=== PATIENT | male | born 1945 | race Caucasian/White ===

== ENCOUNTER 2021-09-21 13:41 | Inpatient (IN) ==
[2021-09-21 14:29] LABS: Basophils # (auto) 0.01 K/uL (0-0.2); Basophils % (auto) 0.2 %; Eosinophils # (auto) 0.13 K/uL (0-0.5); Eosinophils % (auto) 2.5 %; Hematocrit (blood only) 36.2 % (42-52); Hemoglobin 12.3 g/dL (14.0-18.0); Immature Granulocytes # (auto) 0.02 K/uL (0.00-0.02); Immature Granulocytes % (auto) 0.4 %; Lymphocytes # (auto) 1.06 K/uL (1.2-3.4); Lymphocytes % (auto) 20.5 %; Mean Corpuscular Hemoglobin 31.7 pg (25-34); Mean Corpuscular Volume 93.3 fL (80-100); Mean Platelet Volume 10.4 fL (7.4-10.4); Monocytes % (auto) 9.7 %; Neutrophils # (auto) 3.45 K/uL (1.4-6.5); Neutrophils % (auto) 66.7 %; Platelet Count 153 K/uL (130-400); RDW Coefficient of Variation 13.2 % (11.5-14.5); RDW Standard Deviation 44.6 fL (36.4-46.3); Red Blood Count 3.88 M/uL (4.7-6.1); White Blood Count 5.17 K/uL (4.8-10.8)
[2021-09-21 15:00] LABS: Troponin I High Sensitivity 43.5 pg/ml (0-20)
[2021-09-21 15:01] LABS: Albumin Globulin Ratio 1.3 (0.9-2); Albumin Level 3.6 gm/dl (3.4-5.0); BUN Creatinine Ratio 14.9 (10-20); Bilirubin,Total 0.6 mg/dl (0.2-1.0); Calcium 8.5 mg/dl (8.5-10.1); Creatinine Clr Calc Pharmacy 14.3 ml/min; Est GFR (African American) 14.1 ml/min; Est GFR (Non-African American) 12.1 ml/min; Globulin 2.8 gm/dl (2.5-4.0); Potassium 4.6 mmol/L (3.5-5.1); Total Protein 6.4 gm/dl (6.0-8.3)
[2021-09-21] MEDS ORDERED: SODIUM CHLORIDE 0.9% 500 ML IV ONE (15:08)
[2021-09-21] MEDS ORDERED: ONDANSETRON INJ 2 MG/ML 2 ML VIAL IV STA (15:08)
--- NOTE | 2021-09-21 15:20 | Emergency Department Note ---
Impression & Plan Weakness, Vomiting, Bradycardia, Acute uremia, Lab test positive for detection of COVID-19 virus ED Provider Note NAME: ROBIN PLUNKETT AGE: 76 SEX: M : 1945 ARRIVES VIA: Walk-In INFORMANT: Patient, the patient's daughter ED PROVIDER(S): Raghav Coppola DO CHIEF COMPLAINT: Weakness HPI: The patient is a 76-year-old male who has a history of chronic renal insufficiency who presented to the emergency department for an evaluation of generalized weakness. The patient has known chronic renal insufficiency but has not had dialysis yet. He denies having any lower extremity swelling but does complain of chest pain as well as difficulty breathing. He is also had a sore throat and congestion. He denies having any fever. His symptoms have been worsening especially over the last few days. He is also noticed chest pain and back pain. The pain is a symptoms he has had in the past and has been attributed to chronic pain. He does have a left upper extremity this been mapped for a fistula. He denies having any black or bloody bowels. Has been compliant with his usual outpatient medications. He also had an episode of emesis prior to arrival. ROS: See above HPI for pertinent positives & negatives. A total of 10 systems reviewed and were otherwise negative. PAST MEDICAL HISTORY: See Below PAST SURGICAL HISTORY: See Below FAMILY HISTORY: See Below SOCIAL HISTORY: See Below HOME MEDICATIONS: See Below ALLERGIES: See Below VITALS: See Below PHYSICAL EXAMINATION: GENERAL: Patient is awake alert in no acute distress patient is resting comfortably and showing no signs of anxiety EYES: The conjunctivae are clear. The pupils are round and reactive. EARS, NOSE, MOUTH AND THROAT: The nose is without any evidence of any deformity. Mucous membranes are moist. Tongue is midline. NECK: The neck is nontender and supple. RESPIRATORY: Diminished breath sounds are noted throughout. Rales are noted both lower extremities. CARDIOVASCULAR: Bradycardic rate with regular rhythm was noted. There is no definite murmur. GASTROINTESTINAL: The abdomen is soft. Abdomen is nontender. MUSCULOSKELETAL/EXTREMITIES: There is no evidence of gross deformity full range of motion is noted in the hips and shoulders. SKIN: There is no obvious evidence of any rash. There are no petechiae, pallor or cyanosis noted. NEUROLOGIC: Patient is awake alert and oriented x3 strength is symmetric patellar reflexes are 2+ bilaterally MEDICAL DECISION MAKING: The patient is a 76-year-old male who presented to the emergency department for an evaluation of generalized weakness and vomiting. The patient was having difficulty breathing. I discussed the patient's laboratory and radiographic studies with him. He was found to have an elevation in his creatinine compared to baseline. He was also found to have a positive COVID swab. I discussed his case with the on-call [facility]. They have agreed to evaluate the patient in the emergency department for further management and disposition. Triage Nursing notes reviewed. Prior medical records reviewed Vital Signs: reviewed and remarkable for bradycardia Differential diagnosis: Infection, dehydration, metabolic abnormality, hypo/hyperglycemia, electrolyte disturbance, anemia, hypoxia, cardiac sources, intracerebral event, toxicologic, neurologic, as well as other pathologies. ER treatment provided: See below Diagnostics interpreted by me: ECG: EKG was obtained in the emergency department. My interpretation is sinus bradycardia 44 bpm. There is no ectopy. There is no acute ST segment abnormalities noted. No previous tracing was available. Cardiac Monitoring: An order was placed for continuous cardiac monitoring. The monitor shows a rate of 49 bpm with sinus bradycardia. Laboratory studies: As stated above and show below. Imaging studies: See below Consultation(s): I discussed this case with Umesh who is on for the [facility]ist group. They will evaluate the patient in the emergency department. Past Med/Surg History Medical History Acute kidney injury Anemia due to chronic kidney disease CAD (coronary artery disease) Chronic midline thoracic back pain Dyslipidemia HTN (hypertension) Secondary hyperparathyroidism of renal origin Stage 4 chronic kidney disease Surgical History H/O heart surgery H/O thoracic aortic aneurysm repair History of cataract surgery bilateral History of hernia repair S/P CABG (coronary artery bypass graft) Family History Brother Brain tumor Mother Leukemia Denies family history of Ovarian cancer Prostate cancer Myocardial infarction Breast cancer Colorectal cancer Social History Smoking Status: Current every day smoker Tobacco Type: Cigars Age Started Using Tobacco: 41; Second Hand Exposure: Yes; Hx Alcohol Use: Yes Alcohol type: wine Hx Substance Use: No Preferred Language: Maltese Communication Ability: Effective Visual Impairment: Partially Limited Hearing Ability: Hard of Hearing 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 marital status: Single Current Living Situation: Alone current occupational status: retired How many Children do You have: 2 Feels Safe at Home: Yes Childhood Exposure to Second-Hand Smoke: Yes caffeine: Yes (coffee) Dental Care, Regularly: No Physical Activity Frequency: Daily Seatbelt Use: always Sunscreen Use: Yes Do you think of yourself as: straight/heterosexual Allergies Allergies Allergy/AdvReac Type Severity Reaction Status Date / Time No Known Drug Allergies Allergy Unknown Verified 09/21/21 15:52 Home Meds Home Medications Medication Instructions Recorded Confirmed aspirin 81 mg tablet,delayed 81 mg PO DAILY tab 12/15/18 09/21/21 release Previous Rx's Medication Instructions Recorded atorvastatin 20 mg tablet See Rx Instructions .ROUTE 12/21/20 .COMPLEX #45 tablet furosemide 40 mg tablet 40 mg PO DAILY #45 tab 07/02/21 valsartan 320 mg tablet 160 mg PO DAILY #45 tab 07/02/21 carvedilol 12.5 mg tablet 12.5 mg PO BID #180 tab 07/05/21 tramadol 50 mg tablet 100 mg PO Q12H PRN #120 tab 07/11/21 calcitriol 0.5 mcg capsule 0.5 mcg PO DAILY #90 cap 08/15/21 ergocalciferol (vitamin D2) 1,250 50,000 unit PO WEEKLY #12 cap 08/15/21 mcg (50,000 unit) capsule nifedipine 60 mg tablet,extended 60 mg PO BID #60 tab 08/28/21 release Results & Data (ED) Vital Signs Vital Signs - 24 hr 09/21/21 13:44 09/21/21 13:47 Temperature 36.5 C Temperature Source Oral Pulse Rate 52 L 45 L Pulse Rhythm Regular Regular Pulse Strength Normal Respiratory Rate 20 14 Respiratory Effort / Characteristics Non-Labored Spontaneous Respiratory Depth Normal Respiratory Pattern Regular Blood Pressure 132/66 Blood Pressure Mean 88 Pulse Oximetry 97 97 Oxygen Delivery Method Room Air Room Air Sepsis Recent Fever Within 48 Hours No Sepsis New/Unexplained Change in Mental Status N/A Sepsis Action Taken by Nursing No Action Required Laboratory Data Attestation: I reviewed the patient's lab results. Result diagrams: 09/21/21 14:00 09/21/21 14:00 Lab Results 09/21/21 09/21/21 09/21/21 Range/Units 14:00 14:00 15:30 WBC 5.17 (4.8-10.8) K/uL RBC 3.88 L (4.7-6.1) M/uL Hgb 12.3 L (14.0-18.0) g/dL Hct 36.2 L (42-52) % MCV 93.3 (80-100) fL MCH 31.7 (25-34) pg MCHC 34.0 (32-36) g/dL RDW Std Deviation 44.6 (36.4-46.3) fL RDW Coeff of [place] 13.2 (11.5-14.5) % Plt Count 153 (130-400) K/uL MPV 10.4 (7.4-10.4) fL Immature Gran % (Auto) 0.4 % Neut % (Auto) 66.7 % Lymph % (Auto) 20.5 % [place] % (Auto) 9.7 % Eos % (Auto) 2.5 % Baso % (Auto) 0.2 % Neut # (Auto) 3.45 (1.4-6.5) K/uL Lymph # (Auto) 1.06 L (1.2-3.4) K/uL [place] # (Auto) 0.50 (0.11-0.59) K/uL Eos # (Auto) 0.13 (0-0.5) K/uL Baso # (Auto) 0.01 (0-0.2) K/uL Immature Gran # (Auto) 0.02 (0.00-0.02) K/uL Sodium 139 (136-145) mmol/L Potassium 4.6 (3.5-5.1) mmol/L Chloride 108 H (98-107) mmol/L Carbon Dioxide 23 (21-32) mmol/L Anion Gap 8 (3-11) BUN 66 H (6-23) mg/dl Creatinine 4.43 H (0.6-1.4) mg/dl Est Cr Clr Drug Dosing 14.3 ml/min Est GFR ( Amer) 14.1 ml/min Est GFR (Non-Af Amer) 12.1 ml/min BUN/Creatinine Ratio 14.9 (10-20) Glucose 98 (70-99(Fasting)) mg/dl Calcium 8.5 (8.5-10.1) mg/dl Total Bilirubin 0.6 (0.2-1.0) mg/dl AST 13 (13-39) U/L ALT 12 (7-52) U/L Alkaline Phosphatase 103 (34-104) U/L Troponin I High Sens 43.5 H (0-20) pg/ml Total Protein 6.4 (6.0-8.3) gm/dl Albumin 3.6 (3.4-5.0) gm/dl Globulin 2.8 (2.5-4.0) gm/dl Albumin/Globulin Ratio 1.3 (0.9-2) Lipase 20 (11-82) U/L SARS-CoV-2, RNA, NAAT POSITIVE A* (NEGATIVE) 09/21/21 Range/Units 16:20 WBC (4.8-10.8) K/uL RBC (4.7-6.1) M/uL Hgb (14.0-18.0) g/dL Hct (42-52) % MCV (80-100) fL MCH (25-34) pg MCHC (32-36) g/dL RDW Std Deviation (36.4-46.3) fL RDW Coeff of [place] (11.5-14.5) % Plt Count (130-400) K/uL MPV (7.4-10.4) fL Immature Gran % (Auto) % Neut % (Auto) % Lymph % (Auto) % [place] % (Auto) % Eos % (Auto) % Baso % (Auto) % Neut # (Auto) (1.4-6.5) K/uL Lymph # (Auto) (1.2-3.4) K/uL [place] # (Auto) (0.11-0.59) K/uL Eos # (Auto) (0-0.5) K/uL Baso # (Auto) (0-0.2) K/uL Immature Gran # (Auto) (0.00-0.02) K/uL Sodium (136-145) mmol/L Potassium (3.5-5.1) mmol/L Chloride (98-107) mmol/L Carbon Dioxide (21-32) mmol/L Anion Gap (3-11) BUN (6-23) mg/dl Creatinine (0.6-1.4) mg/dl Est Cr Clr Drug Dosing ml/min Est GFR ( Amer) ml/min Est GFR (Non-Af Amer) ml/min BUN/Creatinine Ratio (10-20) Glucose (70-99(Fasting)) mg/dl Calcium (8.5-10.1) mg/dl Total Bilirubin (0.2-1.0) mg/dl AST (13-39) U/L ALT (7-52) U/L Alkaline Phosphatase (34-104) U/L Troponin I High Sens 38.7 H (0-20) pg/ml Total Protein (6.0-8.3) gm/dl Albumin (3.4-5.0) gm/dl Globulin (2.5-4.0) gm/dl Albumin/Globulin Ratio (0.9-2) Lipase (11-82) U/L SARS-CoV-2, RNA, NAAT (NEGATIVE) Administered Medications Lactated Ringer's (Lr) 1,000 mls @ 80 mls/hr IV .[id number] ONE Stop: 09/22/21 04:52 Last Admin: 09/21/21 17:03 Dose: 80 mls/hr Documented by: [id number] Discontinued Medications Sodium Chloride (Nss) 500 mls @ 999 mls/hr IV .Q31M ONE Stop: 09/21/21 15:38 Last Infusion: 09/21/21 17:09 Dose: 0 mls/hr Documented by: [id number] Admin: 09/21/21 15:38 Dose: 999 mls/hr Documented by: [id number] Ondansetron HCl (Ondansetron Inj 2 Mg/Ml 2 Ml Vial) 4 mg IV NOW STA Stop: 09/21/21 15:09 Last Admin: 09/21/21 15:38 Dose: 4 mg Documented by: [id number] Imaging Data Radiologist's Impression: Chest X-Ray 09/21/21 13:47 XR chest 1V portable CLINICAL HISTORY: Atypical chest pain. COMPARISON STUDY: No previous studies for comparison. FINDINGS: Median sternotomy wires are noted. There is moderate cardiomegaly wi thout evidence for pulmonary edema. There is no consolidation. There is no pneumothorax or pleural effusion. IMPRESSION: No acute cardiopulmonary findings. Moderate cardiomegaly. ACT 112: Negative or not required by law. Electronically signed by: Yuriy Bobo M.D. 09/21/2021 3:57 PM Discharge Plan Visit Data Chief Complaint: Vomiting Stated Complaint: VOMITING, WEAK, LOST VOICE ED Provider: Raghav Coppola Discharge Problem: Weakness, Vomiting, Bradycardia, Acute uremia, Lab test positive for detection of COVID-19 virus Patient Disposition: Being Evaluated by Hospitalist Discharge Problem: Vomiting Qualifiers: Vomiting type: unspecified Nausea presence: with nausea Qualified Code(s): R11.2 - Nausea with vomiting, unspecified
--- NOTE | 2021-09-21 15:55 | History & Physical Report ---
Date of Service September 21, 2021 Assessment & Plan (1) COVID: Plan: Patient with COVID unsure of onset of symptoms- but feels he started feeling worse on [id number] with fatigue, nausea/vomiting and hoarse voice - He is unvaccinated - Currently not a candidate for Remdisivir based off renal function - Not hypoxic- not candidate for steroids - Supportive efforts with hydration and GI symptom control - Albuterol nebs with flutter valve - CRP- 0.71 - PCT- <0.05 - Currently he appears intravascularly dry- IVF overnight, but suspect will need some diuresing efforts following- follow pulmonary status closely (2) VERONICA (acute kidney injury): Plan: VERONICA on CKD 4 - likely secondary to decrease oral intake and continuing his diuretics - BUN at baseline 60s CR 3.5-4--- currently 4.43 - He received 500ml of saline in EMD- continue with LR overnight x 1liter - Hold Lasix - Hold ARB - Will hold his BB until Cr/Cl improves - Electrolytes are within acceptable ranges - urine osmo, ucr, uun, urine protein pending (3) Stage 4 chronic kidney disease: Plan: As above - Has had mapping performed with plan to do in the summer - If he clinical worsens while in house requiring dialysis will need access - Continue supportive efforts as above - renally dose medications, avoid nephrotoxic against as able - He remains making urine (4) Vomiting: Plan: Multiple etiologies at this time to include DDX: GERD/gastric ulceration vs gastroparesis with worsening renal function vs. current COVID viral illness - Replete volume as above with ringers- for 1.5 liters of crystalloid total overnight - Famotidine 20mg IV BID - Adjust diet if needed - May have some component of aspiration pneumonitis with his cough and breath sound- however difficulty to ascertain in the setting of COVID - He should have a GI evaluation with EGD and Colonoscopy in the future following resolution of his COVID (5) Bradycardia: Plan: Patient with HR in the 50s noted previously- currently in the 40-50 range - Likely related to decreasing CR/CL with BB on board - Hold Carvedilol although this is moderate dosing of 12.5 mg BID (6) CAD (coronary artery disease): Plan: History of CABG- 1 vessel (SIFUENTES/LAD) - cath07/03/2008 at [facility]: Mid LAD 50%. Ramus 100%. Ostial circumflex 30%. Mid circumflex 30%. Proximal RCA 30%. Ostial PDA 30%. - Continue ASA - BB on hold - Continue statin- this appears on the lower dose - will check lipid panel in the morning - Recent stress echo 2019 (7) Elevated troponin: Plan: In EMD HscTNI - 43- 2 hour reflex down trend to 38.7 - type II mismatch with worsening renal function in relation to his acute illness - (8) Vitamin D deficiency: Plan: Follows with nephrology- no acute needs - continue ergocalciferol History of Present Illness Primary Care Provider: Abebe Ny MD 76 YOM with medical history of: CKD IV, A-V fistula mapping performed without creation, HTN, CAD with CABG, Thoracic Aneurysm repair, chronic nausea/vomiting. Patient comes to the EMD today for complaints of 2 day history of vomiting hoarse voice and fatigue. He had routine labs performed to include HScTNI, CXR, and ECG. 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 COVID test was positive on admission. He is without fever and with normal WBC count. Patient appears to be dealing with this nausea and vomiting for a few months and association with loss of appetite. He was previously trialed on Zofran and Pepcid as outpatient, but feels this has gotten worse over the past week. He is accompanied by his daughter who assisted with his history. She reports about a month ago he had a "viral" illness which was reported COVID/FLU negative at that time, but has not really returned back to normal. She got concerned over the past few days because he stated that his food was not tasting the same and had decrease in food and water intake, and this morning she felt he looked more pale and fatigued. The patient states he ate some cheese and salami yesterday and that was it, two days ago he went to restaurant and had chicken parm and threw up his food right after eating. He denies any abdominal pain. He does endorse that he has nausea and vomiting frequently and mostly it is just thick phlegm. He also endorses hoarse voice through this week. Patient has never had EGD or Colonoscopy. Patient will be admitted for COVID 19 with evidence of worsening renal function. Will provide IV hydration overnight, Famotidine for his n/v, hold his BB, diuretics and follow his renal function. COVID test on admission: POSITIVE- Patient reports that he is NOT vaccinated Allergies Allergy/AdvReac Type Severity Reaction Status Date / Time No Known Drug Allergies Allergy Unknown Verified 09/21/21 15:52 Home Medications Medication Instructions Recorded Confirmed Type aspirin 81 mg tablet,delayed 81 mg PO DAILY tab 12/15/18 09/21/21 History release atorvastatin 20 mg tablet See Rx Instructions .ROUTE 12/21/20 09/21/21 Rx .COMPLEX #45 tablet furosemide 40 mg tablet 40 mg PO DAILY #45 tab 07/02/21 09/21/21 Rx valsartan 320 mg tablet 160 mg PO DAILY #45 tab 07/02/21 09/21/21 Rx carvedilol 12.5 mg tablet 12.5 mg PO BID #180 tab 07/05/21 09/21/21 Rx tramadol 50 mg tablet 100 mg PO Q12H PRN #120 tab 07/11/21 09/21/21 Rx calcitriol 0.5 mcg capsule 0.5 mcg PO DAILY #90 cap 08/15/21 09/21/21 Rx ergocalciferol (vitamin D2) 1,250 50,000 unit PO WEEKLY #12 cap 08/15/21 09/21/21 Rx mcg (50,000 unit) capsule nifedipine 60 mg tablet,extended 60 mg PO BID #60 tab 08/28/21 09/21/21 Rx release Past Med/Surg History Medical History Acute kidney injury Anemia due to chronic kidney disease CAD (coronary artery disease) Chronic midline thoracic back pain Dyslipidemia HTN (hypertension) Secondary hyperparathyroidism of renal origin Stage 4 chronic kidney disease Surgical History H/O heart surgery H/O thoracic aortic aneurysm repair History of cataract surgery bilateral History of hernia repair S/P CABG (coronary artery bypass graft) Family History Brother Brain tumor Mother Leukemia Denies family history of Ovarian cancer Prostate cancer Myocardial infarction Breast cancer Colorectal cancer Social History (Reviewed 09/21/21 @ 16:31 by CHANTE Alba Smoking Status: Current some day smoker Tobacco Type: Cigars Age Started Using Tobacco: 41; Second Hand Exposure: No; Do You Dip or Chew Tobacco: No; Tobacco Cessation Education Requested by Patient: No Hx Alcohol Use: Yes Alcohol type: wine Hx Substance Use: No Preferred Language: [place] Communication Ability: Effective Communication Ability Comment: Able to communicate effectively in [place] Visual Impairment: Partially Limited Hearing Ability: Hard of Hearing 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 current occupational status: retired How many Children do You have: 2 Other Information That Helps Us Care for You: No Feels Safe at Home: Yes Safety Concerns: Feels Safe At This Time Childhood Exposure to Second-Hand Smoke: Yes caffeine: Yes (coffee) Dental Care, Regularly: No Physical Activity Frequency: Daily Seatbelt Use: always Sunscreen Use: Yes Do you think of yourself as: straight/heterosexual Assistive Devices: None Review of Systems Review of Systems: REVIEW OF SYSTEMS: Constitutional: No fever, sweats or chills Eyes: No diplopia, no worsening or blurred vision ENT: normal hearing, no trouble swallowing Respiratory: (+) cough, sputum, no dyspnea at rest or on exertion Cardiovascular: No chest pain, tightness or palpitations Abdomen: (+) nausea, vomiting, No pain, diarrhea or constipation Musculoskeletal: No joint pain, calf pain, swelling Neurologic: No weakness, numbness/tingling, or balance problems Psychiatric: No anxiety or depression Skin: No rash or itch Physical Exam Physical Exam: PHYSICAL EXAM: General: awake, alert, no apparent distress Head: Normocephalic, atraumatic ENT: PERRL, EOMI, no pharyngeal exudate, mucous membranes moist Neuro: AAO x 3, speech clear and appropriate, strength intact bilaterally 5/5, sensation intact and equal all extremities and dermatomes, no pronator drift Chest: equal rise and fall of the chest, no accessory muscle use, bronchial vesicular wheeze, raspy cough, scattered rhonchi in bases Cardiac: Regular rate and rhythm, telemetry reviewed- sinus radha, skin warm dry, cap refill <3 seconds, peripheral pulses +2 no JVD, no murmur, no edema GI: NABS x 4 quadrants, soft, nontender to palpation, no rebound, guarding or tenderness : Spontaneously voiding, no pain, no CVA tenderness, Extremities: Normal inspection, no peripheral edema or erythema, calfs nontende r to palpation Psych: Normal mood and affect Skin: no rash or erythema Results & Data Results & Data ([facility]) Vital Signs (Past 12 Hours) Vital Signs Temp Pulse Resp BP Pulse Ox 09/21/21 13:44 36.5 C 52 L 20 132/66 97 Laboratory Results Abnormal lab results 09/21/21 09/21/21 09/21/21 Range/Units 14:00 14:00 15:30 RBC 3.88 L (4.7-6.1) M/uL Hgb 12.3 L (14.0-18.0) g/dL Hct 36.2 L (42-52) % Lymph # (Auto) 1.06 L (1.2-3.4) K/uL Chloride 108 H (98-107) mmol/L BUN 66 H (6-23) mg/dl Creatinine 4.43 H (0.6-1.4) mg/dl Troponin I High Sens 43.5 H (0-20) pg/ml SARS-CoV-2, RNA, NAAT POSITIVE A* (NEGATIVE) Diagnostic Findings Chest X-Ray 09/21/21 13:47 XR chest 1V portable CLINICAL HISTORY: Atypical chest pain. COMPARISON STUDY: No previous studies for comparison. FINDINGS: Median sternotomy wires are noted. There is moderate cardiomegaly without evidence for pulmonary edema. There is no consolidation. There is no pneumothorax or pleural effusion. IMPRESSION: No acute cardiopulmonary findings. Moderate cardiomegaly. ACT 112: Negative or not required by law. Electronically signed by: Yuriy Bobo M.D. 09/21/2021 3:57 PM Medications Administered Home Medications aspirin 81 mg tablet,delayed release 81 mg PO DAILY tab 12/15/18 [History Confirmed 09/03/21] atorvastatin 20 mg tablet See Rx Instructions .ROUTE .COMPLEX #45 tablet [Rx Confirmed 09/03/21] furosemide 40 mg tablet 40 mg PO DAILY #45 tab 07/02/21 [Rx Confirmed 09/03/21] valsartan 320 mg tablet 160 mg PO DAILY #45 tab 07/02/21 [Rx Confirmed 09/03/21] carvedilol 12.5 mg tablet 12.5 mg PO BID #180 tab 07/05/21 [Rx Confirmed 09/03/21] tramadol 50 mg tablet 100 mg PO Q12H PRN #120 tab 07/11/21 [Rx Confirmed 09/03/21] calcitriol 0.5 mcg capsule 0.5 mcg PO DAILY #90 cap 08/15/21 [Rx Confirmed 09/03/21] ergocalciferol (vitamin D2) 1,250 mcg (50,000 unit) capsule 50,000 unit PO WEEKLY #12 cap 08/15/21 [Rx Confirmed 09/03/21] nifedipine 60 mg tablet,extended release 60 mg PO BID #60 tab 08/28/21 [Rx Confirmed 09/03/21] Active Medications Lactated Ringer's (Lr) 1,000 mls @ 80 mls/hr IV .[id number] ONE Stop: 09/22/21 04:52 Discontinued Medications Sodium Chloride (Nss) 500 mls @ 999 mls/hr IV .Q31M ONE Stop: 09/21/21 15:38 Last Admin: 09/21/21 15:38 Dose: 999 mls/hr Documented by: [id number] Ondansetron HCl (Ondansetron Inj 2 Mg/Ml 2 Ml Vial) 4 mg IV NOW STA Stop: 09/21/21 15:09 Last Admin: 09/21/21 15:38 Dose: 4 mg Documented by: [id number] ECG Additional Comments: Marked sinus bradycardia Abnormal ECG No previous ECGs available Code Status & VTE Plan Code Status CODE: FULL VTE: SCDs, Heparin 5000 units subq tid Supervising Physician Co-Signing Physician Notes Patient was seen and examined independently I discussed the case with Umesh DUGAN I reviewed pertinent past medical social family history and also the plan of care and agree with the plan of care Patient here with vomiting and shortness of breath and COVID-positive status. He is not yet hypoxic with lung exam sounds concerning he has lost his taste and smell. He said no diarrhea. Patient is VERONICA on a history of CKD reportedly has a fistula in place. We are holding Lasix and ARB and giving him gentle hydration to see if his creatinine does improve. If not we will have a nephrology consultation Chest x-ray does not show any groundglass opacities at this point Any exceptions will be noted below PG Care Time/CCT Total # of Minutes Spent Total Time Spent with Patient: Total time spent is greater than 50% in coordination of care (as documented) at patient's floor/unit and/or counseling patient: Coding Level of Care Code 58886 Initial Inpt Care Lvl 3 Diagnoses COVID U07.1 VERONICA (acute kidney injury) N17.9 Stage 4 chronic kidney disease N18.4 Vomiting R11.2 Nausea presence: with nausea Vomiting type: unspecified Bradycardia R00.1 CAD (coronary artery disease) I25.10 Vitamin D deficiency E55.9 Elevated troponin R77.8 (1) Vomiting Nausea presence: with nausea Vomiting type: unspecified Qualified Code(s): R11.2 - Nausea with vomiting, unspecified
--- NOTE | 2021-09-21 15:58 | XRay Report ---
XR chest 1V portable CLINICAL HISTORY: Atypical chest pain. COMPARISON STUDY: No previous studies for comparison. FINDINGS: Median sternotomy wires are noted. There is moderate cardiomegaly without evidence for pulm onary edema. There is no consolidation. There is no pneumothorax or pleural effusion. IMPRESSION: No acute cardiopulmonary findings. Moderate cardiomegaly. ACT 112: Negative or not required by law. Electronically signed by: Yuriy Bobo M.D. 09/21/2021 3:57 PM
[2021-09-21] MEDS ORDERED: LACTATED RINGER'S 1,000 ML IV ONE (16:23)
[2021-09-21] MEDS ORDERED: ONDANSETRON INJ 2 MG/ML 2 ML VIAL IV PRN (18:09)
[2021-09-21] MEDS ORDERED: traMADol HCL 50 MG TABLET PO PRN (18:09)
[2021-09-21] MEDS ORDERED: ACETAMINOPHEN 325 MG TAB PO PRN (18:09)
[2021-09-21 19:08] LABS: Appearance Urine Clear (Clear); Bacteria Urine Automated Negative (Negative); Bilirubin Urine Negative (Negative); Blood Urine Negative (Negative); Color Urine Yellow; Glucose Urine UA Negative (Negative); Ketones Urine Negative (Negative); Leukocyte Esterase Urine Negative (Negative); Nitrite Urine Negative (Negative); Protein Urine 2+ (Negative); RBC Urine Automated 0-4 /hpf (0-4); Specific Gravity Urine 1.011 (1.000-1.030); Urobilinogen Urine Negative (Negative); pH Urine 6.5 (4.5-7.5)
[2021-09-21 19:26] LABS: Protein Creatinine Ratio Urine 1.5 (0-0.2); Total Protein Urine Random 107.8 mg/dl (0-11.9)
[2021-09-21] MEDS: ALBUTEROL 0.083% NEBU SOLN 3 ML VIAL NEB SCH (19:36)
[2021-09-21] MEDS: HEPARIN SOD 5,000 UNIT/0.5 ML VIAL SQ SCH (21:03)
[2021-09-21] MEDS: ATORVASTATIN 10 MG TAB PO SCH (21:04)
[2021-09-21] MEDS: NIFEdipine EXTENDED REL 30 MG TABCR PO SCH (21:04)
[2021-09-21] MEDS: FAMOTIDINE 20 MG in SYRINGE 3 ML IV SCH (21:06)
[2021-09-22] MEDS: ALBUTEROL 0.083% NEBU SOLN 3 ML VIAL NEB SCH (00:43)
[2021-09-22] MEDS ORDERED: ALBUTEROL 0.083% NEBU SOLN 3 ML VIAL NEB PRN (01:02)
[2021-09-22] MEDS: HEPARIN SOD 5,000 UNIT/0.5 ML VIAL SQ SCH ×3 (06:06→21:30)
--- NOTE | 2021-09-22 07:22 | Hospitalist Progress Note ---
Date of Service September 22, 2021 Assessment & Plan (1) COVID: Plan: Patient with COVID unsure of onset of symptoms- but feels he started feeling worse on [id number] with fatigue, nausea/vomiting and hoarse voice - He is unvaccinated - does not qualify for Remdisivir secondary to CKD - Not hypoxic- not candidate for steroids - Supportive, Albuterol nebs with flutter valve (2) VERONICA (acute kidney injury): Plan: VERONICA on CKD 4 - likely secondary to decrease oral intake and continuing his diuretics - BUN at baseline 60s CR 3.5-4--- currently 4.43 - volume resuscitated with crystalloid - Hold Lasix, ARB - hold his BB heart remains low so continue to hold (3) Stage 4 chronic kidney disease: Plan: As above - Has had mapping performed with plan to do in the summer - If he clinical worsens while in house requiring dialysis will need access - Continue supportive efforts as above - renally dose medications, avoid nephrotoxic against as able - He remains making urine (4) Vomiting: Plan: - Famotidine 20mg IV BID - Adjust diet if needed - May have some component of aspiration pneumonitis with his cough and breath sound- however difficulty to ascertain in the setting of COVID \ (5) Bradycardia: Plan: Patient with HR in the 50s noted previously- currently in the 40-50 range - Likely related to decreasing CR/CL with BB on board - continue to Hold Carvedilol although this is moderate dosing of 12.5 mg BID (6) CAD (coronary artery disease): Plan: History of CABG- 1 vessel (SIFUENTES/LAD) - cath07/03/2008 at [facility]: Mid LAD 50%. Ramus 100%. Ostial circumflex 30%. Mid circumflex 30%. Proximal RCA 30%. Ostial PDA 30%. - Continue ASA - BB on hold - Continue statin- this appears on the lower dose - favorable lipid panel keeping low dose - Recent stress echo 2019 (7) Elevated troponin: Plan: In EMD HscTNI - 43- 2 hour reflex down trend to 38.7 - type II mismatch with worsening renal function in relation to his acute illness - (8) Vitamin D deficiency: Plan: Follows with nephrology- no acute needs - continue ergocalciferol Admission and Anticipated Discharge Date Admission Date: September 21, 2021 Subjective Patient states he feels improved. He is a coarse nonproductive cough. He feels weakened. He says he is getting some taste and smell back. He is able eat some food today. daughter updated , madhuri Review of Systems Review of Systems: Mild distress and significant fatigue no headache, no visual changes no speech or swallowing issues no chest pain, pressure or palpitations no shortness of breath, coarse nonproductive cough no abdominal pain, nausea or vomiting, diarrhea or constipation no dysuria, hematuria or frequency no focal joint pain or swelling no back pain, CVA tenderness or radicular pain no bruising, bleeding or rashes no focal signs of weakness or numbness or altered sensation no complaints of anxiety or depression.. Physical Exam Physical Exam: The patient appeared well nourished and normally developed. Vital signs as documented. Head exam is normocephalic atraumatic Neck is without JVD, thyromegaly, or carotid bruits. Lungs are clear to auscultation, no focal loss of breath sounds Cardiac exam, Rhythm is regular.. No murmurs, rubs or gallops. Abdominal exam reveals normal bowel sounds, soft non tender, no masses Extremities are nonedematous and both pedal pulses are present Neurologic exam is alert and oriented, no focal loss of strength or sensation Skin is without bruises or rashes Psychologically is without concerns for anxiety or depression.. Results & Data Results & Data ([facility]) Vital Signs (Past 12 Hours) Vital Signs Temp Pulse Pulse Resp BP Pulse Ox 09/22/21 04:01 97.3 F L 50 L 19 168/84 H 99 09/21/21 23:14 52 L 09/21/21 22:21 97.5 F L 58 L 18 153/70 H 94 09/21/21 22:00 60 09/21/21 21:20 50 L 17 175/70 H 97 09/21/21 19:36 58 L 16 96 PG Care Time/CCT Total # of Minutes Spent Total Time Spent with Patient: Total time spent is greater than 50% in coordination of care (as documented) at patient's floor/unit and/or counseling patient: Coding Level of Care Code 67616 Subseq Hosp Care Lvl 2 Diagnoses COVID U07.1 VERONICA (acute kidney injury) N17.9 Stage 4 chronic kidney disease N18.4 Vomiting R11.2 Nausea presence: with nausea Vomiting type: unspecified Bradycardia R00.1 CAD (coronary artery disease) I25.10 Elevated troponin R77.8 Vitamin D deficiency E55.9 (1) Vomiting Nausea presence: with nausea Vomiting type: unspecified Qualified Code(s): R11.2 - Nausea with vomiting, unspecified
[2021-09-22] MEDS: ASPIRIN 81 MG ECTAB PO SCH (08:30)
[2021-09-22] MEDS: FAMOTIDINE 20 MG in SYRINGE 3 ML IV SCH ×2 (08:30→21:25)
[2021-09-22] MEDS: NIFEdipine EXTENDED REL 30 MG TABCR PO SCH ×2 (08:31→21:25)
[2021-09-22 08:42] LABS: Basophils # (auto) 0.01 K/uL (0-0.2); Basophils % (auto) 0.2 %; Eosinophils # (auto) 0.15 K/uL (0-0.5); Eosinophils % (auto) 3.5 %; Hematocrit (blood only) 35.2 % (42-52); Hemoglobin 12.1 g/dL (14.0-18.0); Immature Granulocytes # (auto) 0.03 K/uL (0.00-0.02); Immature Granulocytes % (auto) 0.7 %; Lymphocytes # (auto) 1.12 K/uL (1.2-3.4); Lymphocytes % (auto) 25.9 %; Mean Corpuscular Hemoglobin 31.8 pg (25-34); Mean Corpuscular Hgb Conc 34.4 g/dL (32-36); Mean Corpuscular Volume 92.6 fL (80-100); Mean Platelet Volume 10.6 fL (7.4-10.4); Monocytes # (auto) 0.49 K/uL (0.11-0.59); Monocytes % (auto) 11.3 %; Neutrophils # (auto) 2.52 K/uL (1.4-6.5); Neutrophils % (auto) 58.4 %; Platelet Count 145 K/uL (130-400); RDW Coefficient of Variation 13.2 % (11.5-14.5); RDW Standard Deviation 44.6 fL (36.4-46.3); White Blood Count 4.32 K/uL (4.8-10.8)
[2021-09-22 09:04] LABS: BUN Creatinine Ratio 16.1 (10-20); C Reactive Protein 0.66 mg/dl (0-0.5); Calcium 8.4 mg/dl (8.5-10.1); Chol HDL Ratio 2.6 (0-5); Creatinine Clr Calc Pharmacy 15.9 ml/min; Est GFR (Non-African American) 13.8 ml/min; Potassium 4.3 mmol/L (3.5-5.1)
--- NOTE | 2021-09-22 14:54 | Electrocardiogram Report ---
Test Reason : Blood Pressure : / mmHG Vent. Rate : 044 BPM Atrial Rate : 044 BPM P-R Int : 188 ms QRS Dur : 100 ms QT Int : 490 ms P-R-T Axes : 033 019 048 degrees QTc Int : 418 ms Marked sinus bradycardia Abnormal ECG No previous ECGs available Confirmed by Raghav Estrada ([id number]) on 09/22/2021 2:54:27 PM Referred By: Confirmed By:Raghav Estrada
[2021-09-22] MEDS: ATORVASTATIN 10 MG TAB PO SCH (21:25)
[2021-09-23] MEDS: HEPARIN SOD 5,000 UNIT/0.5 ML VIAL SQ SCH ×3 (04:56→21:26)
[2021-09-23 08:26] LABS: Eosinophils # (auto) 0.13 K/uL (0-0.5); Eosinophils % (auto) 2.7 %; Hematocrit (blood only) 35.4 % (42-52); Hemoglobin 11.6 g/dL (14.0-18.0); Immature Granulocytes # (auto) 0.04 K/uL (0.00-0.02); Immature Granulocytes % (auto) 0.8 %; Lymphocytes # (auto) 1.12 K/uL (1.2-3.4); Lymphocytes % (auto) 23.5 %; Mean Corpuscular Hemoglobin 30.3 pg (25-34); Mean Corpuscular Hgb Conc 32.8 g/dL (32-36); Mean Corpuscular Volume 92.4 fL (80-100); Mean Platelet Volume 10.3 fL (7.4-10.4); Monocytes % (auto) 10.5 %; Neutrophils # (auto) 2.98 K/uL (1.4-6.5); Neutrophils % (auto) 62.5 %; Platelet Count 148 K/uL (130-400); RDW Coefficient of Variation 13.3 % (11.5-14.5); RDW Standard Deviation 44.6 fL (36.4-46.3); Red Blood Count 3.83 M/uL (4.7-6.1); White Blood Count 4.77 K/uL (4.8-10.8)
[2021-09-23 08:55] LABS: BUN Creatinine Ratio 15.3 (10-20); C Reactive Protein 0.97 mg/dl (0-0.5); Calcium 8.4 mg/dl (8.5-10.1); Creatinine Clr Calc Pharmacy 14.7 ml/min; Est GFR (African American) 14.6 ml/min; Est GFR (Non-African American) 12.6 ml/min; Potassium 4.3 mmol/L (3.5-5.1)
[2021-09-23] MEDS ORDERED: ERGOCALCIFEROL 50,000 UNITS 1250 MCG CAP PO SCH (09:00)
[2021-09-23] MEDS: ASPIRIN 81 MG ECTAB PO SCH (09:46)
[2021-09-23] MEDS: NIFEdipine EXTENDED REL 30 MG TABCR PO SCH (09:46)
[2021-09-23] MEDS: FAMOTIDINE 20 MG in SYRINGE 3 ML IV SCH ×2 (11:07→20:19)
--- NOTE | 2021-09-23 13:47 | Hospitalist Progress Note ---
Date of Service September 23, 2021 Assessment & Plan (1) COVID: Plan: Patient with COVID unsure of onset of symptoms- but feels he started feeling worse on [id number] with fatigue, nausea/vomiting and hoarse voice - He is unvaccinated - does not qualify for Remdisivir secondary to CKD - Not hypoxic- not candidate for steroids - Supportive, Albuterol nebs with flutter valve -patient reports feeling better on 09/23 (2) VERONICA (acute kidney injury): Plan: VERONICA on CKD 4 - likely secondary to decrease oral intake and continuing his diuretics - BUN at baseline 60s CR 3.5-4--- currently 4.43 - volume resuscitated with crystalloid - Hold Lasix, ARB - hold his BB heart remains low so continue to hold -continues to go up. willl consult nephro (3) Stage 4 chronic kidney disease: Plan: As above - Has had mapping performed with plan to do in the summer - If he clinical worsens while in house requiring dialysis will need access - Continue supportive efforts as above - renally dose medications, avoid nephrotoxic against as able - He remains making urine (4) Vomiting: Plan: - Famotidine 20mg IV BID - Adjust diet if needed - May have some component of aspiration pneumonitis with his cough and breath sound- however difficulty to ascertain in the setting of COVID \ (5) Bradycardia: Plan: Patient with HR in the 50s noted previously- currently in the 40-50 range - Likely related to decreasing CR/CL with BB on board - continue to Hold Carvedilol although this is moderate dosing of 12.5 mg BID -though nifedipine should not necesarrily cause bradycardia, will hold it for now. Patient had a 2 second pause on 09/23 (6) CAD (coronary artery disease): Plan: History of CABG- 1 vessel (SIFUENTES/LAD) - [facility]: Mid LAD 50%. Ramus 100%. Ostial circumflex 30%. Mid circumflex 30%. Proximal RCA 30%. Ostial PDA 30%. - Continue ASA - BB on hold - Continue statin- this appears on the lower dose - favorable lipid panel keeping low dose - Recent stress echo 2019 (7) Elevated troponin: Plan: In EMD HscTNI - 43- 2 hour reflex down trend to 38.7 - type II mismatch with worsening renal function in relation to his acute illness - (8) Vitamin D deficiency: Plan: Follows with nephrology- no acute needs - continue ergocalciferol Admission and Anticipated Discharge Date Admission Date: September 21, 2021 Subjective Mr. Zhong reports feeling better. He has no new complaints. Review of Systems Review of Systems: All systems reviewed & are unremarkable except as noted in HPI & below Physical Exam Physical Exam: The patient appeared well nourished and normally developed. Vital signs as documented. Head exam is normocephalic atraumatic Neck is without JVD, thyromegaly, or carotid bruits. Lungs are clear to auscultation, no focal loss of breath sounds Cardiac exam, Rhythm is regular.. No murmurs, rubs or gallops. Abdominal exam reveals normal bowel sounds, soft non tender, no masses Extremities are nonedematous and both pedal pulses are present Neurologic exam is alert and oriented, no focal loss of strength or sensation Skin is without bruises or rashes Psychologically is without concerns for anxiety or depression.. Results & Data Results & Data ([facility]) Vital Signs (Past 12 Hours) Vital Signs Temp Pulse Pulse Resp BP Pulse Ox 09/23/21 11:49 36.6 C 56 L 18 179/79 H 94 09/23/21 08:13 36.6 C 64 18 158/70 H 90 09/23/21 06:45 64 09/23/21 04:52 36.7 C 68 16 187/70 H 94 PG Care Time/CCT Total # of Minutes Spent Total Time Spent with Patient: Total time spent is greater than 50% in coordination of care (as documented) at patient's floor/unit and/or counseling patient: Coding Level of Care Code 86946 Subseq Hosp Care Lvl 3 Diagnoses COVID U07.1 VERONICA (acute kidney injury) N17.9 Stage 4 chronic kidney disease N18.4 Vomiting R11.2 Nausea presence: with nausea Vomiting type: unspecified Bradycardia R00.1 CAD (coronary artery disease) I25.10 Elevated troponin R77.8 Vitamin D deficiency E55.9 (1) Vomiting Nausea presence: with nausea Vomiting type: unspecified Qualified Code(s): R11.2 - Nausea with vomiting, unspecified
[2021-09-23] MEDS ORDERED: LACTATED RINGER'S 1,000 ML IV SCH (19:00)
--- NOTE | 2021-09-23 19:06 | Nephrology Consultation ---
Date of Consultation September 23, 2021 Assessment & Plan (1) VERONICA (acute kidney injury): Clinically consistent with prerenal physiology from intravascular volume depletion complicated by possible ATN. Electrolytes acceptable. Volume status relatively euvolemic at this time. PO intake acceptable. IVF held. Diuretics held. Continue to hold ARB. Medications are currently appropriately dosed for kidney dysfunction. Document strict I/O's. Non-oliguric. Repeat metabolic profile tomorrow AM. (2) COVID: Has not required additional treatment. Minimal symptoms currently. Remdesivir contraindicated due to kidney dysfunction. (3) Stage 5 chronic kidney disease: CKD V A3. Planning IHD when indicated. No emergent indication for dialysis. Followed by Dr. Kothari in [place] as outpatient. Continue calcitriol as Rx. (4) Anemia due to chronic kidney disease: Chronic, stable. No need for VETO therapy. History of Present Illness Reason for Consultation: VERONICA, CKD Requesting Physician: Lucas Damon Attending Physician: Lucas Damon History of Present Illness Mr. Jose Zhong is a 76-year-old male with CKD IV A3. 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 Mr. Zhong follows in the outpatient nephrology clinic with Dr. Kothari. Baseline creatinine has been ~3.5 mg/dL. He has initiated predialysis planning. Vein mapping completed by Dr. Jones. L antecubital AVF placement to be scheduled in the near future. Complications of CKD include mild anemia which has not required VETO therapy and CMD/MBD with sPTH. Medical history is also notable for a thoracic aortic aneurysm, BPH, and hearing loss. He presented to [facility] on 09/21 with hoarseness and shortness of breath. Evaluation notable for COVID+. Mr. Zhong is not vaccinated. Serum creatinine 3.9 mg/dL on admission. Serum creatinine 4.3 mg/dL today. He is non- oliguric. IV crystalloid provided on admission. Lasix and ARB held. Mr. Zhong feels well. At the time of my evaluation this evening, he was requesting to be discharged home. He told me that he does not understand the reason for continued hospitalization. He notes that he feels well. His appetite is good. He can rest better at home than in the hospital. The food at home is also better. He is not concerned about his kidney dysfunction. He tells me, "It goes up and down. If we are not starting dialysis now, let me monitor it at home." Allergies Allergy/AdvReac Type Severity Reaction Status Date / Time No Known Drug Allergies Allergy Unknown Verified 09/21/21 15:52 Home Medications Medication Instructions Recorded Confirmed Type aspirin 81 mg tablet,delayed 81 mg PO DAILY tab 12/15/18 09/21/21 History release atorvastatin 20 mg tablet See Rx Instructions .ROUTE 12/21/20 09/21/21 Rx .COMPLEX #45 tablet furosemide 40 mg tablet 40 mg PO DAILY #45 tab 07/02/21 09/21/21 Rx valsartan 320 mg tablet 160 mg PO DAILY #45 tab 07/02/21 09/21/21 Rx carvedilol 12.5 mg tablet 12.5 mg PO BID #180 tab 07/05/21 09/21/21 Rx tramadol 50 mg tablet 100 mg PO Q12H PRN #120 tab 07/11/21 09/21/21 Rx calcitriol 0.5 mcg capsule 0.5 mcg PO DAILY #90 cap 08/15/21 09/21/21 Rx ergocalciferol (vitamin D2) 1,250 50,000 unit PO WEEKLY #12 cap 08/15/21 09/21/21 Rx mcg (50,000 unit) capsule nifedipine 60 mg tablet,extended 60 mg PO BID #60 tab 08/28/21 09/21/21 Rx release Patient History Medical History (Updated 09/23/21 @ 19:02 by Ron Grimm DO) Acute kidney injury Anemia due to chronic kidney disease CAD (coronary artery disease) Chronic midline thoracic back pain Dyslipidemia HTN (hypertension) Secondary hyperparathyroidism of renal origin Surgical History H/O heart surgery H/O thoracic aortic aneurysm repair History of cataract surgery bilateral History of hernia repair S/P CABG (coronary artery bypass graft) Family History Brother Brain tumor Mother Leukemia Denies family history of Ovarian cancer Prostate cancer Myocardial infarction Breast cancer Colorectal cancer Social History Smoking Status: Current some day smoker Tobacco Type: Cigars Age Started Using Tobacco: 41; Second Hand Exposure: No; Do You Dip or Chew Tobacco: No; Tobacco Cessation Education Requested by Patient: No Hx Alcohol Use: Yes Alcohol type: wine Hx Substance Use: No Preferred Language: Niuean Communication Ability: Effective Communication Ability Comment: Able to communicate effectively in Niuean Visual Impairment: Partially Limited Hearing Ability: Hard of Hearing Logistics Clerk Required: No Beliefs That Will Affect Care: None marital status: Single Current Living Situation: Alone Current Living Situation Comment: Lives alone, but within a close vacinity to daughter. current occupational status: retired How many Children do You have: 2 Other Information That Helps Us Care for You: No Feels Safe at Home: Yes Safety Concerns: Feels Safe At This Time Childhood Exposure to Second-Hand Smoke: Yes caffeine: Yes (coffee) Dental Care, Regularly: No Physical Activity Frequency: Daily Seatbelt Use: always Sunscreen Use: Yes Do you think of yourself as: straight/heterosexual Assistive Devices: None Review of Systems Review of Systems: All systems reviewed & are unremarkable except as noted in HPI & below Ear, Nose, Mouth, Throat: + sore throat and + hoarseness Respiratory: + cough and + chest congestion; no dyspnea, no dyspnea on exertion, no pain with cough and no sputum production Physical Exam Constitutional: well developed; no acute distress Eyes: no scleral abnormality and no corneal abnormality ENMT: Mouth: no oral mucosal abnormality and oral mucous membranes not dry Neck: normal visual inspection and trachea midline Respiratory: normal respiratory effort Auscultation: lungs clear to auscultation bilaterally Cardiovascular: Rate/Rhythm: regular rate Heart Sounds: normal S1 and normal S2 Extremities: no edema Musculoskeletal: Extremities: no cyanosis and no clubbing Skin: normal turgor; no lesions Neurologic: Motor/Sensory: no tremor and no asterixis Psychiatric: Orientation: alert and oriented x 3 Results & Data ([facility]) Vital Signs (Past 12 Hours) Vital Signs Temp Pulse Pulse Resp BP Pulse Ox 09/23/21 15:41 36.5 C 54 L 19 185/75 H 94 09/23/21 14:20 52 L 09/23/21 11:49 36.6 C 56 L 18 179/79 H 94 09/23/21 08:13 36.6 C 64 18 158/70 H 90 Laboratory Results Laboratory Results - last 24 hr 09/23/21 09/23/21 07:54 07:54 WBC 4.77 L RBC 3.83 L Hgb 11.6 L Hct 35.4 L MCV 92.4 MCH 30.3 MCHC 32.8 RDW Std Deviation 44.6 RDW Coeff of [place] 13.3 Plt Count 148 MPV 10.3 Immature Gran % (Auto) 0.8 Neut % (Auto) 62.5 Lymph % (Auto) 23.5 Centre % (Auto) 10.5 Eos % (Auto) 2.7 Baso % (Auto) 0.0 Neut # (Auto) 2.98 Lymph # (Auto) 1.12 L Centre # (Auto) 0.50 Eos # (Auto) 0.13 Baso # (Auto) 0.00 Immature Gran # (Auto) 0.04 H Sodium 140 Potassium 4.3 Chloride 110 H Carbon Dioxide 22 Anion Gap 8 BUN 66 H Creatinine 4.30 H D Est Cr Clr Drug Dosing 14.7 Est GFR ( Amer) 14.6 Est GFR (Non-Af Amer) 12.6 BUN/Creatinine Ratio 15.3 Glucose 83 Calcium 8.4 L Magnesium 2.0 C-Reactive Protein 0.97 H PG Care Time/CCT Total # of Minutes Spent Total Time Spent with Patient: Total time spent is greater than 50% in coordination of care (as documented) at patient's floor/unit and/or counseling patient: Coding Level of Care Code 57522 Inpt Consult Level 4 Diagnoses VERONICA (acute kidney injury) N17.9 COVID U07.1 Stage 5 chronic kidney disease N18.5 Anemia due to chronic kidney disease N18.9; D63.1
[2021-09-23] MEDS: ATORVASTATIN 10 MG TAB PO SCH (20:11)
[2021-09-24] MEDS: hydrALAZINE HCL 20 MG/ML VIAL IV PRN ×2 (01:10→12:48)
[2021-09-24] MEDS: HEPARIN SOD 5,000 UNIT/0.5 ML VIAL SQ SCH ×2 (05:02→14:48)
[2021-09-24] MEDS: ASPIRIN 81 MG ECTAB PO SCH (08:50)
[2021-09-24] MEDS: FAMOTIDINE 20 MG in SYRINGE 3 ML IV SCH (08:51)
--- NOTE | 2021-09-24 09:51 | Nephrology Progress Note ---
Date of Service September 24, 2021 Assessment & Plan (1) VERONICA (acute kidney injury): Plan: Clinically consistent with prerenal physiology from intravascular volume depletion complicated by possible ATN. Electrolytes acceptable. Volume status appears euvolemic at this time. PO intake acceptable. IVF held. Diuretics held. Continue to hold ARB. Medications are currently appropriately dosed for kidney dysfunction. Non-oliguric. Repeat metabolic profile pending this AM. If creatinine stable/improved, discharge home with close outpatient follow up and monitoring or blood work would be acceptable. (2) COVID: Plan: Has not required additional treatment. Minimal symptoms currently. Remdesivir contraindicated due to kidney dysfunction. (3) Stage 5 chronic kidney disease: Plan: CKD V A3. Planning IHD when indicated. No emergent indication for dialysis. Followed by Dr. Kothari in [place] as outpatient. Continue calcitriol as Rx. (4) Anemia due to chronic kidney disease: Plan: Chronic, stable. No need for VETO therapy. Admission and Anticipated Discharge Date Admission Date: September 21, 2021 Subjective No acute events overnight. Only complaint this AM is that he is still in the hospital. Appetite is good. No dyspnea. Mild persistent hoarseness. Persistent non productive cough. No fevers or chills. No urinary complaints. AM labs pending. Review of Systems Review of Systems: All systems reviewed & are unremarkable except as noted in HPI & below Physical Exam Constitutional: well developed; no acute distress Eyes: no scleral abnormality and no corneal abnormality ENMT: Mouth: no oral mucosal abnormality and oral mucous membranes not dry Neck: normal visual inspection and trachea midline Respiratory: normal respiratory effort Auscultation: lungs clear to auscultation bilaterally Cardiovascular: Rate/Rhythm: regular rate Heart Sounds: normal S1 and normal S2 Extremities: no edema Musculoskeletal: Extremities: no cyanosis and no clubbing Skin: normal turgor; no lesions Neurologic: Motor/Sensory: no tremor and no asterixis Psychiatric: Orientation: alert and oriented x 3 Results & Data ([facility]) Vital Signs (Past 12 Hours) Vital Signs Temp Pulse Pulse Resp BP Pulse Ox 09/24/21 08:04 36.6 C 90 18 148/95 H 96 09/24/21 06:45 47 L 09/24/21 03:37 36.6 C 55 L 16 182/68 H 96 09/24/21 01:09 36.5 C 51 L 16 198/75 H 96 09/23/21 23:13 117 H 09/23/21 22:57 51 L PG Care Time/CCT Total # of Minutes Spent Total Time Spent with Patient: Total time spent is greater than 50% in coordination of care (as documented) at patient's floor/unit and/or counseling patient: Coding Level of Care Code 59505 Subseq Hosp Care Lvl 3 Diagnoses VERONICA (acute kidney injury) N17.9 COVID U07.1 Stage 5 chronic kidney disease N18.5 Anemia due to chronic kidney disease N18.9; D63.1
[2021-09-24 10:11] LABS: Hemoglobin 11.7 g/dL (14.0-18.0); Mean Corpuscular Hemoglobin 31.5 pg (25-34); Mean Corpuscular Hgb Conc 34.4 g/dL (32-36); Mean Corpuscular Volume 91.6 fL (80-100); Mean Platelet Volume 10.3 fL (7.4-10.4); Platelet Count 148 K/uL (130-400); RDW Standard Deviation 43.8 fL (36.4-46.3); Red Blood Count 3.71 M/uL (4.7-6.1); White Blood Count 4.64 K/uL (4.8-10.8)
[2021-09-24 10:31] LABS: Basophils # (auto) 0.01 K/uL (0-0.2); Basophils % (auto) 0.2 %; Eosinophils # (auto) 0.08 K/uL (0-0.5); Eosinophils % (auto) 1.7 %; Immature Granulocytes # (auto) 0.06 K/uL (0.00-0.02); Immature Granulocytes % (auto) 1.3 %; Lymphocytes # (auto) 0.86 K/uL (1.2-3.4); Lymphocytes % (auto) 18.5 %; Monocytes # (auto) 0.55 K/uL (0.11-0.59); Monocytes % (auto) 11.9 %; Neutrophils # (auto) 3.08 K/uL (1.4-6.5); Neutrophils % (auto) 66.4 %
[2021-09-24 10:41] LABS: BUN Creatinine Ratio 15.1 (10-20); C Reactive Protein 1.12 mg/dl (0-0.5); Calcium 8.5 mg/dl (8.5-10.1); Creatinine Clr Calc Pharmacy 15.6 ml/min; Est GFR (African American) 15.7 ml/min; Est GFR (Non-African American) 13.5 ml/min; Potassium 4.2 mmol/L (3.5-5.1)
[2021-09-24] MEDS ORDERED: DOXAZOSIN MESYLATE 1 MG TAB PO ONE (13:12)
[2021-09-25 08:31] LABS: Urea Nitrogen, Random Urine 504 mg/dL
--- NOTE | 2021-10-17 16:13 | Discharge Summary ---
Date of Service September 24, 2021 Admission HPI Per Admitting Provider 76 YOM with medical history of: CKD IV, A-V fistula mapping performed without creation, HTN, CAD with CABG, Thoracic Aneurysm repair, chronic nausea/vomiting. Patient comes to the EMD today for complaints of 2 day history of vomiting hoarse voice and fatigue. He had routine labs performed to include HScTNI, CXR, and ECG. 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 COVID test was positive on admission. He is without fever and with normal WBC count. Patient appears to be dealing with this nausea and vomiting for a few months and ass ociation with loss of appetite. He was previously trialed on Zofran and Pepcid as outpatient, but feels this has gotten worse over the past week. He is accompanied by his daughter who assisted with his history. She reports about a month ago he had a "viral" illness which was reported COVID/FLU negative at that time, but has not really returned back to normal. She got concerned over the past few days because he stated that his food was not tasting the same and had decrease in food and water intake, and this morning she felt he looked more pale and fatigued. The patient states he ate some cheese and salami yesterday and that was it, two days ago he went to restaurant and had chicken parm and threw up his food right after eating. He denies any abdominal pain. He does endorse that he has nausea and vomiting frequently and mostly it is just thick phlegm. He also endorses hoarse voice through this week. Patient has never had EGD or Colonoscopy. Patient will be admitted for COVID 19 with evidence of worsening renal function. Will provide IV hydration overnight, Famotidine for his n/v, hold his BB, diuretics and follow his renal function. COVID test on admission: POSITIVE- Patient reports that he is NOT vaccinated Principal Diagnosis COVID Discharge Exam The patient appeared well nourished and normally developed. Vital signs as documented. Head exam is normocephalic atraumatic Neck is without JVD, thyromegaly, or carotid bruits. Lungs are clear to auscultation, no focal loss of breath sounds Cardiac exam, Rhythm is regular.. No murmurs, rubs or gallops. Abdominal exam reveals normal bowel sounds, soft non tender, no masses Extremities are nonedematous and both pedal pulses are present Neurologic exam is alert and oriented, no focal loss of strength or sensation Skin is without bruises or rashes Psychologically is without concerns for anxiety or depression.. Discharge Data Allergies Allergy/AdvReac Type Severity Reaction Status Date / Time No Known Drug Allergies Allergy Unknown Verified 10/08/21 14:34 Consultations 09/21/21 15:35 ED Decision to Admit Stat 09/23/21 16:55 Consult Nephrology Routine Hospital Course (1) COVID: Patient with COVID unsure of onset of symptoms- but feels he started feeling worse on [id number] with fatigue, nausea/vomiting and hoarse voice - He is unvaccinated - does not qualify for Remdisivir secondary to CKD - Not hypoxic- not candidate for steroids - Supportive, Albuterol nebs with flutter valve -patient reports feeling better on 09/23 -OK FOR DISCHARGE ON 09/24. (2) VERONICA (acute kidney injury): VERONICA on CKD 4 - likely secondary to decrease oral intake and continuing his diuretics - BUN at baseline 60s CR 3.5-4--- currently 4.43 - volume resuscitated with crystalloid - Hold Lasix, ARB - hold his BB heart remains low so continue to hold -continues to go up. -Appreciate input from Nephro: clinically consistent with prerenal physiology from intravascular volume depletion complicated by possible ATN. Electrolytes acceptable. Volume status relatively euvolemic at this time. PO intake acceptable. IVF held. Diuretics held. Continue to hold ARB. Medications are currently appropriately dosed for kidney dysfunction. Document strict I/O's. Non-oliguric. Repeat metabolic profile tomorrow AM. (3) Stage 4 chronic kidney disease: As above - Has had mapping performed with plan to do in the summer - If he clinical worsens while in house requiring dialysis will need access - Continue supportive efforts as above - renally dose medications, avoid nephrotoxic against as able - He remains making urine (4) Vomiting: - Famotidine 20mg IV BID - Adjust diet if needed - May have some component of aspiration pneumonitis with his cough and breath sound- however difficulty to ascertain in the setting of COVID (5) Bradycardia: Patient with HR in the 50s noted previously- currently in the 40-50 range - Likely related to decreasing CR/CL with BB on board - continue to Hold Carvedilol although this is moderate dosing of 12.5 mg BID -though nifedipine should not necesarrily cause bradycardia, will hold it for now. Patient had a 2 second pause on 09/23 (6) CAD (coronary artery disease): History of CABG- 1 vessel (SIFUENTES/LAD) [facility] Mid LAD 50%. Ramus 100%. Ostial circumflex 30%. Mid circumflex 30%. Proximal RCA 30%. Ostial PDA 30%. - Continue ASA - BB on hold - Continue statin- this appears on the lower dose - favorable lipid panel keeping low dose - Recent stress echo 2019 (7) Elevated troponin: In EMD HscTNI - 43- 2 hour reflex down trend to 38.7 - type II mismatch with worsening renal function in relation to his acute illness - (8) Vitamin D deficiency: Follows with nephrology- no acute needs - continue ergocalciferol Total Time Total Time Spent Total Time Spent (In Minutes): 35 Discharge Plan Discharge Items Patient Disposition: Home - Self-Care Reason For Visit: COVID19,VOMITING,ELEVATED RENAL FUNCTION Discharge Diagnosis: COVID 19, vomiting, elevated renal function Activity: Resume your previous activity Non-emergency contact: Primary Care Provider Call non-emergency contact if: you have any medication questions Follow-up/Referrals: Abebe Ny MD [Primary Care Provider] - 09/26/21 12:30 pm Diet: Carb Consistent or DM2 Addtl Attending Provider Instructions: You were diagnosed with COVID 19. Thankfully you did not require any medications for COVID 19. Your creatinine did increase and it appears this was from dehydration. Thankfully, your numbers have been improving on day of discharge. Nephrology was consulted and recommended to hold lasix, valsartan. Will have you continue on doxazosin (new medication) and Nifedipine. In regards to your heart rate was low, will hold the carvedilol. You will have blood work done on Thursday. Will recommend followup with PCP in 1-2 weeks. Recommend followup with Nephrology within the next month. Pending Studies at Discharge: No Stand-Alone Forms: My [employer], Smoking Cessation Medications and DC Order Prescriptions: New doxazosin 1 mg tablet 1 mg PO HS Qty: 30 RF: 0 Continued atorvastatin 20 mg tablet See Rx Instructions .ROUTE .COMPLEX Qty: 45 RF: 3 nifedipine 60 mg tablet extended release 60 mg PO BID Qty: 60 RF: 5 aspirin 81 mg tablet,delayed release (DR/EC) 81 mg PO DAILY RF: 0 ergocalciferol (vitamin D2) 1,250 mcg (50,000 unit) capsule 50,000 unit PO WEEKLY Qty: 12 RF: 0 calcitriol 0.5 mcg capsule 0.5 mcg PO DAILY Qty: 90 RF: 2 Discontinued furosemide 40 mg tablet 40 mg PO DAILY Qty: 45 RF: 6 valsartan 320 mg tablet 160 mg PO DAILY Qty: 45 RF: 3 carvedilol 12.5 mg tablet 12.5 mg PO BID Qty: 180 RF: 3 No Action tramadol 50 mg tablet 100 mg PO Q12H PRN (Reason: pain) Qty: 120 RF: 0 carvedilol 12.5 mg tablet 12.5 mg PO BID Qty: 60 RF: 5 valsartan 320 mg tablet 160 mg PO DAILY Qty: 45 RF: 2 Discharge Orders: Discharge Order (Routine); Ordered 09/24/21 Ordered By: Lucas Damon Admission Data Admit Date/Time: 09/21/21 16:23 Attending Provider: Lucas Damon Admit Provider: Kaden Benitez Primary Care Provider: Abebe Ny Other Providers: Ron Grimm Other Interventions: Discharge Summary Assessment (RN) Last Done: 09/24/21 15:06 Coding Level of Care Code D/C DAY MANAGEMENT >30 MINS Diagnoses COVID U07.1 VERONICA (acute kidney injury) N17.9 Stage 4 chronic kidney disease N18.4 Vomiting R11.2 Nausea presence: with nausea Vomiting type: unspecified Bradycardia R00.1 CAD (coronary artery disease) I25.10 Elevated troponin R77.8 Vitamin D deficiency E55.9
== END 2021-09-24 16:00 | disposition home or self-care (01) | DRG 177 ==
LOC: ED 13:41 → SUATTDRO 16:23 → EDINP 16:23 → 2S 19:00

== ENCOUNTER 2022-02-12 15:23 | Inpatient (IN) ==
[2022-02-12] MEDS ORDERED: CALCIUM GLUCONATE 10% 1,000 MG in DEXTROSE 5% 50 ML IV STA (16:14)
[2022-02-12] MEDS ORDERED: STAT IV STA (16:14)
--- NOTE | 2022-02-12 16:14 | Emergency Department Note ---
History of Present Illness General Chief complaint: Illness Stated complaint: WEAKNESS,VOMITING, STAGE 5 KIDNEY FAILURE Time Seen by Provider: 02/12/22 15:57 History of Present Illness Provider complaint: Lethargy Onset (ago): week(s) 2 Associated symptoms: + confusion, + malaise, + nausea/vomiting and + weakness; no chest pain, no cough, no fever/chills, no headaches or no shortness of breath 76-year-old male with CKD stage V presents emergency department with daughter. Daughter states that the patient was recently diagnosed with multiple myeloma probably based off of recent PET scan. Daughter is providing history and states that the patient has been having increased lethargy. She reports that the patient has lost 20 pounds over the last 12 days. She reports that he started vomiting. No hematemesis coffee-ground emesis or bilious vomiting. No chest pain or difficulty breathing that is new. Patient has chronic pain. She reports that the patient has been having hallucinations. Increased confusion. No headache. No fever. Home Medications Medication Instructions Recorded Confirmed Type aspirin 81 mg tablet,delayed 81 mg PO HS 12/15/18 02/12/22 History release nifedipine 60 mg tablet,extended 60 mg PO BID #60 tabs 08/28/21 02/12/22 Rx release carvedilol 12.5 mg tablet 12.5 mg PO BID #60 tabs 10/08/21 02/12/22 Rx furosemide 40 mg tablet (Lasix) 40 mg PO DAILY 11/15/21 02/12/22 History zolpidem 5 mg tablet (Ambien) 5 mg PO HS PRN sleep #14 tabs 12/17/21 02/12/22 Rx atorvastatin 20 mg tablet (Lipitor) 10 mg PO HS 01/10/22 02/12/22 History doxazosin 2 mg tablet (Cardura) 2 mg PO DAILY 01/10/22 02/12/22 History valsartan 320 mg tablet (Diovan) 160 mg PO DAILY 01/10/22 02/12/22 History tramadol 50 mg tablet 50 - 100 mg PO Q12H PRN Pain 02/12/22 02/12/22 History Allergies Allergy/AdvReac Type Severity Reaction Status Date / Time No Known Allergies Allergy Verified 02/12/22 16:59 Past Med/Surg History Medical History Anemia due to chronic kidney disease Hgb 10-12 range per chart review, fecal occult blood test x3 negative per 12/25/21 PCP note CAD (coronary artery disease) s/p CABG x1 (with ascending thoracic aorta repair) - 2008 Chronic midline thoracic back pain Dyslipidemia GERD (gastroesophageal reflux disease) History of COVID-19 09/2021, hospitalized at [facility] (vomiting, dehydration, cough, sinus congestion) > resolved HTN (hypertension) Secondary hyperparathyroidism of renal origin Stage 5 chronic kidney disease not on chronic dialysis Thoracic aortic aneurysm s/p repair (2008) Surgical History H/O thoracic aortic aneurysm repair CABG x1 + ascending thoracic aorta repair (2008) History of cataract surgery R/L History of hernia repair S/P CABG (coronary artery bypass graft) CABG x1 + ascending thoracic aorta repair (2008) Family History Brother Brain tumor Cancer, Onset Age: 70 colon cancer Sai Mother Leukemia Denies family history of Ovarian cancer Prostate cancer Myocardial infarction Breast cancer Colorectal cancer Social History Smoking Status: Current some day smoker Tobacco Type: Cigars Age Started Using Tobacco: 41; Cigarettes Per Day: 3-4 cigars/day; Second Hand Exposure: No; Hx Alcohol Use: Yes Alcohol type: wine Hx Substance Use: No Preferred Language: [place] Citizen Communication Ability: Effective Visual Impairment: Partially Limited Hearing Ability: Hard of Hearing Spindraw Operator Required: No Beliefs That Will Affect Care: None marital status: Single Current Living Situation: Alone Current Living Situation Comment: Lives alone, but within a close vacinity to daughter. current occupational status: retired How many Children do You have: 2 Feels Safe at Home: Yes Childhood Exposure to Second-Hand Smoke: Yes caffeine: Yes (coffee) Dental Care, Regularly: No Physical Activity Frequency: Daily Seatbelt Use: always Sunscreen Use: Yes Do you think of yourself as: straight/heterosexual Assistive Devices: Glasses Review of Systems A total of 10 systems reviewed and were otherwise negative Physical Exam Vital Signs Vital Signs - 24 hr 02/12/22 15:31 02/12/22 17:55 02/12/22 17:56 Temperature 36.5 C Temperature Source Temporal Artery Scan Pulse Rate 60 59 L Pulse Rate from SpO2 Sensor Respiratory Rate 16 15 Respiratory Effort / Characteristics Non-Labored Respiratory Depth Normal Blood Pressure 126/71 188/64 H Blood Pressure Mean 89 105 Pulse Oximetry 95 Oxygen Delivery Method Room Air Sepsis Recent Fever Within 48 Hours No Sepsis New/Unexplained Change in Mental Status No Sepsis Action Taken by Nursing No Action Required 02/12/22 18:02 Temperature Temperature Source Pulse Rate 51 L Pulse Rate from SpO2 Sensor 52 L Respiratory Rate 15 Respiratory Effort / Characteristics Respiratory Depth Blood Pressure Blood Pressure Mean Pulse Oximetry 97 Oxygen Delivery Method Sepsis Recent Fever Within 48 Hours Sepsis New/Unexplained Change in Mental Status Sepsis Action Taken by Nursing Physical Exam HENT: Exam performed. - Head: Normocephalic and atraumatic. - Right Ear: External ear normal. No mastoid tenderness. - Left Ear: External ear normal. No mastoid tenderness. - Mouth/Throat: The oropharynx is clear and moist. No trismus in the jaw. No dental abscesses or uvula swelling. No oropharyngeal exudate or tonsillar abscesses. EYES: Conjunctivae and EOM are normal. Pupils are equal, round, and reactive to light. Right eye exhibits no discharge. Left eye exhibits no discharge. No scleral icterus. NECK: Normal range of motion. Neck supple. No JVD present. No spinous process tenderness present. No carotid bruit present. No rigidity. No tracheal deviation and normal range of motion present. No Brudzinski's sign and no Kernig's sign noted. CV: Normal rate, regular rhythm, normal heart sounds and intact distal pulses. There is no peripheral edema. Palpable radial pulses bue. PULM/CHEST: Effort normal and breath sounds normal. No respiratory distress. No stridor. He has no wheezes. He has no rales. - Chest Wall: He exhibits no tenderness. ABD: The abdomen is soft. Bowel sounds are normal. He has no distension. No mass is present. There is no tenderness. There is no rebound, no guarding, no Centeno's sign and no tenderness at McBurney's point. Rovsig negative. MUSC/SKEL: Normal range of motion. There is no peripheral edema, tenderness or deformity. AV fistula in the left upper extremity with palpable thrill. LYMPH: No cervical adenopathy. NEURO: He has normal strength. No cranial nerve deficit or sensory deficit. Mild ataxia GCS eye subscore is 4. GCS verbal subscore is 5. GCS motor subscore is 6. Cerebellar tests wnl. Course Course 1557: The patient was evaluated in room B3. A complete history and physical exam was performed Cardiac monitoring: An order was placed for continuous cardiac monitoring. The monitor shows a rate of 50 with sinus rhythm 1629: Lusterer Kristina was able to access the PET scan that was done at [facility]. It shows diffuse osteolytic disease consistent with a history of multiple myeloma. EKG shows peaked T waves in leads V4, V5, V6 and QRS is at 124. Given the patient's history of CKD and these EKG findings calcium gluconate 1 g IV ordered. 1750: Vital signs stable. Labs show hemoglobin 10.8 stable. Potassium 4.4. Creatinine up to 5.23 up from 4.04 approximately 12 days ago. BUN up to 98 up from 6812 days ago. Chest x-ray shows some vascular congestion however the patient is not in any respiratory distress. Formal radiology read states there may be infiltrates at the bases, not thought to be infection more thought to be atelectasis when I viewed it, clinically the patient does not have pneumonia as he has a normal white blood cell count normal lactic acid no fevers and does not report any productive cough. High-sensitivity troponin elevated at 38.3 however the patient does have CKD patient not having any active chest pain. Spoke with the patient's fiber heel piece shaper Dr. Villatoro both she and I agree that the patient should be admitted for further evaluation. Urinalysis is pending and if it appears infected will treat with antibiotics. Family is asking that their oncologist Dr. Mcneil also be placed on consult when they are being admitted to the hospital. [facility]. 1828: Discussed the case with Dr. Tripp [facility] hospitalist urinalysis is not concerning for infection. Administered Medications Discontinued Medications Calcium Gluconate () 1,000 mg in 60 mls @ 240 mls/hr IV ONE STA Stop: 02/12/22 16:34 Last Admin: 02/12/22 17:04 Dose: 240 mls/hr Documented By: AMBROSIO Miscellaneous (Stat Iv) 1 each N/A NOW STA Stop: 02/12/22 16:15 Last Admin: 02/12/22 17:07 Dose: 1 each Documented By: AMBROSIO Medical Decision Making Laboratory Data Result diagrams: 02/12/22 16:24 02/12/22 16:24 Lab Results 02/12/22 02/12/22 02/12/22 Range/Units 16:24 16:24 16:24 WBC 9.65 (4.8-10.8) K/ul RBC 3.41 L (4.63-6.08) M/uL Hgb 10.8 L (14.0-18.0) g/dl Hct 32.4 L (40.1-51.0) % MCV 95.0 (80.0-100.0) fL MCH 31.7 (25.0-34.0) pg MCHC 33.3 (32.0-36.0) g/dL RDW Std Deviation 46.5 H (36.4-46.3) fL RDW Coeff of [place] 13.2 (11.5-14.5) % Plt Count 194 (130-400) K/uL MPV 10.0 (9.4-12.4) fL Immature Gran % (Auto) 0.7 % Neut % (Auto) 81.1 % Lymph % (Auto) 9.2 % Garland % (Auto) 7.5 % Eos % (Auto) 1.2 % Baso % (Auto) 0.3 % Neut # (Auto) 7.82 H (1.4-6.5) K/uL Lymph # (Auto) 0.89 L (1.2-3.4) K/uL Garland # (Auto) 0.72 (0.24-0.82) K/uL Eos # (Auto) 0.12 (0-0.50) K/uL Baso # (Auto) 0.03 (0-0.2) K/uL Immature Gran # (Auto) 0.07 H (0.00-0.02) K/uL PT 11.8 (9.0-12.0) Seconds INR 1.1 (0.9-1.1) APTT 27.1 (21.0-31.0) Seconds PTT Ratio 1.0 Sodium 139 (136-145) mmol/L Potassium 4.4 (3.5-5.1) mmol/L Chloride 105 (98-107) mmol/L Carbon Dioxide 22 (21-32) mmol/L Anion Gap 12 H (3-11) BUN 98 H (6-23) mg/dl Creatinine 5.23 H* (0.6-1.4) mg/dl Est Cr Clr Drug Dosing 11.0 ml/min Est GFR ( Amer) 11.5 ml/min Est GFR (Non-Af Amer) 9.9 ml/min BUN/Creatinine Ratio 18.7 (10-20) Glucose 80 (70-99(Fasting)) mg/dl Lactate (0.4-2.0) mmol/L Calcium 8.8 (8.5-10.1) mg/dl Magnesium 2.3 (1.7-2.4) mg/dl Total Bilirubin 0.7 (0.2-1.0) mg/dl Direct Bilirubin 0.2 (0-0.2) mg/dl AST 7 L (13-39) U/L ALT 4 L (7-52) U/L Alkaline Phosphatase 108 H (34-104) U/L Ammonia (18-72) umol/L Troponin I High Sens 38.3 H (0-20) pg/ml Total Protein 6.0 (6.0-8.3) gm/dl Albumin 3.6 (3.4-5.0) gm/dl Lipase 9 L (11-82) U/L Urine Color Urine Appearance (Clear) Urine pH (4.5-7.5) Ur Specific [place] (1.000-1.030) Urine Protein (Negative) Urine Glucose (UA) (Negative) Urine Ketones (Negative) Urine Blood (Negative) Urine Nitrite (Negative) Urine Bilirubin (Negative) Urine Urobilinogen (Negative) Ur Leukocyte Esterase (Negative) Urine WBC (Auto) (0-5) /hpf Urine RBC (Auto) (0-4) /hpf U Hyaline Cast (Auto) (0-5) /lpf U Epithel Cells (Auto) (0-5) /lpf Urine Bacteria (Auto) (Negative) 02/12/22 02/12/22 02/12/22 Range/Units 16:24 17:10 18:00 WBC (4.8-10.8) K/ul RBC (4.63-6.08) M/uL Hgb (14.0-18.0) g/dl Hct (40.1-51.0) % MCV (80.0-100.0) fL MCH (25.0-34.0) pg MCHC (32.0-36.0) g/dL RDW Std Deviation (36.4-46.3) fL RDW Coeff of [place] (11.5-14.5) % Plt Count (130-400) K/uL MPV (9.4-12.4) fL Immature Gran % (Auto) % Neut % (Auto) % Lymph % (Auto) % Garland % (Auto) % Eos % (Auto) % Baso % (Auto) % Neut # (Auto) (1.4-6.5) K/uL Lymph # (Auto) (1.2-3.4) K/uL Garland # (Auto) (0.24-0.82) K/uL Eos # (Auto) (0-0.50) K/uL Baso # (Auto) (0-0.2) K/uL Immature Gran # (Auto) (0.00-0.02) K/uL PT (9.0-12.0) Seconds INR (0.9-1.1) APTT (21.0-31.0) Seconds PTT Ratio Sodium (136-145) mmol/L Potassium (3.5-5.1) mmol/L Chloride (98-107) mmol/L Carbon Dioxide (21-32) mmol/L Anion Gap (3-11) BUN (6-23) mg/dl Creatinine (0.6-1.4) mg/dl Est Cr Clr Drug Dosing ml/min Est GFR ( Amer) ml/min Est GFR (Non-Af Amer) ml/min BUN/Creatinine Ratio (10-20) Glucose (70-99(Fasting)) mg/dl Lactate 0.9 (0.4-2.0) mmol/L Calcium (8.5-10.1) mg/dl Magnesium (1.7-2.4) mg/dl Total Bilirubin (0.2-1.0) mg/dl Direct Bilirubin (0-0.2) mg/dl AST (13-39) U/L ALT (7-52) U/L Alkaline Phosphatase (34-104) U/L Ammonia 28.0 (18-72) umol/L Troponin I High Sens (0-20) pg/ml Total Protein (6.0-8.3) gm/dl Albumin (3.4-5.0) gm/dl Lipase (11-82) U/L Urine Color Yellow Urine Appearance Clear (Clear) Urine pH 5.0 (4.5-7.5) Ur Specific [place] 1.010 (1.000-1.030) Urine Protein 1+ H (Negative) Urine Glucose (UA) Negative (Negative) Urine Ketones Negative (Negative) Urine Blood Negative (Negative) Urine Nitrite Negative (Negative) Urine Bilirubin Negative (Negative) Urine Urobilinogen Negative (Negative) Ur Leukocyte Esterase 2+ H (Negative) Urine WBC (Auto) 10-30 H (0-5) /hpf Urine RBC (Auto) 0-4 (0-4) /hpf U Hyaline Cast (Auto) 1-5 (0-5) /lpf U Epithel Cells (Auto) 0-5 (0-5) /lpf Urine Bacteria (Auto) Negative (Negative) Imaging Data Radiologist's Impression: Chest X-Ray 02/12/22 15:59 XR chest 1V portable CLINICAL HISTORY: weakness TECHNIQUE: Single frontal radiograph of the chest was obtained. Comparison: Comparison is made to chest radiograph 09/21/2021 FINDINGS: Median sternotomy wires are unchanged. Cardiomegaly is noted. There is prominence and cephalization of the vasculature with Kelvin B lines seen. Ill- defined airspace opacities favoring the lower lungs. Diffuse nodular appearance may be related. No evidence of pleural effusion or pneumothorax. IMPRESSION: 1. Cardiomegaly and moderate pulmonary edema. 2. Airspace opacities favoring the lower lungs. These may represent atelectasis and/or pneumonia. Follow-up to resolution is recommended. ACT 112: Negative or not required by law. Electronically signed by: Terry Adame M.D. 02/12/2022 4:[address] 02/12/22 16:11 CT head/brain wo con CLINICAL HISTORY: 76 years-old Male with ams. Acutely altered mental status TECHNIQUE: Multiple axial CT images of the head were obtained without contrast. A dose lowering technique was utilized adhering to the principles of ALARA. CT DOSE: 614.27 mGy.cm COMPARISON: None. FINDINGS: No acute intracranial hemorrhage, midline shift, intracranial mass, hydrocephalus, territorial ischemia or abnormal extra-axial collection. Motion degraded exam. A portion of the study was then repeated. Mild involutional ch anges. White matter hypodensities favor chronic microvascular ischemic disease. The calvarium is intact. Prior bilateral lens repair. The paranasal sinuses, mastoid air cells, and middle ear cavities are clear. IMPRESSION: No acute intracranial abnormality. ACT 112: Negative or not required by law. The above report was generated using voice recognition software. It may contain grammatical, syntax or spelling errors. Electronically signed by: Alfonso Wilburn M.D. 02/12/2022 5:04 PM ECG Data Indication: + weakness Rate (beats per minute): 52 Rhythm: + sinus bradycardia ECG Intervals/blocks: + Normal SC and + Normal QT-c ECG Findings: + Peaked T waves Additional Comments: QRS 124 MDM Narrative 1557: The patient was evaluated in room B3. A complete history and physical exam was performed Cardiac monitoring: An order was placed for continuous cardiac monitoring. The monitor shows a rate of 50 with sinus rhythm 1629: Lusterer Kristina was able to access the PET scan that was done at [facility]. It shows diffuse osteolytic disease consistent with a history of multiple myeloma. EKG shows peaked T waves in leads V4, V5, V6 and QRS is at 124. Given the patient's history of CKD and these EKG findings calcium gluconate 1 g IV ordered. 1750: Vital signs stable. Labs show hemoglobin 10.8 stable. Potassium 4.4. Creatinine up to 5.23 up from 4.04 approximately 12 days ago. BUN up to 98 up from 6812 days ago. Chest x-ray shows some vascular congestion however the patient is not in any respiratory distress. Formal radiology read states there may be infiltrates at the bases, not thought to be infection more thought to be atelectasis when I viewed it, clinically the patient does not have pneumonia as he has a normal white blood cell count normal lactic acid no fevers and does not report any productive cough. High-sensitivity troponin elevated at 38.3 however the patient does have CKD patient not having any active chest pain. Spoke with the patient's fiber heel piece shaper Dr. Villatoro both she and I agree that the patient should be admitted for further evaluation. Urinalysis is pending and if it appears infected will treat with antibiotics. Family is asking that their oncologist Dr. Mcneil also be placed on consult when they are being admitted to the hospital. [facility]. 1828: Discussed the case with Dr. Tripp [facility] is not concerning for infection. Impression & Plan Stage 5 chronic kidney disease, Acute kidney injury Discharge Plan Visit Data Chief Complaint: Illness Stated Complaint: WEAKNESS,VOMITING, STAGE 5 KIDNEY FAILURE ED Provider: Son Ferguson Discharge Problem: Stage 5 chronic kidney disease, Acute kidney injury Patient Disposition: Admitted As Inpatient Forms Stand Alone Forms: My [facility] Prescriptions Prescriptions: No Action nifedipine 60 mg tablet extended release 60 mg PO BID Qty: 60 5RF furosemide [Lasix] 40 mg tablet 40 mg PO DAILY zolpidem [Ambien] 5 mg tablet 5 mg PO HS PRN (Reason: sleep) Qty: 14 2RF aspirin 81 mg tablet,delayed release (DR/EC) 81 mg PO HS carvedilol 12.5 mg tablet 12.5 mg PO BID Qty: 60 5RF Rx Instructions: must administer with a meal/food atorvastatin [Lipitor] 20 mg tablet 10 mg PO HS Rx Instructions: TAKE 1/2 TABLET DAILY AT NIGHT valsartan [Diovan] 320 mg tablet 160 mg PO DAILY doxazosin [Cardura] 2 mg tablet 2 mg PO DAILY tramadol 50 mg tablet 50 - 100 mg PO Q12H PRN (Reason: Pain) Referrals Referrals: Abebe Ny MD [Primary Care Provider] -
[2022-02-12] MEDS ORDERED: CALCIUM GLUCONATE 1,000 MG/60 ML BAG IV STA (16:20)
--- NOTE | 2022-02-12 16:37 | XRay Report ---
XR chest 1V portable CLINICAL HISTORY: weakness TECHNIQUE: Single frontal radiograph of the chest was obtained. Comparison: Comparison is made to chest radiograph 09/21/2021 FINDINGS: Median sternotomy wires are unchanged. Cardiomegaly is noted. There is prominence and cephalization o f the vasculature with Kelvin B lines seen. Ill-defined airspace opacities favoring the lower lungs. Diffuse nodular appearance may be related. No evidence of pleural effusion or pneumothorax. IMPRESSION: 1. Cardiomegaly and moderate pulmonary edema. 2. Airspace opacities favoring the lower lungs. These may represent atelectasis and/or pneumonia. Fo llow-up to resolution is recommended. ACT 112: Negative or not required by law. Electronically signed by: Terry Adame M.D. 02/12/2022 4:35 PM
[2022-02-12 17:00] LABS: Basophils # (auto) 0.03 K/uL (0-0.2); Basophils % (auto) 0.3 %; Eosinophils # (auto) 0.12 K/uL (0-0.50); Eosinophils % (auto) 1.2 %; Hematocrit (blood only) 32.4 % (40.1-51.0); Hemoglobin 10.8 g/dl (14.0-18.0); Immature Granulocytes # (auto) 0.07 K/uL (0.00-0.02); Immature Granulocytes % (auto) 0.7 %; Lymphocytes # (auto) 0.89 K/uL (1.2-3.4); Lymphocytes % (auto) 9.2 %; Mean Corpuscular Hemoglobin 31.7 pg (25.0-34.0); Mean Corpuscular Hgb Conc 33.3 g/dL (32.0-36.0); Monocytes # (auto) 0.72 K/uL (0.24-0.82); Monocytes % (auto) 7.5 %; Neutrophils # (auto) 7.82 K/uL (1.4-6.5); Neutrophils % (auto) 81.1 %; Platelet Count 194 K/uL (130-400); RDW Coefficient of Variation 13.2 % (11.5-14.5); RDW Standard Deviation 46.5 fL (36.4-46.3); Red Blood Count 3.41 M/uL (4.63-6.08); White Blood Count 9.65 K/ul (4.8-10.8)
--- NOTE | 2022-02-12 17:05 | CT Scan Report ---
CT head/brain wo con CLINICAL HISTORY: 76 years-old Male with ams. Acutely altered mental status TECHNIQUE: Multiple axial CT images of the head were obtained without contrast. A dose lowering tech nique was utilized adhering to the principles of ALARA. CT DOSE: 614.27 mGy.cm COMPARISON: None. FINDINGS: No acute intracranial hemorrhage, midline shift, intracranial mass, hydrocephalus, territorial ischem ia or abnormal extra-axial collection. Motion degraded exam. A portion of the study was then repeated . Mild involutional changes. White matter hypodensities favor chronic microvascular ischemic disease. The calvarium is intact. Prior bilateral lens repair. The paranasal sinuses, mastoid air cells, and m iddle ear cavities are clear. IMPRESSION: No acute intracranial abnormality. ACT 112: Negative or not required by law. The above report was generated using voice recognition software. It may contain grammatical, syntax o r spelling errors. Electronically signed by: Alfonso Wilburn M.D. 02/12/2022 5:04 PM
[2022-02-12 17:09] LABS: INR 1.1 (0.9-1.1); Partial Thromboplastin Time 27.1 Seconds (21.0-31.0); Prothrombin Time 11.8 Seconds (9.0-12.0)
[2022-02-12 17:18] LABS: Albumin Level 3.6 gm/dl (3.4-5.0); BUN Creatinine Ratio 18.7 (10-20); Bilirubin Direct 0.2 mg/dl (0-0.2); Bilirubin,Total 0.7 mg/dl (0.2-1.0); Calcium 8.8 mg/dl (8.5-10.1); Est GFR (African American) 11.5 ml/min; Est GFR (Non-African American) 9.9 ml/min; Magnesium 2.3 mg/dl (1.7-2.4); Potassium 4.4 mmol/L (3.5-5.1)
[2022-02-12 17:26] LABS: Troponin I High Sensitivity 38.3 pg/ml (0-20)
[2022-02-12 18:16] LABS: Appearance Urine Clear (Clear); Bacteria Urine Automated Negative (Negative); Bilirubin Urine Negative (Negative); Blood Urine Negative (Negative); Color Urine Yellow; Epithelial Cell Urine Auto 0-5 /lpf (0-5); Glucose Urine UA Negative (Negative); Ketones Urine Negative (Negative); Leukocyte Esterase Urine 2+ (Negative); Nitrite Urine Negative (Negative); Protein Urine 1+ (Negative); RBC Urine Automated 0-4 /hpf (0-4); Urobilinogen Urine Negative (Negative)
--- NOTE | 2022-02-12 18:36 | History & Physical Report ---
Date of Service February 12, 2022 Assessment & Plan (1) Confusion: Plan: Progressive weakness and confusion, suspect acute on chronic CKD, uremia - Increasing confusion of previous weeks, came in because + confusion and thought his daughter was talking when she was not around. CT-H nah - Decreased UOP, not anuric Left antecubital cephalic vein AV fistula creation placed 01/10/2022 Vascular consulted to evaluate for maturity/appropriateness for AC use. If unable to be used at this time will need to place HD catheter Case was discussed with nephrology/Dr. Kothari by ER provider. No emergent need for dialysis, potassium normal, BUN is elevated but less than 100. Anticipate [facility] inpatient Creatinine baseline 3.94.26, acutely elevated to 5.23 BUN 98 Troponin 38.3, suspect clearance related Patient without obvious pulmonary edema or hypoxia, but volume positive. Continue Lasix, nifedipine, low potassium diet, valsartan - HTNive on admit, put not sure if he tooks meds today but doesn't think so - No asterixis - No black/bloody BMs, denies bright red blood bleeding. 1x episode of brown emesis today while in the car. +Shakes Suspected multiple myeloma Calcium 8.8 Oncology consulteds - Dx via MRI with multiple bony mets as outpt - PET-CT completed this past Thursday, sees multiple areas of bony enhancement but pending biopsy - Oncology consulted per family request CAD History of CABG SIFUENTES/LAD, 07/2008 in [place] Continue aspirin Continue beta-mat Continue statin Chronically elevated troponins, no chest pain, suspect elevated due to clearance. Follow clinically for chest pain Lumbar Stenosis - Chronic back/hip pain - Follows with pain management Dispo: PCU Diet: Renal CODE STATUS: Full code. Daughter requests any updates or change in status be given to her by phone regardless of time (2) HTN (hypertension): (3) Lumbosacral radiculopathy at L5: (4) Myeloma: (5) S/P CABG (coronary artery bypass graft): (6) Stage 5 chronic kidney disease: (7) Thoracic aortic aneurysm: (8) Elevated troponin: (9) Anemia due to chronic kidney disease: History of Present Illness Primary Care Provider: Abebe Ny MD Jose is a 78-year-old male with history of CKD 5, recent diagnosis of multiple myeloma pending confirmatory biopsy, BPH, GERD, lumbar radiculitis/lumbar radiculopathy, CAD s/p CABG, dyslipidemia, hypertension, and anemia 2/2 CKD who presents with shaking and elevated creatinine. Hx of stenosis with chronic pain in back. No CP. Has seen pain management. Seen at bedside with his daughter. They report he had a progressive decline in both appetite and energy. Today he seemed more confused, was talking to his daughter when she was not actually present. She is concerned about the confusion brought him to the ER. He reports he has had intermittent mid back and low back pain 2/2 stenosis, no change in this. No left-sided chest pain at time of assessment. No shortness of breath. No difficulty breathing. No cough. Has been tremulous, no dysuria, fever, chills. Is pending a multiple myeloma work- up/[facility], they are awaiting this as an outpatient but did not feel he was declining and with acute confusion limiting their ability to make it to outpatient appointments. Medical History: Reviewed Medications: Reviewed Surgical History: Reviewed Allergies: Reviewed Social History: No EtoH/cigarettes. Rare social cigar use. Code Status: Surrogate DM daughter. Full Code. Discussed with family at bedside. Allergies Allergy/AdvReac Type Severity Reaction Status Date / Time No Known Allergies Allergy Verified 02/12/22 16:59 Home Medications Medication Instructions Recorded Confirmed Type aspirin 81 mg tablet,delayed 81 mg PO HS 12/15/18 02/12/22 History release nifedipine 60 mg tablet,extended 60 mg PO BID #60 tabs 08/28/21 02/12/22 Rx release carvedilol 12.5 mg tablet 12.5 mg PO BID #60 tabs 10/08/21 02/12/22 Rx furosemide 40 mg tablet (Lasix) 40 mg PO DAILY 11/15/21 02/12/22 History zolpidem 5 mg tablet (Ambien) 5 mg PO HS PRN sleep #14 tabs 12/17/21 02/12/22 Rx atorvastatin 20 mg tablet (Lipitor) 10 mg PO HS 01/10/22 02/12/22 History doxazosin 2 mg tablet (Cardura) 2 mg PO DAILY 01/10/22 02/12/22 History valsartan 320 mg tablet (Diovan) 160 mg PO DAILY 01/10/22 02/12/22 History tramadol 50 mg tablet 50 - 100 mg PO Q12H PRN Pain 02/12/22 02/12/22 History Past Med/Surg History Medical History Anemia due to chronic kidney disease Hgb 10-12 range per chart review, fecal occult blood test x3 negative per 12/25/21 PCP note CAD (coronary artery disease) s/p CABG x1 (with ascending thoracic aorta repair) - 2008 Chronic midline thoracic back pain Dyslipidemia GERD (gastroesophageal reflux disease) History of COVID-19 09/2021, hospitalized at [facility] (vomiting, dehydration, cough, sinus congestion) > resolved HTN (hypertension) Secondary hyperparathyroidism of renal origin Stage 5 chronic kidney disease not on chronic dialysis Thoracic aortic aneurysm s/p repair (2008) Surgical History H/O thoracic aortic aneurysm repair CABG x1 + ascending thoracic aorta repair (2008) History of cataract surgery R/L History of hernia repair S/P CABG (coronary artery bypass graft) CABG x1 + ascending thoracic aorta repair (2008) Family History Brother Brain tumor Cancer, Onset Age: 70 colon cancer Sai Mother Leukemia Denies family history of Ovarian cancer Prostate cancer Myocardial infarction Breast cancer Colorectal cancer Social History Smoking Status: Current some day smoker Tobacco Type: Cigars Age Started Using Tobacco: 41; Cigarettes Per Day: 3-4 cigars/day; Second Hand Exposure: No; Hx Alcohol Use: Yes Alcohol type: wine Hx Substance Use: No Preferred Language: Beninese Communication Ability: Effective Visual Impairment: Partially Limited Hearing Ability: Hard of Hearing Cribber Required: No Beliefs That Will Affect Care: None marital status: Single Current Living Situation: Alone Current Living Situation Comment: Lives alone, but within a close vacinity to daughter. current occupational status: retired How many Children do You have: 2 Feels Safe at Home: Yes Childhood Exposure to Second-Hand Smoke: Yes caffeine: Yes (coffee) Dental Care, Regularly: No Physical Activity Frequency: Daily Seatbelt Use: always Sunscreen Use: Yes Do you think of yourself as: straight/heterosexual Assistive Devices: Glasses Review of Systems Review of Systems: All systems reviewed & are unremarkable except as noted in Subjective Physical Exam Physical Exam: General: A&Ox3. NAD. Cooperative. Tangential TP. HEENT: Atraumatic, normocephalic. DAVID. Eom intact. Pulm: CTAB A&P. -wheezes, -rales, -rhonchi. Symmetrical chest rise. No increased work of breathing. No respiratory distress. Cardiac: RRR, -mrg. Radial pulses intact and symmetrical. JVD to clavicle which rises to mandible angle on HJR. Abdominal: Nontender, nondistended, soft. BS present. Ext: L antecub fistula with +thrill. Warm, dry. No resting tremor or asterixis. 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 Results & Data Results & Data ([facility]) Vital Signs (Past 12 Hours) Vital Signs Temp Pulse Resp BP Pulse Ox O2 Del Method 02/12/22 18:02 51 L 15 97 02/12/22 17:56 59 L 15 02/12/22 17:55 188/64 H 02/12/22 15:31 36.5 C 60 16 126/71 95 Room Air PG Care Time/CCT Total # of Minutes Spent Total Time Spent with Patient: Total time spent is greater than 50% in coordination of care (as documented) at patient's floor/unit and/or counseling patient: Coding Level of Care Code 98871 Initial Inpt Care Lvl 3 Diagnoses Confusion R41.0 HTN (hypertension) I10 Lumbosacral radiculopathy at L5 M54.17 Myeloma C90.00 S/P CABG (coronary artery bypass graft) Z95.1 Stage 5 chronic kidney disease N18.5 Thoracic aortic aneurysm I71.2 Elevated troponin R77.8 Anemia due to chronic kidney disease N18.9; D63.1
[2022-02-12] MEDS ORDERED: FUROSEMIDE 40 MG/4 ML VIAL IV ONE (18:50)
[2022-02-12] MEDS ORDERED: carvediloL 12.5 MG TAB PO ONE (18:50)
[2022-02-12] MEDS ORDERED: NIFEdipine EXTENDED REL 30 MG TABCR PO STA (18:50)
[2022-02-12] MEDS ORDERED: hydrALAZINE HCL 20 MG/ML VIAL IV PRN (18:54)
[2022-02-12] MEDS ORDERED: ZOLPIDEM TARTRATE 5 MG TAB PO PRN (20:39)
[2022-02-12] MEDS ORDERED: traMADol HCL 50 MG TABLET PO PRN (20:39)
[2022-02-12] MEDS: carvediloL 12.5 MG TAB PO SCH (21:29)
[2022-02-12] MEDS: FUROSEMIDE 40 MG TAB PO SCH (21:36)
[2022-02-12] MEDS: ATORVASTATIN 10 MG TAB PO SCH (21:36)
[2022-02-12] MEDS: ASPIRIN 81 MG ECTAB PO SCH (21:36)
[2022-02-12] MEDS: ONDANSETRON INJ 2 MG/ML 2 ML VIAL IV PRN (21:37)
[2022-02-12] MEDS: NIFEdipine EXTENDED REL 30 MG TABCR PO SCH (21:37)
[2022-02-12] MEDS: HEPARIN SOD 5,000 UNIT/0.5 ML VIAL SQ SCH (21:37)
[2022-02-13 04:28] LABS: Basophils # (auto) 0.02 K/uL (0-0.2); Basophils % (auto) 0.2 %; Eosinophils # (auto) 0.12 K/uL (0-0.50); Eosinophils % (auto) 1.2 %; Hematocrit (blood only) 30.8 % (40.1-51.0); Hemoglobin 10.3 g/dl (14.0-18.0); Immature Granulocytes # (auto) 0.05 K/uL (0.00-0.02); Immature Granulocytes % (auto) 0.5 %; Lymphocytes # (auto) 1.11 K/uL (1.2-3.4); Lymphocytes % (auto) 11.3 %; Mean Corpuscular Hemoglobin 31.3 pg (25.0-34.0); Mean Corpuscular Hgb Conc 33.4 g/dL (32.0-36.0); Mean Corpuscular Volume 93.6 fL (80.0-100.0); Mean Platelet Volume 9.9 fL (9.4-12.4); Monocytes # (auto) 0.68 K/uL (0.24-0.82); Neutrophils % (auto) 79.8 %; Platelet Count 173 K/uL (130-400); RDW Coefficient of Variation 13.1 % (11.5-14.5); RDW Standard Deviation 44.8 fL (36.4-46.3); Red Blood Count 3.29 M/uL (4.63-6.08); White Blood Count 9.78 K/ul (4.8-10.8)
[2022-02-13 05:07] LABS: Troponin I High Sensitivity 43.9 pg/ml (0-20)
[2022-02-13 05:22] LABS: Ferritin 407.3 ng/ml (8-388)
[2022-02-13 05:43] LABS: Albumin Level 3.4 gm/dl (3.4-5.0); BUN Creatinine Ratio 19.4 (10-20); Calcium 8.6 mg/dl (8.5-10.1); Creatinine Clr Calc Pharmacy 11.4 ml/min; Est GFR (Non-African American) 10.3 ml/min; Phosphorus 5.4 mg/dl (2.5-4.9); Potassium 3.9 mmol/L (3.5-5.1)
--- NOTE | 2022-02-13 07:52 | Oncology Consultation ---
Date of Consultation February 13, 2022 Assessment & Plan (1) Lymphadenopathy: Unclear etiology. CEA elevated at 199.7. Normal SPEP with BARBARA. Elevated kappa/lambda light chains with normal kappa/lambda light chain ratio (2) Osteolytic lesion: (3) CKD (chronic kidney disease) stage 5, GFR less than 15 ml/min: Plan 1. Malignancy of unknown primary: Patient has generalized lymphadenopathy, multiple lung nodules and osteolytic lesions suspicious for malignancy. CEA was elevated at 199.7, patient has not had a recent colonoscopy and has a significant smoking history. Although kappa and lambda light chains are both elevated, this could be due to CKD stage V as kappa/lambda light chain ratio was normal and SPEP with BARBARA was completely normal. Although this does not completely rule out light chain myeloma, clinical picture/radiology findings are concerning for other oncologic/hematologic malignancy. -Case discussed with radiology. Plan to obtain ultrasound-guided supraclavicular lymph node biopsy to identify primary as this will determine treatment options. Thank you for this consult. Oncology will continue following patient while in hospital. Please feel free to call if you have any further questions. History of Present Illness Reason for Consultation: Possible multiple myeloma Attending Physician: Ismael Arriaga History of Present Illness Mr. Zhong is a pleasant 76-year-old gentleman who I initially had the pleasure of meeting at [facility] a couple of weeks ago after he was referred by his primary care physician for evaluation of abnormal imaging findings concerning for metastatic disease or multiple myeloma. He underwent MRI lumbar spine without contrast on 01/16/2022 to evaluate for radiculopathy which revealed abnormal marrow signaling involving the right iliac bone with probable areas of cortical breakthrough and involvement of adjacent musculature along its superior aspect and small areas of similar marrow signal abnormality in the right sacral ala, left iliac bone and L5 and S1 concerning for marrow replacing lesion such as metastatic disease or multiple myeloma with recommendation for MRI lumbar spine with contrast. Patient has stage IV/V CKD and as such MRI lumbar spine with contrast could not be performed. Regarding his renal insufficiency, he was diagnosed several years ago and was thought to be due to hypertensive nephropathy and left atrophic kidney. During his initial evaluation at [facility], recommended PET/CT as well as bone biopsy. PET/CT which was performed on 02/10/2022 revealed diffuse osteolytic disease, FDG avid bilateral supraclavicular lymphadenopathy, retroperitoneal lymphadenopathy and bulky disease throughout the mediastinum with innumerable bilateral pulmonary nodules and areas of septal thickening. He was scheduled for bone biopsy on 02/21/2022 by IR at [facility]. Patient however presented to the ER [facility] yesterday with altered mental status, poor oral intake, nausea, generalized weakness and difficulty ambulating. Laboratory testing obtained in the ER revealed worsening in baseline CKD. Complains of about 20 pounds weight loss since June,. Also complains of poor appetite, right-sided hip pain with radiation to lower extremity, occasional chest pain. Allergies Allergy/AdvReac Type Severity Reaction Status Date / Time No Known Allergies Allergy Verified 02/12/22 16:59 Home Medications Medication Instructions Recorded Confirmed Type aspirin 81 mg tablet,delayed 81 mg PO HS 12/15/18 02/12/22 History release nifedipine 60 mg tablet,extended 60 mg PO BID #60 tabs 08/28/21 02/12/22 Rx release carvedilol 12.5 mg tablet 12.5 mg PO BID #60 tabs 10/08/21 02/12/22 Rx furosemide 40 mg tablet (Lasix) 40 mg PO DAILY 11/15/21 02/12/22 History zolpidem 5 mg tablet (Ambien) 5 mg PO HS PRN sleep #14 tabs 12/17/21 02/12/22 Rx atorvastatin 20 mg tablet (Lipitor) 10 mg PO HS 01/10/22 02/12/22 History doxazosin 2 mg tablet (Cardura) 2 mg PO DAILY 01/10/22 02/12/22 History valsartan 320 mg tablet (Diovan) 160 mg PO DAILY 01/10/22 02/12/22 History tramadol 50 mg tablet 50 - 100 mg PO Q12H PRN Pain 02/12/22 02/12/22 History Patient History Medical History Anemia due to chronic kidney disease Hgb 10-12 range per chart review, fecal occult blood test x3 negative per 12/25/21 PCP note CAD (coronary artery disease) s/p CABG x1 (with ascending thoracic aorta repair) - 2008 Chronic midline thoracic back pain Dyslipidemia GERD (gastroesophageal reflux disease) History of COVID-19 09/2021, hospitalized at [facility] (vomiting, dehydration, cough, sinus congestion) > resolved HTN (hypertension) Secondary hyperparathyroidism of renal origin Stage 5 chronic kidney disease not on chronic dialysis Thoracic aortic aneurysm s/p repair (2008) Surgical History H/O thoracic aortic aneurysm repair CABG x1 + ascending thoracic aorta repair (2008) History of cataract surgery R/L History of hernia repair S/P CABG (coronary artery bypass graft) CABG x1 + ascending thoracic aorta repair (2008) Family History Brother Brain tumor Cancer, Onset Age: 70 colon cancer Sai Mother Leukemia Denies family history of Ovarian cancer Prostate cancer Myocardial infarction Breast cancer Colorectal cancer Social History Smoking Status: Current some day smoker Tobacco Type: Cigars Age Started Using Tobacco: 41; Cigarettes Per Day: 3-4 cigars/day; Second Hand Exposure: No; Hx Alcohol Use: Yes Alcohol type: wine Hx Substance Use: No Preferred Language: Wolof Communication Ability: Effective Visual Impairment: Partially Limited Hearing Ability: Hard of Hearing 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 current occupational status: retired How many Children do You have: 2 Other Information That Helps Us Care for You: No Feels Safe at Home: Yes Safety Concerns: Feels Safe At This Time Childhood Exposure to Second-Hand Smoke: Yes caffeine: Yes (coffee) Dental Care, Regularly: No Physical Activity Frequency: Daily Seatbelt Use: always Sunscreen Use: Yes Do you think of yourself as: straight/heterosexual Assistive Devices: Glasses Review of Systems Review of Systems: All systems reviewed & are unremarkable except as noted in HPI & below Physical Exam Constitutional: WD/WN, vitals as above well developed Eyes: PERRL, conjunctivae normal, anicteric sclerae Respiratory: normal respiratory effort, lungs clear to auscultation Cardiovascular: RRR, no murmur, no edema Gastrointestinal (Abdomen): normal bowel sounds, soft, nontender, no hepatosplenomegaly Psychiatric: A+Ox3, euthymic affect Results & Data ([facility]) Vital Signs (Past 12 Hours) Vital Signs Temp Pulse Pulse Resp BP BP Pulse Ox 02/13/22 07:08 36.6 C 53 L 16 143/50 H 98 02/13/22 03:56 36.8 C 62 18 128/57 L 97 02/12/22 23:45 49 L 02/12/22 23:42 60 02/12/22 22:43 36.6 C 53 L 18 178/58 H 96 02/12/22 20:39 02/12/22 20:15 36.6 C 58 L 18 176/67 H 96 02/12/22 20:04 55 L 19 137/60 98 Pulse Ox O2 Del Method O2 Del Method 02/13/22 07:08 Room Air 02/13/22 03:56 Room Air 02/12/22 23:45 02/12/22 23:42 02/12/22 22:43 Room Air 02/12/22 20:39 96 Room Air 02/12/22 20:15 Room Air 02/12/22 20:04 Room Air
[2022-02-13] MEDS: DOXAZosin MESYLATE TAB 2 MG TAB PO SCH (08:34)
[2022-02-13] MEDS: NIFEdipine EXTENDED REL 30 MG TABCR PO SCH ×2 (08:34→20:24)
[2022-02-13] MEDS: carvediloL 12.5 MG TAB PO SCH ×2 (08:34→20:24)
[2022-02-13] MEDS ORDERED: VALSARTAN 80 MG TAB PO SCH (09:00)
--- NOTE | 2022-02-13 12:17 | Nephrology Consultation ---
Date of Consultation February 13, 2022 Assessment & Plan (1) CKD (chronic kidney disease) stage 5, GFR less than 15 ml/min: (2) VERONICA (acute kidney injury): (3) Anemia due to chronic kidney disease: (4) Secondary hyperparathyroidism of renal origin: (5) HTN (hypertension): (6) Osteolytic lesion: (7) Lymphadenopathy: Plan 76 year old male with stage 5 CKD with history of hypertension, coronary artery disease and left atrophic kidney, baseline creatinine has been around 3.5-4, a dmitted to the hospital with generalized weakness, weight loss, nausea and vomiting and elevated BUN and creatinine at 98 and 5.2. has been voiding normally. Although clinically slightly volume overloaded but no respiratory distress, no significant lower extremity edema. Potassium and bicarbonate has been normal. left brachiocephalic fistula was placed on 01/10/2022 with decent thrill and bruit. Getting evaluated for possible metastatic disease from unknown primary, pending lymph node biopsy this afternoon. -- symptoms could be secondary to uremia however these symptoms could be rela hernandez to underlying malignancy as well. Regardless, with eGFR significantly low, elevated BUN, recommended to start on dialysis. We could try using the fistula and if fistula does not work then may need to get tunnel dialysis catheter. However, after discussion with daughter Valeria ( [phone]), she would be more comfortable holding off dialysis at this point pending lymph node biopsy. Since he is feeling slightly better today, volume status acceptable and potassium and bicarbonate normal, we will hold off on dialysis today. If renal function continues to worsen, will revisit the decision regarding dialysis as lymph node biopsy report and definitive diagnosis of the underlying malignancy will take few days and we may have to make decision regarding dialysis before that. -- left arm nephrology precaution -- dose medications for eGFR less less than 10 --continue on Lasix 40 mg po daily --monitor intake output Will follow. Thank you for allowing me to participate in your patient's care. It was a pleasure to see Edgar History of Present Illness Reason for Consultation: VERONICA with Stage 4/5 CKD. Attending Physician: Ismael Arriaga History of Present Illness Mr. Jose Zhong is a 76-year-old male with PMH of stage 4/5 CKD, HTN, anemia admitted to hospital on 02/12/22 vomiting, weakness and VERONICA. nephrology consult was requested to evaluate for possible need for dialysis with advanced CKD and VERONICA and concern for uremic symptoms. EMR records are reviewed in detail during patient's visit. Discussed over telephone with patient's daughter Rose. Hernández has stage 4/5 CKD, lately b/l cr has been around 3.5 to 4.0 secondary to microvascular disease with history of hypertension, coronary artery disease and left atrophic kidney with low-grade proteinuria. He was seen initially in 2019 when his creatinine was close to 3 but he was known to have CKD from several years prior to that but records were not available. His hemoglobin has been normal until recently as kidney function progressively worsened. Albumin was decent with no hypergammaglobulinemia or lower extremity edema. Did not have any unusual fatigue tiredness or weight loss until last few months. He had dialysis education and plan for in center hemodialysis when needed, had left brachiocephalic AV fistula placed by Dr. Jones on 01/10/2022. No known family history of CKD or ESRD, Brother had history of brain cancer and mom had history of leukemia. Current active smoker for many years. Edgar had history of back pain with history of spinal stenosis which was recently getting worse. He was evaluated by chiropractor but back pain did not improve. He also noted to have almost 20 lb weight loss and poor appetite over last few months. Had MRI lumbar spine without contrast on 01/16/2022 which was concerning for marrow replacing lesion such as metastatic disease or multiple myeloma with recommendation for MRI with contrast which was deferred because of stage IV/5 CKD and concern for NSF. SPEP, UPEP and free light chain ratio was normal. Albumin was 3.7 with low globulin. CEA was elevated at 199.7, no recent colonoscopy. He had a PET scan done at outside facility on 02/11/2022 which revealed diffuse osteolytic disease, FDG avid bilateral supraclavicular lymphadenopathy, retroperitoneal lymphadenopathy and bulky disease throughout the mediastinum with innumerable bilateral pulmonary nodules and areas of septal thickening. He was scheduled for bone biopsy on 02/21/2022 by IR at [facility]. He was brought to ER yesterday after he was noted to be somewhat confused and having hallucination as well as occasional vomiting. On admission creatinine was 5.2, BUN 98, potassium was normal. Blood pressure was slightly elevated and noted to have mild pulmonary vascular congestion. He was continued on Lasix 40 mg daily. This morning he reports otherwise feeling well, lying in bed comfortably, no respiratory distress. Has been voiding normally. He was kept NPO with plan for lymph node biopsy this afternoon. Allergies Allergy/AdvReac Type Severity Reaction Status Date / Time No Known Allergies Allergy Verified 02/12/22 16:59 Home Medications Medication Instructions Recorded Confirmed Type aspirin 81 mg tablet,delayed 81 mg PO HS 12/15/18 02/12/22 History release nifedipine 60 mg tablet,extended 60 mg PO BID #60 tabs 08/28/21 02/12/22 Rx release carvedilol 12.5 mg tablet 12.5 mg PO BID #60 tabs 10/08/21 02/12/22 Rx furosemide 40 mg tablet (Lasix) 40 mg PO DAILY 11/15/21 02/12/22 History zolpidem 5 mg tablet (Ambien) 5 mg PO HS PRN sleep #14 tabs 12/17/21 02/12/22 Rx atorvastatin 20 mg tablet (Lipitor) 10 mg PO HS 01/10/22 02/12/22 History doxazosin 2 mg tablet (Cardura) 2 mg PO DAILY 01/10/22 02/12/22 History valsartan 320 mg tablet (Diovan) 160 mg PO DAILY 01/10/22 02/12/22 History tramadol 50 mg tablet 50 - 100 mg PO Q12H PRN Pain 02/12/22 02/12/22 History Patient History Medical History Anemia due to chronic kidney disease Hgb 10-12 range per chart review, fecal occult blood test x3 negative per 12/25/21 PCP note CAD (coronary artery disease) s/p CABG x1 (with ascending thoracic aorta repair) - 2008 Chronic midline thoracic back pain Dyslipidemia GERD (gastroesophageal reflux disease) History of COVID-19 09/2021, hospitalized at [facility] (vomiting, dehydration, cough, sinus congestion) > resolved HTN (hypertension) Secondary hyperparathyroidism of renal origin Stage 5 chronic kidney disease not on chronic dialysis Thoracic aortic aneurysm s/p repair (2008) Surgical History H/O thoracic aortic aneurysm repair CABG x1 + ascending thoracic aorta repair (2008) History of cataract surgery R/L History of hernia repair S/P CABG (coronary artery bypass graft) CABG x1 + ascending thoracic aorta repair (2008) Family History Brother Brain tumor Cancer, Onset Age: 70 colon cancer Sai Mother Leukemia Denies family history of Ovarian cancer Prostate cancer Myocardial infarction Breast cancer Colorectal cancer Social History Smoking Status: Current some day smoker Tobacco Type: Cigars Age Started Using Tobacco: 41; Cigarettes Per Day: 3-4 cigars/day; Second Hand Exposure: No; Hx Alcohol Use: Yes Alcohol type: wine Hx Substance Use: No Preferred Language: Mongolian Communication Ability: Effective Visual Impairment: Partially Limited Hearing Ability: Hard of Hearing Processing Tech Required: No Beliefs That Will Affect Care: None marital status: Single Current Living Situation: Alone Current Living Situation Comment: Lives alone, but within a close vacinity to daughter. current occupational status: retired How many Children do You have: 2 Other Information That Helps Us Care for You: No Feels Safe at Home: Yes Safety Concerns: Feels Safe At This Time Childhood Exposure to Second-Hand Smoke: Yes caffeine: Yes (coffee) Dental Care, Regularly: No Physical Activity Frequency: Daily Seatbelt Use: always Sunscreen Use: Yes Do you think of yourself as: straight/heterosexual Assistive Devices: Glasses Review of Systems Review of Systems: Detail review of system was done and pertinent positives and negatives are mention above. Physical Exam Constitutional: WD/WN, vitals as above no acute distress Eyes: + anicteric sclerae ENMT: Ears: no hearing impairment Neck: normal visual inspection Respiratory: normal respiratory effort; no respiratory distress and no cough Auscultation: lungs clear to auscultation bilaterally Cardiovascular: Rate/Rhythm: regular rate and regular rhythm Heart Sounds: normal S1 and normal S2 Extremities: no edema Gastrointestinal (Abdomen): Inspection/Auscultation: abdomen normal to inspection and normal bowel sounds Percussion/Palpation: abdomen soft; abdome n nontender Musculoskeletal: Extremities: extremities normal to inspection Skin: normal turgor; no rashes Neurologic: no focal motor deficits and not confused Psychiatric: Orientation: alert and oriented x 3 Affect: euthymic affect Results & Data ([facility]) Vital Signs (Past 12 Hours) Vital Signs Temp Pulse Pulse Resp BP Pulse Ox O2 Del Method 02/13/22 12:00 36.6 C 54 L 15 154/58 H 98 Room Air 02/13/22 10:25 Room Air 02/13/22 10:13 51 L 02/13/22 07:08 36.6 C 53 L 16 143/50 H 98 Room Air 02/13/22 03:56 36.8 C 62 18 128/57 L 97 Room Air PG Care Time/CCT Total # of Minutes Spent Total Time Spent with Patient: Total time spent is greater than 50% in coordination of care (as documented) at patient's floor/unit and/or counseling patient: Coding Level of Care Code 24467 Inpt Consult Level 5 Diagnoses CKD (chronic kidney disease) stage 5, GFR less than 15 ml/min N18.5 VERONICA (acute kidney injury) N17.9 Anemia due to chronic kidney disease N18.9; D63.1 Secondary hyperparathyroidism of renal origin N25.81 HTN (hypertension) I10 Osteolytic lesion M89.50 Lymphadenopathy R59.1
[2022-02-13] MEDS: HEPARIN SOD 5,000 UNIT/0.5 ML VIAL SQ SCH ×2 (13:30→20:19)
[2022-02-13] MEDS: FUROSEMIDE 40 MG TAB PO SCH (14:38)
--- NOTE | 2022-02-13 14:50 | Ultrasound Report ---
ULTRASOUND GUIDED FINE-NEEDLE ASPIRATION OF RIGHT SUPRACLAVICULAR LYMPH NODE CLINICAL HISTORY: Right supraclavicular lymph node. COMPARISON STUDY: PET/CT February 10, 2022. PROCEDURE: Sonography right neck demonstrated an enlarged 1.9 x 1 cm right supraclavicular lymph node which was FDG avid on PET/CT. The procedure, risks and benefits were discussed with the patient, inc luding the risk of bleeding, infection and injury to adjacent structures. The patient agreed to the p rocedure and informed written consent was obtained. The procedure was performed by Dr. Jeramie blankenship owing a timeout. Skin of the right neck was prepped and draped in sterile fashion and local anesthesi a was achieved with 1% lidocaine. Under direct ultrasound guidance, 4 25-gauge fine needle aspiration s were performed within a right supraclavicular lymph node was performed. Samples were deemed prelimi narily adequate by pathology. Core biopsy was not performed given close proximity to the adjacent ves sels. The patient tolerated the procedure well and no immediate complications were evident. IMPRESSION: Successful ultrasound guided fine-needle aspiration of a pathologically enlarged right s upraclavicular lymph node. ACT 112: Negative or not required by law. Electronically signed by: Yuriy Bobo M.D. 02/13/2022 2:49 PM
--- NOTE | 2022-02-13 17:38 | XCELERA ---
[id number]
[2022-02-13] MEDS: ATORVASTATIN 10 MG TAB PO SCH (20:19)
[2022-02-13] MEDS: ASPIRIN 81 MG ECTAB PO SCH (20:19)
--- NOTE | 2022-02-13 20:26 | Hospitalist Progress Note ---
Date of Service February 13, 2022 Assessment & Plan (1) Acute metabolic encephalopathy: Plan: improved today with supportive care only. etiology? VERONICA in setting of stage 5 CKD (ie - uremic encephalopathy)? UTI? Toxic from meds (tramadol)? other? check TSH and B12 in am cover the GPC in urine - start augmentin renally dosed and follow cultures BMP am head CT wnl; consider MRI brain - r/o mets (2) VERONICA (acute kidney injury): Plan: VERONICA on stage 5 CKD hold ARB hold any nephrotoxic agents nephrology consult appreciated daily BMP holding off on HD today - volume status appropriate, no hyperkalemia, etc (3) Stage 5 chronic kidney disease: Plan: baseline Cr 3.8 to 4.2 VERONICA with Cr 5.2 at admission nephrology consult appreciated (4) Osteolytic lesion: Plan: recent lumbar spine MRI with osteolytic lesions worrisome for metastatic cancer there are multiple lung nodules and lymphadenopathy as well recent SPEP without M-spike CEA was elevated at 199.7, patient has not had a recent colonoscopy and has a significant smoking history Although kappa and lambda light chains are both elevated, this could be due to CKD stage V as kappa/lambda light chain ratio was normal and again SPEP was normal s/p right supraclavicular lymph node biopsy today - await path results (5) Vomiting: Plan: etiology? lipase wnl LFTs wnl 2nd to UTI? 2nd to uremia? [employer] induced? consider MRI brain Rx UTI (6) HTN (hypertension): Plan: cont all home meds except ARB (7) UTI (urinary tract infection): Plan: GPC 50,000 CFU start renal-dosed augmentin follow culture (8) Lumbosacral radiculopathy at L5: Plan: with recent MRI showing osteolytic lesions leading to cancer w/u (9) S/P CABG (coronary artery bypass graft): Plan: cont asa, BB, and statin (10) Thoracic aortic aneurysm: Plan: s/p repair in the past (11) Elevated troponin: Plan: either 2nd to VERONICA in setting of stage 5 CKD, or myocardial demand ischemia no symptoms or signs of ACS (12) Anemia due to chronic kidney disease: Plan: H/H acceptable at this time (13) Chronic GERD: Plan: uncertain if GERD is contributing to vomiting start PPI (14) DVT prophylaxis: Plan: heparin 5000 BID Plan daughter updated at bedside Admission and Anticipated Discharge Date Admission Date: February 12, 2022 Subjective patient sitting at the bedside eating his meal daughter at bedside as well she reports her father's mentation is improved today for the last 2 weeks he had been having vomiting no abdominal pain [facility] or [facility] no fevers tele overnight wnl Review of Systems Review of Systems: gen - no fevers or chills cv - no chest pain pulm - no cough or dyspnea GI - no abd pain despite the emesis; minimal diarrhea at home - no dysuria Physical Exam Physical Exam: gen - NAD, sitting at side of bed, no confusion mouth - MMM neck - no JVD heart - 2/6 systolic murmur LSB, RRR, s1 s2 lungs - minimal wheeze b/l, no rales abd - soft NT ND BS+ vascular - left arm AV fistula with bruit ext - no edema, pulses 2+ b/l skin - no rash psych - a/o x 3 Results & Data Results & Data ([facility]) Vital Signs (Past 12 Hours) Vital Signs Temp Pulse Pulse Pulse Resp BP Pulse Ox 02/13/22 20:23 60 159/62 H 02/13/22 19:38 02/13/22 19:26 36.5 C 57 L 16 120/39 L 97 02/13/22 15:11 60 02/13/22 14:35 36.6 C 60 16 134/55 L 95 02/13/22 12:00 36.6 C 54 L 15 154/58 H 98 02/13/22 10:25 02/13/22 10:13 51 L O2 Del Method 02/13/22 20:23 02/13/22 19:38 Room Air 02/13/22 19:26 Room Air 02/13/22 15:11 02/13/22 14:35 Room Air 02/13/22 12:00 Room Air 02/13/22 10:25 Room Air 02/13/22 10:13 Laboratory Results Laboratory Results - last 24 hr 02/12/22 02/13/22 02/13/22 17:10 04:11 04:11 WBC 9.78 RBC 3.29 L Hgb 10.3 L Hct 30.8 L MCV 93.6 MCH 31.3 MCHC 33.4 RDW Std Deviation 44.8 RDW Coeff of [place] 13.1 Plt Count 173 MPV 9.9 Immature Gran % (Auto) 0.5 Neut % (Auto) 79.8 Lymph % (Auto) 11.3 [place] % (Auto) 7.0 Eos % (Auto) 1.2 Baso % (Auto) 0.2 Neut # (Auto) 7.80 H Lymph # (Auto) 1.[address] [place] # (Auto) 0.68 Eos # (Auto) 0.12 Baso # (Auto) 0.02 Immature Gran # (Auto) 0.05 H Sodium Potassium Chloride Carbon Dioxide Anion Gap BUN Creatinine Est Cr Clr Drug Dosing Est GFR ( Amer) Est GFR (Non-Af Amer) BUN/Creatinine Ratio Glucose Calcium Phosphorus Iron Transferrin Ferritin Troponin I High Sens 40.2 H Cancelled Albumin Hep Bs Antigen Hep Bs Ag Confirmation Hep B Core IgM Ab Hepatitis Be Antibody Hepatitis Be Antigen 02/13/22 02/13/22 02/13/22 04:11 04:11 08:35 WBC RBC Hgb Hct MCV MCH MCHC RDW Std Deviation RDW Coeff of [place] Plt Count MPV Immature Gran % (Auto) Neut % (Auto) Lymph % (Auto) [facility] % (Auto) Eos % (Auto) Baso % (Auto) Neut # (Auto) Lymph # (Auto) [facility] # (Auto) Eos # (Auto) Baso # (Auto) Immature Gran # (Auto) Sodium 139 Potassium 3.9 Chloride 106 Carbon Dioxide 19 L Anion Gap 14 H BUN 98 H Creatinine 5.05 H* Est Cr Clr Drug Dosing 11.4 Est GFR ( Amer) 12.0 Est GFR (Non-Af Amer) 10.3 BUN/Creatinine Ratio 19.4 Glucose 73 Calcium 8.6 Phosphorus 5.4 H Iron 33 L Transferrin 116 L Ferritin 407.3 H Troponin I High Sens 43.9 H 41.4 H Albumin 3.4 Hep Bs Antigen Pending Hep Bs Ag Confirmation Pending Hep B Core IgM Ab Pending Hepatitis Be Antibody Pending Hepatitis Be Antigen Pending 02/13/22 15:05 WBC RBC Hgb Hct MCV MCH MCHC RDW Std Deviation RDW Coeff of [place] Plt Count MPV Immature Gran % (Auto) Neut % (Auto) Lymph % (Auto) [facility] % (Auto) Eos % (Auto) Baso % (Auto) Neut # (Auto) Lymph # (Auto) [facility] # (Auto) Eos # (Auto) Baso # (Auto) Immature Gran # (Auto) Sodium Potassium Chloride Carbon Dioxide Anion Gap BUN Creatinine Est Cr Clr Drug Dosing Est GFR ( Amer) Est GFR (Non-Af Amer) BUN/Creatinine Ratio Glucose Calcium Phosphorus Iron Transferrin Ferritin Troponin I High Sens 37.8 H Albumin Hep Bs Antigen Hep Bs Ag Confirmation Hep B Core IgM Ab Hepatitis Be Antibody Hepatitis Be Antigen Diagnostic Findings urine cx - 50,000 CFU GPC blood cx's negative PG Care Time/CCT Total # of Minutes Spent Total Time Spent with Patient: Total time spent is greater than 50% in coordination of care (as documented) at patient's floor/unit and/or counseling patient: Coding Level of Care Code 28357 Subseq Hosp Care Lvl 3 Diagnoses Acute metabolic encephalopathy G93.41 VERONICA (acute kidney injury) N17.9 Stage 5 chronic kidney disease N18.5 Osteolytic lesion M89.50 Vomiting R11.10 HTN (hypertension) I10 UTI (urinary tract infection) N39.0 Lumbosacral radiculopathy at L5 M54.17 S/P CABG (coronary artery bypass graft) Z95.1 Thoracic aortic aneurysm I71.2 Elevated troponin R77.8 Anemia due to chronic kidney disease N18.9; D63.1 Chronic GERD K21.9 DVT prophylaxis Z29.9
[2022-02-13] MEDS: AMOXICILLIN/CLAVULANATE 500 MG TAB PO SCH (21:24)
--- NOTE | 2022-02-13 22:39 | Electrocardiogram Report ---
Test Reason : Blood Pressure : / mmHG Vent. Rate : 052 BPM Atrial Rate : 052 BPM P-R Int : 248 ms QRS Dur : 124 ms QT Int : 470 ms P-R-T Axes : -15 001 021 degrees QTc Int : 437 ms Sinus bradycardia with 1st degree A-V block Left ventricular hypertrophy with QRS widening Inferior infarct , age undetermined Anteroseptal infarct , age undetermined Abnormal ECG When compared with ECG of 21-SEP-2021 13:49, Anteroseptal infarct is now Present Inferior infarct is now Present T wave amplitude has increased in Lateral leads Confirmed by Jeramie Tinoco ([id number]) on 02/13/2022 10:38:39 PM Referred By: Kasie Mcneil Confirmed By:Jeramie Tinoco
[2022-02-14] MEDS: ACETAMINOPHEN 325 MG TAB PO PRN (02:02)
[2022-02-14 07:21] LABS: Albumin Level 3.2 gm/dl (3.4-5.0); Calcium 8.2 mg/dl (8.5-10.1); Creatinine Clr Calc Pharmacy 12.1 ml/min; Est GFR (African American) 12.9 ml/min; Est GFR (Non-African American) 11.1 ml/min; Phosphorus 5.2 mg/dl (2.5-4.9); Potassium 3.6 mmol/L (3.5-5.1)
[2022-02-14] MEDS: AMOXICILLIN/CLAVULANATE 500 MG TAB PO SCH ×2 (08:10→17:08)
[2022-02-14] MEDS: PANTOprazole 40 MG TAB PO SCH (08:10)
[2022-02-14] MEDS: NIFEdipine EXTENDED REL 30 MG TABCR PO SCH ×2 (08:11→20:27)
[2022-02-14] MEDS: carvediloL 12.5 MG TAB PO SCH ×2 (08:11→20:27)
[2022-02-14] MEDS: HEPARIN SOD 5,000 UNIT/0.5 ML VIAL SQ SCH ×2 (08:12→20:24)
[2022-02-14] MEDS: DOXAZosin MESYLATE TAB 2 MG TAB PO SCH (08:12)
[2022-02-14] MEDS: FUROSEMIDE 40 MG TAB PO SCH (09:01)
--- NOTE | 2022-02-14 13:45 | Nephrology Progress Note ---
Date of Service February 14, 2022 Assessment & Plan (1) CKD (chronic kidney disease) stage 5, GFR less than 15 ml/min: (2) VERONICA (acute kidney injury): (3) Anemia due to chronic kidney disease: (4) Secondary hyperparathyroidism of renal origin: (5) HTN (hypertension): (6) Osteolytic lesion: (7) Lymphadenopathy: Plan 76 year old male with stage 5 CKD with history of hypertension, coronary artery disease and left atrophic kidney, baseline creatinine has been around 3.5-4, admitted to the hospital with generalized weakness, weight loss, nausea and vomiting and elevated BUN and creatinine at 98 and 5.2. has been voiding normally. Although clinically slightly volume overloaded but no respiratory distress, no significant lower extremity edema. Potassium and bicarbonate has been normal. left brachiocephalic fistula was placed on 01/10/2022 with decent thrill and bruit. Getting evaluated for possible metastatic disease from unknown primary, Had right supraclavicular lymph node biopsy on 02/13/22. Overall doing better, nausea resolved, appetite seems to be decent. Volume status, blood pressure, electrolyte acceptable. No change in renal function. --continue to monitor over the weekend, no acute indication for dialysis, however if electrolyte worsen or any significant change in clinical status or overt uremic symptom, will start on dialysis. -- left arm nephrology precaution -- dose medications for eGFR less less than 10 --continue on Lasix 40 mg po daily --monitor intake output Will follow. Admission and Anticipated Discharge Date Admission Date: February 12, 2022 Almaz Hernández was seen and evaluated this morning. Blood pressure stable. Overall he seems to be doing slightly better, eating most of his meals and appetite decent, nausea seems to have improved. Wake, alert, no confusion or hallucination. Voiding normally, no shortness of breath. BUN creatinine staying relatively stable, potassium and bicarbonate remained normal. Review of Systems Review of Systems: Detail review of system was done and pertinent positives and negatives are mention above. Physical Exam Constitutional: WD/WN, vitals as above + ill appearing; no acute distress Eyes: + anicteric sclerae ENMT: Ears: no hearing impairment Neck: normal visual inspection Respiratory: Auscultation: lungs clear to auscultation bilaterally Cardiovascular: RRR, no murmur, no edema Skin: no rashes Neurologic: no focal motor deficits and not confused Psychiatric: Orientation: alert and oriented x 3 Results & Data ([facility]) Vital Signs (Past 12 Hours) Vital Signs Temp Pulse Pulse Pulse Resp BP Pulse Ox 02/14/22 11:35 36.5 C 49 L 17 114/43 L 92 02/14/22 10:54 02/14/22 08:00 53 L 02/14/22 02:32 36.8 C 51 L 18 133/49 L 96 O2 Del Method 02/14/22 11:35 Room Air 02/14/22 10:54 Room Air 02/14/22 08:00 02/14/22 02:32 Room Air PG Care Time/CCT Total # of Minutes Spent Total Time Spent with Patient: Total time spent is greater than 50% in coordination of care (as documented) at patient's floor/unit and/or counseling patient: Coding Level of Care Code 65033 Subseq Hosp Care Lvl 3 Diagnoses CKD (chronic kidney disease) stage 5, GFR less than 15 ml/min N18.5 VERONICA (acute kidney injury) N17.9 Anemia due to chronic kidney disease N18.9; D63.1 Secondary hyperparathyroidism of renal origin N25.81 HTN (hypertension) I10 Osteolytic lesion M89.50 Lymphadenopathy R59.1
--- NOTE | 2022-02-14 15:03 | Hematology/Oncology Prog Note ---
Date of Service February 14, 2022 Assessment & Plan (1) Lung cancer: Plan: Stage IV. Supraclavicular LN biopsy revealed lung adenocarcinoma. (2) Osteolytic lesion: (3) Lymphadenopathy: (4) CKD (chronic kidney disease) stage 5, GFR less than 15 ml/min: Plan 1. Metastatic adenocarcinoma of the lung: Discussed results with patient and his daughter. Explained to them that supraclavicular lymph node biopsy was con sistent with adenocarcinoma of the lung. Based on PET/CT findings, he has stage IV disease for which goals of treatment will be to prolong life, improve symptoms and quality of life. Awaiting results of molecular/PD-L1 testing. Given the fact that he has CKD stage IV, would recommend treating with carboplatin/paclitaxel/pembrolizumab if molecular testing is negative for actionable mutations. Will dose reduce carboplatin for his renal function. Recommend obtaining brain MRI for full staging/rule out brain metastasis. Patient's daughter had multiple questions which she indicated were answered to her satisfaction. 2. Elevated serum free light chains with normal kappa/lambda light chain ratio: Likely due to CKD stage IV. No evidence of multiple myeloma given normal SPEP with BARBARA and normal quantitative immunoglobulins. Admission and Anticipated Discharge Date Admission Date: February 12, 2022 Subjective Denies any new complaints. Review of Systems Review of Systems: All systems reviewed & are unremarkable except as noted in Subjective Physical Exam Constitutional: WD/WN, vitals as above Results & Data ([facility]) Vital Signs (Past 12 Hours) Vital Signs Temp Pulse Pulse Resp BP Pulse Ox O2 Del Method 02/14/22 11:35 36.5 C 49 L 17 114/43 L 92 Room Air 02/14/22 10:54 Room Air 02/14/22 08:00 53 L
--- NOTE | 2022-02-14 19:54 | Hospitalist Progress Note ---
Date of Service February 14, 2022 Assessment & Plan (1) Acute metabolic encephalopathy: Plan: 2nd to enterococcal UTI? VERONICA in setting of stage 5 CKD (ie - uremic encephalopathy)? Toxic from meds at home (tramadol)? other? TSH and B12 wnl on augmentin for UTI MRI brain with diffuse encephalomalacia but no brain mets (encephalomalacia is a set up for confusion/altered MS) cont supportive care (2) VERONICA (acute kidney injury): Plan: VERONICA on stage 5 CKD holding ARB holding any nephrotoxic agents nephrology consult appreciated daily BMP HD still on hold - volume status appropriate, no hyperkalemia, etc (3) Stage 5 chronic kidney disease: Plan: baseline Cr 3.8 to 4.2 VERONICA with Cr 5.2 at admission Cr now 4.7 nephrology consult appreciated bmp in am (4) Osteolytic lesion: Plan: recent lumbar spine MRI with osteolytic lesions worrisome for metastatic cancer there are multiple lung nodules and lymphadenopathy as well recent SPEP without M-spike CEA was elevated at 199.7 Although kappa and lambda light chains are both elevated, this is likely due to CKD stage V as kappa/lambda light chain ratio was normal and again SPEP was normal s/p right supraclavicular lymph node biopsy path c/w adenocarcinoma - likely lung primary appreciate Dr Mcneil's consultation & recs (5) Vomiting: Plan: resolved etiology? lipase wnl LFTs wnl 2nd to UTI? 2nd to uremia? Rx UTI (6) HTN (hypertension): Plan: BPs running low-normal HOLD ARB REDUCE coreg to 6.25mg BID REDUCE nifedipine to once daily from BID dosing (7) UTI (urinary tract infection): Plan: 2nd enterococcus day #2 of augmentin Rx at least 7 days consider checking PSA and if elevated consider longer course no symptoms of prostatitis, however (8) Lumbosacral radiculopathy at L5: Plan: with recent MRI showing osteolytic lesions leading to cancer w/u (9) S/P CABG (coronary artery bypass graft): Plan: cont asa, BB, and statin (10) Thoracic aortic aneurysm: Plan: s/p repair in the past (11) Elevated troponin: Plan: either 2nd to VERONICA in setting of stage 5 CKD, or myocardial demand ischemia no symptoms or signs of ACS (12) Anemia due to chronic kidney disease: Plan: H/H acceptable at this time (13) Chronic GERD: Plan: uncertain if GERD was contributing to vomiting started PPI (14) DVT prophylaxis: Plan: heparin 5000 BID Plan daughter updated at bedside 02/13 daughter today via the nursing staff requested antidepressant for her father -- start zoloft 25mg qam tomorrow PT consult will be requested care d/w Dr Mcneil Admission and Anticipated Discharge Date Admission Date: February 12, 2022 Subjective tele stable overnight he was resting in bed upon arrival easily awoke from sleep offered no complaints he was a little difficult to understand because of his accent he knew he was in the hospital and that it was 2021 but didn't know the date (said it was the 07 of February) Review of Systems Review of Systems: cv - no cp, no orthopnea pulm - denies dyspnea GI - no abd pain, nausea, emesis - still making urine; no dysuria Physical Exam Physical Exam: gen - NAD, slight confusion mouth - MM slightly dry neck - no JVD heart - 2/6 systolic murmur LSB, RRR, s1 s2 lungs - wheezes b/l, no rales abd - soft NT ND BS+ ext - no edema, pulses 2+ b/l psych - a/o x 2 Results & Data Results & Data ([facility]) Vital Signs (Past 12 Hours) Vital Signs Temp Pulse Pulse Pulse Resp BP Pulse Ox 02/14/22 19:19 36.5 C 52 L 18 134/42 L 94 02/14/22 15:00 52 L 02/14/22 15:19 36.5 C 52 L 18 124/49 L 97 02/14/22 11:35 36.5 C 49 L 17 114/43 L 92 02/14/22 10:54 02/14/22 08:00 53 L O2 Del Method 02/14/22 19:19 Room Air 02/14/22 15:00 02/14/22 15:19 Room Air 02/14/22 11:35 Room Air 02/14/22 10:54 Room Air 02/14/22 08:00 Laboratory Results Laboratory Results - last 24 hr 02/14/22 02/14/22 02/14/22 06:30 06:30 06:30 Sodium 138 Potassium 3.6 Chloride 105 Carbon Dioxide 22 Anion Gap 11 BUN 100 H Creatinine 4.76 H* Est Cr Clr Drug Dosing 12.1 Est GFR ( Amer) 12.9 Est GFR (Non-Af Amer) 11.1 BUN/Creatinine Ratio 21.0 H Glucose 100 H Calcium 8.2 L Phosphorus 5.2 H Albumin 3.2 L Vitamin B12 1094 H TSH 1.278 Diagnostic Findings Brain MRI 02/14/22 15:02 MR brain wo con CLINICAL HISTORY: metastatic cancer; eval brain mets, etc TECHNIQUE: Multiplanar and multisequence MR images of the brain were obtained without intravenous contrast. Comparison: Comparison is made to CT head 02/12/2022 FINDINGS: No abnormal restricted diffusion is identified. Foci of T2 and FLAIR hyperintensity are noted in the paraventricular areas consistent with chronic small vessel ischemic disease. Ex vacuo ventriculomegaly and sulcal enlargement is noted compatible with diffuse encephalomalacia. No mass is seen. There is no mass effect or midline shift. There is no evidence of acute intraparenchymal hemorrhage. No extra axial fluid collections are seen. The corpus callosum, pituitary gland, and cerebellar tonsils appear grossly unremarkable. Flow voids of the major intracranial arterial vessels are identified. The imaged portions of the paranasal sinuses, mastoid air cells, and orbits are unremarkable. IMPRESSION: No acute abnormality and in particular no evidence of metastatic disease. ACT 112: Negative or not required by law. Electronically signed by: Terry Adame M.D. 02/15/2022 12:00 AM PG Care Time/CCT Total # of Minutes Spent Total Time Spent with Patient: Total time spent is greater than 50% in coordination of care (as documented) at patient's floor/unit and/or counseling patient: Coding Level of Care Code 19628 Subseq Hosp Care Lvl 3 Diagnoses Acute metabolic encephalopathy G93.41 VERONICA (acute kidney injury) N17.9 Stage 5 chronic kidney disease N18.5 Osteolytic lesion M89.50 Vomiting R11.10 HTN (hypertension) I10 UTI (urinary tract infection) N39.0 Lumbosacral radiculopathy at L5 M54.17 S/P CABG (coronary artery bypass graft) Z95.1 Thoracic aortic aneurysm I71.2 Elevated troponin R77.8 Anemia due to chronic kidney disease N18.9; D63.1 Chronic GERD K21.9 DVT prophylaxis Z29.9
[2022-02-14] MEDS: ATORVASTATIN 10 MG TAB PO SCH (20:26)
[2022-02-14] MEDS: ASPIRIN 81 MG ECTAB PO SCH (20:26)
--- NOTE | 2022-02-15 00:01 | Magnetic Resonance Report ---
MR brain wo con CLINICAL HISTORY: metastatic cancer; eval brain mets, etc TECHNIQUE: Multiplanar and multisequence MR images of the brain were obtained without intravenous con trast. Comparison: Comparison is made to CT head 02/12/2022 FINDINGS: No abnormal restricted diffusion is identified. Foci of T2 and FLAIR hyperintensity are noted in the paraventricular areas consistent with chronic small vessel ischemic disease. Ex vacuo ventriculomegal y and sulcal enlargement is noted compatible with diffuse encephalomalacia. No mass is seen. There is no mass effect or midline shift. There is no evidence of acute intraparenchymal hemorrhage. No extra axial fluid collections are seen. The corpus callosum, pituitary gland, and cerebellar tonsils appea r grossly unremarkable. Flow voids of the major intracranial arterial vessels are identified. The imaged portions of the para nasal sinuses, mastoid air cells, and orbits are unremarkable. IMPRESSION: No acute abnormality and in particular no evidence of metastatic disease. ACT 112: Negative or not required by law. Electronically signed by: Terry Adame M.D. 02/15/2022 12:00 AM
[2022-02-15 07:24] LABS: Albumin Level 3.1 gm/dl (3.4-5.0); BUN Creatinine Ratio 20.2 (10-20); Creatinine Clr Calc Pharmacy 11.6 ml/min; Est GFR (African American) 12.3 ml/min; Est GFR (Non-African American) 10.6 ml/min; Phosphorus 4.6 mg/dl (2.5-4.9); Potassium 3.4 mmol/L (3.5-5.1)
[2022-02-15] MEDS: ACETAMINOPHEN 325 MG TAB PO PRN (07:48)
[2022-02-15] MEDS: DOXAZosin MESYLATE TAB 2 MG TAB PO SCH (07:49)
[2022-02-15] MEDS: AMOXICILLIN/CLAVULANATE 500 MG TAB PO SCH (07:49)
[2022-02-15] MEDS: NIFEdipine EXTENDED REL 30 MG TABCR PO SCH (07:49)
[2022-02-15] MEDS: FUROSEMIDE 40 MG TAB PO SCH (07:49)
[2022-02-15] MEDS: PANTOprazole 40 MG TAB PO SCH (07:49)
[2022-02-15] MEDS: carvediloL 6.25 MG TAB PO SCH ×2 (07:50→20:12)
[2022-02-15] MEDS ORDERED: POTASSIUM CHLORIDE CRTAB 20 MEQ TABCR PO STA (07:50)
[2022-02-15] MEDS: SERTRALINE HCL 50 MG TABLET PO SCH (07:51)
[2022-02-15] MEDS: HEPARIN SOD 5,000 UNIT/0.5 ML VIAL SQ SCH ×2 (07:51→20:20)
[2022-02-15] MEDS: AMOXICILLIN 500 MG CAP PO SCH ×2 (08:47→20:15)
--- NOTE | 2022-02-15 11:35 | Nephrology Progress Note ---
Date of Service February 15, 2022 Assessment & Plan (1) CKD (chronic kidney disease) stage 5, GFR less than 15 ml/min: (2) VERONICA (acute kidney injury): (3) Anemia due to chronic kidney disease: (4) Secondary hyperparathyroidism of renal origin: (5) HTN (hypertension): (6) Osteolytic lesion: (7) Lymphadenopathy: Plan 76 year old male with stage 5 CKD with history of hypertension, coronary artery disease and left atrophic kidney, baseline creatinine has been around 3.5-4, admitted to the hospital with generalized weakness, weight loss, nausea and vomiting and elevated BUN and creatinine at 98 and 5.2. has been voiding normally. Although clinically slightly volume overloaded but no respiratory distress, no significant lower extremity edema. Potassium and bicarbonate has been normal. left brachiocephalic fistula was placed on 01/10/2022 with decent thrill and bruit. Found to have stage IV metastatic adenocarcinoma of lung confirmed by lymph node biopsy on 02/13/22. plan to start on chemotherapy as an outpatient. Overall doing better, nausea resolved, appetite seems to be decent. Volume status, blood pressure, electrolyte acceptable. No change in renal function. -- After detailed discussion with Oncology, Jose and his daughter plan to start on hemodialysis today and set up outpatient dialysis. once he gets discharge, chemotherapy will be started as planned. -- left arm nephrology precaution -- dose medications for eGFR less less than 10 --continue on Lasix 40 mg po daily --monitor intake output Will follow. Admission and Anticipated Discharge Date Admission Date: February 12, 2022 Almaz Hernández was seen and examined this morning. He was lying in bed, comfortable, denies any symptom except feels cold. Appetite fair, eating most of his males, no significant nausea or vomiting. Blood pressure relatively low, decent urine output. Review of Systems Review of Systems: Detail review of system was done and pertinent positives and negatives are mention above. Physical Exam Constitutional: WD/WN, vitals as above + ill appearing; no acute distress Eyes: + anicteric sclerae ENMT: Ears: no hearing impairment Neck: normal visual inspection Respiratory: Auscultation: lungs clear to auscultation bilaterally Cardiovascular: RRR, no murmur, no edema Skin: no rashes Neurologic: no focal motor deficits and not confused Psychiatric: Orientation: alert and oriented x 3 Results & Data ([facility]) Vital Signs (Past 12 Hours) Vital Signs Temp Pulse Pulse Resp BP Pulse Ox O2 Del Method 02/15/22 08:00 Room Air 02/15/22 08:00 50 L 02/15/22 07:58 36.7 C 59 L 18 106/43 L 93 Room Air 02/15/22 02:33 36.7 C 52 L 18 127/48 L 95 Room Air 02/14/22 23:45 36.6 C 52 L 18 128/46 L 95 Room Air PG Care Time/CCT Total # of Minutes Spent Total Time Spent with Patient: Total time spent is greater than 50% in coordination of care (as documented) at patient's floor/unit and/or counseling patient: Coding Level of Care Code 16565 Subseq Hosp Care Lvl 3 Diagnoses CKD (chronic kidney disease) stage 5, GFR less than 15 ml/min N18.5 VERONICA (acute kidney injury) N17.9 Anemia due to chronic kidney disease N18.9; D63.1 Secondary hyperparathyroidism of renal origin N25.81 HTN (hypertension) I10 Osteolytic lesion M89.50 Lymphadenopathy R59.1
--- NOTE | 2022-02-15 18:07 | Hospitalist Progress Note ---
Date of Service February 15, 2022 Assessment & Plan (1) Acute metabolic encephalopathy: Plan: likely 2nd to enterococcal UTI and uremic encephalopathy from VERONICA in setting of stage 5 CKD MRI brain negative for mets does have diffuse encephalomalacia on MRI brain however TSH and B12 wnl cont Rx for UTI cont HD for advanced kidney disease mental status should improve with Rx of the issues above (2) VERONICA (acute kidney injury): Plan: VERONICA on stage 5 CKD holding ARB nephrology consult appreciated daily BMP HD initiated today - defer to nephrology (3) Stage 5 chronic kidney disease: Plan: baseline Cr 3.8 to 4.2 VERONICA with Cr 5.2 at admission Cr now 4.9 with ongoing BUN of ~100 likely has uremic encephalopathy nephrology consult appreciated HD initiated today via left arm AV fistula (4) Osteolytic lesion: Plan: recent lumbar spine MRI with osteolytic lesions worrisome for metastatic cancer there are multiple lung nodules and lymphadenopathy as well s/p right supraclavicular lymph node biopsy path c/w adenocarcinoma - likely lung primary appreciate Dr Mcneil's consultation & recs (5) Metastatic lung carcinoma: Plan: as confirmed on right supraclavicular node biopsy patient wishes to Rx the cancer Dr Mcneil planning taxol/carboplatin + immune-based Rx in near-future as outpatient (6) Vomiting: Plan: resolved etiology? lipase wnl LFTs wnl 2nd to UTI? 2nd to uremia? Rx UTI Rx uremia with HD no vomiting since admission (7) HTN (hypertension): Plan: BPs running low-normal ARB remains on hold REDUCED coreg to 6.25mg BID REDUCED nifedipine to once daily from BID dosing may need even further reductions (8) UTI (urinary tract infection): Plan: 2nd enterococcus day #3 of augmentin - can change to PO amox Rx at least 7 days consider checking PSA and if elevated consider longer course no symptoms of prostatitis, however (9) Lumbosacral radiculopathy at L5: Plan: with recent MRI showing osteolytic lesions leading to cancer w/u (10) S/P CABG (coronary artery bypass graft): Plan: cont asa, BB, and statin (11) Thoracic aortic aneurysm: Plan: s/p repair in the past (12) Elevated troponin: Plan: either 2nd to VERONICA in setting of stage 5 CKD, or myocardial demand ischemia no symptoms or signs of ACS (13) Anemia due to chronic kidney disease: Plan: H/H acceptable at this time (14) Chronic GERD: Plan: uncertain if GERD was contributing to vomiting started PPI (15) DVT prophylaxis: Plan: heparin 5000 BID (16) Severe protein-calorie malnutrition: Plan: 20 pound weight loss over the last 2 weeks. Weight this admission 71.4 kg. Weight less than 1 month of ago of 80.7 kg. This is a loss of 9.3 kg / 11.5% of his body weight in less than 1 month. Consider MVI, boost, etc. 2nd to advancing CKD in the midst of newly diagnosed metastatic lung ca. Plan daughter updated at bedside 02/13 daughter updated by phone 02/15 PT consult will be requested care d/w Dr Mcneil 02/14 Admission and Anticipated Discharge Date Admission Date: February 12, 2022 Subjective tele stable overnight - sinus radha remains I saw him post-HD; he tolerated his first dialysis treatment Left arm AV fistula was accessible and functional by report I asked him how he was doing in light of his new cancer dx, the initiation of HD, etc and he was accepting of these 2 diagnoses he stated "I've had a long life" - he went on to talk about all the things he has done throughout his life he DOES want to Rx the cancer denies any new complaints Review of Systems Review of Systems: gen - no fevers or chills cv - no orthopnea pulm - mild cough, mild wheeze GI - no pain Physical Exam Physical Exam: gen - NAD, slight confusion - maybe slightly less than prior mouth - no lesions neck - no JVD heart - 2/6 systolic murmur LSB, RRR, s1 s2 lungs - wheezes b/l - unchanged; no rales abd - soft NT ND BS+ ext - no edema, pulses 2+ b/l Results & Data Results & Data ([facility]) Vital Signs (Past 12 Hours) Vital Signs Temp Pulse Pulse Pulse Resp BP BP 02/15/22 15:58 36.8 C 53 L 20 125/50 L 02/15/22 15:00 54 L 02/15/22 13:25 36.9 C 58 L 125/58 L 02/15/22 13:00 52 L 118/51 L 02/15/22 12:30 53 L 123/54 L 02/15/22 12:00 52 L 129/53 L 02/15/22 11:30 52 L 123/57 L 02/15/22 11:11 36.9 C 52 L 02/15/22 08:00 02/15/22 08:00 50 L 02/15/22 07:58 36.7 C 59 L 18 106/43 L Pulse Ox O2 Del Method 02/15/22 15:58 97 Room Air 02/15/22 15:00 02/15/22 13:25 02/15/22 13:00 02/15/22 12:30 02/15/22 12:00 02/15/22 11:30 02/15/22 11:11 02/15/22 08:00 Room Air 02/15/22 08:00 02/15/22 07:58 93 Room Air Laboratory Results Laboratory Results - last 24 hr 02/15/22 06:14 Sodium 137 Potassium 3.4 L Chloride 106 Carbon Dioxide 21 Anion Gap 10 BUN 100 H Creatinine 4.96 H* Est Cr Clr Drug Dosing 11.6 Est GFR ( Amer) 12.3 Est GFR (Non-Af Amer) 10.6 BUN/Creatinine Ratio 20.2 H Glucose 118 H Calcium 8.0 L Phosphorus 4.6 Albumin 3.1 L PG Care Time/CCT Total # of Minutes Spent Total Time Spent with Patient: Total time spent is greater than 50% in coordination of care (as documented) at patient's floor/unit and/or counseling patient: Coding Level of Care Code 21959 Subseq Hosp Care Lvl 2 Diagnoses Acute metabolic encephalopathy G93.41 VERONICA (acute kidney injury) N17.9 Stage 5 chronic kidney disease N18.5 Osteolytic lesion M89.50 Metastatic lung carcinoma C78.00 Vomiting R11.10 HTN (hypertension) I10 UTI (urinary tract infection) N39.0 Lumbosacral radiculopathy at L5 M54.17 S/P CABG (coronary artery bypass graft) Z95.1 Thoracic aortic aneurysm I71.2 Elevated troponin R77.8 Anemia due to chronic kidney disease N18.9; D63.1 Chronic GERD K21.9 DVT prophylaxis Z29.9 Severe protein-calorie malnutrition E43
[2022-02-15] MEDS: ASPIRIN 81 MG ECTAB PO SCH (20:14)
[2022-02-15] MEDS: ATORVASTATIN 10 MG TAB PO SCH (20:14)
[2022-02-15] MEDS ORDERED: traMADol HCL 50 MG TABLET PO ONE (20:53)
[2022-02-16 07:09] LABS: Hematocrit (blood only) 28.8 % (40.1-51.0); Hemoglobin 9.9 g/dl (14.0-18.0); Mean Corpuscular Hemoglobin 31.6 pg (25.0-34.0); Mean Corpuscular Hgb Conc 34.4 g/dL (32.0-36.0); Mean Platelet Volume 10.7 fL (9.4-12.4); Platelet Count 154 K/uL (130-400); RDW Coefficient of Variation 13.2 % (11.5-14.5); RDW Standard Deviation 44.5 fL (36.4-46.3); Red Blood Count 3.13 M/uL (4.63-6.08)
[2022-02-16 07:36] LABS: Albumin Level 3.1 gm/dl (3.4-5.0); BUN Creatinine Ratio 17.7 (10-20); Calcium 8.1 mg/dl (8.5-10.1); Creatinine Clr Calc Pharmacy 14.8 ml/min; Est GFR (African American) 16.4 ml/min; Est GFR (Non-African American) 14.1 ml/min; Phosphorus 3.5 mg/dl (2.5-4.9); Potassium 3.5 mmol/L (3.5-5.1)
[2022-02-16] MEDS: DOXAZosin MESYLATE TAB 2 MG TAB PO SCH (08:37)
[2022-02-16] MEDS: AMOXICILLIN 500 MG CAP PO SCH ×2 (08:37→20:24)
[2022-02-16] MEDS: PANTOprazole 40 MG TAB PO SCH (08:37)
[2022-02-16] MEDS: NIFEdipine EXTENDED REL 30 MG TABCR PO SCH (08:38)
[2022-02-16] MEDS: SERTRALINE HCL 50 MG TABLET PO SCH (08:38)
[2022-02-16] MEDS: HEPARIN SOD 5,000 UNIT/0.5 ML VIAL SQ SCH ×2 (08:38→20:24)
[2022-02-16] MEDS ORDERED: carvediloL 3.125 MG TAB PO SCH (09:00)
[2022-02-16] MEDS: IRON SUCROSE 200 MG in 0.9 % SODIUM CHLORIDE 100 ML IV SCH (09:48)
--- NOTE | 2022-02-16 11:08 | Nephrology Progress Note ---
Date of Service February 16, 2022 Assessment & Plan (1) CKD (chronic kidney disease) stage 5, GFR less than 15 ml/min: (2) VERONICA (acute kidney injury): (3) Anemia due to chronic kidney disease: (4) Secondary hyperparathyroidism of renal origin: (5) HTN (hypertension): (6) Osteolytic lesion: (7) Lymphadenopathy: Plan 76 year old male with stage 5 CKD with history of hypertension, coronary artery disease and left atrophic kidney, baseline creatinine has been around 3.5-4, admitted to the hospital with generalized weakness, weight loss, nausea and vomiting and elevated BUN and creatinine at 98 and 5.2. Has been voiding normally. Although clinically slightly volume overloaded but no respiratory distress, no significant lower extremity edema. Found to have stage IV metastatic adenocarcinoma of lung confirmed by lymph node biopsy on 02/13/22, plan to start on chemotherapy as an outpatient. Started on hemodialysis via left brachiocephalic AV fistula on 02/15/2022. Overall doing better, nausea resolved, appetite seems to be decent. Volume status, blood pressure, electrolyte acceptable. --next hemodialysis tomorrow, social service consulted to set up outpatient dialysis. once he gets discharge, chemotherapy will be started as planned. --start on Venofer the -- left arm nephrology precaution -- dose medications for eGFR less less than 10 --continue on Lasix 40 mg po daily --monitor intake output Will follow. Admission and Anticipated Discharge Date Admission Date: February 12, 2022 Almaz Hernández was seen and examined this morning. He was lying in bed, comfortable, denies any symptom except ongoing pain in right he and right lower back. Appetite fair, eating most of his meals, no significant nausea or vomiting. Blood pressure stable, decent urine output. He had 1st dialysis treatment yesterday for 2 hours, tolerated well, fistula was functioning well. Review of Systems Review of Systems: Detail review of system was done and pertinent positives and negatives are mention above. Physical Exam Constitutional: WD/WN, vitals as above + ill appearing; no acute distress Eyes: + anicteric sclerae ENMT: Ears: no hearing impairment Neck: normal visual inspection Respiratory: Auscultation: lungs clear to auscultation bilaterally Cardiovascular: RRR, no murmur, no edema Skin: no rashes Neurologic: no focal motor deficits and not confused Psychiatric: Orientation: alert and oriented x 3 Results & Data ([facility]) Vital Signs (Past 12 Hours) Vital Signs Temp Pulse Pulse Pulse Resp BP Pulse Ox 02/16/22 09:00 02/16/22 07:59 36.7 C 55 L 18 150/61 H 96 02/16/22 07:45 54 L 02/16/22 03:06 36.7 C 54 L 16 158/60 H 95 02/16/22 01:09 55 L O2 Del Method 02/16/22 09:00 Room Air 02/16/22 07:59 Room Air 02/16/22 07:45 02/16/22 03:06 Room Air 02/16/22 01:09 PG Care Time/CCT Total # of Minutes Spent Total Time Spent with Patient: Total time spent is greater than 50% in coordination of care (as documented) at patient's floor/unit and/or counseling patient: Coding Level of Care Code 11613 Subseq Hosp Care Lvl 3 Diagnoses CKD (chronic kidney disease) stage 5, GFR less than 15 ml/min N18.5 VERONICA (acute kidney injury) N17.9 Anemia due to chronic kidney disease N18.9; D63.1 Secondary hyperparathyroidism of renal origin N25.81 HTN (hypertension) I10 Osteolytic lesion M89.50 Lymphadenopathy R59.1
[2022-02-16] MEDS: ONDANSETRON INJ 2 MG/ML 2 ML VIAL IV PRN (11:44)
[2022-02-16] MEDS ORDERED: HYDROCODONE/ACETAMOPHEN 5/325MG TAB PO PRN (12:06)
--- NOTE | 2022-02-16 18:51 | Hospitalist Progress Note ---
Date of Service February 16, 2022 Assessment & Plan (1) Acute metabolic encephalopathy: Plan: likely 2nd to enterococcal UTI and uremic encephalopathy from VERONICA in setting of stage 5 CKD MRI brain negative for mets does have diffuse encephalomalacia on MRI brain which will be a set-up for delirium TSH and B12 wnl cont Rx for UTI cont HD for advanced kidney disease mental status should cont to improve with Rx of the issues above (2) VERONICA (acute kidney injury): Plan: VERONICA on stage 5 CKD holding ARB nephrology consult appreciated daily BMP s/p initiation of HD initiation 02/15 with 2 hour session scheduled for HD session tomorrow (3) Stage 5 chronic kidney disease: Plan: baseline Cr 3.8 to 4.2 VERONICA with Cr 5.2 at admission now with uremic encephalopathy nephrology consult appreciated HD initiated 02/15 via left arm AV fistula will have HD again tomorrow (4) Osteolytic lesion: Plan: recent lumbar spine MRI with osteolytic lesions of right iliac crest/ileum there are multiple lung nodules and lymphadenopathy as well s/p right supraclavicular lymph node biopsy path c/w adenocarcinoma - likely lung primary appreciate Dr Mcneil's consultation & recs he has SEVERE pain over the right ileum/pelvis - role for palliative radiation? will d/w Dr Mcneil - consider rad onc consultation in meantime - norco 7.5mg q4h prn consider basal pain meds as well (5) Metastatic lung carcinoma: Plan: as confirmed on right supraclavicular node biopsy patient wishes to Rx the cancer Dr Mcneil planning taxol/carboplatin + immune-based Rx in near-future as outpatient (6) Vomiting: Plan: had stopped, but then returned this am - attributed to his pain this am can't rule out UTI and uremia contributing Rx UTI Rx uremia with HD Rx pain (7) HTN (hypertension): Plan: BPs running low-normal and HRs remain 50s despite cutting back coreg ARB remains on hold HOLD coreg REDUCED nifedipine to once daily from BID dosing follow response (8) UTI (urinary tract infection): Plan: 2nd enterococcus day #4 of abx - now on amoxicillin Rx at least 7 days PSA <1 making prostatitis highly unlikely (9) Lumbosacral radiculopathy at L5: Plan: with recent MRI showing osteolytic lesions leading to cancer w/u consider adding low-dose gabapentin 100mg BID for adjunctive pain control consider steroids (10) S/P CABG (coronary artery bypass graft): Plan: cont asa, BB, and statin (11) Thoracic aortic aneurysm: Plan: s/p repair in the past (12) Elevated troponin: Plan: either 2nd to VERONICA in setting of stage 5 CKD, or myocardial demand ischemia no symptoms or signs of ACS (13) Anemia due to chronic kidney disease: Plan: H/H acceptable (14) Chronic GERD: Plan: uncertain if GERD was contributing to vomiting started PPI (15) DVT prophylaxis: Plan: heparin 5000 BID (16) Severe protein-calorie malnutrition: Plan: 20 pound weight loss over the last 2 weeks. Weight this admission 71.4 kg. Weight less than 1 month of ago of 80.7 kg. This is a loss of 9.3 kg / 11.5% of his body weight in less than 1 month. Consider MVI, boost, etc. 2nd to advancing CKD in the midst of newly diagnosed metastatic lung ca. Plan daughter updated at bedside 02/13 daughter updated by phone 02/15 and 02/16 PT consult will be requested care d/w Dr Mcneil 02/14 Admission and Anticipated Discharge Date Admission Date: February 12, 2022 Subjective tele wnl overnight he states he had emesis x 1 this am he attributes the N/V due to pain he has severe pain in the right back over the iliac crest and right pelvis region the pain travels into the posterior right thigh tylenol is not helpful norco DID help appetite fair no dyspnea or chest pain Review of Systems Review of Systems: gen - fatigue cv - no orthopnea pulm - mild cough, mild wheezing abd - no abd pain despite N/V; constipation Physical Exam Physical Exam: gen - NAD, was sleeping upon my arrival in his room; awoke eas dannielle, c/o pain right pelvis/right lower back mouth - no lesions; MM dry neck - no JVD heart - 2/6 systolic murmur LSB, RRR, s1 s2 lungs - wheezes b/l - unchanged; no rales abd - soft NT ND BS+ ext - no edema, pulses 2+ b/l musculo - tender over right SI joint/right iliac crest/right pelvis/right hip region Results & Data Results & Data ([facility]) Vital Signs (Past 12 Hours) Vital Signs Temp Pulse Pulse Resp BP Pulse Ox O2 Del Method 02/16/22 15:44 36.6 C 54 L 16 122/58 L 96 Room Air 02/16/22 09:00 Room Air 02/16/22 07:59 36.7 C 55 L 18 150/61 H 96 Room Air 02/16/22 07:45 54 L Laboratory Results Laboratory Results - last 24 hr 02/16/22 02/16/22 02/16/22 06:04 06:04 06:04 WBC 7.90 RBC 3.13 L Hgb 9.9 L Hct 28.8 L MCV 92.0 MCH 31.6 MCHC 34.4 RDW Std Deviation 44.5 RDW Coeff of [place] 13.2 Plt Count 154 MPV 10.7 Sodium 140 Potassium 3.5 Chloride 107 Carbon Dioxide 26 Anion Gap 7 BUN 69 H D Creatinine 3.90 H D Est Cr Clr Drug Dosing 14.8 Est GFR ( Amer) 16.4 Est GFR (Non-Af Amer) 14.1 BUN/Creatinine Ratio 17.7 Glucose 90 Calcium 8.1 L Phosphorus 3.5 D Albumin 3.1 L Prostate Specific Ag 0.804 PG Care Time/CCT Total # of Minutes Spent Total Time Spent with Patient: Total time spent is greater than 50% in coordination of care (as documented) at patient's floor/unit and/or counseling patient: Coding Level of Care Code 95576 Subseq Hosp Care Lvl 2 Diagnoses Acute metabolic encephalopathy G93.41 VERONICA (acute kidney injury) N17.9 Stage 5 chronic kidney disease N18.5 Osteolytic lesion M89.50 Metastatic lung carcinoma C78.00 Vomiting R11.10 HTN (hypertension) I10 UTI (urinary tract infection) N39.0 Lumbosacral radiculopathy at L5 M54.17 S/P CABG (coronary artery bypass graft) Z95.1 Thoracic aortic aneurysm I71.2 Elevated troponin R77.8 Anemia due to chronic kidney disease N18.9; D63.1 Chronic GERD K21.9 DVT prophylaxis Z29.9 Severe protein-calorie malnutrition E43
[2022-02-16] MEDS: HYDROCODONE/ACETAMINOPHEN 7.5/325MG TAB PO PRN (19:32)
[2022-02-16] MEDS: ASPIRIN 81 MG ECTAB PO SCH (20:24)
[2022-02-16] MEDS: ATORVASTATIN 10 MG TAB PO SCH (20:24)
[2022-02-16 21:22] LABS: HBSAG NON-REACTIVE (NON-REACTIVE); Hepatitis B Core Antibody IgM NON-REACTIVE (NON-REACTIVE); Hepatitis BE Antibody Nonreactive; Hepatitis BE Antigen Nonreactive
[2022-02-17 07:33] LABS: Albumin Level 3.4 gm/dl (3.4-5.0); BUN Creatinine Ratio 16.9 (10-20); Calcium 8.5 mg/dl (8.5-10.1); Creatinine Clr Calc Pharmacy 14.3 ml/min; Est GFR (African American) 15.8 ml/min; Est GFR (Non-African American) 13.6 ml/min; Phosphorus 3.9 mg/dl (2.5-4.9); Potassium 3.8 mmol/L (3.5-5.1)
--- NOTE | 2022-02-17 08:21 | Hematology/Oncology Prog Note ---
Date of Service February 17, 2022 Assessment & Plan (1) Metastatic lung carcinoma: (2) Osteolytic lesion: (3) CKD (chronic kidney disease) stage 5, GFR less than 15 ml/min: Plan 1.Agree with palliative RT to right hip lesion for pain control 2. Awaiting NEOTYPE testing for molecular mutations as well as PD-L1 status. If he has no actionable molecular mutations and PD-L1 is less than 50%, plan to start systemic therapy after discharge from hospital with Carboplatin (AUC3), paclitaxel 200 mg/m2 and pembrolizumab 200 mg IV every 3 weeks for total of 4 cycles followed by maintenance pembrolizumab. If PD-L1 expression is greater than 50%, will treat with single agent pembrolizumab. Admission and Anticipated Discharge Date Admission Date: February 12, 2022 Subjective Started hemodialysis on 02/15/2022. Brain MRI negative for metastases Results & Data ([facility]) Vital Signs (Past 12 Hours) Vital Signs Temp Pulse Pulse Resp BP Pulse Ox O2 Del Method 02/17/22 07:31 36.5 C 53 L 21 143/54 H 94 Room Air 02/17/22 02:40 36.8 C 54 L 14 148/56 H 96 Room Air 02/16/22 23:52 55 L 02/16/22 22:58 37.1 C 64 18 151/62 H 95 Room Air
[2022-02-17] MEDS: AMOXICILLIN 500 MG CAP PO SCH ×2 (08:32→20:55)
[2022-02-17] MEDS: PANTOprazole 40 MG TAB PO SCH (08:33)
[2022-02-17] MEDS: NIFEdipine EXTENDED REL 30 MG TABCR PO SCH (08:33)
[2022-02-17] MEDS: HEPARIN SOD 5,000 UNIT/0.5 ML VIAL SQ SCH ×2 (08:33→20:55)
[2022-02-17] MEDS: SERTRALINE HCL 50 MG TABLET PO SCH (08:33)
[2022-02-17] MEDS: DOXAZosin MESYLATE TAB 2 MG TAB PO SCH (08:33)
[2022-02-17] MEDS: HYDROCODONE/ACETAMINOPHEN 7.5/325MG TAB PO PRN ×2 (08:43→17:52)
--- NOTE | 2022-02-17 09:37 | Nephrology Progress Note ---
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 Atrophic left kidney. Started HD 02/15. Orders for HD today reviewed with HD RN. Plan for 3 hours with 3 K bath. L BC AVF with reasonable Qb. Medications appropriate for IHD. Case management to arrange outpatient HD at [facility] in [place] under the care of Dr. Kothari. Renal diet. (2) Anemia due to chronic kidney disease: Plan: Venofer 200 mg IV daily. (3) HTN (hypertension): Plan: Remains on Cardura 4 mg daily and nifedipine ER 60 mg daily. Valsartan held. BP acceptable. (4) Osteolytic lesion: Plan: LN Bx demonstrating metastatic adenocarcinoma of lung on 02/13/22. Outpatient follow up with oncology to discuss management. Pain control reasonable per patient. Admission and Anticipated Discharge Date Admission Date: February 12, 2022 Subjective No acute events overnight. No acute complaints this AM. Jose told me this AM that he hopes to go home today. He does not feel that anything is being done for him as an inpatient that he could not manage at home. Jeanmarie was provided this AM for pain control. When I asked if current pain control is working, he said "it's fine. Whatever you guys want to do." When I asked if his pain had improved, he told me "like I said, it's fine." Back pain persists but he seems to tolerate it reasonably. He does not want anything to eat prior to HD due to fear of becoming nauseous. Review of Systems Review of Systems: All systems reviewed & are unremarkable except as noted in HPI & below Physical Exam Constitutional: well developed; no acute distress Eyes: no scleral abnormality and no corneal abnormality ENMT: Mouth: no oral mucosal abnormality and oral mucous membranes not dry Neck: normal visual inspection and trachea midline Respiratory: normal respiratory effort Auscultation: lungs clear to auscultation bilaterally Cardiovascular: Rate/Rhythm: regular rate Heart Sounds: normal S1, normal S2 and + murmur Extremities: + edema and + AV fistula Musculoskeletal: Extremities: no cyanosis and no clubbing Skin: normal turgor; no lesions Neurologic: Motor/Sensory: no tremor and no asterixis Psychiatric: Orientation: alert and oriented x 3 Results & Data ([facility]) Vital Signs (Past 12 Hours) Vital Signs Temp Pulse Pulse Resp BP Pulse Ox O2 Del Method 02/17/22 07:31 36.5 C 53 L 21 143/54 H 94 Room Air 02/17/22 02:40 36.8 C 54 L 14 148/56 H 96 Room Air 02/16/22 23:52 55 L 02/16/22 22:58 37.1 C 64 18 151/62 H 95 Room Air Laboratory Results Laboratory Results - last 24 hr 02/13/22 02/17/22 04:11 06:45 Sodium 141 Potassium 3.8 Chloride 107 Carbon Dioxide 25 Anion Gap 9 BUN 68 H Creatinine 4.03 H Est Cr Clr Drug Dosing 14.3 Est GFR ( Amer) 15.8 Est GFR (Non-Af Amer) 13.6 BUN/Creatinine Ratio 16.9 Glucose 93 Calcium 8.5 Phosphorus 3.9 Albumin 3.4 Hep Bs Antigen NON-REACTIVE Hep Bs Ag Confirmation TNP Hep B Core IgM Ab NON-REACTIVE Hepatitis Be Antibody Nonreactive Hepatitis Be Antigen Nonreactive PG Care Time/CCT Total # of Minutes Spent Total Time Spent with Patient: Total time spent is greater than 50% in coordination of care (as documented) at patient's floor/unit and/or counseling patient: Coding Level of Care Code 31597 Subseq Hosp Care Lvl 3 Diagnoses CKD (chronic kidney disease) stage 5, GFR less than 15 ml/min N18.5 Anemia due to chronic kidney disease N18.9; D63.1 HTN (hypertension) I10 Osteolytic lesion M89.50
--- NOTE | 2022-02-17 10:46 | Radiation OncologyConsultation ---
Date of Consultation February 17, 2022 Assessment & Plan (1) Metastatic lung carcinoma: Plan Assessment: Mr. Zhong is a 76-year-old gentleman who presents with newly diagnosed metastatic adenocarcinoma of the lung. The patient was evaluated by Dr. Mcneil from medical oncology who is recommending outpatient chemotherapy utilizing, carboplatin, paclitaxel and pembrolizumab. The patient is having significant pain involving his right pelvis and back related to metastatic disease involving the right iliac wing. I been asked to evaluate the patient for consideration of external beam radiation therapy. Recommendation: Palliative external beam radiation therapy to right pelvis. Of note, I had the opportunity to speak with the patient's daughter, Valeria Belle, who is healthcare POA. She was in agreement with the plan as well. Plan: 1. CT simulation for treatment planning for radiation therapy. Will bring patient down tomorrow for CT simulation. 2. Plan to undergo systemic therapy with Dr. Mcneil. Continue follow-up with medical oncology. 3. Patient and family encouraged to call us with any further questions or concerns. Rationale/Explanation of Treatment: I did explain the indications, alternatives, benefits, risks and side effects of external beam radiation therapy. I did explain the most common side effects including, but not limited to, skin erythema, skin breakdown, hyperpigmentation, telangiectasia, wound complications, perianal fistula development, fistula formation, nausea, vomiting, bowel obstruction, bowel perforation, dysuria, increased urinary frequency, urgency, diarrhea, constipation, melena, hematochezia, hematuria, radiation cystitis, radiation proctitis, fatigue, decreased blood counts, wound complications from surgery, urinary incontinence, rectal incontinence, secondary malignancy development. I did explain the procedures and daily process of radiation therapy. History of Present Illness Attending Physician: Ismael Arriaga History of Present Illness 01/16/2022. MRI lumbar spine. 1. Abnormal marrow signal involving the imaged right iliac bone with probable areas of cortical breakthrough and involvement of the adjacent musculature along its superior aspect and smaller areas of similar marrow signal abnormality in the right sacral ala, left iliac bone, and L5 and S1 vertebral bodies are concerning for marrow replacing lesions such as metastatic disease or multiple myeloma. MRI of the lumbar spine and pelvis without and with contrast is recommended for further evaluation. 2. Multilevel spondylotic changes of the lumbar spine, most pronounced at L4-L5 where there is severe spinal canal stenosis and moderate to severe bilateral neural foraminal narrowing. See above for detailed level by level assessment. 3. Partially imaged incompletely characterized probable bilateral renal cysts, some of which are likely hemorrhagic/proteinaceous. A contrast-enhanced CT scan of the abdomen can be performed for further evaluation as clinically warranted. 02/10/2022. PET/CT. 1. Diffuse osteolytic disease, consistent with the given history of multiple myeloma. This most significantly affects the right ilium and iliac wing with numerous areas of cortical breakthrough and destruction. 2. FDG avid bilateral supraclavicular lymphadenopathy, retroperitoneal lymphadenopathy, and bulky disease throughout the mediastinum with innumerable bilateral pulmonary nodules and areas of septal thickening. This is most consistent with a neoplastic process as well. While this may represent metastatic disease from myeloma, this degree of soft tissue disease is rare. 3. Chronic findings as above. 02/12/2022. Patient admitted to hospital for progressive weakness and confusion and significant pain. 02/13/2022. Lymph node, right supraclavicular, ultrasound-guided aspiration: - Malignant cells present consistent with metastatic adenocarcinoma, lung primary. - See comment. Comment: The specimen will be sent for a NeoTYPE Lung Tumor Profile. Those results will be documented separately. 02/14/2022. Medical oncology follow-up with Dr. Mcneil. Recommendations for outpatient carboplatin/paclitaxel/pembrolizumab chemotherapy. MRI brain needs to be ordered. 02/14/2022. MRI brain. No acute abnormality and in particular no evidence of metastatic disease. Allergies Allergy/AdvReac Type Severity Reaction Status Date / Time No Known Allergies Allergy Verified 02/12/22 16:59 Home Medications Medication Instructions Recorded Confirmed Type aspirin 81 mg tablet,delayed 81 mg PO HS 12/15/18 02/12/22 History release nifedipine 60 mg tablet,extended 60 mg PO BID #60 tabs 08/28/21 02/12/22 Rx release carvedilol 12.5 mg tablet 12.5 mg PO BID #60 tabs 10/08/21 02/12/22 Rx furosemide 40 mg tablet (Lasix) 40 mg PO DAILY 11/15/21 02/12/22 History zolpidem 5 mg tablet (Ambien) 5 mg PO HS PRN sleep #14 tabs 12/17/21 02/12/22 Rx atorvastatin 20 mg tablet (Lipitor) 10 mg PO HS 01/10/22 02/12/22 History doxazosin 2 mg tablet (Cardura) 2 mg PO DAILY 01/10/22 02/12/22 History valsartan 320 mg tablet (Diovan) 160 mg PO DAILY 01/10/22 02/12/22 History tramadol 50 mg tablet 50 - 100 mg PO Q12H PRN Pain 02/12/22 02/12/22 History Patient History Medical History Anemia due to chronic kidney disease Hgb 10-12 range per chart review, fecal occult blood test x3 negative per 12/25/21 PCP note CAD (coronary artery disease) s/p CABG x1 (with ascending thoracic aorta repair) - 2008 Chronic midline thoracic back pain Dyslipidemia GERD (gastroesophageal reflux disease) History of COVID-19 09/2021, hospitalized at [facility] (vomiting, dehydration, cough, sinus congestion) > resolved HTN (hypertension) Secondary hyperparathyroidism of renal origin Stage 5 chronic kidney disease not on chronic dialysis Thoracic aortic aneurysm s/p repair (2008) Surgical History H/O thoracic aortic aneurysm repair CABG x1 + ascending thoracic aorta repair (2008) History of cataract surgery R/L History of hernia repair S/P CABG (coronary artery bypass graft) CABG x1 + ascending thoracic aorta repair (2008) Family History Brother Brain tumor Cancer, Onset Age: 70 colon cancer Sai Mother Leukemia Denies family history of Ovarian cancer Prostate cancer Myocardial infarction Breast cancer Colorectal cancer Social History Smoking Status: Current some day smoker Tobacco Type: Cigars Age Started Using Tobacco: 41; Cigarettes Per Day: 3-4 cigars/day; Second Hand Exposure: No; Hx Alcohol Use: Yes Alcohol type: wine Hx Substance Use: No Preferred Language: Guyanese Communication Ability: Effective Visual Impairment: Partially Limited Hearing Ability: Hard of Hearing Stock Puller Required: No Beliefs That Will Affect Care: None marital status: Single Current Living Situation: Alone Current Living Situation Comment: Lives alone, but within a close vacinity to daughter. current occupational status: retired How many Children do You have: 2 Feels Safe at Home: Yes Childhood Exposure to Second-Hand Smoke: Yes caffeine: Yes (coffee) Dental Care, Regularly: No Physical Activity Frequency: Daily Seatbelt Use: always Sunscreen Use: Yes Do you think of yourself as: straight/heterosexual Assistive Devices: None Review of Systems Review of Systems: Significant pain involving right hip and lower back. Physical Exam Constitutional: WD/WN, vitals as above Psychiatric: A+Ox3, euthymic affect Time Spent Attending I spent 15 minutes in preparation for this consultation including reviewing all the clinical records, reviewing laboratory studies, pathology reports and imaging results. I spent 25 minutes with direct face to face interaction with the patient and/or family including performing a physical exam and answering all questions. I spent 15 minutes documenting this patient's visit. I spent 5 minutes speaking with the following providers regarding this patient's care: Dr. Middleton.
[2022-02-17] MEDS: IRON SUCROSE 200 MG in 0.9 % SODIUM CHLORIDE 100 ML IV SCH (12:31)
[2022-02-17] MEDS: ONDANSETRON INJ 2 MG/ML 2 ML VIAL IV PRN (13:51)
--- NOTE | 2022-02-17 19:18 | Hospitalist Progress Note ---
Date of Service February 17, 2022 Assessment & Plan (1) Acute metabolic encephalopathy: Plan: improved likely 2nd to enterococcal UTI and uremic encephalopathy from VERONICA in setting of stage 5 CKD use of ambien and/or tramadol at home could have caused some toxic effects as well TSH and B12 wnl MRI brain negative for mets does have diffuse encephalomalacia on MRI brain which will be a set-up for delirium cont Rx for UTI cont HD for advanced kidney disease tramadol and ambien stopped (2) VERONICA (acute kidney injury): Plan: VERONICA on stage 5 CKD nephrology consult appreciated Creatinine never improved earlier in the stay; BUN stayed elevated at ~100 s/p initiation of HD initiation 02/15 with 2 hour session s/p 3-hour HD treatment today (3) Stage 5 chronic kidney disease: Plan: baseline Cr 3.8 to 4.2 VERONICA with Cr 5.2 at admission some uremic encephalopathy was present nephrology consult appreciated HD initiated 02/15 via left arm AV fistula HD again today (4) Osteolytic lesion: Plan: recent lumbar spine MRI with osteolytic lesions of right iliac crest/ileum there are multiple lung nodules and lymphadenopathy as well s/p right supraclavicular lymph node biopsy path c/w adenocarcinoma - likely lung primary appreciate Dr Mcneil's consultation & recs he has SEVERE pain over the right ileum/pelvis - consulted Dr Serena Clifford from radiation oncology today palliative radiation offered; patient to have simulation tomorrow for pain - will increase norco to 10/325 q4h prn I suspect we are going to need a long-acting pain med and perhaps an upgrade from the norco as well will ask palliative care to see tomorrow of note - on lumbar spine MRI 01/2022 he had severe spinal stenosis at L4-L5 this very well could be contributing to his pain for possible lumbar radiculopathy along with bone pain from mets start dexamethasone 4mg daily for a few days consider gabapentin renally-dosed (5) Metastatic lung carcinoma: Plan: as confirmed on right supraclavicular node biopsy patient wishes to Rx the cancer Dr Mcneil planning taxol/carboplatin + immune-based Rx in near-future as outpatient (6) Vomiting: Plan: intermittent UTI, uremia, pain, constipation - all could be contributing cont a PPI bowel regimen treat the UTI treat his bone pain HD for ESRD (7) HTN (hypertension): Plan: BPs running low-normal and HRs remain 50s despite cutting back coreg HOLD ARB HOLD coreg I REDUCED nifedipine to once daily from BID dosing may need to reduce or stop his alpha mat (8) UTI (urinary tract infection): Plan: 2nd enterococcus day #5 of abx - now on amoxicillin Rx at least 7 days PSA <1 making prostatitis highly unlikely (9) Lumbosacral radiculopathy at L5: Plan: MRI lumbar spine 01/2022 - severe L4-L5 spinal stenosis may be contributing to right sided leg pain start a course of steroid - dexamethasone 4mg daily consider gabapentin pain meds (10) S/P CABG (coronary artery bypass graft): Plan: cont asa, BB, and statin (11) Thoracic aortic aneurysm: Plan: s/p repair in the past (12) Elevated troponin: Plan: either 2nd to VERONICA in setting of stage 5 CKD, or myocardial demand ischemia no symptoms or signs of ACS (13) Anemia due to chronic kidney disease: Plan: H/H have been acceptable (14) Chronic GERD: Plan: uncertain if GERD was contributing to vomiting regardless - continue PPI (15) DVT prophylaxis: Plan: cont heparin 5000 BID (16) Severe protein-calorie malnutrition: Plan: 20 pound weight loss over the last 2 weeks. Weight this admission 71.4 kg. Weight less than 1 month of ago of 80.7 kg. This is a loss of 9.3 kg / 11.5% of his body weight in less than 1 month. Consider MVI, boost, etc. 2nd to advancing CKD in the midst of newly diagnosed metastatic lung ca. Plan daughter updated at bedside 02/13 daughter updated by phone 02/15 and 02/16 care d/w Dr Mcneil and Dr Serena Clifford today I believe that his pain will be the rate-limiting step in him getting home soon Admission and Anticipated Discharge Date Admission Date: February 12, 2022 Subjective saw patient post-HD today had 3 hour treatment - no issues he continues with severe pain in the right lower back, right hip region/pelvic region, and it wraps around the front of the right thigh and somewhat into the right calf pain is 10/10 at worse, at best is 2/10 "sometimes it's gone" he states but most times there is some element of pain denies pain in any new locations per staff no bowel movement today Review of Systems Review of Systems: gen - no fevers, no chills cv - no cp, no orthopnea GI - no abd pain; some intermittent nausea at times pulm - occasional cough Physical Exam Physical Exam: gen - NAD, resting in bed mouth - MM again dry but no lesions or thrush neck - no JVD heart - 2/6 systolic murmur LSB, RRR, s1 s2 lungs - mild wheezes b/l; no rales abd - soft NT ND BS+ ext - no edema, pulses 2+ b/l psych - awake, alert Results & Data Results & Data ([place]) Vital Signs (Past 12 Hours) Vital Signs Temp Pulse Pulse Pulse Resp BP BP 02/17/22 12:45 36.5 C 54 L 155/61 H 02/17/22 12:30 57 L 145/54 H 02/17/22 15:20 36.4 C L 58 L 20 137/52 L 02/17/22 12:00 54 L 137/49 L 02/17/22 11:30 54 L 129/56 L 02/17/22 11:00 54 L 119/54 L 02/17/22 10:30 54 L 136/56 L 02/17/22 10:00 51 L 137/60 02/17/22 09:30 36.5 C 54 L 53 L 02/17/22 10:28 02/17/22 07:31 36.5 C 53 L 21 143/54 H Pulse Ox O2 Del Method 02/17/22 12:45 02/17/22 12:30 02/17/22 15:20 92 Room Air 02/17/22 12:00 02/17/22 11:30 02/17/22 11:00 02/17/22 10:30 02/17/22 10:00 02/17/22 09:30 02/17/22 10:28 Room Air 02/17/22 07:31 94 Room Air Laboratory Results Laboratory Results - last 24 hr 02/13/22 02/13/22 02/17/22 04:11 Unknown 06:45 Sodium 141 Potassium 3.8 Chloride 107 Carbon Dioxide 25 Anion Gap 9 BUN 68 H Creatinine 4.03 H Est Cr Clr Drug Dosing 14.3 Est GFR ( Amer) 15.8 Est GFR (Non-Af Amer) 13.6 BUN/Creatinine Ratio 16.9 Glucose 93 Calcium 8.5 Phosphorus 3.9 Albumin 3.4 Jules-TRK (I[facility]) Pending Hep Bs Antigen NON-REACTIVE Hep Bs Ag Confirmation TNP Hep B Core IgM Ab NON-REACTIVE Hepatitis Be Antibody Nonreactive Hepatitis Be Antigen Nonreactive FISH Oncology Pending IHC Stain and Interp Pending [facility] Pathology Test Pending PG Care Time/CCT Total # of Minutes Spent Total Time Spent with Patient: Total time spent is greater than 50% in coordination of care (as documented) at patient's floor/unit and/or counseling patient: Coding Level of Care Code 76602 Subseq Hosp Care Lvl 2 Diagnoses Acute metabolic encephalopathy G93.41 VERONICA (acute kidney injury) N17.9 Stage 5 chronic kidney disease N18.5 Osteolytic lesion M89.50 Metastatic lung carcinoma C78.00 Vomiting R11.10 HTN (hypertension) I10 UTI (urinary tract infection) N39.0 Lumbosacral radiculopathy at L5 M54.17 S/P CABG (coronary artery bypass graft) Z95.1 Thoracic aortic aneurysm I71.2 Elevated troponin R77.8 Anemia due to chronic kidney disease N18.9; D63.1 Chronic GERD K21.9 DVT prophylaxis Z29.9 Severe protein-calorie malnutrition E43
[2022-02-17] MEDS: dexAMETHasone 4 MG TAB PO SCH (19:32)
[2022-02-17] MEDS: SENNA 8.6 MG TAB PO SCH (20:53)
[2022-02-17] MEDS: POLYETHYLENE (MIRALAX) 17 GM PACK PO SCH ×2 (20:55→21:01)
[2022-02-17] MEDS: ATORVASTATIN 10 MG TAB PO SCH (20:55)
[2022-02-17] MEDS: ASPIRIN 81 MG ECTAB PO SCH (20:55)
[2022-02-17] MEDS: HYDROcodone/ACETAMINOPHEN 10/325 TAB PO PRN (22:49)
[2022-02-18] MEDS: HYDROcodone/ACETAMINOPHEN 10/325 TAB PO PRN ×2 (03:10→08:38)
[2022-02-18 06:51] LABS: Hematocrit (blood only) 30.5 % (40.1-51.0); Hemoglobin 10.2 g/dl (14.0-18.0); Mean Corpuscular Hemoglobin 31.3 pg (25.0-34.0); Mean Corpuscular Hgb Conc 33.4 g/dL (32.0-36.0); Mean Corpuscular Volume 93.6 fL (80.0-100.0); Mean Platelet Volume 10.1 fL (9.4-12.4); Platelet Count 140 K/uL (130-400); RDW Coefficient of Variation 13.2 % (11.5-14.5); RDW Standard Deviation 45.3 fL (36.4-46.3); Red Blood Count 3.26 M/uL (4.63-6.08)
[2022-02-18 07:19] LABS: BUN Creatinine Ratio 14.8 (10-20); Calcium 8.4 mg/dl (8.5-10.1); Creatinine Clr Calc Pharmacy 18.9 ml/min; Est GFR (African American) 22.1 ml/min; Potassium 3.9 mmol/L (3.5-5.1)
[2022-02-18] MEDS: ONDANSETRON INJ 2 MG/ML 2 ML VIAL IV PRN (08:39)
--- NOTE | 2022-02-18 08:59 | Palliative Care Consultation ---
Date of Consultation February 18, 2022 Assessment & Plan (1) Palliative care encounter: GOC/ACP disucssion 45min: Edgar is a lifelong fitness enthusiast. Exercise makes him feel better, maintain independence and clear thinking. He enjoys seeing the outward signs of his exercising and weight trianing, noting that this has been a great source of personal pride to him. It helps him through times of stress and anxiety as well. He was a former heavy smoker who quit "cold turkey" in his 40's. He has smoked cigars since then but admits that at times fo great personal/emotional stress he has resumed cigarette smoking for short periods of time "then I snap out of it, tell myself what are you doing, this is stupid!and I stop." He values family and the time he can have with then, adding that "If I was alone, you know truly alone, then I would say no need to bother with doing anything, I'm ready to . But I have my family now and they want me around so I will do what I can do be here as long as I can for them." He also acknowledges there will be a time when aggressive mgt may no longer be appropriate nor support his goals fo care, and hen he would desire a focus on comfort and QOL. However for now he wishes to remain a full code, adding that he wants more time to discuss these issues with his daughter/MARY Shaw. he wants Valeria involved in all trujillo discussions and looks to her to make the decisions as he feels he sometimes does not fully grasp everything he is being told. He wants to pursue cancer directed plan of care with chemo and radiation. He hopes he can regain his strength and states he is planning to resume his workouts when he is discharged. (2) Cancer related pain: iliac, back; hx chronic back pain Poorly controlled per pt, would like something stronger to help him become more active and resume activities. Will stop Steger and begin trial of Oxy IR 5Mg PO q4h prn/ Hold for somnolence or RR less than 14, please document RR when administering. Order written. Primary team and nursing updated. Present on Admission?: Yes (3) Metastatic lung carcinoma: Laterality: unspecified laterality Qualified Code(s): C78.00 - Secondary malignant neoplasm of unspecified lung Present on Admission?: Yes (4) CKD (chronic kidney disease) stage 5, GFR less than 15 ml/min: HD started this admission for his progressive Stage 5, GFR less than 15 ml/min, complicated by VERONICA, Anemia of chronic disease, secondary hyperparathyroidism, osteolytic lesion Present on Admission?: Yes (5) Severe protein-calorie malnutrition: Present on Admission?: Yes (6) Acute metabolic encephalopathy: Slowly improving. Present on Admission?: Yes Plan As outlined above. TS 90min total, 45min of which was face to face ACP discussion. Dr. Nemo Jones [facility] Clinical Director, Palliative Medicine History of Present Illness Reason for Consultation: Cancer related pain mgt, new lung adenoca Attending Physician: Ismael Arriaga History of Present Illness Jose Zhong is a 76yo male admitted 02/12/2022 from home with weakness, confusion/AMS, severe pain right iliac and back. He has chronic CKD and uremia, this confusion has been worsening for a few weeks prior to admission per family rport on day of admission (this is note din chart review.) His urine OP was decreasing but he was not anuric. A fistula was created 01/10/2022. He has started HD this admission. He had +lymphadenopathy, multiple lung nodules and osteolytic lesions suspicious for malignancy with an elevated ZMQ=366.7, no recent colonoscopy. he is an active heavy smoker. IR did an US-guided supraclavicular lymph node biopsy which confirmed Stage IV adenocarcinoma of the lung. He was seen by Dr Mcneil/Oncology and has been offered OP chemo w/carboplatin, paclitaxel & pembrolizumab. Mr. Zhong has severe pain in the right pelvis and back, from this metastatic disease involving the right iliac wing, complicated perhaps by his hx of chronic back pain granger to DDD/lumbar radiculitis and radiculopathy. He was seen by Dr Clifford from Rad Onc and will be simulated today for EBRT. Pt has a daughter, Valeria, who is noted to also be his POA. 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 He moved to [facility] to be close to his daughter, and they now live one block apart from each other. He lives in a ranch home with single story living. he has a cat named Jose. He is and does not have a significant other at this time. Allergies Allergy/AdvReac Type Severity Reaction Status Date / Time No Known Allergies Allergy Verified 02/12/22 16:59 Home Medications Medication Instructions Recorded Confirmed Type aspirin 81 mg tablet,delayed 81 mg PO HS 12/15/18 02/12/22 History release nifedipine 60 mg tablet,extended 60 mg PO BID #60 tabs 08/28/21 02/12/22 Rx release carvedilol 12.5 mg tablet 12.5 mg PO BID #60 tabs 10/08/21 02/12/22 Rx furosemide 40 mg tablet (Lasix) 40 mg PO DAILY 11/15/21 02/12/22 History zolpidem 5 mg tablet (Ambien) 5 mg PO HS PRN sleep #14 tabs 12/17/21 02/12/22 Rx atorvastatin 20 mg tablet (Lipitor) 10 mg PO HS 01/10/22 02/12/22 History doxazosin 2 mg tablet (Cardura) 2 mg PO DAILY 01/10/22 02/12/22 History valsartan 320 mg tablet (Diovan) 160 mg PO DAILY 01/10/22 02/12/22 History tramadol 50 mg tablet 50 - 100 mg PO Q12H PRN Pain 02/12/22 02/12/22 History Patient History Medical History Anemia due to chronic kidney disease Hgb 10-12 range per chart review, fecal occult blood test x3 negative per 12/25/21 PCP note CAD (coronary artery disease) s/p CABG x1 (with ascending thoracic aorta repair) - 2008 Chronic midline thoracic back pain Dyslipidemia GERD (gastroesophageal reflux disease) History of COVID-19 09/2021, hospitalized at [facility] (vomiting, dehydration, cough, sinus congestion) > resolved HTN (hypertension) Secondary hyperparathyroidism of renal origin Stage 5 chronic kidney disease not on chronic dialysis Thoracic aortic aneurysm s/p repair (2008) Surgical History H/O thoracic aortic aneurysm repair CABG x1 + ascending thoracic aorta repair (2008) History of cataract surgery R/L History of hernia repair S/P CABG (coronary artery bypass graft) CABG x1 + ascending thoracic aorta repair (2009) Family History Brother Brain tumor Cancer, Onset Age: 70 colon cancer Sai Mother Leukemia Denies family history of Ovarian cancer Prostate cancer Myocardial infarction Breast cancer Colorectal cancer Social History Smoking Status: Current some day smoker Tobacco Type: Cigars Age Started Using Tobacco: 41; Cigarettes Per Day: 3-4 cigars/day; Second Hand Exposure: No; Hx Alcohol Use: Yes Alcohol type: wine Hx Substance Use: No Preferred Language: Indonesian Communication Ability: Effective Visual Impairment: Partially Limited Hearing Ability: Hard of Hearing Inner Tube Cutter Required: No Beliefs That Will Affect Care: None marital status: Single Current Living Situation: Alone Current Living Situation Comment: Lives alone, but within a close vacinity to daughter. current occupational status: retired How many Children do You have: 2 Feels Safe at Home: Yes Childhood Exposure to Second-Hand Smoke: Yes caffeine: Yes (coffee) Dental Care, Regularly: No Physical Activity Frequency: Daily Seatbelt Use: always Sunscreen Use: Yes Do you think of yourself as: straight/heterosexual Assistive Devices: None Review of Systems Constitutional: as per Subjective / HPI Physical Exam Constitutional: well developed and well nourished Eyes: PERRL and reactive pupils Neck: trachea midline, no thyromegaly normal visual inspection and trachea midline Thyroid: normal thyroid Respiratory: normal respiratory effort Auscultation: + diminished lung sounds and + rhonchi Cardiovascular: Rate/Rhythm: regular rate and regular rhythm Heart Sounds: normal S1 and normal S2 Palpation: normal PMI Vessels: normal peripheral pulses Extremities: normal capillary refill and + AV fistula Gastrointestinal (Abdomen): Inspection/Auscultation: abdomen normal to inspection and normal bowel sounds Percussion/Palpation: abdomen soft Musculoskeletal: Spine: + limited thoraco-lumbar ROM Hip: + limited ROM of hip and + joint line tenderness Tender over iliac creast radiating into back Skin: + turgor decreased Neurologic: PERRL, EOMI, accommodation nl, no face palsy, no dysarthria Psychiatric: A+Ox3, euthymic affect Results & Data ([facility]) Vital Signs (Past 12 Hours) Vital Signs Temp Pulse Pulse Resp BP Pulse Ox O2 Del Method 02/18/22 02:33 36.8 C 56 L 18 125/58 L 91 Room Air 02/17/22 22:50 37.0 C 57 L 18 154/54 H 93 Room Air PG Care Time/CCT Total # of Minutes Spent Total Time Spent: 90 Total Time Spent with Patient: Total time spent is greater than 50% in coordination of care (as documented) at patient's floor/unit and/or counseling patient: I spent 90 minutes overall addressing this case: 10 in medical data review/discussion with referring provider(s) and/or preparation for the visit 75 in direct interaction with the patient (45 of the 75 min were spent in Advance Care Planning/Goals of Care discussions as detailed above in note (must be >16min)) 5 in subsequent review and synthesis of assessment and plan 10 in communicating with other providers regarding the patient's case: primary team and nursing. Prolonged Care Time Prolonged Care Time: [place] [address] Inpt Consult Level 5 Patient Type New History Comprehensive Exam Comprehensive Medical Decision Making Moderate Complexity Diagnoses Palliative care encounter Z51.5 Cancer related pain G89.3 Metastatic lung carcinoma C78.00 Laterality: unspecified laterality CKD (chronic kidney disease) stage 5, GFR less than 15 ml/min N18.5 Severe protein-calorie malnutrition E43 Acute metabolic encephalopathy G93.41 Additional Codes Prolonged Care Time - Prolonged Care Time: Yes ([id number])
--- NOTE | 2022-02-18 09:54 | Nephrology Progress Note ---
Date of Service February 18, 2022 Assessment & Plan (1) CKD (chronic kidney disease) stage 5, GFR less than 15 ml/min: Plan: ESKD attributed to hypertensive arteriosclerosis and underlying microvascular disease. Atrophic left kidney. Started HD 02/15. Maintained on MWF HD. Plan to start HD at [facility] under the care of Dr. Kothari tomorrow. [facility] may be able to take the patient tomorrow but unfortunately not start Mr. Zhong as a new patient on Thursday. I relayed this information to Dr. Middleton this AM. Unfortunately, due to ongoing pain control concerns, discharge today may not be possible. L BC AVF has been functioning reasonably well. Medications appropriate for IHD. Renal diet. (2) Anemia due to chronic kidney disease: Plan: Venofer 200 mg IV daily, day 3. (3) HTN (hypertension): Plan: Remains on Cardura 4 mg daily and nifedipine ER 60 mg daily. Valsartan held. BP acceptable. (4) Osteolytic lesion: Plan: LN Bx demonstrating metastatic adenocarcinoma of lung on 02/13/22. Radiation oncology consultation reviewed. Admission and Anticipated Discharge Date Admission Date: February 12, 2022 Subjective No acute events overnight. Jose completed HD yesterday without complications. Overall, he feels reasonably well this AM. He reports improved pain control. Continues to struggle with activity limiting pain when ambulating. Review of Systems Review of Systems: All systems reviewed & are unremarkable except as noted in HPI & below Physical Exam Constitutional: well developed; no acute distress Eyes: no scleral abnormality and no corneal abnormality ENMT: Mouth: no oral mucosal abnormality and oral mucous membranes not dry Neck: normal visual inspection and trachea midline Respiratory: normal respiratory effort Auscultation: lungs clear to auscultation bilaterally Cardiovascular: Rate/Rhythm: regular rate Heart Sounds: normal S1, normal S2 and + murmur Extremities: + edema and + AV fistula Musculoskeletal: Extremities: no cyanosis and no clubbing Skin: normal turgor; no lesions Neurologic: Motor/Sensory: no tremor and no asterixis Psychiatric: Orientation: alert and oriented x 3 Results & Data ([facility]) Vital Signs (Past 12 Hours) Vital Signs Temp Pulse Pulse Resp BP Pulse Ox O2 Del Method 02/18/22 08:45 36.4 C L 52 L 20 145/51 H 93 Room Air 02/18/22 02:33 36.8 C 56 L 18 125/58 L 91 Room Air 02/17/22 22:50 37.0 C 57 L 18 154/54 H 93 Room Air Laboratory Results Laboratory Results - last 24 hr 02/13/22 02/18/22 02/18/22 Unknown 06:34 06:34 WBC 10.00 RBC 3.26 L Hgb 10.2 L Hct 30.5 L MCV 93.6 MCH 31.3 MCHC 33.4 RDW Std Deviation 45.3 RDW Coeff of [place] 13.2 Plt Count 140 MPV 10.1 Sodium 141 Potassium 3.9 Chloride 106 Carbon Dioxide 28 Anion Gap 7 BUN 45 H D Creatinine 3.05 H D Est Cr Clr Drug Dosing 18.9 Est GFR ( Amer) 22.1 Est GFR (Non-Af Amer) 19.0 BUN/Creatinine Ratio 14.8 Glucose 101 H Calcium 8.4 L Jules-TRK (IHC) Pending FISH Oncology Pending IHC Stain and Interp Pending Misc Pathology Test Pending PG Care Time/CCT Total # of Minutes Spent Total Time Spent with Patient: Total time spent is greater than 50% in coordination of care (as documented) at patient's floor/unit and/or counseling patient: Coding Level of Care Code 08580 Subseq Hosp Care Lvl 3 Diagnoses CKD (chronic kidney disease) stage 5, GFR less than 15 ml/min N18.5 Anemia due to chronic kidney disease N18.9; D63.1 HTN (hypertension) I10 Osteolytic lesion M89.50
[2022-02-18] MEDS: SERTRALINE HCL 50 MG TABLET PO SCH (11:31)
[2022-02-18] MEDS: NIFEdipine EXTENDED REL 30 MG TABCR PO SCH (11:31)
[2022-02-18] MEDS: HEPARIN SOD 5,000 UNIT/0.5 ML VIAL SQ SCH ×2 (11:32→20:47)
[2022-02-18] MEDS: dexAMETHasone 4 MG TAB PO SCH (11:32)
[2022-02-18] MEDS: DOXAZosin MESYLATE TAB 2 MG TAB PO SCH (11:32)
[2022-02-18] MEDS: SENNA 8.6 MG TAB PO SCH (11:33)
[2022-02-18] MEDS: AMOXICILLIN 500 MG CAP PO SCH ×2 (11:33→20:46)
[2022-02-18] MEDS: POLYETHYLENE (MIRALAX) 17 GM PACK PO SCH ×2 (11:33→20:47)
[2022-02-18] MEDS: IRON SUCROSE 200 MG in 0.9 % SODIUM CHLORIDE 100 ML IV SCH (11:40)
[2022-02-18] MEDS: PANTOprazole 40 MG TAB PO SCH (12:21)
[2022-02-18] MEDS: oxyCODONE HCL IR 5 MG TAB (IMMEDIATE RELEASE) PO PRN ×2 (16:54→20:47)
--- NOTE | 2022-02-18 17:31 | XRay Report ---
KUB CLINICAL HISTORY: Nausea. Vomiting. Constipation. FINDINGS: 2 AP supine abdominal radiographs are correlated with PET/CT dated 02/10/2022. There is a n onobstructed abdominal bowel gas pattern. Moderate fecal retention is seen throughout the colon. No e vidence of intraperitoneal free air is seen on these supine images. There are no abnormal abdominal c alcifications. Phleboliths and prostatic calcifications are noted in the pelvis. The skeletal structu res are heterogeneously osteopenic. Bony metastatic disease is again seen within the right hemipelvis . IMPRESSION: Moderate constipation. Electronically signed by: Eddy Jerez M.D. 02/18/2022 5:29 PM
--- NOTE | 2022-02-18 18:32 | Hospitalist Progress Note ---
Date of Service February 18, 2022 Assessment & Plan (1) Acute metabolic encephalopathy: Plan: resolved likely 2nd to enterococcal UTI and uremic encephalopathy from VERONICA in setting of stage 5 CKD use of ambien and/or tramadol at home could have caused some toxic effects as well TSH and B12 wnl MRI brain negative for mets does have diffuse encephalomalacia on MRI brain which will lower his threshold for delirium cont Rx for UTI cont HD for advanced kidney disease tramadol and ambien have been stopped (2) VERONICA (acute kidney injury): Plan: VERONICA on stage 5 CKD nephrology consult appreciated Creatinine never improved earlier in the stay; BUN stayed elevated at ~100; Cr 4.5-5 s/p initiation of HD initiation 02/15 with 2 hour session s/p 3-hour HD treatment 02/17 Planning / outpatient HD schedule at [facility] Unfortunately they cannot initiate his first outpatient session this Thursday; his first outpatient session will be next Thursday (3) Stage 5 chronic kidney disease: Plan: baseline Cr 3.8 to 4.2 VERONICA with Cr 5.2 at admission some uremic encephalopathy was present nephrology consult appreciated HD initiated 02/15 via left arm AV fistula HD again 02/17 HD again tomorrow 02/19 He will dialyze as an outpatient on schedule at [facility] first session will be 02/24/22 (4) Osteolytic lesion: Plan: recent lumbar spine MRI with severe osteolytic lesions of right iliac crest/ileum there are multiple lung nodules and lymphadenopathy as well s/p right supraclavicular lymph node biopsy path c/w adenocarcinoma - likely lung primary appreciate Dr Mcneil's consultation & recs he has SEVERE pain over the right ileum/pelvis - consulted Dr Serena Clifford from radiation oncology palliative radiation offered; patient underwent CT simulation today first XRT treatment tomorrow? Dr Clifford planning 5-10 treatments in total oral pain meds - I asked palliative care to see in consult they have changed his norco to oxycodone appreciate their assistance he is also on dexamethasone 4mg daily - first dose 02/17 this may help bone pain, radicular pain from l-spine, nausea, appetite, etc. plan 7-10 days of dexamethasone then stop of note - on lumbar spine MRI 01/2022 he had severe spinal stenosis at L4-L5 this very well could be contributing to his pain as well in addition to dexamethasone consider gabapentin renally-dosed (5) Metastatic lung carcinoma: Plan: as confirmed on right supraclavicular node biopsy patient wishes to pursue Rx Dr Mcneil planning taxol/carboplatin + immune-based Rx in near-future as outpatient also will have palliative radiation to right pelvis as noted above (6) Vomiting: Plan: intermittent UTI, uremia, pain, constipation - all could be contributing cont a PPI bowel regimen KUB xray today checked - no ileus, moderate constipation noted treat the UTI treat his bone pain HD for ESRD (7) HTN (hypertension): Plan: BPs running low-normal and HRs remain 50s despite holding coreg HOLD ARB HOLD coreg Will reduce nifedipine xr further to 30mg once daily cont his alpha mat for now suspect his recent weight loss has allowed discontinuation of the above meds (8) UTI (urinary tract infection): Plan: 2nd enterococcus day #6 of abx - now on amoxicillin Rx at least 7 days PSA <1 making prostatitis highly unlikely (9) Lumbosacral radiculopathy at L5: Plan: MRI lumbar spine 01/2022 - severe L4-L5 spinal stenosis may be contributing to right sided leg pain cont dexamethasone 4mg daily for 7-10 days consider gabapentin pain meds as above (10) S/P CABG (coronary artery bypass graft): Plan: cont asa, BB, and statin (11) Thoracic aortic aneurysm: Plan: s/p repair in the past (12) Elevated troponin: Plan: either 2nd to VERONICA in setting of stage 5 CKD, or myocardial demand ischemia no symptoms or signs of ACS (13) Anemia due to chronic kidney disease: Plan: H/H have been acceptable (14) Chronic GERD: Plan: uncertain if GERD was contributing to vomiting regardless - continue PPI (15) DVT prophylaxis: Plan: cont heparin 5000 BID (16) Severe protein-calorie malnutrition: Plan: 20 pound weight loss over the last 2 weeks. Weight this admission 71.4 kg. Weight less than 1 month of ago of 80.7 kg. This is a loss of 9.3 kg / 11.5% of his body weight in less than 1 month. Consider MVI, boost, etc. 2nd to advancing CKD in the midst of newly diagnosed metastatic lung ca. Plan daughter updated at bedside 02/13 daughter updated by phone 02/15 and 02/16 and 02/18 care d/w Dr Mcneil and Dr Serena Clifford this week care d/w Dr Grimm today plan for patient to remain hospitalized at least through Thursday or Thursday - likely Thursday focus on HD, pain control, and radiation treat nausea/vomiting Admission and Anticipated Discharge Date Admission Date: February 12, 2022 Subjective patient continues with pain, but feels it is improved today with that said he continues to require norco fairly frequently he did finally have a bowel movement this afternoon he has been refusing to take the miralax denies any new complaints denies pain in new locations he had CT simulation today for upcoming radiation to the right pelvis tele stable overnight Review of Systems Review of Systems: gen - no fevers, no chills cv - no cp, no orthopnea pulm - no dyspnea or ROSE; chronic cough GI - no abd pain; continues with episodes of nausea Physical Exam Physical Exam: gen - NAD, resting in bed, looks the same as yesterday mouth - MM again dry; no lesions neck - no JVD heart - 2/6 systolic murmur LSB, RRR, s1 s2 lungs - mild wheezes b/l; no rales; no increased work of breathing abd - soft NT ND BS+ ext - no edema, pulses 2+ b/l psych - awake, alert, oriented Results & Data Results & Data ([facility]) Vital Signs (Past 12 Hours) Vital Signs Temp Pulse Pulse Pulse Resp BP Pulse Ox 02/18/22 15:33 36.6 C 53 L 18 135/58 L 94 02/18/22 11:13 36.7 C 52 L 17 143/51 H 95 02/18/22 09:15 02/18/22 09:15 62 02/18/22 08:45 36.4 C L 52 L 20 145/51 H 93 O2 Del Method 02/18/22 15:33 Room Air 02/18/22 11:13 Room Air 02/18/22 09:15 Room Air 02/18/22 09:15 02/18/22 08:45 Room Air Laboratory Results Laboratory Results - last 24 hr 02/18/22 02/18/22 06:34 06:34 WBC 10.00 RBC 3.26 L Hgb 10.2 L Hct 30.5 L MCV 93.6 MCH 31.3 MCHC 33.4 RDW Std Deviation 45.3 RDW Coeff of [place] 13.2 Plt Count 140 MPV 10.1 Sodium 141 Potassium 3.9 Chloride 106 Carbon Dioxide 28 Anion Gap 7 BUN 45 H D Creatinine 3.05 H D Est Cr Clr Drug Dosing 18.9 Est GFR ( Amer) 22.1 Est GFR (Non-Af Amer) 19.0 BUN/Creatinine Ratio 14.8 Glucose 101 H Calcium 8.4 L PG Care Time/CCT Total # of Minutes Spent Total Time Spent with Patient: Total time spent is greater than 50% in coordination of care (as documented) at patient's floor/unit and/or counseling patient: Coding Level of Care Code 51501 Subseq Hosp Care Lvl 3 Diagnoses Acute metabolic encephalopathy G93.41 VERONICA (acute kidney injury) N17.9 Stage 5 chronic kidney disease N18.5 Osteolytic lesion M89.50 Metastatic lung carcinoma C78.00 Laterality: unspecified laterality Vomiting R11.10 HTN (hypertension) I10 UTI (urinary tract infection) N39.0 Lumbosacral radiculopathy at L5 M54.17 S/P CABG (coronary artery bypass graft) Z95.1 Thoracic aortic aneurysm I71.2 Elevated troponin R77.8 Anemia due to chronic kidney disease N18.9; D63.1 Chronic GERD K21.9 DVT prophylaxis Z29.9 Severe protein-calorie malnutrition E43 (1) Metastatic lung carcinoma Laterality: unspecified laterality Qualified Code(s): C78.00 - Secondary malignant neoplasm of unspecified lung
[2022-02-18] MEDS: ASPIRIN 81 MG ECTAB PO SCH (20:47)
[2022-02-18] MEDS: ATORVASTATIN 10 MG TAB PO SCH (20:47)
[2022-02-18] MEDS ORDERED: GABAPENTIN 100 MG CAP PO SCH (21:00)
[2022-02-19] MEDS: oxyCODONE HCL IR 5 MG TAB (IMMEDIATE RELEASE) PO PRN ×5 (03:15→22:12)
[2022-02-19 07:38] LABS: Hematocrit (blood only) 29.4 % (40.1-51.0); Hemoglobin 9.7 g/dl (14.0-18.0); Mean Corpuscular Hemoglobin 31.2 pg (25.0-34.0); Mean Corpuscular Volume 94.5 fL (80.0-100.0); Mean Platelet Volume 10.3 fL (9.4-12.4); Platelet Count 143 K/uL (130-400); RDW Coefficient of Variation 13.3 % (11.5-14.5); RDW Standard Deviation 45.7 fL (36.4-46.3); Red Blood Count 3.11 M/uL (4.63-6.08); White Blood Count 10.67 K/ul (4.8-10.8)
[2022-02-19 08:09] LABS: BUN Creatinine Ratio 14.9 (10-20); Calcium 8.3 mg/dl (8.5-10.1); Creatinine Clr Calc Pharmacy 14.8 ml/min; Est GFR (African American) 16.4 ml/min; Est GFR (Non-African American) 14.1 ml/min; Phosphorus 4.1 mg/dl (2.5-4.9); Potassium 3.8 mmol/L (3.5-5.1)
--- NOTE | 2022-02-19 08:45 | Hospitalist Progress Note ---
Date of Service February 19, 2022 Assessment & Plan (1) Acute metabolic encephalopathy: Plan: resolved likely 2nd to enterococcal UTI and uremic encephalopathy from VERONICA in setting of stage 5 CKD use of ambien and/or tramadol at home could have caused some toxic effects as well TSH and B12 wnl MRI brain negative for mets does have diffuse encephalomalacia on MRI brain which will lower his threshold for delirium cont Rx for UTI cont HD for advanced kidney disease tramadol and ambien have been stopped (2) VERONICA (acute kidney injury): Plan: VERONICA on stage 5 CKD nephrology consult appreciated Creatinine never improved earlier in the stay; BUN stayed elevated at ~100; Cr 4.5-5 s/p initiation of HD initiation 02/15 with 2 hour session s/p 3-hour HD treatment 02/17 Planning // outpatient HD schedule at [facility] (3) Stage 5 chronic kidney disease: Plan: baseline Cr 3.8 to 4.2 VERONICA with Cr 5.2 at admission some uremic encephalopathy was present nephrology consult appreciated HD initiated 02/15 via left arm AV fistula HD again 02/17 HD again tomorrow 02/19 He will dialyze as an outpatient on / schedule at [facility] (4) Osteolytic lesion: Plan: recent lumbar spine MRI with severe osteolytic lesions of right iliac crest/ileum there are multiple lung nodules and lymphadenopathy as well s/p right supraclavicular lymph node biopsy path c/w adenocarcinoma - likely lung primary appreciate Dr Mcneil's consultation & recs he has pain over the right ileum/pelvis - consulted Dr Serena Clifford from radiation oncology palliative radiation offered; patient underwent CT simulation 02/18/22 Dr Clifford planning 5-10 treatments in total oral pain meds - I asked palliative care to see in consult they have changed his norco to oxycodone appreciate their assistance he is also on dexamethasone 4mg daily - first dose 02/17 this may help bone pain, radicular pain from l-spine, nausea, appetite, etc. plan 7-10 days of dexamethasone then stop of note - on lumbar spine MRI 01/2022 he had severe spinal stenosis at L4-L5 this very well could be contributing to his pain as well in addition to dexamethasone consider gabapentin renally-dosed (5) Metastatic lung carcinoma: Plan: as confirmed on right supraclavicular node biopsy patient wishes to pursue Rx Dr Mcneil planning taxol/carboplatin + immune-based Rx in near-future as outpatient also will have palliative radiation to right pelvis as noted above (6) Vomiting: Plan: intermittent UTI, uremia, pain, constipation - all could be contributing cont a PPI bowel regimen KUB xray today checked - no ileus, moderate constipation noted treat the UTI treat his bone pain HD for ESRD (7) HTN (hypertension): Plan: BPs running low-normal and HRs remain 50s despite holding coreg HOLD ARB HOLD coreg Will reduce nifedipine xr further to 30mg once daily cont his alpha mat for now suspect his recent weight loss has allowed discontinuation of the above meds (8) UTI (urinary tract infection): Plan: 2nd enterococcus 7 days amoxil PSA <1 making prostatitis highly unlikely (9) Lumbosacral radiculopathy at L5: Plan: MRI lumbar spine 01/2022 - severe L4-L5 spinal stenosis may be contributing to right sided leg pain cont dexamethasone 4mg daily for 7-10 days consider gabapentin pain meds as above (10) S/P CABG (coronary artery bypass graft): Plan: cont asa, BB, and statin (11) Thoracic aortic aneurysm: Plan: s/p repair in the past (12) Elevated troponin: Plan: either 2nd to VERONICA in setting of stage 5 CKD, or myocardial demand ischemia no symptoms or signs of ACS (13) Anemia due to chronic kidney disease: Plan: H/H have been acceptable (14) Chronic GERD: Plan: uncertain if GERD was contributing to vomiting regardless - continue PPI (15) DVT prophylaxis: Plan: cont heparin 5000 BID (16) Severe protein-calorie malnutrition: Plan: 20 pound weight loss over the last 2 weeks. Weight this admission 71.4 kg. Weight less than 1 month of ago of 80.7 kg. This is a loss of 9.3 kg / 11.5% of his body weight in less than 1 month. Consider MVI, boost, etc. 2nd to advancing CKD in the midst of newly diagnosed metastatic lung ca. Plan daughter updated at bedside 02/13 daughter updated by phone 02/15 and 02/16 and 02/18 care d/w Dr Mcneil and Dr Serena Clifford this week care d/w Dr Grimm today plan for patient to remain hospitalized at least through Thursday or Thursday - likely Thursday focus on HD, pain control, and radiation treat nausea/vomiting Admission and Anticipated Discharge Date Admission Date: February 12, 2022 Subjective pt is feeling well, has good pain control although still has pain. He plans on going home, and thinks he can have transportation to dialysis and XRT Review of Systems Review of Systems: Mild distress and fatigue no headache, no visual changes no speech or swallowing issues no chest pain, pressure or palpitations no shortness of breath, occasional loose cough that is nonproductive no abdominal pain, nausea or vomiting, diarrhea or constipation no dysuria, hematuria or frequency Does have some right hip pain he has no lower extremity swelling no back pain, CVA tenderness or radicular pain no bruising, bleeding or rashes no focal signs of weakness or numbness or altered sensation no complaints of anxiety or depression.. Physical Exam Physical Exam: The patient appeared well nourished and normally developed. Vital signs as documented. Head exam is normocephalic atraumatic Neck is without JVD, thyromegaly, or carotid bruits. Lungs are clear to auscultation, no focal loss of breath sounds Cardiac exam, Rhythm is regular.. No murmurs, rubs or gallops. Abdominal exam reveals normal bowel sounds, soft non tender, no masses Extremities are nonedematous and both pedal pulses are present Neurologic exam is alert and oriented, no focal loss of strength or sensation Skin is without bruises or rashes Psychologically is without concerns for anxiety or depression.. Results & Data Results & Data ([facility]) Vital Signs (Past 12 Hours) Vital Signs Temp Pulse Pulse Pulse Resp BP Pulse Ox 02/19/22 07:52 97.5 F L 58 L 17 141/63 H 94 02/19/22 03:04 98.1 F 60 16 151/68 H 94 02/18/22 23:15 98.4 F 57 L 18 156/55 H 95 02/18/22 22:49 54 L 02/18/22 21:36 O2 Del Method 02/19/22 07:52 Room Air 02/19/22 03:04 Room Air 02/18/22 23:15 Room Air 02/18/22 22:49 02/18/22 21:36 Room Air PG Care Time/CCT Total # of Minutes Spent Total Time Spent with Patient: Total time spent is greater than 50% in coordination of care (as documented) at patient's floor/unit and/or counseling patient: Coding Level of Care Code 45227 Subseq Hosp Care Lvl 3 Diagnoses Acute metabolic encephalopathy G93.41 VERONICA (acute kidney injury) N17.9 Stage 5 chronic kidney disease N18.5 Osteolytic lesion M89.50 Metastatic lung carcinoma C78.00 Laterality: unspecified laterality Vomiting R11.10 HTN (hypertension) I10 UTI (urinary tract infection) N39.0 Lumbosacral radiculopathy at L5 M54.17 S/P CABG (coronary artery bypass graft) Z95.1 Thoracic aortic aneurysm I71.2 Elevated troponin R77.8 Anemia due to chronic kidney disease N18.9; D63.1 Chronic GERD K21.9 DVT prophylaxis Z29.9 Severe protein-calorie malnutrition E43 (1) Metastatic lung carcinoma Laterality: unspecified laterality Qualified Code(s): C78.00 - Secondary malignant neoplasm of unspecified lung
[2022-02-19] MEDS ORDERED: EPOETIN ALFA 4,000 UNIT/ML VIAL IV ONE (09:08)
[2022-02-19] MEDS: NIFEdipine EXTENDED REL 30 MG TABCR PO SCH (09:08)
[2022-02-19] MEDS: DOXAZosin MESYLATE TAB 2 MG TAB PO SCH (09:08)
[2022-02-19] MEDS: dexAMETHasone 4 MG TAB PO SCH (09:17)
[2022-02-19] MEDS: AMOXICILLIN 500 MG CAP PO SCH ×2 (09:17→20:18)
[2022-02-19] MEDS: HEPARIN SOD 5,000 UNIT/0.5 ML VIAL SQ SCH ×2 (09:17→20:19)
[2022-02-19] MEDS: PANTOprazole 40 MG TAB PO SCH (09:18)
[2022-02-19] MEDS: SERTRALINE HCL 50 MG TABLET PO SCH (09:18)
[2022-02-19] MEDS: POLYETHYLENE (MIRALAX) 17 GM PACK PO SCH ×2 (09:18→20:19)
[2022-02-19] MEDS: SENNA 8.6 MG TAB PO SCH (09:18)
--- NOTE | 2022-02-19 10:05 | Nephrology Progress Note ---
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 Atrophic left kidney. Started HD 02/15. Maintained on MWF HD. Plan to start HD at [facility] under the care of Dr. Kothari on a MWF schedule post discharge. Orders for HD today entered into the EHR and reviewed with HD nurse. L AVF has been functioning reasonably well. Medications appropriate for IHD. Renal diet. (2) Anemia due to chronic kidney disease: Plan: Venofer 200 mg IV and Epogen 4000 units with HD today. (3) HTN (hypertension): Plan: Remains on Cardura 4 mg daily and nifedipine ER 60 mg daily. Valsartan held but may be restarted if needed. Overall, BP reasonably controlled. (4) Osteolytic lesion: Plan: LN Bx demonstrating metastatic adenocarcinoma of lung on 02/13/22. CT simulation completed with plan to start XRT today. Palliative care consultation completed yesterday. Admission and Anticipated Discharge Date Admission Date: February 12, 2022 Subjective No acute events overnight. Jose was resting comfortably in bed this AM. Reports reasonable pain control. Jose was seen prior to and during hemodialysis this morning. Review of Systems Review of Systems: All systems reviewed & are unremarkable except as noted in HPI & below Physical Exam Constitutional: well developed; no acute distress Eyes: no scleral abnormality and no corneal abnormality ENMT: Mouth: no oral mucosal abnormality and oral mucous membranes not dry Neck: normal visual inspection and trachea midline Respiratory: normal respiratory effort Auscultation: lungs clear to auscultation bilaterally Cardiovascular: Rate/Rhythm: regular rate Heart Sounds: normal S1, normal S2 and + murmur Extremities: + edema and + AV fistula Musculoskeletal: Extremities: no cyanosis and no clubbing Skin: normal turgor; no lesions Neurologic: Motor/Sensory: no tremor and no asterixis Psychiatric: Orientation: alert and oriented x 3 Results & Data ([facility]) Vital Signs (Past 12 Hours) Vital Signs Temp Pulse Pulse Pulse Resp BP Pulse Ox 02/19/22 07:52 36.4 C L 58 L 17 141/63 H 94 02/19/22 03:04 36.7 C 60 16 151/68 H 94 02/18/22 23:15 36.9 C 57 L 18 156/55 H 95 02/18/22 22:49 54 L O2 Del Method 02/19/22 07:52 Room Air 02/19/22 03:04 Room Air 02/18/22 23:15 Room Air 02/18/22 22:49 Laboratory Results Laboratory Results - last 24 hr 02/19/22 02/19/22 07:15 07:15 WBC 10.67 RBC 3.11 L Hgb 9.7 L Hct 29.4 L MCV 94.5 MCH 31.2 MCHC 33.0 RDW Std Deviation 45.7 RDW Coeff of [place] 13.3 Plt Count 143 MPV 10.3 Sodium 138 Potassium 3.8 Chloride 104 Carbon Dioxide 27 Anion Gap 7 BUN 58 H Creatinine 3.90 H D Est Cr Clr Drug Dosing 14.8 Est GFR ( Amer) 16.4 Est GFR (Non-Af Amer) 14.1 BUN/Creatinine Ratio 14.9 Glucose 87 Calcium 8.3 L Phosphorus 4.1 Albumin 3.0 L PG Care Time/CCT Total # of Minutes Spent Total Time Spent with Patient: Total time spent is greater than 50% in coordination of care (as documented) at patient's floor/unit and/or counseling patient: Coding Level of Care Code 89739 Subseq Hosp Care Lvl 3 Diagnoses CKD (chronic kidney disease) stage 5, GFR less than 15 ml/min N18.5 Anemia due to chronic kidney disease N18.9; D63.1 HTN (hypertension) I10 Osteolytic lesion M89.50
[2022-02-19] MEDS: IRON SUCROSE 200 MG in 0.9 % SODIUM CHLORIDE 100 ML IV SCH (12:26)
[2022-02-19] MEDS: ONDANSETRON INJ 2 MG/ML 2 ML VIAL IV PRN ×2 (13:25→22:12)
[2022-02-19] MEDS: ATORVASTATIN 10 MG TAB PO SCH (20:18)
[2022-02-19] MEDS: ASPIRIN 81 MG ECTAB PO SCH (20:19)
[2022-02-20] MEDS: ONDANSETRON INJ 2 MG/ML 2 ML VIAL IV PRN (07:38)
[2022-02-20] MEDS: oxyCODONE HCL IR 5 MG TAB (IMMEDIATE RELEASE) PO PRN ×2 (07:38→12:04)
[2022-02-20] MEDS: PANTOprazole 40 MG TAB PO SCH (08:31)
[2022-02-20] MEDS: DOXAZosin MESYLATE TAB 2 MG TAB PO SCH (08:32)
[2022-02-20] MEDS: dexAMETHasone 4 MG TAB PO SCH (08:32)
[2022-02-20] MEDS: HEPARIN SOD 5,000 UNIT/0.5 ML VIAL SQ SCH (08:33)
[2022-02-20] MEDS: IRON SUCROSE 200 MG in 0.9 % SODIUM CHLORIDE 100 ML IV SCH (08:34)
[2022-02-20] MEDS: NIFEdipine EXTENDED REL 30 MG TABCR PO SCH (08:35)
[2022-02-20] MEDS: SENNA 8.6 MG TAB PO SCH (08:36)
[2022-02-20] MEDS: POLYETHYLENE (MIRALAX) 17 GM PACK PO SCH (08:36)
[2022-02-20] MEDS: SERTRALINE HCL 50 MG TABLET PO SCH (08:37)
--- NOTE | 2022-02-20 09:59 | Nephrology Progress Note ---
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 Atrophic left kidney. Started HD 02/15. Maintained on MWF HD. Plan to start HD at [facility] under the care of Dr. Kothari on a MWF schedule post discharge. Volume status acceptable. Adequate clearance with HD yesterday. L BC AVF has been functioning reasonably well. Medications appropriate for IHD. Renal diet. (2) Anemia due to chronic kidney disease: Plan: Venofer 200 mg IV and Epogen 4000 units with HD yesterday. (3) HTN (hypertension): Plan: Remains on Cardura 4 mg daily and nifedipine ER 60 mg daily. Valsartan held but may be restarted if needed. Overall, BP reasonably controlled. (4) Osteolytic lesion: Plan: LN Bx demonstrating metastatic adenocarcinoma of lung on 02/13/22. XRT started yesterday. Admission and Anticipated Discharge Date Admission Date: February 12, 2022 Subjective No acute events overnight. Resting comfortably in bed this AM. Completed HD yesterday without complications. Review of Systems Review of Systems: All systems reviewed & are unremarkable except as noted in HPI & below Physical Exam Constitutional: well developed; no acute distress Eyes: no scleral abnormality and no corneal abnormality ENMT: Mouth: no oral mucosal abnormality and oral mucous membranes not dry Neck: normal visual inspection and trachea midline Respiratory: normal respiratory effort Auscultation: lungs clear to auscultation bilaterally Cardiovascular: Rate/Rhythm: regular rate Heart Sounds: normal S1, normal S2 and + murmur Extremities: + edema and + AV fistula Musculoskeletal: Extremities: no cyanosis and no clubbing Skin: normal turgor; no lesions Neurologic: Motor/Sensory: no tremor and no asterixis Psychiatric: Orientation: alert and oriented x 3 Results & Data ([facility]) Vital Signs (Past 12 Hours) Vital Signs Temp Pulse Pulse Pulse Resp BP Pulse Ox 02/20/22 08:00 51 L 02/20/22 08:30 137/54 L 02/20/22 08:04 02/20/22 07:29 36.5 C 54 L 12 128/57 L 93 02/20/22 03:37 36.7 C 52 L 12 150/58 H 96 02/19/22 22:57 36.5 C 52 L 12 156/54 H 93 02/19/22 22:56 53 L 02/19/22 22:00 54 L 12 O2 Del Method 02/20/22 08:00 02/20/22 08:30 02/20/22 08:04 Room Air 02/20/22 07:29 Room Air 02/20/22 03:37 Room Air 02/19/22 22:57 Room Air 02/19/22 22:56 02/19/22 22:00 PG Care Time/CCT Total # of Minutes Spent Total Time Spent with Patient: Total time spent is greater than 50% in coordination of care (as documented) at patient's floor/unit and/or counseling patient: Coding Level of Care Code 65875 Subseq Hosp Care Lvl 3 Diagnoses CKD (chronic kidney disease) stage 5, GFR less than 15 ml/min N18.5 Anemia due to chronic kidney disease N18.9; D63.1 HTN (hypertension) I10 Osteolytic lesion M89.50
--- NOTE | 2022-02-20 18:19 | Discharge Summary ---
Date of Service February 20, 2022 Admission HPI Per Admitting Provider Jose is a 78-year-old male with history of CKD 5, recent diagnosis of multiple myeloma pending confirmatory biopsy, BPH, GERD, lumbar radiculitis/lumbar radiculopathy, CAD s/p CABG, dyslipidemia, hypertension, and anemia 2/2 CKD who presents with shaking and elevated creatinine. Hx of stenosis with chronic pain in back. No CP. Has seen pain management. Seen at bedside with his daughter. They report he had a progressive decline in both appetite and energy. Today he seemed more confused, was talking to his daughter when she was not actually present. She is concerned about the confusion brought him to the ER. He reports he has had intermittent mid back and low back pain 2/2 stenosis, no change in this. No left-sided chest pain at time of assessment. No shortness of breath. No difficulty breathing. No cough. Has been tremulous, no dysuria, fever, chills. Is pending a multiple myeloma work- up/biopsy outpatient with [facility], they are awaiting this as an outpatient but did not feel he was declining and with acute confusion limiting their ability to make it to outpatient appointments. Medical History: Reviewed Medications: Reviewed Surgical History: Reviewed Allergies: Reviewed Social History: No EtoH/cigarettes. Rare social cigar use. Code Status: Surrogate DM daughter. Full Code. Discussed with family at bedside. Principal Diagnosis cat oncologic pain metastatic adenocarcinoma lung acute renal failure with new start dialysis Discharge Exam The patient appeared stable Vital signs as documented. Lungs are clear to auscultation and appear unlabored Cardiac exam, Rhythm is regular.. No murmurs, rubs or gallops. Abdominal exam reveals normal bowel sounds, soft non tender, no masses Extremities are nonedematous and both pedal pulses are normal. Neurologic exam is alert and oriented, no focal loss of strength or sensation Skin is without bruises or rashes Psychologically is without concerns for anxiety or depression. Discharge Data Allergies Allergy/AdvReac Type Severity Reaction Status Date / Time No Known Allergies Allergy Verified 02/12/22 16:59 Consultations 02/12/22 17:50 ED Decision to Admit Stat 02/12/22 18:34 Consult Oncology Routine 02/12/22 20:39 Consult Nephrology Routine 02/17/22 10:31 Consult Radiation Oncology Routine 02/17/22 19:19 Consult Palliative Care Routine Ordered Studies 02/12/22 16:11 CT head/brain wo con Stat 02/13/22 08:20 US FNA lymph node Urgent 02/14/22 15:02 MR brain wo con Routine 02/18/22 CT guide rad therapy pelvis Routine Hospital Course (1) Acute metabolic encephalopathy: resolved likely 2nd to enterococcal UTI and uremic encephalopathy from VERONICA in setting of stage 5 CKD use of ambien and/or tramadol at home could have caused some toxic effects as well TSH and B12 wnl MRI brain negative for mets does have diffuse encephalomalacia on MRI brain which will lower his threshold for delirium Rx for UTI cont HD for advanced kidney disease (2) VERONICA (acute kidney injury): VERONICA on stage 5 CKD nephrology consult appreciated s/p initiation of HD initiation 02/15 Planning M// outpatient HD schedule at [facility] (3) Stage 5 chronic kidney disease: baseline Cr 3.8 to 4.2 HD initiated 02/15 via left arm AV fistula He will dialyze as an outpatient on // schedule at [facility] (4) Osteolytic lesion: recent lumbar spine MRI with severe osteolytic lesions of right iliac crest/ileum there are multiple lung nodules and lymphadenopathy as well s/p right supraclavicular lymph node biopsy path c/w adenocarcinoma - likely lung primary appreciate Dr Mcneil's consultation & recs will follow as outpt he has pain over the right ileum/pelvis - consulted Dr Serena Clifford from radiation oncology palliative radiation offered; patient underwent CT simulation 02/18/22, first treatment 02/19, continue m-f treatments pain control with po oxycodone he is also on dexamethasone 4mg daily - first dose 02/17 this may help bone pain, radicular pain from l-spine, nausea, appetite, etc. continue dexamethasone thru XRT then re evaluate of note - on lumbar spine MRI 01/2022 he had severe spinal stenosis at L4-L5 this very well could be contributing to his pain as well (5) Metastatic lung carcinoma: as confirmed on right supraclavicular node biopsy patient wishes to pursue Rx Dr Mcneil planning taxol/carboplatin + immune-based Rx in near-future as outpatient also will have palliative radiation to right pelvis as noted above (6) Vomiting: resolved (7) HTN (hypertension): BPs running low-normal and HRs remain 50s despite holding Coreg reduced Coreg dosing at discharge stopped valsartan and called daughter (8) UTI (urinary tract infection): 2nd enterococcus 7 days amoxil PSA <1 making prostatitis highly unlikely (9) Lumbosacral radiculopathy at L5: MRI lumbar spine 01/2022 - severe L4-L5 spinal stenosis may be contributing to right sided leg pain cont dexamethasone 4mg daily for 7-10 days consider gabapentin pain meds as above (10) S/P CABG (coronary artery bypass graft): cont asa, BB, and statin (11) Thoracic aortic aneurysm: s/p repair in the past (12) Elevated troponin: either 2nd to VERONICA in setting of stage 5 CKD, or myocardial demand ischemia no symptoms or signs of ACS (13) Anemia due to chronic kidney disease: H/H have been acceptable (14) Chronic GERD: (15) Severe protein-calorie malnutrition: 20 pound weight loss over the last 2 weeks. Weight this admission 71.4 kg. Weight less than 1 month of ago of 80.7 kg. This is a loss of 9.3 kg / 11.5% of his body weight in less than 1 month. Consider MVI, boost, etc. 2nd to advancing CKD in the midst of newly diagnosed metastatic lung ca. Total Time Total Time Spent Total Time Spent (In Minutes): It required greater than 30 minutes to prepare this patient for discharge Discharge Plan Discharge Items Patient Disposition: Home - Self-Care Reason For Visit: UREMIA Discharge Diagnosis: renal failure requiring dialysis oncologic bone pain with initiation of XRT Activity: Per Instructions section Activity Comment: Careful to slowly increase physical activity Non-emergency contact: Primary Care Provider, Specialist and Oncologist Call non-emergency contact if: your symptoms worsen Follow-up/Referrals: Abebe Cruz MD [Primary Care Provider] - 02/25/22 1:45 pm (D/C F/U WITH DR. ABEBE CRUZ) Diet: Regular Addtl Attending Provider Instructions: please reach out to your oncologist for coordination of care and to help modulate your pain management plan follow up with dialysis and XRT Your radiation treatment time will be 1245 for your treatment, except for 02/25/22 which will be 1 pm, all treatments are thursday thru thursday. Pending Studies at Discharge: No Stand-Alone Forms: [employer], Smoking Cessation Medications and DC Order Prescriptions: New nifedipine [Procardia XL] 30 mg Tablet Extended Release 24hr 30 mg PO QAM Qty: 30 0RF sennosides [Senokot] 8.6 mg Tablet 17.2 mg PO QAM Qty: 30 0RF polyethylene glycol 3350 [Miralax] 17 gram Powder In Packet 17 g PO BID Qty: 60 0RF carvedilol 3.125 mg Tablet 3.125 mg PO BID Qty: 60 0RF pantoprazole 40 mg Tablet,Delayed Release (Dr/Ec) 40 mg PO QAM Qty: 30 0RF dexamethasone 4 mg Tablet 4 mg PO DAILY Qty: 30 2RF sertraline 50 mg Tablet 25 mg PO QAM Qty: 30 0RF oxycodone 5 mg Tablet 5 mg PO Q4HWA PRN (Reason: Moderate pain) Qty: 30 0RF Continued furosemide [Lasix] 40 mg tablet 40 mg PO DAILY zolpidem [Ambien] 5 mg tablet 5 mg PO HS PRN (Reason: sleep) Qty: 14 2RF aspirin 81 mg tablet,delayed release (DR/EC) 81 mg PO HS atorvastatin [Lipitor] 20 mg tablet 10 mg PO HS Rx Instructions: TAKE 1/2 TABLET DAILY AT NIGHT doxazosin [Cardura] 2 mg tablet 2 mg PO DAILY tramadol 50 mg tablet 50 - 100 mg PO Q12H PRN (Reason: Pain) Discontinued nifedipine 60 mg tablet extended release 60 mg PO BID Qty: 60 5RF carvedilol 12.5 mg tablet 12.5 mg PO BID Qty: 60 5RF Rx Instructions: must administer with a meal/food valsartan [Diovan] 320 mg tablet 160 mg PO DAILY Discharge Orders: Discharge Order (Routine); Ordered 02/20/22 Ordered By: Kaden Walls/Other Patient Handouts: Kidney Disease: Eating Less Sodium, Kidney Disease Limiting Sodium, Low Potassium Diet Dc Admission Data Admit Date/Time: 02/12/22 18:33 Attending Provider: Kaden Benitez Admit Provider: Jose Roberto Callahan Primary Care Provider: Abebe Cruz Other Providers: Kasie Mcneil ; Brenda Kothari ; Serena Clifford ; Cassie Wright Other Interventions: Discharge Summary Assessment (RN) Last Done: 02/20/22 14:02 Coding Level of Care Code D/C DAY MANAGEMENT >30 MINS Diagnoses Acute metabolic encephalopathy G93.41 VERONICA (acute kidney injury) N17.9 Stage 5 chronic kidney disease N18.5 Osteolytic lesion M89.50 Metastatic lung carcinoma C78.00 Laterality: unspecified laterality Vomiting R11.10 HTN (hypertension) I10 UTI (urinary tract infection) N39.0 Lumbosacral radiculopathy at L5 M54.17 S/P CABG (coronary artery bypass graft) Z95.1 Thoracic aortic aneurysm I71.2 Elevated troponin R77.8 Anemia due to chronic kidney disease N18.9; D63.1 Chronic GERD K21.9 Severe protein-calorie malnutrition E43
== END 2022-02-20 15:22 | disposition home or self-care (01) | DRG 987 ==
LOC: ED 15:23 → 2E 18:33 → SUATTDRO 18:33 → 2E 20:04
DX: T42.6X5A Adverse effect of other antiepileptic and sedative-hypnotic drugs, initial encounter; Z99.2 Dependence on renal dialysis; R79.89 Other specified abnormal findings of blood chemistry; C77.0 Secondary and unspecified malignant neoplasm of lymph nodes of head, face and neck; R44.3 Hallucinations, unspecified; B95.2 Enterococcus as the cause of diseases classified elsewhere; F17.290 Nicotine dependence, other tobacco product, uncomplicated; N39.0 Urinary tract infection, site not specified; T40.425A Adverse effect of tramadol, initial encounter; C34.90 Malignant neoplasm of unspecified part of unspecified bronchus or lung; Z79.82 Long term (current) use of aspirin; R41.0 Disorientation, unspecified; C79.51 Secondary malignant neoplasm of bone; N17.9 Acute kidney failure, unspecified; K21.9 Gastro-esophageal reflux disease without esophagitis; G89.3 Neoplasm related pain (acute) (chronic); E43 Unspecified severe protein-calorie malnutrition; Z86.16 Personal history of COVID-19; I25.10 Atherosclerotic heart disease of native coronary artery without angina pectoris; I12.0 Hypertensive chronic kidney disease with stage 5 chronic kidney disease or end stage renal disease; G93.41 Metabolic encephalopathy; Z95.1 Presence of aortocoronary bypass graft; G92.8 Other toxic encephalopathy; M54.10 Radiculopathy, site unspecified; I24.8 Other forms of acute ischemic heart disease; M48.061 Spinal stenosis, lumbar region without neurogenic claudication; D63.1 Anemia in chronic kidney disease; N18.6 End stage renal disease

== ENCOUNTER 2022-11-01 12:37 | Inpatient (IN) ==
--- NOTE | 2022-11-01 13:14 | Emergency Department Note ---
Impression & Plan Hallucinations ED Provider Note ED Provider Note NAME: ROBIN PLUNKETT AGE:77 SEX: Male : 1945 ARRIVES VIA: private vehicle INFORMANT: Patient, daughter ED PROVIDER(s): Cassie Stein DO CHIEF COMPLAINT: Hallucinations HPI: This is a 77-year-old male with known metastatic lung cancer who presents the emergency department due to concern for hallucinations which daughter states began overnight. She states patient last had chemo on October [address] Mcneil on the . She states he had been doing well the first week after and then she noticed last weekend seemed a little more fatigued. She denies noting any fevers. He has complained of pain in his mouth which I thought was a reaction to chemotherapy and have been using a combination of Benadryl and Maalox at home as no magic mouthwash has been available. She states he had a decreased appetite throughout the week however in the last 48 hours his appetite did seem improved. PAST MEDICAL HISTORY:See Below PAST SURGICAL HISTORY:See Below FAMILY HISTORY:See Below SOCIAL HISTORY:See Below HOME MEDICATIONS:See Below ALLERGIES:See Below VITALS:See Below PHYSICAL EXAMINATION: GENERAL: alert, well appearing, well nourished, no distress, non-toxic EYE EXAM: normal conjunctiva, PERRL and EOM's grossly intact OROPHARYNX: no exudate, no erythema, lips, buccal mucosa, and tongue normal and mucous membranes are moist NECK: supple, no nuchal rigidity, no adenopathy, non-tender LUNGS: Clear to auscultation. Normal chest wall mechanics, no w/r/r HEART: no murmurs, S1 normal and S2 normal ABDOMEN: abdomen soft, non-tender, normo-active bowel sounds, no masses, no rebound or guarding. BACK: Back is symmetrical on inspection and there is no deformity, no midline tenderness, no CVA tenderness. SKIN: no rashes, petechiae, orbruising UPPER EXTREMITIES: upper extremities are grossly normal. FROM, nml pulses b/l. LOWER EXTREMITIES: No pitting edema. FROM, nml pulses b/l. NEURO EXAM: Can answer questions but confused, cranial nerves II-XII grossly intact, normal speech, no facial droop,nogross weakness of arms, no gross weakness of legs. Gross sensation intact. No ataxia. Vital Signs: reviewed and remarkable Differential Diagnosis: CVA, ICH, mets, cerebral edema, UTI, pna, medication rxn, dehydration, jacquelyn, electroyte abnormalities, as well as others were considered MEDICAL DECISION MAKING: THis is a 77 yo male with known metastatic lung ca who is currently receiving chemo who presents for incr fatigue and decr appetitie this week and hallucinations which began last night. Labs drawn and sent, IV established, EKG and CXR performed and interpreted at bedside, and patient placed on telemetry. Patient afebrile and VS stable. He was sent for CT head which was reassuring. Labs and imaging reassuring in light of known disease. All results discussed with patient and daughter at bedside, as was recs from Dr. Mcneil who I spoke with about the patient. Case discussed with Dr. Gomez for additional inpatient mgmt. No evidence of sepsis or neutropenia. Pancytopenia stable compared prior in light of chemo. Consultation(s): 7602: Discussed with Dr. Mcneil. Recommends admission and additional evaluation including to r/o infection. Also suggests could be related to recent additional of lyrica. 1519: Discussed with Dr. Gomez. UA pending. ER Treatment Provided: See below Diagnostics Interpreted By Me: -ECG: a.fib at 58, nml axis, nml intervals, nonspecific ST/T wave changes -Cardiac Monitoring: An order was placed for continuous cardiac monitoring. The monitor shows a rate of 59 with sinus bradycardia rhythm. -Laboratory studies: As stated above and show below. -Imaging studies: cxr: +CM, chronic interstitial changes, no focal consolidation Triage Nursing Note Reviewed Prior/Outside Records Reviewed - prior DC summary reviewed Past Med/Surg History Medical History Anemia due to chronic kidney disease Hgb 10-12 range per chart review, fecal occult blood test x3 negative per 12/25/21 PCP note CAD (coronary artery disease) s/p CABG x1 (with ascending thoracic aorta repair) - 2008 Chronic midline thoracic back pain Dyslipidemia GERD (gastroesophageal reflux disease) History of COVID-19 09/2021, hospitalized at [facility] (vomiting, dehydration, cough, sinus congestion) > resolved HTN (hypertension) Secondary hyperparathyroidism of renal origin Stage 5 chronic kidney disease not on chronic dialysis Thoracic aortic aneurysm s/p repair (2008) Surgical History H/O thoracic aortic aneurysm repair CABG x1 + ascending thoracic aorta repair (2008) History of cataract surgery R/L History of hernia repair S/P CABG (coronary artery bypass graft) CABG x1 + ascending thoracic aorta repair (2008) Family History Brother Brain tumor Cancer, Onset Age: 70 colon cancer Sai Mother Leukemia Denies family history of Ovarian cancer Prostate cancer Myocardial infarction Breast cancer Colorectal cancer Social History Smoking Status: Former smoker Tobacco Type: Cigars Age Started Using Tobacco: 41; Cigarettes Per Day: 1 cigar every six months; Second Hand Exposure: No; Do You Dip or Chew Tobacco: No; Hx Alcohol Use: No Hx Substance Use: No Preferred Language: Turkish Communication Ability: Effective Communication Ability Comment: Able to communicate effectively in Turkish Visual Impairment: Partially Limited Hearing Ability: Hard of Hearing 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 Beliefs That Will Affect Care: None marital status: Single Current Living Situation: Alone Current Living Situation Comment: daughter close by current occupational status: retired How many Children do You have: 2 Feels Safe at Home: Yes Childhood Exposure to Second-Hand Smoke: Yes Diet: regular Diet Comment: High protein caffeine: Yes (coffee) during the past year weight has: remained stable Dental Care, Regularly: No Physical Activity Frequency: Daily Physical Activity Frequency Comment: Go's to gym, lift weights Seatbelt Use: always Sunscreen Use: Yes Do you think of yourself as: straight/heterosexual Gender Identity: Male Assistive Devices: None Allergies Allergies Allergy/AdvReac Type Severity Reaction Status Date / Time No Known Allergies Allergy Verified 11/01/22 15:54 Home Meds Home Medications Medication Instructions Recorded Confirmed aspirin 81 mg tablet,delayed 81 mg PO HS 12/15/18 11/01/22 release ondansetron HCl 8 mg tablet 8 mg PO Q8H PRN Nausea 09/18/22 11/01/22 prochlorperazine maleate 10 mg 10 mg PO Q6H PRN Nausea 09/18/22 11/01/22 tablet (Compazine) ergocalciferol (vitamin D2) 1,250 1,250 mcg PO MONTHLY 10/06/22 11/01/22 mcg (50,000 unit) capsule prednisolone acetate 0.12 % eye 1 drp ophthalmic (eye) DAILY 10/06/22 11/01/22 drops,suspension calcitriol 0.5 mcg capsule 0.5 mcg PO .COMPLEX 10/28/22 11/01/22 pregabalin 25 mg capsule (Lyrica) 25 mg PO .HOLD 10/28/22 11/01/22 sertraline 50 mg tablet 50 mg PO DAILY 10/28/22 11/01/22 sevelamer carbonate 800 mg tablet 800 mg PO .COMPLEX 10/28/22 11/01/22 Docetaxel Tx See Rx Instructions .Route .COMPLEX 11/01/22 11/01/22 dexamethasone 4 mg tablet 8 mg PO DIRECTED 11/01/22 11/01/22 Previous Rx's Medication Instructions Recorded carvedilol 3.125 mg tablet 3.125 mg PO BID #180 tabs 04/23/22 budesonide 90 mcg/actuation breath 1 inh inhalation BID #1 ea 05/28/22 activated powder inhaler (Pulmicort Flexhaler) vitamin B complex-vitamin C-folic 1 tab PO DAILY #30 tabs 06/06/22 acid 0.8 mg tablet (Dasia-Kimmy) doxazosin 2 mg tablet 2 mg PO HS #90 tabs 09/22/22 pantoprazole 40 mg tablet,delayed 40 mg PO BID #180 tabs 09/22/22 release oxycodone 10 mg tablet 10 mg PO .Q4-6H PRN pain #180 tabs 10/10/22 atorvastatin 10 mg tablet 10 mg PO DAILY #90 tabs 10/29/22 Results & Data (ED) Vital Signs Vital Signs - 24 hr 11/01/22 12:44 11/01/22 13:34 11/01/22 14:45 Temperature 37.2 C Temperature Source Skin Pulse Rate 83 57 L Pulse Rate [Right Finger] 66 Respiratory Rate 20 18 Respiratory Effort / Characteristics Non-Labored Spontaneous Non-Labored Respiratory Depth Normal Normal Respiratory Pattern Regular Blood Pressure 101/54 L Blood Pressure [Right Arm] 145/72 H Blood Pressure Mean 69 Blood Pressure Mean [Right Arm] 96 Pulse Oximetry 98 92 Oxygen Delivery Method Room Air Room Air Sepsis Recent Fever Within 48 Hours No Sepsis New/Unexplained Change in Mental Status N/A Sepsis Action Taken by Nursing No Action Required Laboratory Data 11/01/22 13:34 11/01/22 13:34 Lab Results 11/01/22 11/01/22 11/01/22 Range/Units 13:34 13:34 13:34 WBC 2.68 L (4.8-10.8) K/ul RBC 2.42 L (4.70-6.10) M/uL Hgb 8.0 L (14.0-18.0) g/dl Hct 23.7 L (42.0-52.0) % MCV 97.9 (80.0-100.0) fL MCH 33.1 (25.0-34.0) pg MCHC 33.8 (32.0-36.0) g/dL RDW Std Deviation 48.2 H (36.4-46.3) fL RDW Coeff of [place] 13.5 (11.5-14.5) % Plt Count 94 L (130-400) K/uL MPV 10.8 (9.4-12.4) fL Neutrophils % (Manual) 60 % Lymphocytes % (Manual) 15 % Monocytes % (Manual) 12 % Metamyelocytes % (Man) 10 % Myelocytes % (Man) 2 % Neutrophils # (Manual) 1.61 (1.40-6.50) K/uL Total Absolute Neuts 1.61 (1.4-6.5) K/uL Lymphocytes # (Manual) 0.40 L (1.2-3.4) K/uL Total Abs Lymphocytes 0.40 L (1.2-3.4) K/uL Monocytes # (Manual) 0.32 (0.11-0.59) K/uL Metamyelocytes # (Man) 0.27 H (0-0) K/uL Myelocytes # (Manual) 0.05 H (0-0) K/uL Toxic Granulation 3+ Polychromasia 1+ Ovalocytes 1+ Sodium 137 (136-145) mmol/L Potassium 3.1 L (3.5-5.1) mmol/L Chloride 94 L (98-107) mmol/L Carbon Dioxide 34 H (21-32) mmol/L Anion Gap 9 (3-11) BUN 26 H (6-23) mg/dl Creatinine 4.43 H (0.6-1.4) mg/dl Est Cr Clr Drug Dosing 12.3 ml/min Est GFR ( Amer) 14.0 ml/min Est GFR (Non-Af Amer) 12.0 ml/min BUN/Creatinine Ratio 5.9 L (10-20) Glucose 109 H (70-99(Fasting)) mg/dl Calcium 8.4 L (8.6-10.3) mg/dl Magnesium 1.8 (1.7-2.4) mg/dl Total Bilirubin 0.9 (0.2-1.0) mg/dl AST 24 (13-39) U/L ALT 10 (7-52) U/L Alkaline Phosphatase 66 (34-104) U/L Total Protein 5.2 L (6.0-8.3) gm/dl Albumin 2.8 L (3.4-5.0) gm/dl Globulin 2.4 L (2.5-4.0) gm/dl Albumin/Globulin Ratio 1.2 (0.9-2) Procalcitonin 0.52 H (0-0.5) ng/ml Adenovirus (PCR) (NotDetected) B. pertussis DNA (PCR) (NotDetected) B.parapertussis DNA PCR (NotDetected) C. pneumoniae DNA (PCR) (NotDetected) Coronavirus OC43 (PCR) (NotDetected) Coronavirus HKU1 (PCR) (NotDetected) Coronavirus 229E (PCR) (NotDetected) SARS-CoV-2 (PCR) (NotDetected) Coronavirus NL63 (PCR) (NotDetected) Human Metapneumovir PCR (NotDetected) Influenza Type A (PCR) (NotDetected) Influenza Type B (PCR) (NotDetected) M. pneumoniae (PCR) (NotDetected) Parainfluenza 1 (PCR) (NotDetected) Parainfluenza 2 (PCR) (NotDetected) Parainfluenza 3 (PCR) (NotDetected) Parainfluenza 4 (PCR) (NotDetected) RSV (PCR) (NotDetected) Entero/Rhino (PCR) (NotDetected) 11/01/22 Range/Units 14:45 WBC (4.8-10.8) K/ul RBC (4.70-6.10) M/uL Hgb (14.0-18.0) g/dl Hct (42.0-52.0) % MCV (80.0-100.0) fL MCH (25.0-34.0) pg MCHC (32.0-36.0) g/dL RDW Std Deviation (36.4-46.3) fL RDW Coeff of [place] (11.5-14.5) % Plt Count (130-400) K/uL MPV (9.4-12.4) fL Neutrophils % (Manual) % Lymphocytes % (Manual) % Monocytes % (Manual) % Metamyelocytes % (Man) % Myelocytes % (Man) % Neutrophils # (Manual) (1.40-6.50) K/uL Total Absolute Neuts (1.4-6.5) K/uL Lymphocytes # (Manual) (1.2-3.4) K/uL Total Abs Lymphocytes (1.2-3.4) K/uL Monocytes # (Manual) (0.11-0.59) K/uL Metamyelocytes # (Man) (0-0) K/uL Myelocytes # (Manual) (0-0) K/uL Toxic Granulation Polychromasia Ovalocytes Sodium (136-145) mmol/L Potassium (3.5-5.1) mmol/L Chloride (98-107) mmol/L Carbon Dioxide (21-32) mmol/L Anion Gap (3-11) BUN (6-23) mg/dl Creatinine (0.6-1.4) mg/dl Est Cr Clr Drug Dosing ml/min Est GFR ( Amer) ml/min Est GFR (Non-Af Amer) ml/min BUN/Creatinine Ratio (10-20) Glucose (70-99(Fasting)) mg/dl Calcium (8.6-10.3) mg/dl Magnesium (1.7-2.4) mg/dl Total Bilirubin (0.2-1.0) mg/dl AST (13-39) U/L ALT (7-52) U/L Alkaline Phosphatase (34-104) U/L Total Protein (6.0-8.3) gm/dl Albumin (3.4-5.0) gm/dl Globulin (2.5-4.0) gm/dl Albumin/Globulin Ratio (0.9-2) Procalcitonin (0-0.5) ng/ml Adenovirus (PCR) Not Detected (NotDetected) B. pertussis DNA (PCR) Not Detected (NotDetected) B.parapertussis DNA PCR Not Detected (NotDetected) C. pneumoniae DNA (PCR) Not Detected (NotDetected) Coronavirus OC43 (PCR) Not Detected (NotDetected) Coronavirus HKU1 (PCR) Not Detected (NotDetected) Coronavirus 229E (PCR) Not Detected (NotDetected) SARS-CoV-2 (PCR) Not Detected (NotDetected) Coronavirus NL63 (PCR) Not Detected (NotDetected) Human Metapneumovir PCR Not Detected (NotDetected) Influenza Type A (PCR) Not Detected (NotDetected) Influenza Type B (PCR) Not Detected (NotDetected) M. pneumoniae (PCR) Not Detected (NotDetected) Parainfluenza 1 (PCR) Not Detected (NotDetected) Parainfluenza 2 (PCR) Not Detected (NotDetected) Parainfluenza 3 (PCR) Not Detected (NotDetected) Parainfluenza 4 (PCR) Not Detected (NotDetected) RSV (PCR) Not Detected (NotDetected) Entero/Rhino (PCR) Not Detected (NotDetected) Administered Medications Aspirin (Aspirin 81 Mg Ectab) 81 mg PO [facility] Stop: 12/01/22 20:59 Last Admin: 11/01/22 21:28 Dose: 81 mg Documented By: DEONTE Carvedilol (Carvedilol 3.125 Mg Tab) 3.125 mg PO BID ENZO Stop: 12/01/22 20:59 Last Admin: 11/02/22 10:01 Dose: 3.125 mg Documented By: Admin: 11/01/22 21:29 Dose: 3.125 mg Documented By: DEONTE Doxazosin Mesylate (Doxazosin Mesylate Tab 2 Mg Tab) 2 mg PO HS ENZO Stop: 12/01/22 20:59 Last Admin: 11/01/22 21:29 Dose: 2 mg Documented By: DEONTE Fluticasone Furoate (Fluticasone Furoate 100mcg 14 Puffs/Inhaler) 1 puffs INH DAILY ENZO Stop: 12/01/22 19:59 Last Admin: 11/02/22 10:02 Dose: 1 puffs Documented By: Admin: 11/01/22 21:27 Dose: 1 puffs Documented By: DEONTE Miscellaneous (Prednisolone Acetate 0.12 % Drops,Suspension- Order Awaiting Action) 1 each N/A QS ENZO Stop: 12/01/22 19:59 Last Admin: 11/02/22 16:28 Dose: Not Given Documented By: Admin: 11/02/22 08:09 Dose: Not Given Documented By: Admin: 11/01/22 23:58 Dose: Not Given Documented By: Admin: 11/01/22 20:56 Dose: Not Given Documented By: DEONTE Nystatin (Nystatin 500,000 Unit Tab) 500,000 units PO QID ENZO Stop: 11/11/22 20:59 Last Admin: 11/02/22 12:13 Dose: Not Given Documented By: Admin: 11/02/22 10:02 Dose: 500,000 units Documented By: Admin: 11/01/22 21:29 Dose: 500,000 units Documented By: DEONTE Pantoprazole Sodium (Pantoprazole 40 Mg Tab) 40 mg PO BID ENZO Stop: 12/01/22 20:59 Last Admin: 11/02/22 10:02 Dose: 40 mg Documented By: Admin: 11/01/22 21:28 Dose: 40 mg Documented By: DEONTE Sertraline HCl (Sertraline Hcl 50 Mg Tablet) 50 mg PO DAILY ENZO Stop: 12/02/22 08:59 Last Admin: 11/02/22 10:03 Dose: 50 mg Documented By: CHRISTINA Sevelamer HCl (Sevelamer Hcl 800 Mg Tablet) 1,600 mg PO TIDM ENZO Stop: 12/01/22 19:35 Last Admin: 11/02/22 11:52 Dose: Not Given Documented By: Admin: 11/02/22 10:02 Dose: 1,600 mg Documented By: Admin: 11/01/22 21:28 Dose: 1,600 mg Documented By: DEONTE Vitamin B Complex (Vitamin B Complex Tab) 1 tab PO DAILY ENZO Stop: 12/02/22 08:59 Last Admin: 11/02/22 10:03 Dose: 1 tab Documented By: CHRISTINA Discontinued Medications Acetaminophen (Acetaminophen 500 Mg Tab) 1,000 mg PO ONE STA Stop: 11/02/22 11:06 Last Admin: 11/02/22 11:48 Dose: 1,000 mg Documented By: ANTONI Epoetin Gordy (Epoetin Gordy 10,000 Units/Ml Vial) 10,000 units IV ONE ONE Stop: 11/02/22 09:35 Last Admin: 11/02/22 13:30 Dose: 10,000 units Documented By: BRYANNA Gadobutrol (Gadobutrol 65ml Vial) 7 ml IV ONCE ONE Stop: 11/02/22 11:06 Last Admin: 11/02/22 11:06 Dose: 7 ml Documented By: MISTY Sodium Chloride (Nss 1000ml) 1,000 mls @ 125 mls/hr IV .Q8H ENZO Stop: 12/01/22 13:14 Last Infusion: 11/02/22 07:15 Dose: 0 mls/hr Documented By: Admin: 11/01/22 14:44 Dose: 125 mls/hr Documented By: LEXA Ceftriaxone Sodium 1,000 mg/ (Dextrose) 50 mls @ 100 mls/hr IV NOW STA; Protocol Stop: 11/01/22 17:24 Last Infusion: 11/01/22 18:53 Dose: 0 mls/hr Documented By: Admin: 11/01/22 17:44 Dose: 100 mls/hr Documented By: LEXA Cefepime HCl 1,000 mg/ Syringe 10 mls @ 5 mls/min IV NOW STA; Protocol Stop: 11/01/22 17:17 Last Admin: 11/01/22 18:55 Dose: 5 mls/min Documented By: SWETA Daptomycin 250 mg/ Syringe 5 mls @ 2.75 mls/min IV Q24H ENZO; Protocol Stop: 11/11/22 17:29 Last Admin: 11/01/22 21:27 Dose: 2.75 mls/min Documented By: DEONTE Cefepime HCl 1,000 mg/ Syringe 10 mls @ 5 mls/min IV Q12H ENZO; Protocol Stop: 11/04/22 06:59 Last Admin: 11/02/22 08:09 Dose: 5 mls/min Documented By: ANTONI Ioversol (Optiray 320 100ml) 94 ml IV ONCE ONE Stop: 11/02/22 09:32 Last Admin: 11/02/22 09:31 Dose: 94 ml Documented By: CHELE Miscellaneous (No Heparin In Dialysis) 1 each N/A ONE ONE Stop: 11/02/22 09:35 Last Admin: 11/02/22 13:30 Dose: Not Given Documented By: BRYANNA Potassium Chloride (Potassium Chloride Crtab 20 Meq Tabcr) 40 meq PO NOW STA Stop: 11/02/22 08:45 Last Admin: 11/02/22 10:08 Dose: Not Given Documented By: CHRISTINA Potassium Chloride (Potassium Chloride Pwd 20 Meq Pack) 40 meq PO NOW ONE Stop: 11/02/22 09:01 Last Admin: 11/02/22 10:00 Dose: 40 meq Documented By: CHRISTINA Imaging Data Radiologist's Impression: Chest X-Ray 11/01/22 13:07 XR chest 1V portable HISTORY: wheezing, lung ca COMPARISON: PET CT 07/22/2022. FINDINGS: No pneumothorax. There are low lung volumes with coarse interstitial thickening. This has progressed. This may represent mild congestive change on the background of chronic interstitial lung disease. The heart remains mildly enlarged. There are poststernotomy changes. The patient's known pulmonary nodules are better appreciated on the prior PET/CT. Suspect trace bilateral pleural effusions. IMPRESSION: 1. There are low lung volumes with coarse interstitial thickening. This has progressed. This may represent mild congestive change on the background of chronic interstitial lung disease. 2. Cardiomegaly with trace bilateral pleural effusions. ACT 112: Negative or not required by law. Electronically signed by: Robin Martinez M.D. 11/01/2022 1:[address] 11/01/22 13:[address] DOSE: 547.75 mGy.cm HISTORY: Confusion. hallucinations TECHNIQUE: Multiaxial CT images of the head were performed without the use of intravenous contrast. Automated exposure control was utilized for this study. A dose lowering technique was utilized adhering to the principles of ALARA. Comparison: Brain MRI 09/01/2022. Findings: The paranasal sinuses and mastoid air cells are clear. The calvarium and skull base are intact. There is no mass, hematoma, midline shift, acute infarct. White matter hypodensity is nonspecific but suggestive of microvascular ischemic change. The ventricles and sulci demonstrate mild age-related involutional changes. This is similar to the prior study. Impression: No acute infarct or intracranial hemorrhage identified. ACT 112: Negative or not required by law. Electronically signed by: Robin Martinez M.D. 11/01/2022 2:20 PM Discharge Plan Visit Data Chief Complaint: Altered Mental Status Stated Complaint: DIALYSIS + CHEMO, HALLUCINATIONS, CONFUSION ED Provider: Cassie Stein Discharge Problem: Hallucinations Patient Disposition: Admitted As Inpatient Discharge Instructions Interventions: ED Discharge Assessment Last Done: 11/01/22 18:56
[2022-11-01] MEDS ORDERED: SODIUM CHLORIDE 0.9% 1000ML 1,000 ML IV SCH (13:15)
--- NOTE | 2022-11-01 13:29 | XRay Report ---
XR chest 1V portable HISTORY: wheezing, lung ca COMPARISON: PET CT 07/22/2022. FINDINGS: No pneumothorax. There are low lung volumes with coarse interstitial thickening. This has p rogressed. This may represent mild congestive change on the background of chronic interstitial lung d isease. The heart remains mildly enlarged. There are poststernotomy changes. The patient's known pulm onary nodules are better appreciated on the prior PET/CT. Suspect trace bilateral pleural effusions. IMPRESSION: 1. There are low lung volumes with coarse interstitial thickening. This has progressed. This may repr esent mild congestive change on the background of chronic interstitial lung disease. 2. Cardiomegaly with trace bilateral pleural effusions. ACT 112: Negative or not required by law. Electronically signed by: Robin Martinez M.D. 11/01/2022 1:28 PM
[2022-11-01 13:52] LABS: Hematocrit (blood only) 23.7 % (42.0-52.0); Mean Corpuscular Hemoglobin 33.1 pg (25.0-34.0); Mean Corpuscular Hgb Conc 33.8 g/dL (32.0-36.0); Mean Corpuscular Volume 97.9 fL (80.0-100.0); Mean Platelet Volume 10.8 fL (9.4-12.4); Platelet Count 94 K/uL (130-400); RDW Coefficient of Variation 13.5 % (11.5-14.5); RDW Standard Deviation 48.2 fL (36.4-46.3); Red Blood Count 2.42 M/uL (4.70-6.10); White Blood Count 2.68 K/ul (4.8-10.8)
[2022-11-01 14:10] LABS: Albumin Globulin Ratio 1.2 (0.9-2); Albumin Level 2.8 gm/dl (3.4-5.0); BUN Creatinine Ratio 5.9 (10-20); Bilirubin,Total 0.9 mg/dl (0.2-1.0); Calcium 8.4 mg/dl (8.6-10.3); Creatinine Clr Calc Pharmacy 12.3 ml/min; Globulin 2.4 gm/dl (2.5-4.0); Magnesium 1.8 mg/dl (1.7-2.4); Potassium 3.1 mmol/L (3.5-5.1); Total Protein 5.2 gm/dl (6.0-8.3)
[2022-11-01 14:11] LABS: ANC (manual) 1.61 K/uL (1.4-6.5); Lymphocytes % (manual) 15 %; Metamyelocytes # (manual) 0.27 K/uL (0-0); Metamyelocytes % (manual) 10 %; Monocytes # (manual) 0.32 K/uL (0.11-0.59); Monocytes % (manual) 12 %; Myelocytes # (manual) 0.05 K/uL (0-0); Myelocytes % (manual) 2 %; Neutrophils # (manual) 1.61 K/uL (1.40-6.50); Neutrophils % (manual) 60 %; Ovalocytes 1+; Polychromasia 1+; Toxic Granulation 3+
--- NOTE | 2022-11-01 14:23 | CT Scan Report ---
HEAD CT NONCONTRAST CT DOSE: 547.75 mGy.cm HISTORY: Confusion. hallucinations TECHNIQUE: Multiaxial CT images of the head were performed without the use of intravenous contrast. A utomated exposure control was utilized for this study. A dose lowering technique was utilized adheri ng to the principles of ALARA. Comparison: Brain MRI 09/01/2022. Findings: The paranasal sinuses and mastoid air cells are clear. The calvarium and skull base are int act. There is no mass, hematoma, midline shift, acute infarct. White matter hypodensity is nonspecifi c but suggestive of microvascular ischemic change. The ventricles and sulci demonstrate mild age-rela hernandez involutional changes. This is similar to the prior study. Impression: No acute infarct or intracranial hemorrhage identified. ACT 112: Negative or not required by law. Electronically signed by: Robin Martinez M.D. 11/01/2022 2:20 PM
--- NOTE | 2022-11-01 15:08 | History & Physical Report ---
Date of Service November 01, 2022 History of Present Illness Primary Care Provider: MD Jose Phelps on October 27, Allergies Allergy/AdvReac Type Severity Reaction Status Date / Time No Known Allergies Allergy Verified 10/28/22 13:06 Home Medications Medication Instructions Recorded Confirmed Type aspirin 81 mg tablet,delayed 81 mg PO HS 12/15/18 10/28/22 History release carvedilol 3.125 mg tablet 3.125 mg PO BID #180 tabs 04/23/22 10/28/22 Rx budesonide 90 mcg/actuation breath 1 inh inhalation BID #1 ea 05/28/22 10/28/22 Rx activated powder inhaler (Pulmicort Flexhaler) vitamin B complex-vitamin C-folic 1 tab PO DAILY #30 tabs 06/06/22 10/28/22 Rx acid 0.8 mg tablet (Dasia-Kimmy) ondansetron HCl 8 mg tablet 8 mg PO Q8H PRN 09/18/22 10/28/22 History prochlorperazine maleate 10 mg 10 mg PO Q6H PRN 09/18/22 10/28/22 History tablet (Compazine) doxazosin 2 mg tablet 2 mg PO HS #90 tabs 09/22/22 10/28/22 Rx pantoprazole 40 mg tablet,delayed 40 mg PO BID #180 tabs 09/22/22 10/28/22 Rx release ergocalciferol (vitamin D2) 1,250 1,250 mcg PO MONTHLY 10/06/22 10/28/22 History mcg (50,000 unit) capsule prednisolone acetate 0.12 % eye 1 drp ophthalmic (eye) DAILY 10/06/22 10/28/22 History drops,suspension oxycodone 10 mg tablet 10 mg PO .Q4-6H PRN pain #180 tabs 10/10/22 10/28/22 Rx calcitriol 0.5 mcg capsule 0.5 mcg PO .COMPLEX 10/28/22 10/28/22 History pregabalin 25 mg capsule (Lyrica) 25 mg PO .COMPLEX 10/28/22 10/28/22 History sertraline 50 mg tablet 50 mg PO DAILY 10/28/22 10/28/22 History sevelamer carbonate 800 mg tablet 800 mg PO .COMPLEX 10/28/22 10/28/22 History atorvastatin 10 mg tablet 10 mg PO DAILY #90 tabs 10/29/22 Rx Past Med/Surg History Medical History Anemia due to chronic kidney disease CAD (coronary artery disease) Chronic midline thoracic back pain Dyslipidemia GERD (gastroesophageal reflux disease) History of COVID-19 HTN (hypertension) Secondary hyperparathyroidism of renal origin Stage 5 chronic kidney disease not on chronic dialysis Thoracic aortic aneurysm Surgical History H/O thoracic aortic aneurysm repair History of cataract surgery History of hernia repair S/P CABG (coronary artery bypass graft) Family History Brother Brain tumor Cancer, Onset Age: 70 Mother Leukemia Denies family history of Ovarian cancer Prostate cancer Myocardial infarction Breast cancer Colorectal cancer Social History Smoking Status: Former smoker Tobacco Type: Cigars Age Started Using Tobacco: 41; Cigarettes Per Day: 1 cigar every six months; Second Hand Exposure: No; Do You Dip or Chew Tobacco: No; Hx Alcohol Use: Yes Alcohol type: wine Alcohol Intake Frequency: Monthly or Less Hx Substance Use: No Preferred Language: Setswana Communication Ability: Effective Communication Ability Comment: Able to communicate effectively in Setswana Visual Impairment: Partially Limited Hearing Ability: Hard of Hearing Solar Panel Installer Required: No Beliefs That Will Affect Care: None marital status: Single Current Living Situation: Alone Current Living Situation Comment: Lives alone, but within a close vacinity to daughter. current occupational status: retired How many Children do You have: 2 Feels Safe at Home: Yes Childhood Exposure to Second-Hand Smoke: Yes Diet: regular Diet Comment: High protein caffeine: Yes (coffee) during the past year weight has: remained stable Dental Care, Regularly: No Physical Activity Frequency: Daily Physical Activity Frequency Comment: Go's to gym, lift weights Seatbelt Use: always Sunscreen Use: Yes Do you think of yourself as: straight/heterosexual Gender Identity: Male Assistive Devices: Glasses Results & Data Results & Data Vital Signs (Past 12 Hours) Vital Signs Temp Pulse Pulse Resp BP BP Pulse Ox 11/01/22 14:45 66 18 145/72 H 92 11/01/22 13:34 57 L 11/01/22 12:44 37.2 C 83 20 101/54 L 98 O2 Del Method 11/01/22 14:45 Room Air 11/01/22 13:34 11/01/22 12:44 Room Air PG Care Time/CCT Total # of Minutes Spent Total Time Spent with Patient: Total time spent is greater than 50% in coordination of care (as documented) at patient's floor/unit and/or counseling patient: Coding Diagnoses
[2022-11-01 15:48] LABS: Adenovirus PCR Not Detected (NotDetected); Bordetella parapertussis PCR Not Detected (NotDetected); Bordetella pertussis PCR Not Detected (NotDetected); Chlamydia pneumoniae PCR Not Detected (NotDetected); Coronavirus 229E PCR Not Detected (NotDetected); Coronavirus CoV-2 (COVID19)PCR Not Detected (NotDetected); Coronavirus HKU1 PCR Not Detected (NotDetected); Coronavirus NL63 PCR Not Detected (NotDetected); Coronavirus OC43PCR Not Detected (NotDetected); Human Metapneumovirus PCR Not Detected (NotDetected); Influenza A PCR Not Detected (NotDetected); Influenza B PCR Not Detected (NotDetected); Mycoplasma pneumoniae PCR Not Detected (NotDetected); Parainfluenza Virus 1 PCR Not Detected (NotDetected); Parainfluenza Virus 2 PCR Not Detected (NotDetected); Parainfluenza Virus 3 PCR Not Detected (NotDetected); Parainfluenza Virus 4 PCR Not Detected (NotDetected); Respiratory Syncytial VirusPCR Not Detected (NotDetected); Rhinovirus/Enterovirus PCR Not Detected (NotDetected)
--- NOTE | 2022-11-01 16:03 | History & Physical Report ---
Date of Service November 01, 2022 Assessment & Plan (1) Hallucinations: Plan: -Admit to med/tele -Currently stable -Patient has been having visual hallucinations for the past 24 hours with increased paranoia of something bad happening to his daughter -Etiology is broad at this time including progression of his known brain mets, bacterial infection, viral infection, polypharmacy, or side effects related to ongoing cancer treatment -Patient had one dose of lyrica on 10/26 but this was the only newly prescribed medication -Possible pneumonia on CXR with procal of 0.52, UA possibly infected as well -We would ideally obtain an MRI of the brain wo/w con and CT of the chest/abd/pelvis w/con on admission for further evaluation, but he will need dialysis after and the dialysis nurse has already left for the day. >Spoke with extractions technologist Relief Manager, appreciate their help, they will assist in coordinating dialysis after he has his imaging w/con tomorrow -Nephrology consult placed -Will coordinate with the MRI and CT teams for him to get him imaging tomorrow morning -For now will cover broadly with Cefepime and Daptomycin as he has grown enterococcus in the past -Fall precautions, aspiration precautions -Will hold chemical DVT PPX for now has he is thrombocytopenic and ESRD -AM CBC, CMP, Mag, PT/INR -Renal dialysis diet (2) Dysphagia: Plan: -has been complaining of sore throat/mouth with painful swallowing -Noted some erythematous patches on her pharynx -Will try empiric nystatin swish and swallow for oropharyngeal candidiasis (3) Hypokalemia: Plan: -Potassium noted to be 3.1 today -No acute ECG changes; ECG was reporting possible afib but review his tele shows consistent p-waves -Mag WNL -Will hold repletion for now as he is ESRD -Continue to monitor on tele and monitor am potassium level (4) End stage renal disease on dialysis: Plan: -Had full session yesterday -Nephrology consult placed as he will need HD tomorrow after CT's and MRI -Normal Schedule is MWF -Continue renal vitamins and medications -Renal dialysis diet (5) Metastatic lung carcinoma: Plan: -Currently receiving chemotherapy and recently finished radiation therapy for brain mets -Follows with Dr. Mcneil -Onc consult placed (6) HTN (hypertension): Plan: -Stable -Continue (7) CAD (coronary artery disease): Plan: -Continue aspirin Plan The patient was discussed with Dr. Gomez at the time of the admission History of Present Illness Chief Complaint: Hallucinations Primary Care Provider: Abebe Ny MD Jose is a 77 year old male with a PMH significant metastatic lung cancer to the brain and bone currently on Docetaxel and receiving whole brain radiation (follows with Dr. Mcneil), ESRD on HD MWF, CAD status post CABG x 1, Thoracic aortic aneurysm repair in 2008, and HTN who presented to the [facility] ED with his daughter on 11/01 for new onset hallucinations. In the ED vitals were stable. Labs were significant for stable pancytopenia, stable cr of 4.43, potassium of 3.1, procal of 0.52, and full respiratory biofire negative. CT of the head was read as "No acute infarct or intracranial hemorrhage identified.". Chest xray was read as "1. There are low lung volumes with coarse interstitial thickening. This has progressed. This may represent mild congestive change on the background of chronic interstitial lung disease. 2. Cardiomegaly with trace bilateral pleural effusions.". Prior to admission the patient was given 1L NSS. At the time of the exam the patient was lying in bed in no acute distress with his Daughter/POA sitting bedside. She states that The patient had a full dialysis session yesterday. After the dialysis session the dialysis nurses were telling the daughter that the patient seemed "off his baseline" cognitively. The daughter confirmed that he had been more fatigued than normal over the past week. Over the past 24 hours the patient has been having visual hallucinations, talking to people who are not there, seeing ants that are not actually there, and being paranoid that his daughter is going to . His daughter denies the patient having recent fever, and the patient denies recent chest pain, SOB, abd pain, nausea, vomiting, diarrhea, dysuria, hematuria, melena, LE swelling, and recent trauma. The patient does still make small amounts of urine even while on HD. Of note, the patient has been having increased mouth and throat pain. Because of this pain the patient has not been eating solids consistently. The patient's daughter confirms that he uses prn oxycodone for cancer-related pain, his last dose was last night around 9 pm. She confirms that he is only on dexamethasone on days before and after chemotherapy. His daughter also mentions that the patient has been having ongoing issues with nausea and vomiting since having chemoctherapy. They deny any changes in his chronic symptoms recently. We had a long discussion regarding code status, at this time the patient and his daughter want him to be a full code. If he would end up significantly deteriorating then they would consider transition to comfort or hospice. Please refer to Dr. Gomez's attestation for any changes to the treatment plan Allergies Allergy/AdvReac Type Severity Reaction Status Date / Time No Known Allergies Allergy Verified 11/01/22 15:54 Home Medications Medication Instructions Recorded Confirmed Type aspirin 81 mg tablet,delayed 81 mg PO HS 12/15/18 11/01/22 History release carvedilol 3.125 mg tablet 3.125 mg PO BID #180 tabs 04/23/22 11/01/22 Rx budesonide 90 mcg/actuation breath 1 inh inhalation BID #1 ea 05/28/22 11/01/22 Rx activated powder inhaler (Pulmicort Flexhaler) vitamin B complex-vitamin C-folic 1 tab PO DAILY #30 tabs 06/06/22 11/01/22 Rx acid 0.8 mg tablet (Dasia-Kimmy) ondansetron HCl 8 mg tablet 8 mg PO Q8H PRN Nausea 09/18/22 11/01/22 History prochlorperazine maleate 10 mg 10 mg PO Q6H PRN Nausea 09/18/22 11/01/22 History tablet (Compazine) doxazosin 2 mg tablet 2 mg PO HS #90 tabs 09/22/22 11/01/22 Rx pantoprazole 40 mg tablet,delayed 40 mg PO BID #180 tabs 09/22/22 11/01/22 Rx release ergocalciferol (vitamin D2) 1,250 1,250 mcg PO MONTHLY 10/06/22 11/01/22 History mcg (50,000 unit) capsule prednisolone acetate 0.12 % eye 1 drp ophthalmic (eye) DAILY 10/06/22 11/01/22 History drops,suspension oxycodone 10 mg tablet 10 mg PO .Q4-6H PRN pain #180 tabs 10/10/22 11/01/22 Rx calcitriol 0.5 mcg capsule 0.5 mcg PO .COMPLEX 10/28/22 11/01/22 History pregabalin 25 mg capsule (Lyrica) 25 mg PO .HOLD 10/28/22 11/01/22 History sertraline 50 mg tablet 50 mg PO DAILY 10/28/22 11/01/22 History sevelamer carbonate 800 mg tablet 800 mg PO .COMPLEX 10/28/22 11/01/22 History atorvastatin 10 mg tablet 10 mg PO DAILY #90 tabs 10/29/22 11/01/22 Rx Docetaxel Tx See Rx Instructions .Route .COMPLEX 11/01/22 11/01/22 History dexamethasone 4 mg tablet 8 mg PO DIRECTED 11/01/22 11/01/22 History Past Med/Surg History Medical History Anemia due to chronic kidney disease CAD (coronary artery disease) Chronic midline thoracic back pain Dyslipidemia GERD (gastroesophageal reflux disease) History of COVID-19 HTN (hypertension) Secondary hyperparathyroidism of renal origin Stage 5 chronic kidney disease not on chronic dialysis Thoracic aortic aneurysm Surgical History H/O thoracic aortic aneurysm repair History of cataract surgery History of hernia repair S/P CABG (coronary artery bypass graft) Family History Brother Brain tumor Cancer, Onset Age: 70 Mother Leukemia Denies family history of Ovarian cancer Prostate cancer Myocardial infarction Breast cancer Colorectal cancer Social History Smoking Status: Former smoker Tobacco Type: Cigars Age Started Using Tobacco: 41; Cigarettes Per Day: 1 cigar every six months; Second Hand Exposure: No; Do You Dip or Chew Tobacco: No; Hx Alcohol Use: No Hx Substance Use: No Preferred Language: Slovenian Communication Ability: Effective Communication Ability Comment: Able to communicate effectively in Slovenian Visual Impairment: Partially Limited Hearing Ability: Hard of Hearing Retail Brand Ambassador Required: No Beliefs That Will Affect Care: None marital status: Single Current Living Situation: Alone Current Living Situation Comment: daughter close by current occupational status: retired How many Children do You have: 2 Feels Safe at Home: Yes Childhood Exposure to Second-Hand Smoke: Yes Diet: regular Diet Comment: High protein caffeine: Yes (coffee) during the past year weight has: remained stable Dental Care, Regularly: No Physical Activity Frequency: Daily Physical Activity Frequency Comment: Go's to gym, lift weights Seatbelt Use: always Sunscreen Use: Yes Do you think of yourself as: straight/heterosexual Gender Identity: Male Assistive Devices: None Physical Exam Physical Exam: Physical Exam: General: In no acute distress, stated age, chronically ill-appearing but non- toxic HEENT: Normocephalic, atraumatic, no scleral icterus, pupils around round, symmetrical, and reactive to light, dry mucus membranes, a few erythematous patches noted on the pharynx, trachea midline, no thyromegaly Chest/Pulm: No respiratory distress, symmetrical chest expansion, expiratory wheezing noted throughout Cardiac: regular rate, irregular rhythm, no murmurs noted Abdomen: Negative for ascites and bruising, normoactive bowel sounds, soft, non-tender to palpation throughout Musculoskeletal: Symmetrical and without signs of acute trauma, upper and lower extremities with full ROM, no atrophy, spasticity, or flaccidity Extremities: AV fistula located on the left forearm does not appear infected and with intact thrill, right Radial, dorsalis pedis, and posterior tibial pulses are intact and symmetrical, no edema noted in the BL LE's Skin: Warm, dry, no rashes , lesions, or scars noted Neuro: Alert and oriented to person, place, month, year, and president, no focal defects, CN II-XII tested and intact, no tremors noted Psych: No acute distress, calm and cooperative during the exam, no current hallucinations during the exam Results & Data Results & Data Vital Signs (Past 12 Hours) Vital Signs Temp Pulse Pulse Resp BP BP Pulse Ox 11/01/22 14:45 66 18 145/72 H 92 11/01/22 13:34 57 L 11/01/22 12:44 37.2 C 83 20 101/54 L 98 O2 Del Method 11/01/22 14:45 Room Air 11/01/22 13:34 11/01/22 12:44 Room Air Laboratory Results Abnormal lab results 11/01/22 11/01/22 11/01/22 Range/Units 13:34 13:34 13:34 WBC 2.68 L (4.8-10.8) K/ul RBC 2.42 L (4.70-6.10) M/uL Hgb 8.0 L (14.0-18.0) g/dl Hct 23.7 L (42.0-52.0) % RDW Std Deviation 48.2 H (36.4-46.3) fL Plt Count 94 L (130-400) K/uL Lymphocytes # (Manual) 0.40 L (1.2-3.4) K/uL Total Abs Lymphocytes 0.40 L (1.2-3.4) K/uL Metamyelocytes # (Man) 0.27 H (0-0) K/uL Myelocytes # (Manual) 0.05 H (0-0) K/uL Potassium 3.1 L (3.5-5.1) mmol/L Chloride 94 L (98-107) mmol/L Carbon Dioxide 34 H (21-32) mmol/L BUN 26 H (6-23) mg/dl Creatinine 4.43 H (0.6-1.4) mg/dl BUN/Creatinine Ratio 5.9 L (10-20) Glucose 109 H (70-99(Fasting)) mg/dl Calcium 8.4 L (8.6-10.3) mg/dl Total Protein 5.2 L (6.0-8.3) gm/dl Albumin 2.8 L (3.4-5.0) gm/dl Globulin 2.4 L (2.5-4.0) gm/dl Procalcitonin 0.52 H (0-0.5) ng/ml Urine Appearance (Clear) Urine pH (4.5-7.5) Urine Protein (Negative) Urine Ketones (Negative) Urine Blood (Negative) Ur Leukocyte Esterase (Negative) Urine WBC (Auto) (0-5) /hpf U Epithel Cells (Auto) (0-5) /lpf 11/01/22 Range/Units 16:24 WBC (4.8-10.8) K/ul RBC (4.70-6.10) M/uL Hgb (14.0-18.0) g/dl Hct (42.0-52.0) % RDW Std Deviation (36.4-46.3) fL Plt Count (130-400) K/uL Lymphocytes # (Manual) (1.2-3.4) K/uL Total Abs Lymphocytes (1.2-3.4) K/uL Metamyelocytes # (Man) (0-0) K/uL Myelocytes # (Manual) (0-0) K/uL Potassium (3.5-5.1) mmol/L Chloride (98-107) mmol/L Carbon Dioxide (21-32) mmol/L BUN (6-23) mg/dl Creatinine (0.6-1.4) mg/dl BUN/Creatinine Ratio (10-20) Glucose (70-99(Fasting)) mg/dl Calcium (8.6-10.3) mg/dl Total Protein (6.0-8.3) gm/dl Albumin (3.4-5.0) gm/dl Globulin (2.5-4.0) gm/dl Procalcitonin (0-0.5) ng/ml Urine Appearance Turbid A (Clear) Urine pH 8.5 H (4.5-7.5) Urine Protein 3+ H (Negative) Urine Ketones Trace H (Negative) Urine Blood 1+ H (Negative) Ur Leukocyte Esterase 3+ H (Negative) Urine WBC (Auto) >30 H (0-5) /hpf U Epithel Cells (Auto) 10-20 H (0-5) /lpf Diagnostic Findings Chest X-Ray 11/01/22 13:07 XR chest 1V portable HISTORY: wheezing, lung ca COMPARISON: PET CT 07/22/2022. FINDINGS: No pneumothorax. There are low lung volumes with coarse interstitial thickening. This has progressed. This may represent mild congestive change on the background of chronic interstitial lung disease. The heart remains mildly enlarged. There are poststernotomy changes. The patient's known pulmonary nodules are better appreciated on the prior PET/CT. Suspect trace bilateral pleural effusions. IMPRESSION: 1. There are low lung volumes with coarse interstitial thickening. This has progressed. This may represent mild congestive change on the background of chronic interstitial lung disease. 2. Cardiomegaly with trace bilateral pleural effusions. ACT 112: Negative or not required by law. Electronically signed by: Robin Martinez M.D. 11/01/2022 1:[address] 11/01/22 13:[address] DOSE: 547.75 mGy.cm HISTORY: Confusion. hallucinations TECHNIQUE: Multiaxial CT images of the head were performed without the use of intravenous contrast. Automated exposure control was utilized for this study. A dose lowering technique was utilized adhering to the principles of ALARA. Comparison: Brain MRI 09/01/2022. Findings: The paranasal sinuses and mastoid air cells are clear. The calvarium and skull base are intact. There is no mass, hematoma, midline shift, acute infarct. White matter hypodensity is nonspecific but suggestive of microvascular ischemic change. The ventricles and sulci demonstrate mild age-related involutional changes. This is similar to the prior study. Impression: No acute infarct or intracranial hemorrhage identified. ACT 112: Negative or not required by law. Electronically signed by: Robin Martinez M.D. 11/01/2022 2:20 PM ECG Additional Comments: Atrial fibrillation with slow ventricular response Moderate voltage criteria for LVH, may be normal variant ( R in aVL , [place] product ) Anterior infarct (cited on or before 12-FEB-2022) Abnormal ECG When compared with ECG of 12-FEB-2022 16:15, Atrial fibrillation has replaced Sinus rhythm Code Status & VTE Plan Code Status Full code Supervising Physician Co-Signing Physician Notes I personally saw and examined the patient. I verified all trujillo points and agree with Ron Ariza PA-C with the following exceptions and/or additions: 77 year old male presents to the ER with increased fatigue, generalized weakness, confusion and hallucinations. Known metastatic lung cancer with metastatic disease to his brain. No specific respiratory, GI or urinary infective symptoms. O/E HS irregular rhythm, regular rate, no murmurs, Chest with crackles throughout, no wheezing, Abdo SNT, No CVA tenderness, no areas of cellulitis noted A/P Hallucinations and generalized weakness - differential including infection, brain metastatic disease, radiation therapy, lyrica. Hold further lyrica. CXR effectively non diagnostic for pneumonia in setting of metastatic lung cancer but no definitive area of consolidation. CT C/A/P and MRI brain prior to dialysis tomorrow. Given immunosuppressed state and dialysis will take blood c ulture now and treat empirically with broad spectrum antibiotics (daptomycin + cefepime) since procalcitonin technically positive although may not be accurate in setting of ESRD and cancer. ESRD on dialysis - consult nephrology Abnormal EKG - electronically reported as atrial fibrillation but p waves distinctly present and telemetry more consistent with NSR with frequent PACs and multiple pacemakers. Continue to monitor on telemetry. Hypokalemia - in setting of ESRD on dialysis aim K > 3 PG Care Time/CCT Total # of Minutes Spent Total Time Spent with Patient: Total time spent is greater than 50% in coordination of care (as documented) at patient's floor/unit and/or counseling patient: Coding [place] [address] INT INP/OBS CARE 3/75MIN Patient Type Established Medical Decision Making High Complexity Diagnoses Hallucinations R44.3 Dysphagia R13.10 Hypokalemia E87.6 End stage renal disease on dialysis N18.6; Z99.2 Metastatic lung carcinoma C78.00 Laterality: unspecified laterality HTN (hypertension) I10 CAD (coronary artery disease) I25.10 (5) Metastatic lung carcinoma Laterality: unspecified laterality Qualified Code(s): C78.00 - Secondary malignant neoplasm of unspecified lung
[2022-11-01 16:41] LABS: Appearance Urine Turbid (Clear); Bacteria Urine Automated Negative (Negative); Bilirubin Urine Negative (Negative); Blood Urine 1+ (Negative); Color Urine Dark Yellow; Glucose Urine UA Negative (Negative); Ketones Urine Trace (Negative); Leukocyte Esterase Urine 3+ (Negative); Nitrite Urine Negative (Negative); RBC Urine Automated 0-4 /hpf (0-4); Specific Gravity Urine 1.012 (1.000-1.030); Urobilinogen Urine Negative (Negative); WBC Urine Automated >30 /hpf (0-5); pH Urine 8.5 (4.5-7.5)
[2022-11-01 16:42] LABS: Protein Urine 3+ (Negative)
[2022-11-01] MEDS ORDERED: cefTRIAXone SODIUM 1,000 MG in DEXTROSE 5% AD-VAN 50 ML IV STA (16:55)
[2022-11-01 16:56] LABS: Cast Urine Automated 0 /lpf (0-5)
[2022-11-01] MEDS ORDERED: CEFEPIME 1,000 MG in SYRINGE 0 ML IV STA (17:16)
[2022-11-01] MEDS ORDERED: DAPTOmycin 250 MG in SYRINGE 0 ML IV SCH (17:30)
[2022-11-01] MEDS ORDERED: SEVELAMER HCL 800 MG TABLET PO PRN (19:50)
[2022-11-01] MEDS ORDERED: NYSTATIN 500,000 UNIT TAB PO SCH (21:00)
[2022-11-01] MEDS: FLUTICASONE FUROATE 100MCG 14 PUFFS/INHALER INH SCH (21:27)
[2022-11-01] MEDS: SEVELAMER HCL 800 MG TABLET PO SCH (21:28)
[2022-11-01] MEDS: PANTOprazole 40 MG TAB PO SCH (21:28)
[2022-11-01] MEDS: ASPIRIN 81 MG ECTAB PO SCH (21:28)
[2022-11-01] MEDS: NYSTATIN 500,000 UNIT TAB PO SCH (21:29)
[2022-11-01] MEDS: DOXAZosin MESYLATE TAB 2 MG TAB PO SCH (21:29)
[2022-11-01] MEDS: carvediloL 3.125 MG TAB PO SCH (21:29)
[2022-11-02] MEDS ORDERED: CEFEPIME 1,000 MG in SYRINGE 0 ML IV SCH (07:00)
[2022-11-02 07:13] LABS: Hematocrit (blood only) 20.4 % (42.0-52.0); Hemoglobin 6.9 g/dl (14.0-18.0); Mean Corpuscular Hemoglobin 32.9 pg (25.0-34.0); Mean Corpuscular Hgb Conc 33.8 g/dL (32.0-36.0); Mean Corpuscular Volume 97.1 fL (80.0-100.0); Mean Platelet Volume 10.1 fL (9.4-12.4); Platelet Count 78 K/uL (130-400); RDW Coefficient of Variation 13.5 % (11.5-14.5); RDW Standard Deviation 47.8 fL (36.4-46.3); White Blood Count 2.89 K/ul (4.8-10.8)
[2022-11-02 07:38] LABS: Albumin Globulin Ratio 1.1 (0.9-2); Albumin Level 2.4 gm/dl (3.4-5.0); BUN Creatinine Ratio 6.6 (10-20); Bilirubin,Total 0.5 mg/dl (0.2-1.0); Calcium 7.9 mg/dl (8.6-10.3); Creatinine Clr Calc Pharmacy 10.3 ml/min; Est GFR (African American) 11.2 ml/min; Est GFR (Non-African American) 9.6 ml/min; Globulin 2.2 gm/dl (2.5-4.0); Magnesium 1.8 mg/dl (1.7-2.4); Potassium 3.2 mmol/L (3.5-5.1); Total Protein 4.6 gm/dl (6.0-8.3)
[2022-11-02 07:53] LABS: Prothrombin Time 11.3 Seconds (9.0-12.0)
[2022-11-02 08:06] LABS: ALC (manual) 0.58 K/uL (1.2-3.4); ANC (manual) 1.94 K/uL (1.4-6.5); Echinocytes 1+; Lymphocytes # (manual) 0.58 K/uL (1.2-3.4); Lymphocytes % (manual) 20 %; Monocytes # (manual) 0.26 K/uL (0.11-0.59); Monocytes % (manual) 9 %; Myelocytes # (manual) 0.09 K/uL (0-0); Myelocytes % (manual) 3 %; Neutrophils # (manual) 1.94 K/uL (1.40-6.50); Neutrophils % (manual) 67 %; Polychromasia 1+; Promyelocytes # (manual) 0.06 K/uL (0-0); Promyelocytes % (manual) 2 %; Tear Drop Cells 1+; Toxic Granulation 3+
--- NOTE | 2022-11-02 08:38 | Nephrology Consultation ---
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 Primary Environmental Services Assistant is Dr. Kothari * Will provide HD today following brain MRI to remove Gadolinium and provide UF. Orders have been placed in EMR and HD RN notified * Monitor PRP * Renal diet (2) Anemia: * Hgb 6.9 this am. Will transfuse 2U PRBC on HD today (3) Adenocarcinoma, lung: * Chest/Abd CT completed this morning show multifocal metastatic disease throughout both lungs with evidence of lymphangitic carcinomatosis. This has significantly progressed since 07/24 study * Recommend consultation w/ Oncology and Palliative Care History of Present Illness Reason for Consultation: ESKD on HD Attending Physician: Ismael Arriaga MD History of Present Illness Mr. Zhong is a 77 year old [place]ian male who is seen at the request of the [facility] to provide HD and assist w/ medical management. Information for the HPI is obtained from patient interview and review of the EMR. His medical history is summarized as follows: Mr. 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 His primary Environmental Services Assistant is Dr. Kothari. He has been on IHD since 02/22 and currently dialyzes MWF at [facility] dialysis unit. I was able to log into the [facility] EMR this morning but unable to locate Mr. Zhong's files. Mr. Zhong reports that he dialyzes via a L BC AVF. His last treatment was Thursday and there were no complications. Mr. 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 He has received chemotherapy and whole brain radiation therapy. Mr. Zhong was brought to the [facility] last evening for evaluation of weakness and visual hallucinations. Head CT was negative. Blood and urine cultures are pending. Primary service notes presence of CHF on CXR and requests HD today following brain MRI. Allergies Allergy/AdvReac Type Severity Reaction Status Date / Time No Known Allergies Allergy Verified 11/01/22 15:54 Home Medications Medication Instructions Recorded Confirmed Type aspirin 81 mg tablet,delayed 81 mg PO HS 12/15/18 11/01/22 History release carvedilol 3.125 mg tablet 3.125 mg PO BID #180 tabs 04/23/22 11/01/22 Rx budesonide 90 mcg/actuation breath 1 inh inhalation BID #1 ea 05/28/22 11/01/22 Rx activated powder inhaler (Pulmicort Flexhaler) vitamin B complex-vitamin C-folic 1 tab PO DAILY #30 tabs 06/06/22 11/01/22 Rx acid 0.8 mg tablet (Dasia-Kimmy) ondansetron HCl 8 mg tablet 8 mg PO Q8H PRN Nausea 09/18/22 11/01/22 History prochlorperazine maleate 10 mg 10 mg PO Q6H PRN Nausea 09/18/22 11/01/22 History tablet (Compazine) doxazosin 2 mg tablet 2 mg PO HS #90 tabs 09/22/22 11/01/22 Rx pantoprazole 40 mg tablet,delayed 40 mg PO BID #180 tabs 09/22/22 11/01/22 Rx release ergocalciferol (vitamin D2) 1,250 1,250 mcg PO MONTHLY 10/06/22 11/01/22 History mcg (50,000 unit) capsule prednisolone acetate 0.12 % eye 1 drp ophthalmic (eye) DAILY 10/06/22 11/01/22 History drops,suspension oxycodone 10 mg tablet 10 mg PO .Q4-6H PRN pain #180 tabs 10/10/22 11/01/22 Rx calcitriol 0.5 mcg capsule 0.5 mcg PO .COMPLEX 10/28/22 11/01/22 History pregabalin 25 mg capsule (Lyrica) 25 mg PO .HOLD 10/28/22 11/01/22 History sertraline 50 mg tablet 50 mg PO DAILY 10/28/22 11/01/22 History sevelamer carbonate 800 mg tablet 800 mg PO .COMPLEX 10/28/22 11/01/22 History atorvastatin 10 mg tablet 10 mg PO DAILY #90 tabs 10/29/22 11/01/22 Rx Docetaxel Tx See Rx Instructions .Route .COMPLEX 11/01/22 11/01/22 History dexamethasone 4 mg tablet 8 mg PO DIRECTED 11/01/22 11/01/22 History Patient History Medical History Anemia due to chronic kidney disease Hgb 10-12 range per chart review, fecal occult blood test x3 negative per 12/25/21 PCP note CAD (coronary artery disease) s/p CABG x1 (with ascending thoracic aorta repair) - 2008 Chronic midline thoracic back pain Dyslipidemia GERD (gastroesophageal reflux disease) History of COVID-19 09/2021, hospitalized at [facility] (vomiting, dehydration, cough, sinus congestion) > resolved HTN (hypertension) Secondary hyperparathyroidism of renal origin Stage 5 chronic kidney disease not on chronic dialysis Thoracic aortic aneurysm s/p repair (2008) Surgical History H/O thoracic aortic aneurysm repair CABG x1 + ascending thoracic aorta repair (2008) History of cataract surgery R/L History of hernia repair S/P CABG (coronary artery bypass graft) CABG x1 + ascending thoracic aorta repair (2008) Family History Brother Brain tumor Cancer, Onset Age: 70 colon cancer Sai Mother Leukemia Denies family history of Ovarian cancer Prostate cancer Myocardial infarction Breast cancer Colorectal cancer Social History Smoking Status: Former smoker Tobacco Type: Cigars Age Started Using Tobacco: 41; Cigarettes Per Day: 1 cigar every six months; Second Hand Exposure: No; Do You Dip or Chew Tobacco: No; Hx Alcohol Use: No Hx Substance Use: No Preferred Language: Ugandan Communication Ability: Effective Communication Ability Comment: Able to communicate effectively in Ugandan Visual Impairment: Partially Limited Hearing Ability: Hard of Hearing Business Development Coordinator Required: No Beliefs That Will Affect Care: None marital status: Single Current Living Situation: Alone Current Living Situation Comment: daughter close by current occupational status: retired How many Children do You have: 2 Feels Safe at Home: Yes Childhood Exposure to Second-Hand Smoke: Yes Diet: regular Diet Comment: High protein caffeine: Yes (coffee) during the past year weight has: remained stable Dental Care, Regularly: No Physical Activity Frequency: Daily Physical Activity Frequency Comment: Go's to gym, lift weights Seatbelt Use: always Sunscreen Use: Yes Do you think of yourself as: straight/heterosexual Gender Identity: Male Assistive Devices: None Review of Systems Constitutional: no fever Eyes: no worsening vision Ear, Nose, Mouth, Throat: + sore throat Respiratory: + dyspnea Cardiovascular: no chest pain Gastrointestinal: no abdominal pain, no vomiting and no diarrhea/loose stools Genitourinary: no dysuria or no hematuria Integumentary: no rash Physical Exam Constitutional: not in distress Eyes: PERRL, conjunctivae normal, anicteric sclerae ENMT: external ear and nose normal, oropharynx normal Neck: trachea midline, no thyromegaly Respiratory: Auscultation: + wheezes Cardiovascular: RRR, no murmur, no edema Gastrointestinal (Abdomen): Inspection/Auscultation: normal bowel sounds; abdomen not distended Percussion/Palpation: abdomen soft; abdomen nontender Musculoskeletal: Extremities: no cyanosis Skin: normal turgor Neurologic: Speech / Cognition: normal speech and normal cognition (oriented to self, place, month this morning) Results & Data Vital Signs (Past 12 Hours) Vital Signs Temp Pulse Pulse Resp BP Pulse Ox O2 Del Method 11/02/22 07:41 36.4 C L 57 L 16 134/60 97 Nasal Cannula 11/02/22 04:00 36.3 C L 53 L 18 139/66 97 Nasal Cannula 11/02/22 01:01 58 L 11/01/22 22:52 36.6 C 56 L 18 143/70 H 96 Nasal Cannula O2 Flow Rate 11/02/22 07:41 2 11/02/22 04:00 3 11/02/22 01:01 11/01/22 22:52 2 Laboratory Results Laboratory Tests 11/02/22 11/02/22 06:50 06:50 WBC 2.89 L Hgb 6.9 L* Hct 20.4 L* Plt Count 78 L Sodium 138 Potassium 3.2 L Chloride 97 L Carbon Dioxide 34 H BUN 35 H Creatinine 5.33 H* D Glucose 79 Magnesium 1.8 Albumin 2.4 L Laboratory Tests 11/01/22 14:45 Adenovirus (PCR) Not Detected Coronavirus OC43 (PCR) Not Detected Coronavirus HKU1 (PCR) Not Detected Coronavirus 229E (PCR) Not Detected SARS-CoV-2 (PCR) Not Detected Coronavirus NL63 (PCR) Not Detected Influenza Type A (PCR) Not Detected Influenza Type B (PCR) Not Detected RSV (PCR) Not Detected 11/01/22 blood culture - pending 11/01/22 urine culture - pending Diagnostic Findings 11/01/22 CXR - There are low lung volumes with coarse interstitial thickening. This has progressed. This may represent mild congestive change on the background of chronic interstitial lung disease. Cardiomegaly with trace bilateral pleural effusions. 11/01/[address] - No acute infarct or intracranial hemorrhage identified. 11/01/22 Chest/Abd CT: 1. There is extensive/diffuse multifocal metastatic disease throughout both lungs with evidence of lymphangitic carcinomatosis. This has significantly progressed from the 07/22/2022 PET examination. 2. Airspace opacities at the lung bases are confluent. This likely represents metastatic disease. A superimposed pneumonia would be impossible to exclude and clinical correlation will be required. 3. Marked cardiomegaly. Intralobular septal thickening likely represents fluid overload/congestive failure. Correlate clinically. 4. Small pleural effusions. 5. Cystitis. Correlate with clinical findings and urinalysis. 6. Findings suggest a nonspecific proctocolitis. Correlate clinically. 7. Multifocal osteoblastic metastatic disease is similar to 07/22/2022 PET examination. 8. Multifocal hepatic metastatic disease has progressed from previous. 9. There is focal wall thickening and irregularity of the distal right ureter. Although this could be inflammatory, a urothelial lesion could also have this appearance. 10. The gallbladder is distended but otherwise normal in appearance. Correlate with clinical and laboratory findings. 11. There is focal near complete occlusion of the right internal iliac artery. 12. Right hilar adenopathy. PG Care Time/CCT Total # of Minutes Spent Total Time Spent with Patient: Total time spent is greater than 50% in coordination of care (as documented) at patient's floor/unit and/or counseling patient: Coding Level of Care Code 54668 IN/OBS CONSULT LVL 5,80M Diagnoses End stage renal disease on dialysis N18.6; Z99.2 Anemia D64.9 Adenocarcinoma, lung C34.90
[2022-11-02] MEDS ORDERED: POTASSIUM CHLORIDE CRTAB 20 MEQ TABCR PO STA (08:44)
[2022-11-02] MEDS ORDERED: POTASSIUM CHLORIDE PWD 20 MEQ PACK PO ONE (09:00)
[2022-11-02] MEDS ORDERED: OPTIRAY 320 100ml IV ONE (09:31)
[2022-11-02] MEDS ORDERED: EPOETIN ALFA 10,000 UNITS/ML VIAL IV ONE (09:34)
[2022-11-02] MEDS ORDERED: SODIUM CHLORIDE 0.9% 1000ML 1,000 ML IV PRN (09:34)
[2022-11-02] MEDS: carvediloL 3.125 MG TAB PO SCH ×2 (10:01→20:28)
[2022-11-02] MEDS: FLUTICASONE FUROATE 100MCG 14 PUFFS/INHALER INH SCH (10:02)
[2022-11-02] MEDS: NYSTATIN 500,000 UNIT TAB PO SCH ×4 (10:02→20:27)
[2022-11-02] MEDS: SEVELAMER HCL 800 MG TABLET PO SCH ×3 (10:02→17:13)
[2022-11-02] MEDS: PANTOprazole 40 MG TAB PO SCH ×2 (10:02→20:27)
[2022-11-02] MEDS: VITAMIN B COMPLEX TAB PO SCH (10:03)
[2022-11-02] MEDS: SERTRALINE HCL 50 MG TABLET PO SCH (10:03)
--- NOTE | 2022-11-02 10:10 | CT Scan Report ---
CT SCAN OF THE CHEST, ABDOMEN, AND PELVIS WITH IV CONTRAST CLINICAL HISTORY: Lung cancer. Infection. Hallucinations. COMPARISON STUDY: Chest x-ray dated 11/01/2022. PET/CT dated 07/22/2022. TECHNIQUE: Following the IV administration of 94 of Optiray 320, CT scan of the chest, abdomen, and p kim was performed from the thoracic inlet to the proximal femora. Images are reviewed in the axial, sagittal, and coronal planes. IV contrast was administered without complication. A dose lowering te chnique was utilized adhering to the principles of ALARA. CT DOSE: 1721.22 mGy.cm FINDINGS: CHEST: Thyroid: Mildly enlarged and heterogeneous. Thoracic aorta: There is atherosclerotic calcification of the thoracic aorta, which is normal in [place] and demonstrates bovine variant arch anatomy. No dissection is seen. Pulmonary vasculature: The main pulmonary arteries are dilated suggesting pulmonary artery hypertensi on. There are no filling defects identified in the central pulmonary vessels to indicate pulmonary em bolus. Note that this examination was not protocoled for evaluation of the pulmonary arteries. Heart: The patient is status post midline sternotomy. The heart is enlarged and without pericardial e ffusion. The coronary arteries and aortic valve leaflets are densely calcified. Lungs and pleural spaces: There are small pleural effusions, left larger than right with dependent at electasis. There is extensive multifocal metastatic disease seen throughout both lungs with evidence of lymphangitic carcinomatosis. This has significantly progressed as compared to 07/22/2022. There are confluent opacities at both lung bases. Secretions are noted in the trachea and left mainstem bronch us. Intralobular septal thickening is seen throughout both lungs. Mediastinum: No pathologically enlarged mediastinal nodes are identified. There are several calcifica tions containing nodes. Flower: Enlarged right hilar nodes measure up to 1.8 cm short axis. Axillae: There is no axillary lymphadenopathy. Bony thorax: The skeletal structures are osteopenic. Degenerative change is noted in the shoulders an d thoracic spine. Osteoblastic metastatic lesions are similar to previous. Lesions are seen in the ri ght scapula on image #130, in the left fourth rib on image #72, and in the right seventh rib on image #136. ABDOMEN AND PELVIS: Liver: The contrast-enhanced liver is normal in size, contour, and attenuation. There is no intrahepa tic biliary ductal dilatation. The hepatic veins and portal veins are patent. Hepatic metastatic dise ase has progressed as compared to 07/22/2022. A left lobe lesion on image #73 measures up to 2.4 cm. T here are at least 6 additional right lobe lesions. Fatty infiltration is seen adjacent to the falcifo rm ligament. Gallbladder: The gallbladder is distended but otherwise normal in appearance. Spleen: Normal in size and attenuation. Pancreas: Unremarkable. Adrenal glands: Unremarkable. Kidneys: The contrast enhanced kidneys demonstrate cortical atrophy and are without hydronephrosis. T he kidneys enhance symmetrically. Numerous bilateral renal cysts measure up to 4.2 cm. Additional sub centimeter cortical hypodensities also likely represent cysts but are too small for definitive charac terization. There is focal wall thickening and dilatation of the distal right ureter seen on image #3 00. Abdominal vasculature: There is advanced atherosclerotic calcification an mild ectasia of the abdomin al aorta. There is near complete thrombosis of the right internal iliac artery seen on axial image #2 70. Bowel: There is no bowel obstruction. The appendix is well-visualized and normal. The rectal wall ap pears mildly thickened with surrounding infiltration. There is also mild wall thickening of the right colon. Peritoneum: There is no intraperitoneal free air or abdominal ascites. There is a fat-containing umbi lical hernia. Lymphadenopathy: None. Pelvic viscera: The prostate gland is enlarged and heterogeneous noticing median lobe hypertrophy. Th ere is evidence of chronic bladder outlet obstruction. The bladder wall is significantly thickened wi th mucosal hyperemia and surrounding inflammation. There is a fat-containing left inguinal hernia. Skeletal structures: The skeletal structures are osteopenic. There is moderate lumbosacral spondylosi s. Large osteoblastic lesion is again seen throughout the iliac wings, with additional osteoblastic l esions identified in L5, the sacrum, and left inferior pubic ramus. IMPRESSION: 1. There is extensive/diffuse multifocal metastatic disease throughout both lungs with evidence of ly mphangitic carcinomatosis. This has significantly progressed from the 07/22/2022 PET examination. 2. Airspace opacities at the lung bases are confluent. This likely represents metastatic disease. A s uperimposed pneumonia would be impossible to exclude and clinical correlation will be required. 3. Marked cardiomegaly. Intralobular septal thickening likely represents fluid overload/congestive fa ilure. Correlate clinically. 4. Small pleural effusions. 5. Cystitis. Correlate with clinical findings and urinalysis. 6. Findings suggest a nonspecific proctocolitis. Correlate clinically. 7. Multifocal osteoblastic metastatic disease is similar to 07/22/2022 PET examination. 8. Multifocal hepatic metastatic disease has progressed from previous. 9. There is focal wall thickening and irregularity of the distal right ureter. Although this could be inflammatory, a urothelial lesion could also have this appearance. 10. The gallbladder is distended but otherwise normal in appearance. Correlate with clinical and labo ratory findings. 11. There is focal near complete occlusion of the right internal iliac artery. 12. Right hilar adenopathy. 13. Additional findings as above. ACT 112: Negative or not required by law. Electronically signed by: Eddy Jerez M.D. 11/02/2022 10:08 AM
[2022-11-02] MEDS ORDERED: ACETAMINOPHEN 500 MG TAB PO STA (11:05)
[2022-11-02] MEDS ORDERED: SODIUM CHLORIDE 0.9% 250 ML IV PRN (11:05)
[2022-11-02] MEDS ORDERED: GADOBUTROL 65ML VIAL IV ONE (11:05)
--- NOTE | 2022-11-02 11:31 | Magnetic Resonance Report ---
MRI OF THE BRAIN COMBO CLINICAL HISTORY: Hallucinations. Stage IV lung cancer. COMPARISON STUDY: MRI of the brain dated 09/01/2022. CT of the brain dated 11/01/2022. TECHNIQUE: MRI of the brain was performed utilizing various T1 and T2-weighted sequences in the axial , sagittal, and coronal planes. Contrast-enhanced sequences were acquired following the administratio n of 7 cc of Gadavist. FINDINGS: Brain parenchyma: There is age-related involutional change noting moderate subcortical and periventri cular microangiopathic disease. There is evidence of multifocal intracranial metastatic disease with greater than 10 lesions scattered throughout the brain parenchyma and cerebellum. The largest lesion is seen in the left occipital lobe on axial high-resolution postcontrast image #46 and measures up to 8 mm. There are numerous small cerebellar lesions, with loss prevention representative lesions seen on images #33 an d #39. There is midline shift. No restricted diffusion is seen typical for acute ischemia. No extra- axial fluid collection is seen. The cerebellar tonsils are normal in configuration. There is a tiny f ocus of hemosiderin deposition in the right periventricular white matter seen on axial image #14 of t he gradient sequence. This is new from prior studies and could result a tiny hemorrhagic lesion versu s calcification. No additional foci of hemosiderin deposition are seen throughout the brain parenchym a. Ventricles, sulci, and cisterns: Prominent secondary to involutional change. Pituitary and sella: Partially empty sella is incidentally noted. Intracranial vasculature: Normal flow voids are maintained at the skull base. Orbits: The bony orbits are grossly intact. Orbital contents are normal in appearance Bilateral ocular lens implants. Sinuses and mastoids: There is a right mastoid effusion. The left mastoid air cells and the paranasal sinuses appear clear. Calvarium: No destructive calvarial lesion is seen. Cervical cord: Partially visualized cervical spinal cord is normal in morphology and signal intensity . IMPRESSION: 1. Again seen is evidence of multifocal intracranial metastatic disease. The largest lesion in the le ft occipital lobe is similar to the 09/01/2022 examination. Fewer lesion are identified on today's exam ination and this could be on a technical basis, or could represent a positive response to treatment. 2. There is a small focus of hemosiderin deposition identified in the right periventricular white mat ter. This is new from previous and likely represents a small hemorrhagic lesion. 3. No additional hemorrhagic lesions are suggested. 4. There is no midline shift or evidence of acute ischemia. ACT 112: Negative or not required by law. Electronically signed by: Eddy Jerez M.D. 11/02/2022 11:28 AM
[2022-11-02] MEDS ORDERED: cefTRIAXone SODIUM 1,000 MG in DEXTROSE 5% AD-VAN 50 ML IV SCH (17:00)
[2022-11-02] MEDS: CEFEPIME 1,000 MG in SYRINGE 0 ML IV SCH (18:18)
[2022-11-02] MEDS: ASPIRIN 81 MG ECTAB PO SCH (20:27)
[2022-11-02] MEDS: DOXAZosin MESYLATE TAB 2 MG TAB PO SCH (20:27)
--- NOTE | 2022-11-02 20:46 | Hospitalist Progress Note ---
Date of Service November 02, 2022 Assessment & Plan (1) Hallucinations: Plan: acute metabolic encephalopathy likely 2nd to UTI +/- pneumonia cannot exclude other metabolic factors -- check ammonia, VBG in am given the pancytopenia (which is likely from chemo) will broaden the work-up to include anaplasmosis DNA in am (smear for such was negative) continue IV antibiotics supportive care (2) Acute metabolic encephalopathy: Plan: see above (3) Dysphagia: Plan: oral cavity findings could be viral in etiology (coxsackie, adenovirus, etc) vs mucositis vs candidal vs combination of factors can't rule out other viral processes but the lesions do not look herpetic nystatin 5cc q6h magic mouthwash q6h swish/spit (4) Hypokalemia: Plan: replace repeat BMP am (5) End stage renal disease on dialysis: Plan: Appreciate [facility] Nephrology consultation and assistance with HD needs s/p HD today following his CTs Cont phosphate binders etc (6) Metastatic lung carcinoma: Plan: mets to bone, brain, liver, lymph nodes dx [address] Kasie Mcneil recently started on docetaxel on 10/21/[address] Mcneil prior treatment - carboplatin/paclitaxel/pembrolizumab 03/11/2022 completed 6 cycles of such 06/2022 then continued on maintenance pembrolizumab brain mets discovered 09/23; Rx whole brain radiation with completion of such 10/2022 brain MRI this admission shows partial treatment response to XRT abbott CT of chest/abd/pelvis shows worsening metastatic disease throughout both lungs and progressive liver mets there is also worsening bone mets Dr Mcneil has been consulted for any additional recs patient and patient's daughter extensively counseled today on the MRI brain and abbott-CT findings (7) HTN (hypertension): Plan: controlled stable cont coreg cont doxazosin (8) CAD (coronary artery disease): Plan: continue aspirin continue coreg no recent ischemic symptoms (9) Brain metastasis: Plan: discovered this spring s/p whole brain radiation with completion of such in 10/2022 MRI Brain today with partial treatment response to recent XRT (10) DVT prophylaxis: Plan: HIGH risk of DVT/VTE thus, cautiously use heparin 5000 BID watch platelets carefully (11) UTI (urinary tract infection): Plan: u/a suspicious for such follow culture cefepime and daptomycin on board adjust as needed (12) Abnormal urinary tract, radiological: Plan: right-sided distal right ureter is thickened could be 2nd to UTI can't rule out urethelial lesion treat for UTI hold on w/u for now given the advanced lung ca (13) Iliac artery stenosis, right: Plan: noted on CT of abd/pelvis continue aspirin no limb ischemia or symptoms at this time (14) Pneumonia: Plan: question of b/l basilar (findings could be cancer rather than pneumonia per radiology) continue cefepime repeat cxr in am (15) Pancytopenia: Plan: likely chemotherapy induced anemia also 2nd to ESRD Hb 6.9 today Tx 2 units PRBCs gave such on HD today repeat CBC in am (16) Pulmonary edema: Plan: dialysis for volume control Plan extensive discussion held with patient and his daughter on all test results and care plan care d/w nephrology Dr Lewis extensive chart review undertaken today very complex care coordination total time today about 85 minutes including chart review, prolonged bedside visit to discuss test results, care coordination with consultants, consent process for blood, etc Admission and Anticipated Discharge Date Admission Date: November 01, 2022 Subjective saw patient post-imaging and post-dialysis he was sitting at the side of the bed daughter was present for a visit daughter confirms his confusion is better today - not fully back to baseline, but improved he is requiring a small amount of NC O2 he denies headaches, chest pain, dyspnea, abd pain he has had nausea/emesis off & on at home, often due to chemotherapy he continues with cough with some sputum appetite has been fair-good he makes urine about 1x/day - no dysuria, no foul smell no rectal pain or diarrhea no blood in stool tele overnight wnl we discussed all test results including MRI brain and CT chest/abd/pelvis Review of Systems Review of Systems: gen - no fevers cv - no chest pain, no orthopnea pulm - [facility] - no vomiting today Physical Exam Physical Exam: gen - NAD, pleasant; confused, was attempting to dial the phone in the room and could not do so mouth - erythematous sores/ulcers posterior throat & buccal mucosa neck - no JVD heart - RRR, s1 s2, no murmur lungs - b/l basilar rales abd - soft NT ND BS+ ext - no edema, pulses 2+ b/l psych - a/o to person/place/year/month, but periods of confusion noted neuro - tremors, slight asterixis also noted Results & Data Results & Data Vital Signs (Past 12 Hours) Vital Signs Temp Pulse Pulse Pulse Resp BP BP 11/02/22 20:34 11/02/22 20:22 36.6 C 53 L 20 147/66 H 11/02/22 16:45 55 L 11/02/22 16:35 36.5 C 56 L 140/56 L 11/02/22 16:00 55 L 119/57 L 11/02/22 15:30 57 L 126/57 L 11/02/22 15:00 54 L 122/55 L 11/02/22 14:30 54 L 121/64 11/02/22 14:00 53 L 121/57 L 11/02/22 14:09 36.5 C 56 L 18 130/60 11/02/22 14:05 36.3 C L 54 L 18 122/54 L 11/02/22 13:50 36.5 C 52 L 20 116/55 L 11/02/22 13:30 56 L 124/51 L 11/02/22 13:34 36.4 C L 56 L 18 140/55 L 11/02/22 13:25 36.4 C L 55 L 18 138/59 L 11/02/22 13:19 36.5 C 56 L 18 131/57 L 11/02/22 13:04 36.5 C 58 L 18 126/60 11/02/22 13:00 57 L 127/58 L 11/02/22 12:30 48 L 130/54 L 11/02/22 12:46 36.4 C L 50 L 18 112/55 L 11/02/22 12:46 11/02/22 12:15 36.4 C L 53 L Pulse Ox O2 Del Method O2 Flow Rate 11/02/22 20:34 Nasal Cannula 2 11/02/22 20:22 95 Nasal Cannula 2 11/02/22 16:45 11/02/22 16:35 11/02/22 16:00 11/02/22 15:30 11/02/22 15:00 11/02/22 14:30 11/02/22 14:00 11/02/22 14:09 11/02/22 14:05 11/02/22 13:50 11/02/22 13:30 11/02/22 13:34 11/02/22 13:25 11/02/22 13:19 11/02/22 13:04 11/02/22 13:00 11/02/22 12:30 11/02/22 12:46 11/02/22 12:46 Room Air 11/02/22 12:15 Laboratory Results Laboratory Results - last 24 hr 11/02/22 11/02/22 11/02/22 06:50 06:50 06:50 WBC 2.89 L RBC 2.10 L Hgb 6.9 L* Hct 20.4 L* MCV 97.1 MCH 32.9 MCHC 33.8 RDW Std Deviation 47.8 H RDW Coeff of [place] 13.5 Plt Count 78 L MPV 10.1 Neutrophils % (Manual) 67 Lymphocytes % (Manual) 20 Monocytes % (Manual) 9 Myelocytes % (Man) 3 Promyelocytes % (Man) 2 Neutrophils # (Manual) 1.94 Total Absolute Neuts 1.94 Lymphocytes # (Manual) 0.58 L Total Abs Lymphocytes 0.58 L Monocytes # (Manual) 0.26 Myelocytes # (Manual) 0.09 H Promyelocytes # (Man) 0.06 H Toxic Granulation 3+ Polychromasia 1+ Tear Drop Cells 1+ Echinocytes 1+ PT 11.3 INR 1.0 Sodium 138 Potassium 3.2 L Chloride 97 L Carbon Dioxide 34 H Anion Gap 7 BUN 35 H Creatinine 5.33 H* D Est Cr Clr Drug Dosing 10.3 Est GFR ( Amer) 11.2 Est GFR (Non-Af Amer) 9.6 BUN/Creatinine Ratio 6.6 L Glucose 79 Calcium 7.9 L Magnesium 1.8 Total Bilirubin 0.5 AST 20 ALT 8 Alkaline Phosphatase 57 Total Protein 4.6 L Albumin 2.4 L Globulin 2.2 L Albumin/Globulin Ratio 1.1 Anaplasma Smear Hep Bs Antigen Hep Bs Ag Confirmation Hep Bs Antibody, Quant Blood Type Blood Type Recheck Antibody Screen Crossmatch 11/02/22 11/02/22 11/02/22 06:50 11:22 11:39 WBC RBC Hgb Hct MCV MCH MCHC RDW Std Deviation RDW Coeff of [place] Plt Count MPV Neutrophils % (Manual) Lymphocytes % (Manual) Monocytes % (Manual) Myelocytes % (Man) Promyelocytes % (Man) Neutrophils # (Manual) Total Absolute Neuts Lymphocytes # (Manual) Total Abs Lymphocytes Monocytes # (Manual) Myelocytes # (Manual) Promyelocytes # (Man) Toxic Granulation Polychromasia Tear Drop Cells Echinocytes PT INR Sodium Potassium Chloride Carbon Dioxide Anion Gap BUN Creatinine Est Cr Clr Drug Dosing Est GFR ( Amer) Est GFR (Non-Af Amer) BUN/Creatinine Ratio Glucose Calcium Magnesium Total Bilirubin AST ALT Alkaline Phosphatase Total Protein Albumin Globulin Albumin/Globulin Ratio Anaplasma Smear See Comment Hep Bs Antigen Hep Bs Ag Confirmation Hep Bs Antibody, Quant Blood Type O Positive Blood Type Recheck O Positive Antibody Screen NEGATIVE Crossmatch See Detail 11/02/22 17:05 WBC RBC Hgb Hct MCV MCH MCHC RDW Std Deviation RDW Coeff of [place] Plt Count MPV Neutrophils % (Manual) Lymphocytes % (Manual) Monocytes % (Manual) Myelocytes % (Man) Promyelocytes % (Man) Neutrophils # (Manual) Total Absolute Neuts Lymphocytes # (Manual) Total Abs Lymphocytes Monocytes # (Manual) Myelocytes # (Manual) Promyelocytes # (Man) Toxic Granulation Polychromasia Tear Drop Cells Echinocytes PT INR Sodium Potassium Chloride Carbon Dioxide Anion Gap BUN Creatinine Est Cr Clr Drug Dosing Est GFR ( Amer) Est GFR (Non-Af Amer) BUN/Creatinine Ratio Glucose Calcium Magnesium Total Bilirubin AST ALT Alkaline Phosphatase Total Protein Albumin Globulin Albumin/Globulin Ratio Anaplasma Smear Hep Bs Antigen Pending Hep Bs Ag Confirmation Pending Hep Bs Antibody, Quant Pending Blood Type Blood Type Recheck Antibody Screen Crossmatch Diagnostic Findings Chest X-Ray 11/01/22 13:07 XR chest 1V portable HISTORY: wheezing, lung ca COMPARISON: PET CT 07/22/2022. FINDINGS: No pneumothorax. There are low lung volumes with coarse interstitial thickening. This has progressed. This may represent mild congestive change on the background of chronic interstitial lung disease. The heart remains mildly enlarged. There are poststernotomy changes. The patient's known pulmonary nodules are better appreciated on the prior PET/CT. Suspect trace bilateral pleural effusions. IMPRESSION: 1. There are low lung volumes with coarse interstitial thickening. This has progressed. This may represent mild congestive change on the background of chronic interstitial lung disease. 2. Cardiomegaly with trace bilateral pleural effusions. ACT 112: Negative or not required by law. Electronically signed by: Robin Martinez M.D. 11/01/2022 1:[address] 11/01/22 13:[address] DOSE: 547.75 mGy.cm HISTORY: Confusion. hallucinations TECHNIQUE: Multiaxial CT images of the head were performed without the use of intravenous contrast. Automated exposure control was utilized for this study. A dose lowering technique was utilized adhering to the principles of ALARA. Comparison: Brain MRI 09/01/2022. Findings: The paranasal sinuses and mastoid air cells are clear. The calvarium and skull base are intact. There is no mass, hematoma, midline shift, acute infarct. White matter hypodensity is nonspecific but suggestive of microvascular ischemic change. The ventricles and sulci demonstrate mild age-related involutional changes. This is similar to the prior study. Impression: No acute infarct or intracranial hemorrhage identified. ACT 112: Negative or not required by law. Electronically signed by: Robin Martinez M.D. 11/01/2022 2:20 PM Brain MRI 11/02/22 08:00 MRI OF THE BRAIN COMBO CLINICAL HISTORY: Hallucinations. Stage IV lung cancer. COMPARISON STUDY: MRI of the brain dated 09/01/2022. CT of the brain dated 11/01/2022. TECHNIQUE: MRI of the brain was performed utilizing various T1 and T2-weighted sequences in the axial, sagittal, and coronal planes. Contrast-enhanced sequences were acquired following the administration of 7 cc of Gadavist. FINDINGS: Brain parenchyma: There is age-related involutional change noting moderate subcortical and periventricular microangiopathic disease. There is evidence of multifocal intracranial metastatic disease with greater than 10 lesions scattered throughout the brain parenchyma and cerebellum. The largest lesion is seen in the left occipital lobe on axial high-resolution postcontrast image #46 and measures up to 8 mm. There are numerous small cerebellar lesions, with repre sentative lesions seen on images #33 and #39. There is midline shift. No restricted diffusion is seen typical for acute ischemia. No extra-axial fluid collection is seen. The cerebellar tonsils are normal in configuration. There is a tiny focus of hemosiderin deposition in the right periventricular white matter seen on axial image #14 of the gradient sequence. This is new from prior studies and could result a tiny hemorrhagic lesion versus calcification. No additional foci of hemosiderin deposition are seen throughout the brain parenchyma. Ventricles, sulci, and cisterns: Prominent secondary to involutional change. Pituitary and sella: Partially empty sella is incidentally noted. Intracranial vasculature: Normal flow voids are maintained at the skull base. Orbits: The bony orbits are grossly intact. Orbital contents are normal in appearance Bilateral ocular lens implants. Sinuses and mastoids: There is a right mastoid effusion. The left mastoid air cells and the paranasal sinuses appear clear. Calvarium: No destructive calvarial lesion is seen. Cervical cord: Partially visualized cervical spinal cord is normal in morphology and signal intensity. IMPRESSION: 1. Again seen is evidence of multifocal intracranial metastatic disease. The largest lesion in the left occipital lobe is similar to the 09/01/2022 examination. Fewer lesion are identified on today's examination and this could be on a technical basis, or could represent a positive response to treatment. 2. There is a small focus of hemosiderin deposition identified in the right periventricular white matter. This is new from previous and likely represents a small hemorrhagic lesion. 3. No additional hemorrhagic lesions are suggested. 4. There is no midline shift or evidence of acute ischemia. ACT 112: Negative or not required by law. Electronically signed by: Eddy Jerez M.D. 11/02/2022 11:28 AM Abdomen/Pelvis CT 11/02/22 09:00 CT SCAN OF THE CHEST, ABDOMEN, AND PELVIS WITH IV CONTRAST CLINICAL HISTORY: Lung cancer. Infection. Hallucinations. COMPARISON STUDY: Chest x-ray dated 11/01/2022. PET/CT dated 07/22/2022. TECHNIQUE: Following the IV administration of 94 of Optiray 320, CT scan of the chest, abdomen, and pelvis was performed from the thoracic inlet to the proximal femora. Images are reviewed in the axial, sagittal, and coronal planes. IV contrast was administered without complication. A dose lowering technique was utilized adhering to the principles of ALARA. CT DOSE: 1721.22 mGy.cm FINDINGS: CHEST: Thyroid: Mildly enlarged and heterogeneous. Thoracic aorta: There is atherosclerotic calcification of the thoracic aorta, which is normal in caliber and demonstrates bovine variant arch anatomy. No dissection is seen. Pulmonary vasculature: The main pulmonary arteries are dilated suggesting pulmonary artery hypertension. There are no filling defects identified in the central pulmonary vessels to indicate pulmonary embolus. Note that this examination was not protocoled for evaluation of the pulmonary arteries. Heart: The patient is status post midline sternotomy. The heart is enlarged and without pericardial effusion. The coronary arteries and aortic valve leaflets are densely calcified. Lungs and pleural spaces: There are small pleural effusions, left larger than right with dependent atelectasis. There is extensive multifocal metastatic disease seen throughout both lungs with evidence of lymphangitic carcinomatosis. This has significantly progressed as compared to 07/22/2022. There are confluent opacities at both lung bases. Secretions are noted in the trachea and left mainstem bronchus. Intralobular septal thickening is seen throughout both lungs. Mediastinum: No pathologically enlarged mediastinal nodes are identified. There are several calcifications containing nodes. Flower: Enlarged right hilar nodes measure up to 1.8 cm short axis. Axillae: There is no axillary lymphadenopathy. Bony thorax: The skeletal structures are osteopenic. Degenerative change is noted in the shoulders and thoracic spine. Osteoblastic metastatic lesions are similar to previous. Lesions are seen in the right scapula on image #130, in the left fourth rib on image #72, and in the right seventh rib on image #136. ABDOMEN AND PELVIS: Liver: The contrast-enhanced liver is normal in size, contour, and attenuation. There is no intrahepatic biliary ductal dilatation. The hepatic veins and portal veins are patent. Hepatic metastatic disease has progressed as compared to 07/22/2022. A left lobe lesion on image #73 measures up to 2.4 cm. There are at least 6 additional right lobe lesions. Fatty infiltration is seen adjacent to the falciform ligament. Gallbladder: The gallbladder is distended but otherwise normal in appearance. Spleen: Normal in size and attenuation. Pancreas: Unremarkable. Adrenal glands: Unremarkable. Kidneys: The contrast enhanced kidneys demonstrate cortical atrophy and are without hydronephrosis. The kidneys enhance symmetrically. Numerous bilateral renal cysts measure up to 4.2 cm. Additional subcentimeter cortical hypodensities also likely represent cysts but are too small for definitive characterization. There is focal wall thickening and dilatation of the distal right ureter seen on image #300. Abdominal vasculature: There is advanced atherosclerotic calcification an mild ectasia of the abdominal aorta. There is near complete thrombosis of the right internal iliac artery seen on axial image #270. Bowel: There is no bowel obstruction. The appendix is well-visualized and normal. The rectal wall appears mildly thickened with surrounding infiltration. There is also mild wall thickening of the right colon. Peritoneum: There is no intraperitoneal free air or abdominal ascites. There is a fat-containing umbilical hernia. Lymphadenopathy: None. Pelvic viscera: The prostate gland is enlarged and heterogeneous noticing median lobe hypertrophy. There is evidence of chronic bladder outlet obstruction. The bladder wall is significantly thickened with mucosal hyperemia and surrounding inflammation. There is a fat-containing left inguinal hernia. Skeletal structures: The skeletal structures are osteopenic. There is moderate lumbosacral spondylosis. Large osteoblastic lesion is again seen throughout the iliac wings, with additional osteoblastic lesions identified in L5, the sacrum, and left inferior pubic ramus. IMPRESSION: 1. There is extensive/diffuse multifocal metastatic disease throughout both lungs with evidence of lymphangitic carcinomatosis. This has significantly progressed from the 07/22/2022 PET examination. 2. Airspace opacities at the lung bases are confluent. This likely represents metastatic disease. A superimposed pneumonia would be impossible to exclude and clinical correlation will be required. 3. Marked cardiomegaly. Intralobular septal thickening likely represents fluid overload/congestive failure. Correlate clinically. 4. Small pleural effusions. 5. Cystitis. Correlate with clinical findings and urinalysis. 6. Findings suggest a nonspecific proctocolitis. Correlate clinically. 7. Multifocal osteoblastic metastatic disease is similar to 07/22/2022 PET examination. 8. Multifocal hepatic metastatic disease has progressed from previous. 9. There is focal wall thickening and irregularity of the distal right ureter. Although this could be inflammatory, a urothelial lesion could also have this appearance. 10. The gallbladder is distended but otherwise normal in appearance. Correlate with clinical and laboratory findings. 11. There is focal near complete occlusion of the right internal iliac artery. 12. Right hilar adenopathy. 13. Additional findings as above. ACT 112: Negative or not required by law. Electronically signed by: Eddy Jerez M.D. 11/02/2022 10:[address] 11/02/22 09:41 CT SCAN OF THE CHEST, ABDOMEN, AND PELVIS WITH IV CONTRAST CLINICAL HISTORY: Lung cancer. Infection. Hallucinations. COMPARISON STUDY: Chest x-ray dated 11/01/2022. PET/CT dated 07/22/2022. TECHNIQUE: Following the IV administration of 94 of Optiray 320, CT scan of the chest, abdomen, and pelvis was performed from the thoracic inlet to the proximal femora. Images are reviewed in the axial, sagittal, and coronal planes. IV contrast was administered without complication. A dose lowering technique was utilized adhering to the principles of ALARA. CT DOSE: 1721.22 mGy.cm FINDINGS: CHEST: Thyroid: Mildly enlarged and heterogeneous. Thoracic aorta: There is atherosclerotic calcification of the thoracic aorta, which is normal in caliber and demonstrates bovine variant arch anatomy. No dissection is seen. Pulmonary vasculature: The main pulmonary arteries are dilated suggesting pulmonary artery hypertension. There are no filling defects identified in the central pulmonary vessels to indicate pulmonary embolus. Note that this examination was not protocoled for evaluation of the pulmonary arteries. Heart: The patient is status post midline sternotomy. The heart is enlarged and without pericardial effusion. The coronary arteries and aortic valve leaflets are densely calcified. Lungs and pleural spaces: There are small pleural effusions, left larger than right with dependent atelectasis. There is extensive multifocal metastatic disease seen throughout both lungs with evidence of lymphangitic carcinomatosis. This has significantly progressed as compared to 07/22/2022. There are confluent opacities at both lung bases. Secretions are noted in the trachea and left mainstem bronchus. Intralobular septal thickening is seen throughout both lungs. Mediastinum: No pathologically enlarged mediastinal nodes are identified. There are several calcifications containing nodes. Flower: Enlarged right hilar nodes measure up to 1.8 cm short axis. Axillae: There is no axillary lymphadenopathy. Bony thorax: The skeletal structures are osteopenic. Degenerative change is noted in the shoulders and thoracic spine. Osteoblastic metastatic lesions are similar to previous. Lesions are seen in the right scapula on image #130, in the left fourth rib on image #72, and in the right seventh rib on image #136. ABDOMEN AND PELVIS: Liver: The contrast-enhanced liver is normal in size, contour, and attenuation. There is no intrahepatic biliary ductal dilatation. The hepatic veins and portal veins are patent. Hepatic metastatic disease has progressed as compared to 07/22/2022. A left lobe lesion on image #73 measures up to 2.4 cm. There are at least 6 additional right lobe lesions. Fatty infiltration is seen adjacent to the falciform ligament. Gallbladder: The gallbladder is distended but otherwise normal in appearance. Spleen: Normal in size and attenuation. Pancreas: Unremarkable. Adrenal glands: Unremarkable. Kidneys: The contrast enhanced kidneys demonstrate cortical atrophy and are without hydronephrosis. The kidneys enhance symmetrically. Numerous bilateral renal cysts measure up to 4.2 cm. Additional subcentimeter cortical hypodensities also likely represent cysts but are too small for definitive characterization. There is focal wall thickening and dilatation of the distal right ureter seen on image #300. Abdominal vasculature: There is advanced atherosclerotic calcification an mild ectasia of the abdominal aorta. There is near complete thrombosis of the right internal iliac artery seen on axial image #270. Bowel: There is no bowel obstruction. The appendix is well-visualized and normal. The rectal wall appears mildly thickened with surrounding infiltration. There is also mild wall thickening of the right colon. Peritoneum: There is no intraperitoneal free air or abdominal ascites. There is a fat-containing umbilical hernia. Lymphadenopathy: None. Pelvic viscera: The prostate gland is enlarged and heterogeneous noticing median lobe hypertrophy. There is evidence of chronic bladder outlet obstruction. The bladder wall is significantly thickened with mucosal hyperemia and surrounding inflammation. There is a fat-containing left inguinal hernia. Skeletal structures: The skeletal structures are osteopenic. There is moderate lumbosacral spondylosis. Large osteoblastic lesion is again seen throughout the iliac wings, with additional osteoblastic lesions identified in L5, the sacrum, and left inferior pubic ramus. IMPRESSION: 1. There is extensive/diffuse multifocal metastatic disease throughout both lungs with evidence of lymphangitic carcinomatosis. This has significantly progressed from the 07/22/2022 PET examination. 2. Airspace opacities at the lung bases are confluent. This likely represents metastatic disease. A superimposed pneumonia would be impossible to exclude and clinical correlation will be required. 3. Marked cardiomegaly. Intralobular septal thickening likely represents fluid overload/congestive failure. Correlate clinically. 4. Small pleural effusions. 5. Cystitis. Correlate with clinical findings and urinalysis. 6. Findings suggest a nonspecific proctocolitis. Correlate clinically. 7. Multifocal osteoblastic metastatic disease is similar to 07/22/2022 PET examination. 8. Multifocal hepatic metastatic disease has progressed from previous. 9. There is focal wall thickening and irregularity of the distal right ureter. Although this could be inflammatory, a urothelial lesion could also have this appearance. 10. The gallbladder is distended but otherwise normal in appearance. Correlate with clinical and laboratory findings. 11. There is focal near complete occlusion of the right internal iliac artery. 12. Right hilar adenopathy. 13. Additional findings as above. ACT 112: Negative or not required by law. Electronically signed by: Eddy Jerez M.D. 11/02/2022 10:08 AM PG Care Time/CCT Total # of Minutes Spent Total Time Spent with Patient: Total time spent is greater than 50% in coordination of care (as documented) at patient's floor/unit and/or counseling patient: Prolonged Care Time Prolonged Care Time: Yes Total Prolonged Care Time: 85 Coding Level of Care Code 61645 SUB INP/OBS CARE 3/50MIN (25 - SIGNIFICANT, SEPARATELY IDENTIFIABLE ) Diagnoses Hallucinations R44.3 Acute metabolic encephalopathy G93.41 Dysphagia R13.10 Hypokalemia E87.6 End stage renal disease on dialysis N18.6; Z99.2 Metastatic lung carcinoma C78.00 Laterality: unspecified laterality HTN (hypertension) I10 CAD (coronary artery disease) I25.10 Brain metastasis C79.31 DVT prophylaxis Z29.9 UTI (urinary tract infection) N39.0 Abnormal urinary tract, radiological R93.49 Iliac artery stenosis, right I77.1 Pneumonia J18.9 Pancytopenia D61.818 Pulmonary edema J81.1 Additional Codes Prolonged Care Time - Prolonged Care Time: Yes ([id number]) (6) Metastatic lung carcinoma Laterality: unspecified laterality Qualified Code(s): C78.00 - Secondary malignant neoplasm of unspecified lung
[2022-11-02] MEDS: FIRST - Mouthwash BLM 119 ML PO SCH (21:53)
[2022-11-03] MEDS: carvediloL 3.125 MG TAB PO SCH ×2 (07:29→20:55)
[2022-11-03 07:33] LABS: Base Excess VBG 6.6 mEq/L; HCO3 VBG 31 mmol/L; Oxygen Saturation VBG 92.3 %; PCO2 VBG 44 mmHg (38-50); PO2 VBG 61 mmHg; pH VBG 7.46 (7.36-7.41)
[2022-11-03] MEDS: NYSTATIN 500,000 UNIT TAB PO SCH ×4 (07:40→20:52)
[2022-11-03] MEDS: CALCITRIOL 0.25 MCG CAPSULE PO SCH (07:40)
[2022-11-03] MEDS: VITAMIN B COMPLEX TAB PO SCH (07:40)
[2022-11-03] MEDS: SERTRALINE HCL 50 MG TABLET PO SCH (07:40)
[2022-11-03] MEDS: PANTOprazole 40 MG TAB PO SCH ×2 (07:40→20:57)
[2022-11-03] MEDS: SEVELAMER HCL 800 MG TABLET PO SCH ×3 (07:43→17:13)
[2022-11-03] MEDS: FIRST - Mouthwash BLM 119 ML PO SCH ×4 (07:43→20:52)
[2022-11-03] MEDS: FLUTICASONE FUROATE 100MCG 14 PUFFS/INHALER INH SCH (07:44)
[2022-11-03 07:45] LABS: Hematocrit (blood only) 28.9 % (42.0-52.0); Hemoglobin 9.8 g/dl (14.0-18.0); Mean Corpuscular Hemoglobin 32.1 pg (25.0-34.0); Mean Corpuscular Hgb Conc 33.9 g/dL (32.0-36.0); Mean Corpuscular Volume 94.8 fL (80.0-100.0); Mean Platelet Volume 10.5 fL (9.4-12.4); Nucleated RBC # (auto) 0.02 K/uL (0-0.12); Nucleated RBC % (auto) 0.4 %; Platelet Count 81 K/uL (130-400); RDW Coefficient of Variation 16.3 % (11.5-14.5); RDW Standard Deviation 56.4 fL (36.4-46.3); Red Blood Count 3.05 M/uL (4.70-6.10); White Blood Count 5.27 K/ul (4.8-10.8)
[2022-11-03] MEDS: HEPARIN SOD 5,000 UNIT/0.5 ML VIAL SQ SCH ×2 (07:49→20:53)
--- NOTE | 2022-11-03 07:50 | XRay Report ---
XR chest 1V portable HISTORY: Shortness of breath. Congestive heart failure. COMPARISON: Chest CT 11/02/2022. FINDINGS: No pneumothorax. The cardiac silhouette remains enlarged. There are poststernotomy changes. Slight improvement in the interstitial thickening suggestive of resolving pulmonary edema and the ba ckground of metastatic disease. Small bilateral pleural effusions have also slightly improved. Left b asilar consolidation persists. IMPRESSION: 1. Slight improvement in the interstitial thickening suggestive of resolving pulmonary edema on the b ackground of metastatic disease. 2. Left basilar consolidation persists. ACT 112: Negative or not required by law. Electronically signed by: Robin Martinez M.D. 11/03/2022 7:48 AM
[2022-11-03 08:02] LABS: Albumin Globulin Ratio 1.2 (0.9-2); Albumin Level 2.7 gm/dl (3.4-5.0); Bilirubin,Total 0.6 mg/dl (0.2-1.0); Calcium 8.2 mg/dl (8.6-10.3); Creatinine Clr Calc Pharmacy 15.7 ml/min; Est GFR (African American) 16.9 ml/min; Est GFR (Non-African American) 14.6 ml/min; Globulin 2.3 gm/dl (2.5-4.0); Magnesium 1.8 mg/dl (1.7-2.4); Potassium 3.5 mmol/L (3.5-5.1)
[2022-11-03 08:09] LABS: Prothrombin Time 11.4 Seconds (9.0-12.0)
[2022-11-03 08:15] LABS: ALC (manual) 0.53 K/uL (1.2-3.4); ANC (manual) 3.58 K/uL (1.4-6.5); Echinocytes 1+; Lymphocytes # (manual) 0.53 K/uL (1.2-3.4); Lymphocytes % (manual) 10 %; Metamyelocytes # (manual) 0.32 K/uL (0-0); Metamyelocytes % (manual) 6 %; Monocytes # (manual) 0.42 K/uL (0.11-0.59); Monocytes % (manual) 8 %; Myelocytes # (manual) 0.16 K/uL (0-0); Myelocytes % (manual) 3 %; Neutrophils # (manual) 3.58 K/uL (1.40-6.50); Neutrophils % (manual) 68 %; Promyelocytes # (manual) 0.26 K/uL (0-0); Promyelocytes % (manual) 5 %; Tear Drop Cells 1+; Toxic Granulation 3+
--- NOTE | 2022-11-03 08:21 | Nephrology Progress Note ---
Date of Service November 03, 2022 Assessment & Plan (1) End stage renal disease on dialysis: Plan: * Patient dialyzes MWF at [facility] dialysis unit. Primary Center Human Resources Manager is Dr. Kothari * Will provide HD today for continued UF and to resume MWF schedule * Monitor PRP * Renal diet (2) Anemia: Plan: * Transfused 2U PRBC 11/02/22. Hgb improved from 6.9-->9.8 today (3) Adenocarcinoma, lung: Plan: * 11/02/22 Chest/Abd CT - multifocal metastatic disease throughout both lungs with evidence of lymphangitic carcinomatosis. This has significantly progressed since 07/24 study * Await Oncology recommendations * Recommend consultation w/ Palliative Care Admission and Anticipated Discharge Date Admission Date: November 01, 2022 Subjective Mr. Zhong was evaluated in his hospital room this morning. He was dialyzed yesterday for 4 hours w/ 3L UF and transfused 2U PRBC. Mr. Zhong is now breathing comfortably on RA. He voices no new medical concerns. Review of Systems Constitutional: no fever Eyes: no worsening vision Ear, Nose, Mouth, Throat: no problem reported Respiratory: no problem reported Cardiovascular: no chest pain Gastrointestinal: no abdominal pain, no vomiting and no diarrhea/loose stools Genitourinary: no dysuria or no hematuria Integumentary: no rash Physical Exam Constitutional: not in distress Eyes: PERRL, conjunctivae normal, anicteric sclerae ENMT: external ear and nose normal, oropharynx normal Neck: trachea midline, no thyromegaly Respiratory: Auscultation: lungs clear to auscultation bilaterally Cardiovascular: RRR, no murmur, no edema Gastrointestinal (Abdomen): Inspection/Auscultation: normal bowel sounds; abdomen not distended Percussion/Palpation: abdomen soft; abdomen nontender Musculoskeletal: Extremities: no cyanosis Skin: normal turgor Neurologic: Speech / Cognition: normal speech and normal cognition (oriented to self, place, month this morning) Results & Data Vital Signs (Past 12 Hours) Vital Signs Temp Pulse Pulse Resp BP Pulse Ox O2 Del Method 11/03/22 07:24 36.8 C 53 L 16 153/64 H 96 Room Air 11/03/22 07:14 52 L 11/03/22 04:04 36.6 C 56 L 18 157/62 H 96 Nasal Cannula 11/02/22 23:23 37.1 C 56 L 20 166/63 H 94 Room Air 11/02/22 22:01 60 11/02/22 20:34 Nasal Cannula 11/02/22 20:22 36.6 C 53 L 20 147/66 H 95 Nasal Cannula O2 Flow Rate 11/03/22 07:24 11/03/22 07:14 11/03/22 04:04 2 11/02/22 23:23 2 11/02/22 22:01 11/02/22 20:34 2 11/02/22 20:22 2 Laboratory Results Laboratory Tests 11/03/22 11/03/22 07:18 07:18 WBC 5.27 Hgb 9.8 L D Hct 28.9 L Plt Count 81 L Sodium 138 Potassium 3.5 Chloride 103 Carbon Dioxide 30 BUN 19 Creatinine 3.78 H D Glucose 79 Albumin 2.7 L Diagnostic Findings 11/01/22 Blood Cx - NGTD 11/01/22 Urine Cx - pinpoint growth, reincubating PG Care Time/CCT Total # of Minutes Spent Total Time Spent with Patient: Total time spent is greater than 50% in coordination of care (as documented) at patient's floor/unit and/or counseling patient: Coding Level of Care Code 78886 SUB INP/OBS CARE 3/50MIN Diagnoses End stage renal disease on dialysis N18.6; Z99.2 Anemia D64.9 Adenocarcinoma, lung C34.90
--- NOTE | 2022-11-03 08:28 | Oncology Consultation ---
Date of Consultation November 03, 2022 Assessment & Plan (1) Adenocarcinoma, lung: (2) Brain metastasis: (3) End stage renal disease on dialysis: Plan Very pleasant gentleman with stage IV lung cancer for which he recently started second line chemotherapy treatment with docetaxel on 10/21/2022. He was admitted with altered mental status likely due to UTI. Imaging obtained during admission revealed worsening metastatic disease in lungs/liver.Likely too early to see a response since he has only received 1 cycle of treatment. During my last outpatient visit with patient and his daughter,I had discussed options for metastatic lung cancer including palliative care continuing with second line treatment. At that time, he had indicated that he wanted to continue with active treatment and would discontinue treatment if he is not able to pursue his active lifestyle including regular gym activities. Based on my conversation with patient today, he appears like he is strongly considering hospice or discontinuing active treatment. Patient would however want me to discuss further with his daughter. Following my conversation with him today, I was able to speak with his daughter/POA (Valeria) . Explained to her that although it is too early to see a response from docetaxel, her father appears to be considering discontinuing active treatment at this time but would want her input. I offered her the option of discussing further with palliative care to see if this may be helpful in helping patient and family make a decision on whether to continue with active treatment. Patient's daughter was open to discussing with palliative care. Referral placed to palliative care. Will await his decicion. If he decides to continue with active treatment, plan to continue with cycle 2 of docetaxel as scheduled on 11/13/2022. Thank you for this consult. Oncology will continue following peripherally. Please feel free to call if you have any further questions. History of Present Illness Reason for Consultation: Metastatic lung cancer Attending Physician: Lucas Damon History of Present Illness Pleasant 77-year-old gentleman with metastatic lung cancer currently on second line treatment with docetaxel started on 10/21/2022. Patient presented to the [facility] with altered mental status/hallucinations. Work-up obtained during admission was concerning for UTI for which she was started on antibiotics. Restaging imaging also revealed disease progression in the chest, abdomen and pelvis. Brain MRI looks stable/improved post whole brain radiation treatment. During my evaluation of patient today, he appeared alert and oriented x3. He is considering discontinuing chemotherapy treatment but would want me to discuss this with his daughter Allergies Allergy/AdvReac Type Severity Reaction Status Date / Time No Known Allergies Allergy Verified 11/01/22 15:54 Home Medications Medication Instructions Recorded Confirmed Type aspirin 81 mg tablet,delayed 81 mg PO HS 12/15/18 11/01/22 History release carvedilol 3.125 mg tablet 3.125 mg PO BID #180 tabs 04/23/22 11/01/22 Rx budesonide 90 mcg/actuation breath 1 inh inhalation BID #1 ea 05/28/22 11/01/22 Rx activated powder inhaler (Pulmicort Flexhaler) vitamin B complex-vitamin C-folic 1 tab PO DAILY #30 tabs 06/06/22 11/01/22 Rx acid 0.8 mg tablet (Dasia-Kimmy) ondansetron HCl 8 mg tablet 8 mg PO Q8H PRN Nausea 09/18/22 11/01/22 History prochlorperazine maleate 10 mg 10 mg PO Q6H PRN Nausea 09/18/22 11/01/22 History tablet (Compazine) doxazosin 2 mg tablet 2 mg PO HS #90 tabs 09/22/22 11/01/22 Rx pantoprazole 40 mg tablet,delayed 40 mg PO BID #180 tabs 09/22/22 11/01/22 Rx release ergocalciferol (vitamin D2) 1,250 1,250 mcg PO MONTHLY 10/06/22 11/01/22 History mcg (50,000 unit) capsule prednisolone acetate 0.12 % eye 1 drp ophthalmic (eye) DAILY 10/06/22 11/01/22 History drops,suspension oxycodone 10 mg tablet 10 mg PO .Q4-6H PRN pain #180 tabs 10/10/22 11/01/22 Rx calcitriol 0.5 mcg capsule 0.5 mcg PO .COMPLEX 10/28/22 11/01/22 History pregabalin 25 mg capsule (Lyrica) 25 mg PO .HOLD 10/28/22 11/01/22 History sertraline 50 mg tablet 50 mg PO DAILY 10/28/22 11/01/22 History sevelamer carbonate 800 mg tablet 800 mg PO .COMPLEX 10/28/22 11/01/22 History atorvastatin 10 mg tablet 10 mg PO DAILY #90 tabs 10/29/22 11/01/22 Rx Docetaxel Tx See Rx Instructions .Route .COMPLEX 11/01/22 11/01/22 History dexamethasone 4 mg tablet 8 mg PO DIRECTED 11/01/22 11/01/22 History Patient History Medical History (Updated 11/03/22 @ 13:54 by Nemo Jones DNP) Advanced care planning/counseling discussion Anemia due to chronic kidney disease Hgb 10-12 range per chart review, fecal occult blood test x3 negative per 12/25/21 PCP note CAD (coronary artery disease) s/p CABG x1 (with ascending thoracic aorta repair) - 2008 Chronic midline thoracic back pain Discussion about advance care planning held with family member Dyslipidemia Dyspnea and respiratory abnormalities Encounter for hospice care discussion GERD (gastroesophageal reflux disease) History of COVID-19 09/2021, hospitalized at [facility] (vomiting, dehydration, cough, sinus congestion) > resolved HTN (hypertension) Palliative care by specialist Secondary hyperparathyroidism of renal origin Stage 5 chronic kidney disease not on chronic dialysis Thoracic aortic aneurysm s/p repair (2008) Surgical History H/O thoracic aortic aneurysm repair CABG x1 + ascending thoracic aorta repair (2008) History of cataract surgery R/L History of hernia repair S/P CABG (coronary artery bypass graft) CABG x1 + ascending thoracic aorta repair (2008) Family History Brother Brain tumor Cancer, Onset Age: 70 colon cancer Sai Mother Leukemia Denies family history of Ovarian cancer Prostate cancer Myocardial infarction Breast cancer Colorectal cancer Social History Smoking Status: Former smoker Tobacco Type: Cigars Age Started Using Tobacco: 41; Cigarettes Per Day: 1 cigar every six months; Second Hand Exposure: No; Do You Dip or Chew Tobacco: No; Hx Alcohol Use: No Hx Substance Use: No Preferred Language: Nauruan Communication Ability: Effective Communication Ability Comment: Able to communicate effectively in Nauruan Visual Impairment: Partially Limited Hearing Ability: Hard of Hearing Fish Roe Processor Required: No Beliefs That Will Affect Care: None marital status: Single Current Living Situation: Alone Current Living Situation Comment: daughter close by current occupational status: retired How many Children do You have: 2 Feels Safe at Home: Yes Childhood Exposure to Second-Hand Smoke: Yes Diet: regular Diet Comment: High protein caffeine: Yes (coffee) during the past year weight has: remained stable Dental Care, Regularly: No Physical Activity Frequency: Daily Physical Activity Frequency Comment: Go's to gym, lift weights Seatbelt Use: always Sunscreen Use: Yes Do you think of yourself as: straight/heterosexual Gender Identity: Male Assistive Devices: None Results & Data Vital Signs (Past 12 Hours) Vital Signs Temp Pulse Pulse Resp BP Pulse Ox O2 Del Method 11/03/22 07:24 36.8 C 53 L 16 153/64 H 96 Room Air 11/03/22 07:14 52 L 11/03/22 04:04 36.6 C 56 L 18 157/62 H 96 Nasal Cannula 11/02/22 23:23 37.1 C 56 L 20 166/63 H 94 Room Air 11/02/22 22:01 60 11/02/22 20:34 Nasal Cannula O2 Flow Rate 11/03/22 07:24 11/03/22 07:14 11/03/22 04:04 2 11/02/22 23:23 2 11/02/22 22:01 11/02/22 20:34 2
[2022-11-03] MEDS ORDERED: SODIUM CHLORIDE 0.9% 1000ML 1,000 ML IV PRN (09:04)
--- NOTE | 2022-11-03 13:56 | Palliative Care Consultation ---
Date of Consultation November 03, 2022 Assessment & Plan (1) Palliative care by specialist: Met with pt/family. Provided overview of Palliative Medicine, a subspecialty that provides specialized medical care for people living with a serious illness by offering a focus on quality of life. Palliative Medicine is often conflated with hospice: I advised patient/family that Palliative and hospice can be partners but we are not the same. It is important to understand the difference so that we may be informed, and not afraid. Palliative Medicine works to improve QOL through reduction of symptom burden/more control over their illness, for both the patient and family. Palliative medicine clinicians are board certified, specially-trained and another member of the patient's medical care team. We often provide an extra layer of support because our care is based on the needs of the patient, not the prognosis; as such, it's appropriate at any age/advancing stage of a serious illness and can be provided along with curative treatment. Palliative Medicine clinicians are also trained in advanced communication methodologies, to facilitate complex discussions about advanced illness planning, which are needed to help assure that the treatment choices match the patient's goals, aka delivering Goal Concordant care. Finally, we discussed that hospice is a visiting nurse service that focuses on care delivered at the very end of life for patients with terminal illness, with life expectancy less than 6 month. We discussed that cancer patients experience significant symptom and psychosocial burden for which the early integration of supportive oncology with palliative medicine (early findings from the research of Raj and Kris) help address a growing need to manage patients comprehensively, with an emphasis on symptom control, nutritional and psychosocial support, and pharmaceutical review. There is strong evidence supporting the initiation of Palliative Care into the management of this patient with advanced met lung cancer; palliative care, when provided alongside oncologic care, leads to improved QOL, fewer depressive symptoms, better prognosis understanding and longer median survival marcello when given the overall poor prognosis and QOL issues at hand. (Raj et al. (2010). Early palliative care for patients with metastatic udj-afisd-yjhx lung cancer. [place] J of Med 363), [phone]. Doi: 10.1056/[id number].) Palliative care consultation in patients with advanced cancer is not only associated with an improvement in the quality of oncology care, but also a reduction in downstream healthcare utilization. In Magdiel et al 2017, when the automatic palliative medicine consult was triggered by specific oncology criteria, 30-day readmission rates and use of chemotherapy after discharge declined, whereas hospice referrals and uptake of support services post- discharge increased. Patients with advanced cancer admitted to an acute care hospital often have short life expectancies and high morbidity - for these patients, the integration of palliative care has improved symptom burden, reduced patient and caregiver distress, increased referral to hospice, and improved outcomes. (2) Advanced care planning/counseling discussion: Riat-io-qqxm advance care planning discussion was held with patient and his daughter and 50 minutes. Patient was intermittently able to participate but would quickly lose focus and drift off. At times he was confused and at times he was asleep. His daughter processes POA she indicates a very clear understanding of his advanced directive wishes had desire to focus on quality not quantity of life. She feels that if he wants to stop therapy this would be something they would support. He has been tolerating dialysis so far. She wishes for him to have continue dialysis for as long as he is and then see how he feels next week prior to his oncology appointment with regards to whether or not they will keep that appointment to come in for his next dose of chemotherapy. Eduardo the pros cons of continuing chemotherapy in the setting of advanced cancer. What would be of concern to be a 9 out of 10 gross is that his cancer has progressed on therapy. This when coupled with his declining performance status, growing weakness, increasing confusion, and anorexia suggests perhaps he is progressing into the stages of an advanced cancer. However, Dr. Mcneil noted that it is still too early in his treatment cycle of p embrolizumab to make a decision about whether or not it is helping him. They want to try the next dose and see how he does with it, there is no objection to doing so. (3) Discussion about advance care planning held with family member: (4) Encounter for hospice care discussion: valeria inquired about hospice and we discussed the goals of hospice as a patient service and the goals of care; we discussed EOL trajectories and transitions marcello the emotional impact of realizing mortality as a concrete reality from prior abstract considerations. Pt was reassured that no matter where they are along this trajectory, they are not alone - their medical team will remain by their side through their journey. Discussed the pros/cons of accepting help when especially weakened and distressed by pain-which would also help provide relief/decrease caregiver burden/strain.I provided education about the hospice benefit: an interdisciplinary program offered by nurses, nurses aides, social workers, chaplains and a medical sales consultant for patients with a terminal condition and a life expectancy of less than 6 months. This is covered by Medicare at 100%/no out of pocket expense to patient and all meds/supplies needed by patient for the reason they are on hospice are paid for/covered by hospice. The goal is assure quality of life of the patient in their home setting (home, shelter, inpatient hospice setting) by providing symptoms management, psychosocial and spiritual support. However, they cannot offer 24 hours care and if the family is unable to provide that care, they will have to consider personal care with out of pocket cost vs. shelter placement. We discussed the goals of hospice as a patient service and the goals of care; we discussed EOL trajectories and transitions marcello the emotional impact of realizing mortality as a concrete reality from prior abstract considerations. Pt was reassured that no matter where they are along this trajectory, they are not alone - their medical team will remain by their side through their journey. Discussed the pros/cons of accepting help when especially weakened and distressed by pain-which would also help provide relief/decrease caregiver burden/strain. It should be noted that patient had chronic renal disease, end-stage renal disease progressing to eventual dialysis that began in February 2022, before the diagnosis of cancer was made. His metastatic lung cancer is not related to his end-stage renal disease, therefore he would be eligible for home hospice for his terminal lung cancer while continuing hemodialysis for his end-stage renal disease. (5) Dyspnea and respiratory abnormalities: (6) Metastatic lung carcinoma: Laterality: unspecified laterality Qualified Code(s): C78.00 - Secondary malignant neoplasm of unspecified lung (7) Severe protein-calorie malnutrition: (8) Acute metabolic encephalopathy: (9) Stage 5 chronic kidney disease: Plan * Family meeting noted above with goals of care delineated. * Patient desires a focus on quality of life. He does not want to be placed on life support or have artificial means of sustaining his life. His daughter is very clear that he would want to be a DNR/DNI. Patient is able to affirm this as well. CODE STATUS has been changed to DNR/DNI in accordance with his known and documented advance care wishes. * Daughter is aware that he would be eligible for hospice. She would like to see first if he is willing to take another dose of his chemotherapy next as scheduled. I also advised her that if he takes his chemo dose and then does not feel well or has further decline, that we could always transition her to hospice whenever they are ready. * Please note: the above document was generated using voice recognition software. It may contain unintentional grammatical, syntax or spelling errors. Any formal questions or concerns about the content, text or information contained within the body of this dictation should be directly addressed to the provider for clarification. Thank you for allowing us to participate in the ongoing care of this patient. Please don't hesitate to call or page with any additional concerns. Dr. Nemo Jones DNP Director, Palliative Care History of Present Illness Reason for Consultation: Metastatic lung cancer with disease progression. Attending Physician: Lucas Damon History of Present Illness Jose Zhong is a 77yo male admitted11/01/2022from home with weakness, confusion/AMS, found to have UTI. His confusion has improved since admission however it continues to wax and wane. Upon entry to the room he was able to recall meeting me last fall recall details of this admission, the reason he is admitted to the hospital or what treatment he has received. He repeatedly asked for clarification to his daugh mendez and also states that he felt he was here to see her for medical issues. His daughter states that he was becoming increasingly confused at home. She still feels he is really not quite there." She states that they have had numerous conversations about what he would want for himself and things were getting worse and she is his designated POA. Due to his worsening strength, she has been managing his finances in addition, she moved him into her house. She notes that it became difficult for him to remain on his own& he now resides full-time with the daughter in her house. 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 She states that his overall appetite has been declining. His strength has been declining. To eat full meals. She stated the last time she saw him eat anything with enthusiasm was a few days prior to his admission. She is concerned about his mentation is declining status, and his overall poor appetite/functional decline. She wants to ensure that all decisions being made are in alignment with his advanced directive wishes to honor those preferences with the goals of care that we developed together. He has chronic CKD: fistula was created 01/10/2022.He has started HD February 2022 He had +lymphadenopathy, multiple lung nodules and osteolytic lesions suspicious for malignancy with an elevated JHL=067.7, no recent colonoscopy. He was an active heavy but now intermittent smoker. IR did an US-guided supraclavicular lymph node biopsy which confirmed Stage IV adenocarcinoma of the lung for which he recently started second line chemotherapy treatment with docetaxel on 10/21/2022. Neotype mutation analysis was negative for TRK mutations and HER2. [id number] liquid biopsy revealed a T p53 mutation, EGFR amplification, ER B B2 VUS. He was started on systemic therapy with carboplatin, paclitaxel, pembrolizumab on 03/11/2022. Restaging PET/CT was obtained after 5 cycles in May 2022 which showed a positive response to therapy with decrease in size and metabolic activity of his bulky mediastinal lymphadenopathy. He completed 6 cycles by 06/24/2022 which was followed by maintenance pembrolizumab. PET/CT on 07/22/2022 revealed continued improvement in the left upper lung mass and lymph nodes, but he had worsening hypermetabolic lesion of the left lobe of the liver and worsening L5 mets. An MRI of the abdomen on September 01 indicated highly suspicious liver metastatic disease in the brain MRI also demonstrated significant brain mets. He continues to receive end-stage renal disease therapy on dialysis Thursday. He had palliative radiation to the pelvis that he pleated in March. He and his daughter have had extensive conversations with regards to his prognosis with Dr. Lopez. He has expressed a desire to continue with therapy so long as he continues to receive some benefit from it. He wants to maintain his independence for as long as possible. He notes however if he becomes dependent on able to do the things from which he derives quality of life, he would not wish to have further cancer directed therapy. Radiation History from Dr Clifford's rad Onc note 03/25/22: Development of right hip pain. 01/16/2022. MRI of lumbar spine. Right iliac bone abnormal marrow changes. 02/10/2022. PET/CT. Diffuse osteolytic disease, consistent with history of multiple myeloma. Right ilium and iliac wing with numerous areas of cortical breakthrough and destruction. 02/12/2022. Patient hospitalized for progression of pain. 02/13/2022. Right supraclavicular node ultrasound-guided aspiration. Malignant cells consistent with metastatic adenocarcinoma, lung primary. 02/14/2022. Medical oncology consultation. Plan for outpatient carboplatin/paclitaxel/pembrolizumab. 02/14/2022 brain MRI. No evidence of metastatic disease. 03/04/2022. Status post completion of radiation therapy to the pelvis. He received 3000 cGy. Unfortunately, imaging this admission revealed worsening metastatic disease in lungs/liver. Dr. Mcneli notes it may be early to see a response - he only rece ived 1 cycle of treatment. Mr. Zhong has severe pain in the right pelvis and back, from this metastatic disease involving the right iliac wing, complicated perhaps by his hx of chronic back pain granger to DDD/lumbar radiculitis and radiculopathy. He also has a worsening heavy bronchitic cough with thick abarca to pale sexton/brown sputum Pt has a daughter, Valeria, who is noted to also be his POA. She is at bedside with pt. patient is well known to me from February 2022 admission. Allergies Allergy/AdvReac Type Severity Reaction Status Date / Time No Known Allergies Allergy Verified 11/01/22 15:54 Home Medications Medication Instructions Recorded Confirmed Type aspirin 81 mg tablet,delayed 81 mg PO HS 12/15/18 11/01/22 History release carvedilol 3.125 mg tablet 3.125 mg PO BID #180 tabs 04/23/22 11/01/22 Rx budesonide 90 mcg/actuation breath 1 inh inhalation BID #1 ea 05/28/22 11/01/22 Rx activated powder inhaler (Pulmicort Flexhaler) vitamin B complex-vitamin C-folic 1 tab PO DAILY #30 tabs 06/06/22 11/01/22 Rx acid 0.8 mg tablet (Dasia-Kimmy) ondansetron HCl 8 mg tablet 8 mg PO Q8H PRN Nausea 09/18/22 11/01/22 History prochlorperazine maleate 10 mg 10 mg PO Q6H PRN Nausea 09/18/22 11/01/22 History tablet (Compazine) doxazosin 2 mg tablet 2 mg PO HS #90 tabs 09/22/22 11/01/22 Rx pantoprazole 40 mg tablet,delayed 40 mg PO BID #180 tabs 09/22/22 11/01/22 Rx release ergocalciferol (vitamin D2) 1,250 1,250 mcg PO MONTHLY 10/06/22 11/01/22 History mcg (50,000 unit) capsule prednisolone acetate 0.12 % eye 1 drp ophthalmic (eye) DAILY 10/06/22 11/01/22 History drops,suspension oxycodone 10 mg tablet 10 mg PO .Q4-6H PRN pain #180 tabs 10/10/22 11/01/22 Rx calcitriol 0.5 mcg capsule 0.5 mcg PO .COMPLEX 10/28/22 11/01/22 History pregabalin 25 mg capsule (Lyrica) 25 mg PO .HOLD 10/28/22 11/01/22 History sertraline 50 mg tablet 50 mg PO DAILY 10/28/22 11/01/22 History sevelamer carbonate 800 mg tablet 800 mg PO .COMPLEX 10/28/22 11/01/22 History atorvastatin 10 mg tablet 10 mg PO DAILY #90 tabs 10/29/22 11/01/22 Rx Docetaxel Tx See Rx Instructions .Route .COMPLEX 11/01/22 11/01/22 History dexamethasone 4 mg tablet 8 mg PO DIRECTED 11/01/22 11/01/22 History Patient History Medical History (Updated 11/03/22 @ 13:54 by Nemo Jones DNP) Advanced care planning/counseling discussion Anemia due to chronic kidney disease Hgb 10-12 range per chart review, fecal occult blood test x3 negative per 12/25/21 PCP note CAD (coronary artery disease) s/p CABG x1 (with ascending thoracic aorta repair) - 2008 Chronic midline thoracic back pain Discussion about advance care planning held with family member Dyslipidemia Dyspnea and respiratory abnormalities Encounter for hospice care discussion GERD (gastroesophageal reflux disease) History of COVID-19 09/2021, hospitalized at [facility] (vomiting, dehydration, cough, sinus congestion) > resolved HTN (hypertension) Palliative care by specialist Secondary hyperparathyroidism of renal origin Stage 5 chronic kidney disease not on chronic dialysis Thoracic aortic aneurysm s/p repair (2008) Surgical History H/O thoracic aortic aneurysm repair CABG x1 + ascending thoracic aorta repair (2008) History of cataract surgery R/L History of hernia repair S/P CABG (coronary artery bypass graft) CABG x1 + ascending thoracic aorta repair (2008) Family History Brother Brain tumor Cancer, Onset Age: 70 colon cancer Sai Mother Leukemia Denies family history of Ovarian cancer Prostate cancer Myocardial infarction Breast cancer Colorectal cancer Social History Smoking Status: Former smoker Tobacco Type: Cigars Age Started Using Tobacco: 41; Cigarettes Per Day: 1 cigar every six months; Second Hand Exposure: No; Do You Dip or Chew Tobacco: No; Hx Alcohol Use: No Hx Substance Use: No Preferred Language: Fijian Communication Ability: Effective Communication Ability Comment: Able to communicate effectively in Fijian Visual Impairment: Partially Limited Hearing Ability: Hard of Hearing Instrument Worker Required: No Beliefs That Will Affect Care: None marital status: Single Current Living Situation: Alone Current Living Situation Comment: daughter close by current occupational status: retired How many Children do You have: 2 Feels Safe at Home: Yes Childhood Exposure to Second-Hand Smoke: Yes Diet: regular Diet Comment: High protein caffeine: Yes (coffee) during the past year weight has: remained stable Dental Care, Regularly: No Physical Activity Frequency: Daily Physical Activity Frequency Comment: Go's to gym, lift weights Seatbelt Use: always Sunscreen Use: Yes Do you think of yourself as: straight/heterosexual Gender Identity: Male Assistive Devices: None Review of Systems Review of Systems: All systems reviewed & are unremarkable except as noted in Subjective Physical Exam Constitutional: + ill appearing and + altered mental status Eyes: PERRL, conjunctivae normal, anicteric sclerae ENMT: Mouth: + dry oral mucous membranes Neck: trachea midline, no thyromegaly Respiratory: + cough and + pursed lip breathing Auscultation: + crackles a nd + rhonchi bronchitic heavy cough Cardiovascular: RRR, no murmur, no edema Musculoskeletal: generalized weakness, unable to follow commands consistently Skin: + turgor decreased, normal skin elasticity and + patchy alopecia Neurologic: + confused Psychiatric: Orientation: oriented to person and oriented to place Results & Data Vital Signs (Past 12 Hours) Vital Signs Temp Pulse Pulse Pulse Resp BP BP 11/03/22 13:45 149/55 H 11/03/22 12:00 58 L 126/63 11/03/22 11:30 56 L 143/54 H 11/03/22 11:00 51 L 147/68 H 11/03/22 10:30 54 L 143/64 H 11/03/22 10:00 54 L 146/54 H 11/03/22 09:47 36.7 C 50 L 11/03/22 10:09 11/03/22 07:24 36.8 C 53 L 16 153/64 H 11/03/22 07:14 52 L 11/03/22 04:04 36.6 C 56 L 18 157/62 H Pulse Ox O2 Del Method O2 Flow Rate 11/03/22 13:45 11/03/22 12:00 11/03/22 11:30 11/03/22 11:00 11/03/22 10:30 11/03/22 10:00 11/03/22 09:47 11/03/22 10:09 Nasal Cannula 2 11/03/22 07:24 96 Room Air 11/03/22 07:14 11/03/22 04:04 96 Nasal Cannula 2 Laboratory Results Data reviewed Diagnostic Findings Data reviewed PG Care Time/CCT Total # of Minutes Spent Total Time Spent: 110 Total Time Spent with Patient: Total time spent is greater than 50% in coordination of care (as documented) at patient's floor/unit and/or counseling patient: I spent 110 minutes overall addressing this case: 15 in medical data review/discussion with referring provider(s) and/or preparation for the visit 20 in direct interaction with the patient 55 Advance Care Planning/Goals of Care discussions as detailed above in note (must be >16min) 10 in subsequent review and synthesis of assessment and plan 10 in communicating with other providers regarding the patient's case: [] Advanced Care Planning 69013 Advanced Care Planning 30 Min 01915 Advanced Care Planning Additional 30 [place] [address] IN/OBS CONSULT LVL 5,80M Patient Type New History Comprehensive Exam Comprehensive Medical Decision Making High Complexity Diagnoses Palliative care by specialist Z51.5 Advanced care planning/counseling discussion Z71.89 Discussion about advance care planning held with family member Z71.0 Encounter for hospice care discussion Z71.89 Dyspnea and respiratory abnormalities R06.00; R06.89 Metastatic lung carcinoma C78.00 Laterality: unspecified laterality Severe protein-calorie malnutrition E43 Acute metabolic encephalopathy G93.41 Stage 5 chronic kidney disease N18.5 Additional Codes Advanced Care Planning - 45379 Advanced Care Planning 30 Min: 36321 Advanced Care Planning 30 Min ([id number]) Advanced Care Planning - 58782 Advanced Care Planning Additional 30 Min: 87850 Advanced Care Planning Additional 30 Min ([id number])
[2022-11-03] MEDS: CEFEPIME 1,000 MG in SYRINGE 0 ML IV SCH (18:23)
[2022-11-03] MEDS ORDERED: DAPTOmycin 250 MG in SYRINGE 0 ML IV SCH (19:00)
[2022-11-03] MEDS ORDERED: ACETAMINOPHEN 500 MG TAB PO ONE (20:39)
[2022-11-03] MEDS: DAPTOmycin 250 MG in SYRINGE 0 ML IV SCH (20:52)
[2022-11-03] MEDS: PROCHLORPERAZINE MALEATE 10 MG TAB PO PRN (20:56)
[2022-11-03] MEDS: DOXAZosin MESYLATE TAB 2 MG TAB PO SCH (20:57)
[2022-11-03] MEDS: ASPIRIN 81 MG ECTAB PO SCH (20:57)
--- NOTE | 2022-11-03 22:23 | Electrocardiogram Report ---
Test Reason : Blood Pressure : / mmHG Vent. Rate : 058 BPM Atrial Rate : 000 BPM P-R Int : 240 ms QRS Dur : 114 ms QT Int : 480 ms P-R-T Axes : 000 007 022 degrees QTc Int : 471 ms Sinus bradycardia with 1st degree A-V block Premature ventricular complexes Premature atrial complexes Moderate voltage criteria for LVH, may be normal variant Anterior infarct (cited on or before 12-FEB-2022) Abnormal ECG When compared with ECG of 12-FEB-2022 16:15, Premature atrial complexes are now Present Premature ventricular complexes are now Present Confirmed by Jeramie Tinoco ([id number]) on 11/03/2022 10:23:11 PM Referred By: REFERRED SELF Confirmed By:Jeramie Tinoco
--- NOTE | 2022-11-03 23:02 | Hospitalist Progress Note ---
Date of Service November 03, 2022 Assessment & Plan (1) Hallucinations: Plan: acute metabolic encephalopathy likely 2nd to UTI +/- pneumonia cannot exclude other metabolic factors -- check ammonia, VBG in am given the pancytopenia (which is likely from chemo) will broaden the work-up to include anaplasmosis DNA in am (smear for such was negative) continue IV antibiotics supportive care will consult PT/OT. will lift dietary restrictions. appreciate input from palliative care. Patient's next chemo is next in about 10 days. (2) Acute metabolic encephalopathy: Plan: see above (3) Dysphagia: Plan: oral cavity findings could be viral in etiology (coxsackie, adenovirus, etc) vs mucositis vs candidal vs combination of factors can't rule out other viral processes but the lesions do not look herpetic nystatin 5cc q6h magic mouthwash q6h swish/spit (4) Hypokalemia: Plan: replace repeat BMP am (5) End stage renal disease on dialysis: Plan: Appreciate [facility] [place] Nephrology consultation and assistance with HD needs s/p HD today following his CTs Cont phosphate binders etc (6) Metastatic lung carcinoma: Plan: mets to bone, brain, liver, lymph nodes dx [address] Kasie Mcneil recently started on docetaxel on 10/21/[address] Mcneil prior treatment - carboplatin/paclitaxel/pembrolizumab 03/11/2022 completed 6 cycles of such 06/2022 then continued on maintenance pembrolizumab brain mets discovered 09/23; Rx whole brain radiation with completion of such 10/2022 brain MRI this admission shows partial treatment response to XRT abbott CT of chest/abd/pelvis shows worsening metastatic disease throughout both lungs and progressive liver mets there is also worsening bone mets Dr Mcneil has been consulted for any additional recs patient and patient's daughter extensively counseled today on the MRI brain and abbott-CT findings (7) HTN (hypertension): Plan: controlled stable cont coreg cont doxazosin (8) CAD (coronary artery disease): Plan: continue aspirin continue coreg no recent ischemic symptoms (9) Brain metastasis: Plan: discovered this spring s/p whole brain radiation with completion of such in 10/2022 MRI Brain today with partial treatment response to recent XRT (10) DVT prophylaxis: Plan: HIGH risk of DVT/VTE thus, cautiously use heparin 5000 BID watch platelets carefully (11) UTI (urinary tract infection): Plan: u/a suspicious for such follow culture cefepime and daptomycin on board adjust as needed (12) Abnormal urinary tract, radiological: Plan: right-sided distal right ureter is thickened could be 2nd to UTI can't rule out urethelial lesion treat for UTI hold on w/u for now given the advanced lung ca (13) Iliac artery stenosis, right: Plan: noted on CT of abd/pelvis continue aspirin no limb ischemia or symptoms at this time (14) Pneumonia: Plan: question of b/l basilar (findings could be cancer rather than pneumonia per radiology) continue cefepime repeat cxr in am (15) Pancytopenia: Plan: likely chemotherapy induced anemia also 2nd to ESRD Hb 6.9 today Tx 2 units PRBCs gave such on HD today (16) Pulmonary edema: Plan: dialysis for volume control Plan extensive discussion held with patient and his daughter on all test results and care plan care d/w nephrology Dr Lewis extensive chart review undertaken today very complex care coordination Admission and Anticipated Discharge Date Admission Date: November 01, 2022 Subjective Patient appears weak. Family at bedside. Patient has been sliding down the bed as per the daughter. Goal would be to bring the patient home, however, concern over his strength. Patient also isn't eating as well. Though he enjoys amarilis food cake. Ask to lift dietary restrictions. Review of Systems Review of Systems: All systems reviewed & are unremarkable except as noted in HPI & below Physical Exam Physical Exam: gen - NAD, pleasant; mouth - erythematous sores/ulcers posterior throat & buccal mucosa neck - no JVD heart - RRR, s1 s2, no murmur lungs - b/l basilar rales abd - soft NT ND BS+ ext - no edema, pulses 2+ b/l psych - a/o to person/place/year/month neuro - tremors, slight asterixis also noted Results & Data Results & Data Vital Signs (Past 12 Hours) Vital Signs Temp Pulse Pulse Pulse Resp BP BP 11/03/22 20:08 36.9 C 69 18 166/61 H 11/03/22 13:04 36.7 C 55 L 158/62 H 11/03/22 15:38 54 L 11/03/22 13:00 58 L 141/63 H 11/03/22 12:30 59 L 141/65 H 11/03/22 14:52 36.6 C 58 L 16 169/68 H 11/03/22 13:45 149/55 H 11/03/22 12:00 58 L 126/63 11/03/22 11:30 56 L 143/54 H Pulse Ox O2 Del Method O2 Flow Rate 11/03/22 20:08 91 Nasal Cannula 2 11/03/22 13:04 11/03/22 15:38 11/03/22 13:00 11/03/22 12:30 11/03/22 14:52 95 Nasal Cannula 2 11/03/22 13:45 11/03/22 12:00 11/03/22 11:30 PG Care Time/CCT Total # of Minutes Spent Total Time Spent with Patient: Total time spent is greater than 50% in coordination of care (as documented) at patient's floor/unit and/or counseling patient: Coding Level of Care Code 12496 SUB INP/OBS CARE 235MIN Diagnoses Hallucinations R44.3 Acute metabolic encephalopathy G93.41 Dysphagia R13.10 Hypokalemia E87.6 End stage renal disease on dialysis N18.6; Z99.2 Metastatic lung carcinoma C78.00 Laterality: unspecified laterality HTN (hypertension) I10 CAD (coronary artery disease) I25.10 Brain metastasis C79.31 DVT prophylaxis Z29.9 UTI (urinary tract infection) N39.0 Abnormal urinary tract, radiological R93.49 Iliac artery stenosis, right I77.1 Pneumonia J18.9 Pancytopenia D61.818 Pulmonary edema J81.1 (6) Metastatic lung carcinoma Laterality: unspecified laterality Qualified Code(s): C78.00 - Secondary malignant neoplasm of unspecified lung
[2022-11-04 07:22] LABS: Hematocrit (blood only) 29.7 % (42.0-52.0); Mean Corpuscular Hemoglobin 32.4 pg (25.0-34.0); Mean Corpuscular Hgb Conc 33.7 g/dL (32.0-36.0); Mean Corpuscular Volume 96.1 fL (80.0-100.0); Mean Platelet Volume 10.6 fL (9.4-12.4); Nucleated RBC # (auto) 0.03 K/uL (0-0.12); Nucleated RBC % (auto) 0.5 %; Platelet Count 85 K/uL (130-400); RDW Coefficient of Variation 15.5 % (11.5-14.5); RDW Standard Deviation 54.5 fL (36.4-46.3); Red Blood Count 3.09 M/uL (4.70-6.10); White Blood Count 6.25 K/ul (4.8-10.8)
[2022-11-04 07:27] LABS: ANC (manual) 4.81 K/uL (1.4-6.5); Lymphocytes % (manual) 8 %; Metamyelocytes # (manual) 0.25 K/uL (0-0); Metamyelocytes % (manual) 4 %; Monocytes # (manual) 0.63 K/uL (0.11-0.59); Monocytes % (manual) 10 %; Myelocytes # (manual) 0.06 K/uL (0-0); Myelocytes % (manual) 1 %; Neutrophils # (manual) 4.81 K/uL (1.40-6.50); Neutrophils % (manual) 77 %; Toxic Granulation 1+
[2022-11-04 07:41] LABS: Albumin Globulin Ratio 1.1 (0.9-2); Albumin Level 2.7 gm/dl (3.4-5.0); BUN Creatinine Ratio 5.1 (10-20); Bilirubin,Total 0.6 mg/dl (0.2-1.0); Calcium 8.4 mg/dl (8.6-10.3); Creatinine Clr Calc Pharmacy 14.7 ml/min; Est GFR (African American) 17.2 ml/min; Est GFR (Non-African American) 14.8 ml/min; Globulin 2.5 gm/dl (2.5-4.0); Magnesium 1.9 mg/dl (1.7-2.4); Potassium 3.8 mmol/L (3.5-5.1); Total Protein 5.2 gm/dl (6.0-8.3)
[2022-11-04 07:51] LABS: INR 1.1 (0.9-1.1); Prothrombin Time 11.7 Seconds (9.0-12.0)
--- NOTE | 2022-11-04 08:49 | Nephrology Progress Note ---
Date of Service November 04, 2022 Assessment & Plan (1) End stage renal disease on dialysis: Plan: * Patient dialyzes MWF at [facility] dialysis unit. Primary Digital Printer Operator is Dr. Kothari * Volume status and electrolyte balance are acceptable. No acute indication for HD today * Will plan next HD for am * Monitor PRP * Renal diet (2) Anemia: Plan: * Transfused 2U PRBC 11/02/22. Hgb 10.0 today (3) Adenocarcinoma, lung: Plan: * 11/02/22 Chest/Abd CT - multifocal metastatic disease throughout both lungs with evidence of lymphangitic carcinomatosis. This has significantly progressed since 07/24 study * Patient hopes to return home and continue w/ outpatient chemotherapy (4) Confusion: Plan: * Mental status improved * CXR w/ CHF at time of admission. Significantly improved following UF on HD. SaO2 now 95% on O2 at 2L/min NC * Urine culture w/ G+ cocci. Awaiting sensitivities. On IV Cefepime and Daptomycin Admission and Anticipated Discharge Date Admission Date: November 01, 2022 Subjective Mr. Zhong was evaluated in his hospital room this morning. He was dialyzed yesterday for 3 hours w/ 2L UF. Mr. Zhong is now breathing comfortably on RA. He c/o weakness and cough productive of thick mucous Review of Systems Constitutional: no fever Eyes: no worsening vision Ear, Nose, Mouth, Throat: no problem reported Respiratory: no problem reported Cardiovascular: no chest pain Gastrointestinal: no abdominal pain, no vomiting and no diarrhea/loose stools Genitourinary: no dysuria or no hematuria Integumentary: no rash Physical Exam Constitutional: not in distress Eyes: PERRL, conjunctivae normal, anicteric sclerae ENMT: external ear and nose normal, oropharynx normal Neck: trachea midline, no thyromegaly Respiratory: Auscultation: lungs clear to auscultation bilaterally and + wheezes Cardiovascular: RRR, no murmur, no edema Gastrointestinal (Abdomen): Inspection/Auscultation: normal bowel sounds; abdomen not distended Percussion/Palpation: abdomen soft; abdomen nontender Musculoskeletal: Extremities: no cyanosis Skin: normal turgor Neurologic: Speech / Cognition: normal speech and normal cognition (oriented to self, place, month this morning) Results & Data Vital Signs (Past 12 Hours) Vital Signs Temp Pulse Pulse Resp BP Pulse Ox O2 Del Method 11/04/22 07:56 36.6 C 60 16 148/69 H 95 Nasal Cannula 11/04/22 07:00 56 L 11/04/22 02:30 36.6 C 59 L 16 150/67 H 97 Nasal Cannula 11/04/22 00:00 69 11/03/22 22:20 36.8 C 59 L 16 132/63 95 Nasal Cannula 11/03/22 21:00 Nasal Cannula O2 Flow Rate 11/04/22 07:56 2 11/04/22 07:00 11/04/22 02:30 2 11/04/22 00:00 11/03/22 22:20 2 11/03/22 21:00 2 Laboratory Results Laboratory Tests 11/04/22 11/04/22 06:13 06:20 WBC 6.25 Hgb 10.0 L Hct 29.7 L Plt Count 85 L Sodium 141 Potassium 3.8 Chloride 107 Carbon Dioxide 27 BUN 19 Creatinine 3.73 H Calcium 8.4 L Albumin 2.7 L PG Care Time/CCT Total # of Minutes Spent Total Time Spent with Patient: Total time spent is greater than 50% in coordination of care (as documented) at patient's floor/unit and/or counseling patient: Coding Level of Care Code 94361 SUB INP/OBS CARE 3/50MIN Diagnoses End stage renal disease on dialysis N18.6; Z99.2 Anemia D64.9 Adenocarcinoma, lung C34.90 Confusion R41.0
[2022-11-04] MEDS: SEVELAMER HCL 800 MG TABLET PO SCH ×3 (08:58→17:35)
[2022-11-04] MEDS: VITAMIN B COMPLEX TAB PO SCH (08:58)
[2022-11-04] MEDS: carvediloL 3.125 MG TAB PO SCH ×2 (08:58→21:36)
[2022-11-04] MEDS: PANTOprazole 40 MG TAB PO SCH ×2 (08:58→21:36)
[2022-11-04] MEDS: SERTRALINE HCL 50 MG TABLET PO SCH (08:58)
[2022-11-04] MEDS: FIRST - Mouthwash BLM 119 ML PO SCH ×4 (08:59→21:35)
[2022-11-04] MEDS: PROCHLORPERAZINE MALEATE 10 MG TAB PO PRN (08:59)
[2022-11-04] MEDS: NYSTATIN 500,000 UNIT TAB PO SCH ×4 (08:59→21:36)
[2022-11-04] MEDS: FLUTICASONE FUROATE 100MCG 14 PUFFS/INHALER INH SCH (09:00)
[2022-11-04] MEDS: HEPARIN SOD 5,000 UNIT/0.5 ML VIAL SQ SCH ×2 (09:00→21:35)
[2022-11-04 10:12] LABS: HBSAG NON-REACTIVE (NON-REACTIVE); Hepatitis B Surface Ab, Quant <5 mIU/mL (> OR = 10)
[2022-11-04] MEDS: ACETAMINOPHEN 325 MG TAB PO PRN (11:45)
[2022-11-04] MEDS: ASPIRIN 81 MG ECTAB PO SCH (21:35)
[2022-11-04] MEDS: DOXAZosin MESYLATE TAB 2 MG TAB PO SCH (21:35)
--- NOTE | 2022-11-04 23:42 | Hospitalist Progress Note ---
Date of Service November 04, 2022 Assessment & Plan (1) Hallucinations: Plan: acute metabolic encephalopathy likely 2nd to UTI +/- pneumonia cannot exclude other metabolic factors -- check ammonia, VBG in am given the pancytopenia (which is likely from chemo) will broaden the work-up to include anaplasmosis DNA in am (smear for such was negative) continue IV antibiotics supportive care will consult PT/OT. will lift dietary restrictions. appreciate input from palliative care. Patient's next chemo is next . Family will discuss options with Oncology, regarding continuing chemotherapy. Also will work on home hospice. (2) Acute metabolic encephalopathy: Plan: see above (3) Dysphagia: Plan: oral cavity findings could be viral in etiology (coxsackie, adenovirus, etc) vs mucositis vs candidal vs combination of factors can't rule out other viral processes but the lesions do not look herpetic nystatin 5cc q6h magic mouthwash q6h swish/spit (4) Hypokalemia: Plan: replaced (5) End stage renal disease on dialysis: Plan: Appreciate [facility] [place] Nephrology consultation and assistance with HD needs s/p HD today following his CTs Cont phosphate binders etc (6) Metastatic lung carcinoma: Plan: mets to bone, brain, liver, lymph nodes dx [address] Kasie Mcneil recently started on docetaxel on 10/21/[address] Mcneil prior treatment - carboplatin/paclitaxel/pembrolizumab 03/11/2022 completed 6 cycles of such 06/2022 then continued on maintenance pembrolizumab brain mets discovered 09/23; Rx whole brain radiation with completion of such 10/2022 brain MRI this admission shows partial treatment response to XRT abbott CT of chest/abd/pelvis shows worsening metastatic disease throughout both l ungs and progressive liver mets there is also worsening bone mets Dr Mcneil has been consulted for any additional recs patient and patient's daughter extensively counseled today on the MRI brain and abbott-CT findings (7) HTN (hypertension): Plan: controlled stable cont coreg cont doxazosin (8) CAD (coronary artery disease): Plan: continue aspirin continue coreg no recent ischemic symptoms (9) Brain metastasis: Plan: discovered this spring s/p whole brain radiation with completion of such in 10/2022 MRI Brain today with partial treatment response to recent XRT (10) DVT prophylaxis: Plan: HIGH risk of DVT/VTE thus, cautiously use heparin 5000 BID watch platelets carefully (11) UTI (urinary tract infection): Plan: u/a suspicious for such follow culture cefepime and daptomycin on board adjust as needed (12) Abnormal urinary tract, radiological: Plan: right-sided distal right ureter is thickened could be 2nd to UTI can't rule out urethelial lesion treat for UTI hold on w/u for now given the advanced lung ca (13) Iliac artery stenosis, right: Plan: noted on CT of abd/pelvis continue aspirin no limb ischemia or symptoms at this time (14) Pneumonia: Plan: question of b/l basilar (findings could be cancer rather than pneumonia per radiology) continue cefepime repeat cxr in am (15) Pancytopenia: Plan: likely chemotherapy induced anemia also 2nd to ESRD Hb 6.9 today Tx 2 units PRBCs gave such on HD today (16) Pulmonary edema: Plan: dialysis for volume control Plan extensive discussion held with patient and his daughter on all test results and care plan care d/w nephrology Dr Lewis extensive chart review undertaken today very complex care coordination Admission and Anticipated Discharge Date Admission Date: November 01, 2022 Subjective 77 yo male reports he is feeling slightly stronger. He appears unsure if he wants to continue chemotherapy, and is looking for guidance. His daughter and sister are also in the room. The patient would like to enjoy the time he has with his sister who is in town. His daughter reports she could bring him home and take care and take care of him. Though she reports she has fears about how she will handle in her home. She wants to discuss with Dr. Jones, how hospice care would look like. Review of Systems Review of Systems: All systems reviewed & are unremarkable except as noted in HPI & below Physical Exam Physical Exam: Patient sitting in chair Patient is eating his dinner. Patient is comfortable, in no distress. Abdomen is soft. Results & Data Results & Data Vital Signs (Past 12 Hours) Vital Signs Temp Pulse Pulse Resp BP Pulse Ox O2 Del Method 11/04/22 22:29 36.9 C 55 L 16 155/65 H 95 Nasal Cannula 11/04/22 19:35 36.4 C L 53 L 18 130/54 L 97 Nasal Cannula 11/04/22 15:36 36.8 C 52 L 20 158/57 H 96 Room Air 07/04/23 15:00 57 L O2 Flow Rate 11/04/22 22:29 2 11/04/22 19:35 2 11/04/22 15:36 11/04/22 15:00 PG Care Time/CCT Total # of Minutes Spent Total Time Spent with Patient: Total time spent is greater than 50% in coordination of care (as documented) at patient's floor/unit and/or counseling patient: Coding Level of Care Code 04885 SUB INP/OBS CARE 3/50MIN Diagnoses Hallucinations R44.3 Acute metabolic encephalopathy G93.41 Dysphagia R13.10 Hypokalemia E87.6 End stage renal disease on dialysis N18.6; Z99.2 Metastatic lung carcinoma C78.00 Laterality: unspecified laterality HTN (hypertension) I10 CAD (coronary artery disease) I25.10 Brain metastasis C79.31 DVT prophylaxis Z29.9 UTI (urinary tract infection) N39.0 Abnormal urinary tract, radiological R93.49 Iliac artery stenosis, right I77.1 Pneumonia J18.9 Pancytopenia D61.818 Pulmonary edema J81.1 Time Spent (min) 50 (6) Metastatic lung carcinoma Laterality: unspecified laterality Qualified Code(s): C78.00 - Secondary malignant neoplasm of unspecified lung
[2022-11-05] MEDS ORDERED: SODIUM CHLORIDE 0.9% 1000ML 1,000 ML IV PRN (07:00)
[2022-11-05] MEDS ORDERED: HEPARIN SOD (PORCINE) 1000 UNIT/ML IV ONE (07:00)
[2022-11-05 07:59] LABS: Hematocrit (blood only) 29.7 % (42.0-52.0); Hemoglobin 9.8 g/dl (14.0-18.0); Mean Corpuscular Hemoglobin 32.5 pg (25.0-34.0); Mean Corpuscular Volume 98.3 fL (80.0-100.0); Mean Platelet Volume 10.7 fL (9.4-12.4); Nucleated RBC # (auto) 0.02 K/uL (0-0.12); Nucleated RBC % (auto) 0.3 %; Platelet Count 88 K/uL (130-400); RDW Coefficient of Variation 15.3 % (11.5-14.5); RDW Standard Deviation 54.6 fL (36.4-46.3); Red Blood Count 3.02 M/uL (4.70-6.10); White Blood Count 7.48 K/ul (4.8-10.8)
--- NOTE | 2022-11-05 08:32 | Nephrology Progress Note ---
Date of Service November 05, 2022 Assessment & Plan (1) End stage renal disease on dialysis: Plan: * Patient dialyzes MWF at [facility] dialysis unit. Primary Tentering Machine Feeder is Dr. Kothari * Will provide HD today. Orders have been placed in EMR and HD RN notified * Monitor PRP * Renal diet (2) Anemia: Plan: * Transfused 2U PRBC 11/02/22 * Hgb stable at 9.8 this morning (3) Adenocarcinoma, lung: Plan: * 11/02/22 Chest/Abd CT - multifocal metastatic disease throughout both lungs with evidence of lymphangitic carcinomatosis. This has significantly progressed since 07/24 study * Patient hopes to return home. He wishes to continue w/ outpatient chemotherapy and HD (4) Confusion: Plan: * Resolved * CXR w/ CHF at time of admission. Significantly improved following UF on HD. SaO2 now 95% on O2 at 2L/min NC * Urine culture positive for Enterococcus sensitive to PCN and Quinolones. Clinically improved w/ IV Cefepime and Daptomycin. Consider d/c Daptomycin and transition to oral PCN based antibiotic or Quinolone Admission and Anticipated Discharge Date Admission Date: November 01, 2022 Subjective Mr. Zhong was evaluated in his hospital room this morning. He reports that his swallowing is improved and he is coughing up much less mucous. Mr. Zhong's primary concern this morning is weakness. He was breathing comfortably flat in bed on RA during my evaluation this morning Review of Systems Constitutional: no fever Eyes: no worsening vision Ear, Nose, Mouth, Throat: no problem reported Respiratory: no problem reported Cardiovascular: no chest pain Gastrointestinal: no abdominal pain, no vomiting and no diarrhea/loose stools Genitourinary: no dysuria or no hematuria Integumentary: no rash Physical Exam Constitutional: not in distress Eyes: PERRL, conjunctivae normal, anicteric sclerae ENMT: external ear and nose normal, oropharynx normal Neck: trachea midline, no thyromegaly Respiratory: Auscultation: lungs clear to auscultation bilaterally and + wheezes Cardiovascular: RRR, no murmur, no edema Gastrointestinal (Abdomen): Inspection/Auscultation: normal bowel sounds; abdomen not distended Percussion/Palpation: abdomen soft; abdomen nontender Musculoskeletal: Extremities: no cyanosis Skin: normal turgor Neurologic: Speech / Cognition: normal speech and normal cognition (oriented to self, place, month this morning) Results & Data Vital Signs (Past 12 Hours) Vital Signs Temp Pulse Pulse Resp BP Pulse Ox O2 Del Method 11/05/22 08:19 36.6 C 55 L 18 138/65 97 Room Air 11/05/22 07:34 54 L 11/05/22 04:14 37 C 57 L 16 135/55 L 95 Nasal Cannula 11/04/22 22:00 54 L 11/04/22 22:00 Nasal Cannula 11/04/22 22:29 36.9 C 55 L 16 155/65 H 95 Nasal Cannula O2 Flow Rate 11/05/22 08:19 11/05/22 07:34 11/05/22 04:14 2 11/04/22 22:00 11/04/22 22:00 2 11/04/22 22:29 2 Laboratory Results Laboratory Tests 11/05/22 07:12 WBC 7.48 Hgb 9.8 L Hct 29.7 L Plt Count 88 L 11/05/22 PRP - pending PG Care Time/CCT Total # of Minutes Spent Total Time Spent with Patient: Total time spent is greater than 50% in coordination of care (as documented) at patient's floor/unit and/or counseling patient: Coding Level of Care Code 01578 SUB INP/OBS CARE 3/50MIN Diagnoses End stage renal disease on dialysis N18.6; Z99.2 Anemia D64.9 Adenocarcinoma, lung C34.90 Confusion R41.0
[2022-11-05 08:40] LABS: Vitamin B12 1092 pg/ml (180-914)
[2022-11-05] MEDS: SEVELAMER HCL 800 MG TABLET PO SCH ×3 (08:41→17:44)
[2022-11-05] MEDS: CALCITRIOL 0.25 MCG CAPSULE PO SCH (08:41)
[2022-11-05] MEDS: NYSTATIN 500,000 UNIT TAB PO SCH ×4 (08:42→20:54)
[2022-11-05] MEDS: carvediloL 3.125 MG TAB PO SCH ×2 (08:42→20:54)
[2022-11-05] MEDS: FIRST - Mouthwash BLM 119 ML PO SCH ×4 (08:43→20:54)
[2022-11-05] MEDS: PANTOprazole 40 MG TAB PO SCH ×2 (08:43→20:54)
[2022-11-05] MEDS: HEPARIN SOD 5,000 UNIT/0.5 ML VIAL SQ SCH ×2 (08:44→20:54)
[2022-11-05] MEDS: FLUTICASONE FUROATE 100MCG 14 PUFFS/INHALER INH SCH (08:44)
[2022-11-05] MEDS: SERTRALINE HCL 50 MG TABLET PO SCH (08:44)
[2022-11-05] MEDS: VITAMIN B COMPLEX TAB PO SCH ×2 (08:44→08:57)
[2022-11-05 09:20] LABS: Albumin Globulin Ratio 1.1 (0.9-2); Albumin Level 2.7 gm/dl (3.4-5.0); BUN Creatinine Ratio 5.7 (10-20); Bilirubin,Total 0.5 mg/dl (0.2-1.0); Calcium 8.2 mg/dl (8.6-10.3); Creatinine Clr Calc Pharmacy 9.5 ml/min; Est GFR (African American) 10.2 ml/min; Est GFR (Non-African American) 8.8 ml/min; Globulin 2.4 gm/dl (2.5-4.0); Phosphorus 2.6 mg/dl (2.5-4.9); Potassium 3.6 mmol/L (3.5-5.1); Total Protein 5.1 gm/dl (6.0-8.3)
[2022-11-05] MEDS: DOXAZosin MESYLATE TAB 2 MG TAB PO SCH (20:54)
[2022-11-05] MEDS: DAPTOmycin 250 MG in SYRINGE 0 ML IV SCH (20:54)
[2022-11-05] MEDS: ASPIRIN 81 MG ECTAB PO SCH (20:54)
--- NOTE | 2022-11-05 22:28 | Hospitalist Progress Note ---
Date of Service November 05, 2022 Assessment & Plan (1) Hallucinations: Plan: acute metabolic encephalopathy likely 2nd to UTI +/- pneumonia cannot exclude other metabolic factors -- check ammonia, VBG in am given the pancytopenia (which is likely from chemo) will broaden the work-up to include anaplasmosis DNA in am (smear for such was negative) continue IV antibiotics supportive care will consult PT/OT. will lift dietary restrictions. appreciate input from palliative care. Patient's next chemo was planned for 11/13 however, patient and family decided to postpone until patient is stronger. Once patient is stronger, family will discuss options with Oncology, perhaps restarting chemotherapy vs stopping. Case management working on discharge needs for home. Home health vs home hospice. (2) Acute metabolic encephalopathy: Plan: see above (3) Dysphagia: Plan: oral cavity findings could be viral in etiology (coxsackie, adenovirus, etc) vs mucositis vs candidal vs combination of factors can't rule out other viral processes but the lesions do not look herpetic nystatin 5cc q6h magic mouthwash q6h swish/spit (4) Hypokalemia: Plan: replaced (5) End stage renal disease on dialysis: Plan: Appreciate [facility] Nephrology consultation and assistance with HD needs s/p HD today following his CTs Cont phosphate binders etc (6) Metastatic lung carcinoma: Plan: mets to bone, brain, liver, lymph nodes dx [address] Kasie Mcneil recently started on docetaxel on 10/21/[address] Mcneil prior treatment - carboplatin/paclitaxel/pembrolizumab 03/11/2022 completed 6 cycles of such 06/2022 then continued on maintenance pembrolizumab brain mets discovered 09/23; Rx whole brain radiation with completion of such 10/2022 brain MRI this admission shows partial treatment response to XRT abbott CT of chest/abd/pelvis shows worsening metastatic disease throughout both lungs and progressive liver mets there is also worsening bone mets Dr Mcneil has been consulted for any additional recs patient and patient's daughter extensively counseled today on the MRI brain and abbott-CT findings (7) HTN (hypertension): Plan: controlled stable cont coreg cont doxazosin (8) CAD (coronary artery disease): Plan: continue aspirin continue coreg no recent ischemic symptoms (9) Brain metastasis: Plan: discovered this spring s/p whole brain radiation with completion of such in 10/2022 MRI Brain completed. (10) DVT prophylaxis: Plan: HIGH risk of DVT/VTE thus, cautiously use heparin 5000 BID watch platelets carefully (11) UTI (urinary tract infection): Plan: u/a suspicious for such follow culture cefepime and daptomycin on board adjust as needed (12) Abnormal urinary tract, radiological: Plan: right-sided distal right ureter is thickened could be 2nd to UTI can't rule out urethelial lesion treat for UTI hold on w/u for now given the advanced lung ca (13) Iliac artery stenosis, right: Plan: noted on CT of abd/pelvis continue aspirin no limb ischemia or symptoms at this time (14) Pneumonia: Plan: question of b/l basilar (findings could be cancer rather than pneumonia per radiology) continue cefepime repeat cxr in am (15) Pancytopenia: Plan: likely chemotherapy induced anemia also 2nd to ESRD Hb 6.9 today Tx 2 units PRBCs gave such on HD today (16) Pulmonary edema: Plan: dialysis for volume control Plan extensive discussion held with patient and his daughter on all test results and care plan care d/w nephrology Dr Lewis extensive chart review undertaken today very complex care coordination Admission and Anticipated Discharge Date Admission Date: November 01, 2022 Subjective Patient reports feeling better today. Family decided on holding chemo for now until patient has recovered. Once patient is stronger, plan will be to see if patient would reconsider chemo or stopping. Review of Systems Review of Systems: All systems reviewed & are unremarkable except as noted in HPI & below Physical Exam Physical Exam: Patient sitting in chair Patient is eating his dinner. Patient is comfortable, in no distress. Abdomen is soft. Results & Data Results & Data Vital Signs (Past 12 Hours) Vital Signs Temp Pulse Pulse Pulse Resp BP BP 11/05/22 20:22 36.9 C 74 18 129/64 11/05/22 19:00 11/05/22 15:40 61 11/05/22 13:20 36.6 C 55 L 125/61 11/05/22 13:00 63 125/79 11/05/22 12:30 68 134/66 11/05/22 12:00 63 134/64 11/05/22 13:46 36.4 C L 64 18 116/51 L 11/05/22 11:30 60 136/59 L 11/05/22 11:00 54 L 131/61 11/05/22 10:30 57 L 138/65 Pulse Ox Pulse Ox O2 Del Method O2 Del Method O2 Flow Rate O2 Flow Rate 11/05/22 20:22 97 Nasal Cannula 2 11/05/22 19:00 95 Nasal Cannula 2 11/05/22 15:40 11/05/22 13:20 11/05/22 13:00 11/05/22 12:30 11/05/22 12:00 11/05/22 13:46 97 Nasal Cannula 2 11/05/22 11:30 11/05/22 11:00 11/05/22 10:30 PG Care Time/CCT Total # of Minutes Spent Total Time Spent with Patient: Total time spent is greater than 50% in coordination of care (as documented) at patient's floor/unit and/or counseling patient: Coding Level of Care Code 20007 SUB INP/OBS CARE 2/35MIN Diagnoses Hallucinations R44.3 Acute metabolic encephalopathy G93.41 Dysphagia R13.10 Hypokalemia E87.6 End stage renal disease on dialysis N18.6; Z99.2 Metastatic lung carcinoma C78.00 Laterality: unspecified laterality HTN (hypertension) I10 CAD (coronary artery disease) I25.10 Brain metastasis C79.31 DVT prophylaxis Z29.9 UTI (urinary tract infection) N39.0 Abnormal urinary tract, radiological R93.49 Iliac artery stenosis, right I77.1 Pneumonia J18.9 Pancytopenia D61.818 Pulmonary edema J81.1 (6) Metastatic lung carcinoma Laterality: unspecified laterality Qualified Code(s): C78.00 - Secondary malignant neoplasm of unspecified lung
--- NOTE | 2022-11-06 07:14 | Hematology/Oncology Prog Note ---
Date of Service November 06, 2022 Assessment & Plan (1) Adenocarcinoma, lung: (2) End stage renal disease on dialysis: (3) UTI (urinary tract infection): Plan I had an extensive discussion today with patient, his daughter and sister. Discussed overall poor prognosis of lung cancer also showed patient's daughter recent CT imaging findings. At this time, since he is feeling better he is considering continuing with systemic therapy. He appears pretty weak and has significant painful mouth sores and as such would benefit from delaying treatment by at least 1 week as well as dose reduction if he decides to continue with systemic therapy. Patient and daughter agreed with this plan. Recommend continuing with Magic mouthwash for mouth ulcers Admission and Anticipated Discharge Date Admission Date: November 01, 2022 Subjective Met with patient, daughter and sister at bedside. His mental status appears improved. Complaining of pain mouth ulcers/sores which is better with Magic mouthwash. He is undecided regarding whether he would want to discontinue systemic therapy or not Results & Data Vital Signs (Past 12 Hours) Vital Signs Temp Pulse Pulse Resp BP Pulse Ox O2 Del Method 11/06/22 02:53 36.4 C L 61 16 149/65 H 97 Nasal Cannula 11/05/22 22:29 63 11/05/22 22:46 36.3 C L 64 18 144/50 H 97 Nasal Cannula 11/05/22 23:04 Nasal Cannula 11/05/22 20:22 36.9 C 74 18 129/64 97 Nasal Cannula O2 Flow Rate 11/06/22 02:53 2 11/05/22 22:29 11/05/22 22:46 2 11/05/22 23:04 2 11/05/22 20:22 2
[2022-11-06 07:46] LABS: Hematocrit (blood only) 32.4 % (42.0-52.0); Hemoglobin 10.8 g/dl (14.0-18.0); Mean Corpuscular Hemoglobin 32.1 pg (25.0-34.0); Mean Corpuscular Hgb Conc 33.3 g/dL (32.0-36.0); Mean Corpuscular Volume 96.4 fL (80.0-100.0); Mean Platelet Volume 10.7 fL (9.4-12.4); Platelet Count 87 K/uL (130-400); RDW Coefficient of Variation 14.7 % (11.5-14.5); Red Blood Count 3.36 M/uL (4.70-6.10); White Blood Count 7.45 K/ul (4.8-10.8)
[2022-11-06 08:06] LABS: BUN Creatinine Ratio 5.2 (10-20); Calcium 8.6 mg/dl (8.6-10.3); Creatinine Clr Calc Pharmacy 12.4 ml/min; Est GFR (African American) 14.1 ml/min; Est GFR (Non-African American) 12.1 ml/min; Potassium 3.8 mmol/L (3.5-5.1)
--- NOTE | 2022-11-06 08:34 | Nephrology Progress Note ---
Date of Service November 06, 2022 Assessment & Plan (1) End stage renal disease on dialysis: Plan: * Patient dialyzes MWF at [facility] dialysis unit. Primary Windows Migration Technician is Dr. Kothari * Volume status and electrolyte balance are acceptable. No acute indication for HD today. Will plan next HD for am * Monitor PRP * Renal diet (2) Anemia: Plan: * Transfused 2U PRBC 11/02/22 * Hgb stable at 10.8 this morning (3) Adenocarcinoma, lung: Plan: * 11/02/22 Chest/Abd CT - multifocal metastatic disease throughout both lungs with evidence of lymphangitic carcinomatosis. This has significantly progressed since 07/24 study * Patient hopes to return home. He wishes to continue w/ outpatient chemotherapy and HD (4) Confusion: Plan: * Improved * CXR w/ CHF at time of admission. Significantly improved following UF on HD. SaO2 now 95% on O2 at 2L/min NC * Urine culture positive for Enterococcus sensitive to PCN and Quinolones. Now on oral Amoxicillin Admission and Anticipated Discharge Date Admission Date: November 01, 2022 Subjective Mr. Zhong was evaluated in his hospital room this morning. He reports weakness and voices no other medical concerns Review of Systems Constitutional: no fever Eyes: no worsening vision Ear, Nose, Mouth, Throat: no problem reported Respiratory: no problem reported Cardiovascular: no chest pain Gastrointestinal: no abdominal pain, no vomiting and no diarrhea/loose stools Genitourinary: no dysuria or no hematuria Integumentary: no rash Physical Exam Constitutional: not in distress Eyes: PERRL, conjunctivae normal, anicteric sclerae ENMT: external ear and nose normal, oropharynx normal Neck: trachea midline, no thyromegaly Respiratory: Auscultation: lungs clear to auscultation bilaterally and + wheezes Cardiovascular: RRR, no murmur, no edema Gastrointestinal (Abdomen): Inspection/Auscultation: normal bowel sounds; abdomen not distended Percussion/Palpation: abdomen soft; abdomen nontender Musculoskeletal: Extremities: no cyanosis Skin: normal turgor Neurologic: Speech / Cognition: normal speech and normal cognition (oriented to self, place, month this morning) Results & Data Vital Signs (Past 12 Hours) Vital Signs Temp Pulse Pulse Resp BP Pulse Ox O2 Del Method 11/06/22 07:29 36.5 C 62 18 137/61 96 Room Air 11/06/22 07:15 57 L 11/06/22 02:53 36.4 C L 61 16 149/65 H 97 Nasal Cannula 11/05/22 22:29 63 11/05/22 22:46 36.3 C L 64 18 144/50 H 97 Nasal Cannula 11/05/22 23:04 Nasal Cannula O2 Flow Rate 11/06/22 07:29 2 11/06/22 07:15 11/06/22 02:53 2 11/05/22 22:29 11/05/22 22:46 2 11/05/22 23:04 2 Laboratory Results Laboratory Tests 11/06/22 11/06/22 07:18 07:18 WBC 7.45 Hgb 10.8 L Hct 32.4 L Plt Count 87 L Sodium 140 Potassium 3.8 Chloride 104 Carbon Dioxide 27 BUN 23 Creatinine 4.40 H D Glucose 76 PG Care Time/CCT Total # of Minutes Spent Total Time Spent with Patient: Total time spent is greater than 50% in coordination of care (as documented) at patient's floor/unit and/or counseling patient: Coding Level of Care Code 13471 SUB INP/OBS CARE 3/50MIN Diagnoses End stage renal disease on dialysis N18.6; Z99.2 Anemia D64.9 Adenocarcinoma, lung C34.90 Confusion R41.0
[2022-11-06] MEDS: NYSTATIN 500,000 UNIT TAB PO SCH ×4 (09:42→22:18)
[2022-11-06] MEDS: carvediloL 3.125 MG TAB PO SCH ×2 (09:42→22:20)
[2022-11-06] MEDS: SEVELAMER HCL 800 MG TABLET PO SCH ×3 (09:43→17:05)
[2022-11-06] MEDS: VITAMIN B COMPLEX TAB PO SCH (09:43)
[2022-11-06] MEDS: FIRST - Mouthwash BLM 119 ML PO SCH ×4 (09:44→22:19)
[2022-11-06] MEDS: PANTOprazole 40 MG TAB PO SCH ×2 (09:45→22:17)
[2022-11-06] MEDS: SERTRALINE HCL 50 MG TABLET PO SCH (09:46)
[2022-11-06] MEDS: FLUTICASONE FUROATE 100MCG 14 PUFFS/INHALER INH SCH (09:47)
[2022-11-06] MEDS: HEPARIN SOD 5,000 UNIT/0.5 ML VIAL SQ SCH ×2 (09:48→22:16)
--- NOTE | 2022-11-06 17:00 | XRay Report ---
XR chest 2V PA/lateral CLINICAL HISTORY: recent b/l infiltrates, interval change. Lung cancer. COMPARISON STUDY: Chest CT November 02, 2022. Chest radiograph November 03, 2022. FINDINGS: There is no pneumothorax. Small bilateral pleural effusions are unchanged. There are median sternotomy wires. Cardiomegaly is again noted. Diffuse reticulonodular interstitial thickening persi sts. No consolidation to suggest pneumonia. IMPRESSION: 1. Persistent diffuse reticulonodular interstitial thickening suggestive of lymphangitic carcinomatos is. 2. No significant change in small bilateral pleural effusions. 3. No consolidation to suggest pneumonia. ACT 112: Negative or not required by law. Electronically signed by: Yuriy Bobo M.D. 11/06/2022 4:58 PM
[2022-11-06] MEDS: guaiFENesin SUGAR FREE 100 MG/5 ML UDC PO SCH ×2 (17:05→22:18)
--- NOTE | 2022-11-06 20:35 | Hospitalist Progress Note ---
Date of Service November 06, 2022 Assessment & Plan (1) Hallucinations: Plan: acute metabolic encephalopathy likely 2nd to UTI +/- pneumonia - resolved mental status near baseline per daughter did not find other factors MRI brain with partial treatment response to XRT - no worsening of mets ammonia wnl VBG without hypercarbia (2) Acute metabolic encephalopathy: Plan: see above resolved (3) Dysphagia: Plan: oral cavity findings could be viral in etiology (coxsackie, adenovirus, etc) vs mucositis vs candidal vs combination of factors improved cont nystatin 5cc q6h cont magic mouthwash q6h swish/spit he is swallowing more easily & comfortably (4) Hypokalemia: Plan: resolved (5) End stage renal disease on dialysis: Plan: Appreciate [facility] Nephrology consultation and assistance with HD needs Cont phosphate binders etc Volume status looks good today (6) Metastatic lung carcinoma: Plan: mets to bone, brain, liver, lymph nodes dx [address] Kasie Mcneil recently started on docetaxel on 10/21/[address] Mcneil prior treatment - carboplatin/paclitaxel/pembrolizumab 03/11/2022 completed 6 cycles of such 06/2022 then continued on maintenance pembrolizumab brain mets discovered 09/23; Rx whole brain radiation with completion of such 10/2022 brain MRI this admission shows partial treatment response to XRT abbott CT of chest/abd/pelvis shows worsening metastatic disease throughout both lungs and progressive liver mets there is also worsening bone mets Dr Mcneil has been consulted and as patient wants ongoing chemo will cont such post-d/c cxr today ordered due to ongoing cough -- unchanged lymphangitic spread (7) HTN (hypertension): Plan: controlled stable cont coreg cont doxazosin (8) CAD (coronary artery disease): Plan: continue aspirin continue coreg no recent ischemic symptoms (9) Brain metastasis: Plan: discovered this spring s/p whole brain radiation with completion of such in 10/2022 MRI Brain with partial treatment response to recent XRT (10) DVT prophylaxis: Plan: HIGH risk of DVT/VTE heparin 5000 BID platelets acceptable (11) UTI (urinary tract infection): Plan: 2nd pansens enterococcus d/c dapto change to amox x 3 days then stop Rx (12) Abnormal urinary tract, radiological: Plan: right-sided distal right ureter is thickened could be 2nd to UTI can't rule out urethelial lesion treat for UTI hold on w/u for now given the advanced lung ca (13) Iliac artery stenosis, right: Plan: noted on CT of abd/pelvis continue aspirin no limb ischemia or symptoms at this time (14) Pneumonia: Plan: likely NOT present cxr with stable findings findings on cxr/CT likely all cancer (15) Pancytopenia: Plan: likely chemotherapy induced anemia also 2nd to ESRD Hb 6.9 at admission s/p 2 units PRBCs CBC stable today platelets improved/stable in the 80s today (16) Pulmonary edema: Plan: dialysis for volume control resolved Plan 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 Admission and Anticipated Discharge Date Admission Date: November 01, 2022 Subjective patient sitting in chair upon arrival daughter at bedside pt's sister at bedside pt with ongoing cough - thick white mucous denies dyspnea or ROSE eating ok but he often coughs, has the mucous, and this causes some vomiting no dysphagia oral ulcers slowly improving he c/o b/l foot numbness and pain tried gabapentin in the past - did not tolerate such for neuropathic pain plan is home with HH services and attempts to cont chemo for cancer Review of Systems Review of Systems: gen - no fevers cv - no chest pain pulm - no dyspnea GI - no pain; chronic N/V Physical Exam Physical Exam: gen - NAD, pleasant; coughing; mental status at baseline per daughter; got up out of chair unassisted and did well mouth - erythematous sores/ulcers posterior throat & buccal mucosa - improved from my last exam neck - no JVD heart - RRR, s1 s2, no murmur lungs - b/l basilar rales and wheezes b/l abd - soft NT ND BS+ ext - no edema, pulses 2+ b/l neuro - tremors much better in comparison to last visit Results & Data Results & Data Vital Signs (Past 12 Hours) Vital Signs Temp Pulse Resp BP Pulse Ox O2 Del Method O2 Flow Rate 11/06/22 15:47 36.3 C L 62 16 132/63 95 Room Air 11/06/22 11:38 36.6 C 63 18 134/68 99 Nasal Cannula 2 11/06/22 10:31 Nasal Cannula 2 Laboratory Results Laboratory Results - last 24 hr 11/06/22 11/06/22 07:18 07:18 WBC 7.45 RBC 3.36 L Hgb 10.8 L Hct 32.4 L MCV 96.4 MCH 32.1 MCHC 33.3 RDW Std Deviation 52.0 H RDW Coeff of [place] 14.7 H Plt Count 87 L MPV 10.7 Sodium 140 Potassium 3.8 Chloride 104 Carbon Dioxide 27 Anion Gap 9 BUN 23 Creatinine 4.40 H D Est Cr Clr Drug Dosing 12.4 Est GFR ( Amer) 14.1 Est GFR (Non-Af Amer) 12.1 BUN/Creatinine Ratio 5.2 L Glucose 76 Calcium 8.6 PG Care Time/CCT Total # of Minutes Spent Total Time Spent with Patient: Total time spent is greater than 50% in coordination of care (as documented) at patient's floor/unit and/or counseling patient: Coding Level of Care Code 26924 SUB INP/OBS CARE 3/50MIN Diagnoses Hallucinations R44.3 Acute metabolic encephalopathy G93.41 Dysphagia R13.10 Hypokalemia E87.6 End stage renal disease on dialysis N18.6; Z99.2 Metastatic lung carcinoma C78.00 Laterality: unspecified laterality HTN (hypertension) I10 CAD (coronary artery disease) I25.10 Brain metastasis C79.31 DVT prophylaxis Z29.9 UTI (urinary tract infection) N39.0 Abnormal urinary tract, radiological R93.49 Iliac artery stenosis, right I77.1 Pneumonia J18.9 Pancytopenia D61.818 Pulmonary edema J81.1 (6) Metastatic lung carcinoma Laterality: unspecified laterality Qualified Code(s): C78.00 - Secondary malignant neoplasm of unspecified lung
[2022-11-06] MEDS: ASPIRIN 81 MG ECTAB PO SCH (22:17)
[2022-11-06] MEDS ORDERED: MELATONIN 3 MG TAB PO PRN (22:17)
[2022-11-06] MEDS: DOXAZosin MESYLATE TAB 2 MG TAB PO SCH (22:18)
[2022-11-06] MEDS: AMOXICILLIN 250 MG CAP PO SCH (22:18)
[2022-11-07] MEDS ORDERED: SODIUM CHLORIDE 0.9% 1000ML 1,000 ML IV PRN (07:00)
[2022-11-07] MEDS ORDERED: HEPARIN SOD (PORCINE) 1000 UNIT/ML IV ONE (07:00)
[2022-11-07] MEDS: carvediloL 3.125 MG TAB PO SCH ×2 (08:30→20:17)
[2022-11-07] MEDS: VITAMIN B COMPLEX TAB PO SCH (08:30)
[2022-11-07] MEDS: SEVELAMER HCL 800 MG TABLET PO SCH ×3 (08:31→19:16)
[2022-11-07] MEDS: FIRST - Mouthwash BLM 119 ML PO SCH ×4 (08:31→20:18)
[2022-11-07] MEDS: FLUTICASONE FUROATE 100MCG 14 PUFFS/INHALER INH SCH (08:31)
[2022-11-07] MEDS: NYSTATIN 500,000 UNIT TAB PO SCH ×4 (08:32→20:18)
[2022-11-07] MEDS: AMOXICILLIN 250 MG CAP PO SCH ×2 (08:32→20:18)
[2022-11-07] MEDS: guaiFENesin SUGAR FREE 100 MG/5 ML UDC PO SCH ×4 (08:33→23:13)
[2022-11-07] MEDS: HEPARIN SOD 5,000 UNIT/0.5 ML VIAL SQ SCH ×2 (08:34→20:18)
[2022-11-07] MEDS: PANTOprazole 40 MG TAB PO SCH ×2 (08:35→20:17)
--- NOTE | 2022-11-07 08:46 | Nephrology Progress Note ---
Date of Service November 07, 2022 Assessment & Plan (1) End stage renal disease on dialysis: Plan: * Patient dialyzes MWF at [facility] dialysis unit. Primary Linen Grader is Dr. Kothari * Will provide HD today. Orders have been entered into EMR and HD RN notified * Monitor PRP * Renal diet (2) Anemia: Plan: * Transfused 2U PRBC 11/02/22 * Hgb stable at 10.8 yesterday (3) Adenocarcinoma, lung: Plan: * 11/02/22 Chest/Abd CT - multifocal metastatic disease throughout both lungs with evidence of lymphangitic carcinomatosis. This has significantly progressed since 07/24 study * Patient hopes to return home. He wishes to continue w/ outpatient chemotherapy and HD (4) Confusion: Plan: * Remains confused * CXR w/ CHF at time of admission. Significantly improved following UF on HD. SaO2 now 95% on O2 at 2L/min NC * Urine culture positive for Enterococcus sensitive to PCN and Quinolones. Now on oral Amoxicillin Admission and Anticipated Discharge Date Admission Date: November 01, 2022 Subjective Mr. Zhong was seen in his hospital room this morning. He was confused and told me that he spent last evening in the parking lot with visiting with his sister. Review of Systems Constitutional: no fever Eyes: no worsening vision Ear, Nose, Mouth, Throat: no problem reported Respiratory: no problem reported Cardiovascular: no chest pain Gastrointestinal: no abdominal pain, no vomiting and no diarrhea/loose stools Genitourinary: no dysuria or no hematuria Integumentary: no rash Physical Exam Constitutional: not in distress Eyes: PERRL, conjunctivae normal, anicteric sclerae ENMT: external ear and nose normal, oropharynx normal Neck: trachea midline, no thyromegaly Respiratory: Auscultation: lungs clear to auscultation bilaterally and + wheezes Cardiovascular: RRR, no murmur, no edema Gastrointestinal (Abdomen): Inspection/Auscultation: normal bowel sounds; abdomen not distended Percussion/Palpation: abdomen soft; abdomen nontender Musculoskeletal: Extremities: no cyanosis Skin: normal turgor Neurologic: Speech / Cognition: normal speech and normal cognition (oriented to self, place, month this morning) Results & Data Vital Signs (Past 12 Hours) Vital Signs Temp Pulse Resp BP Pulse Ox O2 Del Method 11/07/22 07:43 Room Air 11/07/22 07:18 36.7 C 63 16 149/68 H 94 Room Air 11/07/22 05:42 36.7 C 63 18 154/74 H 95 Room Air 11/06/22 21:00 Room Air 11/06/22 22:51 36.6 C 11/06/22 22:23 59 L 20 137/54 L 97 Room Air Laboratory Results Laboratory Tests 11/06/22 11/06/22 07:18 07:18 WBC 7.45 Hgb 10.8 L Hct 32.4 L Plt Count 87 L Sodium 140 Potassium 3.8 Chloride 104 Carbon Dioxide 27 BUN 23 Creatinine 4.40 H D Glucose 76 Coding Level of Care Code 16194 SUB INP/OBS CARE 3/50MIN Diagnoses End stage renal disease on dialysis N18.6; Z99.2 Anemia D64.9 Adenocarcinoma, lung C34.90 Confusion R41.0
[2022-11-07] MEDS: HEPARIN SOD (PORCINE) 1000 UNIT/ML IV SCH ×2 (10:16→16:05)
[2022-11-07] MEDS: SERTRALINE HCL 50 MG TABLET PO SCH (13:34)
[2022-11-07] MEDS: CALCITRIOL 0.25 MCG CAPSULE PO SCH (13:34)
[2022-11-07] MEDS ORDERED: predniSONE 20 MG TAB PO STA (18:30)
[2022-11-07] MEDS: ALBUT/IPRATROP 3MG/0.5MG NEB 3 ML VIAL NEB SCH (19:49)
[2022-11-07] MEDS: DOXAZosin MESYLATE TAB 2 MG TAB PO SCH (20:17)
[2022-11-07] MEDS: ASPIRIN 81 MG ECTAB PO SCH (20:18)
--- NOTE | 2022-11-07 21:08 | Hospitalist Progress Note ---
Date of Service November 07, 2022 Assessment & Plan (1) Wheezing: Plan: has had significant tobacco use for many years in February 2022 when I first met Mr Zhong he had wheezing on lung exam then as well to my knowledge he does not carry a formal COPD diagnosis but I suspect he indeed has such will treat as "COPD" exacerbation since wheezing is worse today and his cough is worse start prednisone 40mg daily; plan 7-10 days of such start scheduled duonebs cont guaifenesin 100mg qid would cont the pulmicort he was previously taking at home BID would send home on prednisone taper consider prescribing neb machine and providing duonebs for home use cont expectorants of note - pt's cxr yesterday was relatively unchanged from prior cxr he has extensive b/l infiltrates highly suggestive of lymphangitic spread of his lung ca much of the cough/adventitious lung sounds are also likely from the lymphangitic spread if any pulmonary edema he remains on hemodialysis could consider a sputum culture if sputum production continues or worsens Pt would benefit from a hospital bed for home use. His cough & pulmonary symptoms are significantly worse when he is flat. Only a hospital bed would allow him to sleep with the head elevated and thus provide reprieve of his pulmonary symptoms. Ordinary bed would not provide the necessary angle to achieve maximal relief & comfort. Will d/w social work before hospital d/c. (2) Hallucinations: Plan: acute metabolic encephalopathy likely 2nd to UTI +/- pneumonia - resolved mental status near or at baseline per daughter did not find other factors MRI brain with partial treatment response to XRT - no worsening of mets ammonia wnl VBG without hypercarbia (3) Acute metabolic encephalopathy: Plan: see above resolved (4) Dysphagia: Plan: oral cavity findings could be viral in etiology (coxsackie, adenovirus, etc) vs mucositis vs candidal vs combination of factors improved cont nystatin 5cc q6h cont magic mouthwash q6h swish/spit he is swallowing more easily & comfortably oral lesions ARE resolving (5) Hypokalemia: Plan: resolved (6) End stage renal disease on dialysis: Plan: Appreciate [facility] Nephrology consultation and assistance with HD needs Cont phosphate binders etc Volume status looks good today Cont HD M/W/F Dialyzes in [place] (7) Metastatic lung carcinoma: Plan: mets to bone, brain, liver, lymph nodes dx [address] Kasie Mcneil recently started on docetaxel on 10/21/[address] Mcneil prior treatment - carboplatin/paclitaxel/pembrolizumab 03/11/2022 completed 6 cycles of such 06/2022 then continued on maintenance pembrolizumab brain mets discovered 09/23; Rx whole brain radiation with completion of such 10/2022 brain MRI this admission shows partial treatment response to XRT abbott CT of chest/abd/pelvis shows worsening metastatic disease throughout both lungs and progressive liver mets there is lymphangitic spread in both lungs there is also worsening bone mets Dr Mcneil consulted --patient wants ongoing chemo will cont such post-d/c patient does understand that things are worsening rapidly despite treatment palliative care did meet with patient while here daughter to reach back out to Shannan Jones this coming Thursday cxr 11/06/22 -- unchanged, extensive b/l infiltrates (8) HTN (hypertension): Plan: controlled stable cont coreg cont doxazosin (9) CAD (coronary artery disease): Plan: continue aspirin continue coreg no recent ischemic symptoms (10) Brain metastasis: Plan: discovered this spring s/p whole brain radiation with completion of such in 10/2022 MRI Brain with partial treatment response to recent XRT (11) DVT prophylaxis: Plan: HIGH risk of DVT/VTE heparin 5000 BID platelets acceptable (80s on 11/06/22) (12) UTI (urinary tract infection): Plan: 2nd pansens enterococcus d/c dapto change to amox x 3 days then stop Rx last day of Rx 11/08/22 (13) Abnormal urinary tract, radiological: Plan: right-sided distal right ureter is thickened could be 2nd to UTI can't rule out urethelial lesion treat for UTI hold on w/u for now given the advanced lung ca (14) Iliac artery stenosis, right: Plan: noted on CT of abd/pelvis continue aspirin no limb ischemia or symptoms at this time (15) Pneumonia: Plan: likely NOT present although can't rule out definitively cxr with stable findings findings on cxr/CT likely all cancer but, if any worsening pulmonary symptoms or change in sputum color/production, low threshold for levaquin or similar did receive ~3 days of cefepime early in the stay (16) Pancytopenia: Plan: likely chemotherapy induced anemia also 2nd to ESRD Hb 6.9 at admission s/p 2 units PRBCs most recent CBC stable cbc in am (17) Pulmonary edema: Plan: dialysis for volume control resolved (18) 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 did not tolerate gabapentin would not use lyrica moving forward due to concern of altered MS cymbalta not recommended with CrCl <30 unfortunately elavil - would not use given its side effect profile would use oxycodone prn or switch to roxanol prn Plan daughter updated at bedside 2-step at d/c needed discharge on 11/08/22 will hinge on how he is feeling pulmonary-saenz see #1 above re: hospital bed again daughter to reach back out to Dr Shannan Jones this Thursday suspect he will start transitioning to hospice sooner rather than later but, for now, tentative plan is for chemo after discharge Admission and Anticipated Discharge Date Admission Date: November 01, 2022 Subjective saw patient in the afternoon following his HD session he was very tired he was laying low in the bed and coughing frequently he said "I would love to go home" pt's sister and pt's daughter were at bedside we talked briefly about a hospital bed for home for 2 reasons - first, his bedroom is upstairs and they are uncertain if he can get up those steps; they would set up the bed on first floor; second, he needs the head of the bed elevated at all times due to his cough and breathing; ideally he is at 45 degrees or more at all times as a normal bed cannot provide the positioning to keep his breathing comfortable daughter interested in bed she also reported she would be contacting Dr Jones on Thursday to discuss during the visit patient asked "what do you think about morphine?" he was asking about this for his chronic, painful neuropathy of his feet daughter reports that for several years he has been taking oxycodone 10's prn for back pain, most times taking it at least 2-3 times a day I reviewed his chart and he has not been receiving such here - held at admission due to confusion?? we had lengthy discussion about how oxy or morphine can provide significant benefit for his pain in the setting of metastatic lung ca - bone pain, dyspnea, neuropathic pain, etc Review of Systems Review of Systems: gen - eating fair; very tired today; no fevers cv - no cp pulm - mild ROSE, coughing, white sputum continues, wheezing GI - denies pain neuro - ongoing neuropathic pain of feet Physical Exam Physical Exam: gen - tired appearing; coughed the entire 15 min encounter, worse with laying flat; NAD otherwise mouth - erythematous sores/ulcers posterior throat & buccal mucosa - improving; healing tissue now covering the lesions; no thrush neck - no JVD heart - RRR, s1 s2, no murmur lungs - extensive wheezing all lung segments today; b/l basilar rales abd - soft NT ND BS+ ext - no edema, pulses 2+ b/l psych - a/o x 3 Results & Data Results & Data Vital Signs (Past 12 Hours) Vital Signs Temp Pulse Pulse Pulse Resp BP BP 11/07/22 21:03 36.8 C 68 20 133/60 11/07/22 19:15 11/07/22 19:53 97 H 20 11/07/22 14:00 36.5 C 71 66 18 127/51 L 11/07/22 13:10 36.6 C 68 123/56 L 11/07/22 13:00 68 123/56 L 11/07/22 12:54 76 117/56 L 11/07/22 12:30 74 95/53 L 11/07/22 12:00 75 108/54 L 11/07/22 11:30 75 112/56 L 11/07/22 11:09 71 121/59 L 11/07/22 10:30 69 134/72 11/07/22 10:00 68 132/89 11/07/22 09:30 59 L 129/63 11/07/22 09:20 57 L 132/65 Pulse Ox O2 Del Method 11/07/22 21:03 95 Room Air 11/07/22 19:15 Room Air 11/07/22 19:53 91 Room Air 11/07/22 14:00 95 Room Air 11/07/22 13:10 11/07/22 13:00 11/07/22 12:54 11/07/22 12:30 11/07/22 12:00 11/07/22 11:30 11/07/22 11:09 11/07/22 10:30 11/07/22 10:00 11/07/22 09:30 11/07/22 09:20 Laboratory Results Laboratory Results - last 24 hr 11/03/22 07:18 A. phagocytophilum DNA Negative PG Care Time/CCT Total # of Minutes Spent Total Time Spent with Patient: Total time spent is greater than 50% in coordination of care (as documented) at patient's floor/unit and/or counseling patient: Coding Level of Care Code 12163 SUB INP/OBS CARE 3/50MIN Diagnoses Wheezing R06.2 Hallucinations R44.3 Acute metabolic encephalopathy G93.41 Dysphagia R13.10 Hypokalemia E87.6 End stage renal disease on dialysis N18.6; Z99.2 Metastatic lung carcinoma C78.00 Laterality: unspecified laterality HTN (hypertension) I10 CAD (coronary artery disease) I25.10 Brain metastasis C79.31 DVT prophylaxis Z29.9 UTI (urinary tract infection) N39.0 Abnormal urinary tract, radiological R93.49 Iliac artery stenosis, right I77.1 Pneumonia J18.9 Pancytopenia D61.818 Pulmonary edema J81.1 Neuropathy of both feet G57.93 (7) Metastatic lung carcinoma Laterality: unspecified laterality Qualified Code(s): C78.00 - Secondary malignant neoplasm of unspecified lung
[2022-11-08] MEDS: guaiFENesin SUGAR FREE 100 MG/5 ML UDC PO SCH ×3 (01:21→13:39)
[2022-11-08] MEDS: ACETAMINOPHEN 325 MG TAB PO PRN (02:11)
[2022-11-08] MEDS: ALBUT/IPRATROP 3MG/0.5MG NEB 3 ML VIAL NEB SCH ×3 (07:20→14:32)
[2022-11-08 08:12] LABS: Hematocrit (blood only) 36.7 % (42.0-52.0); Hemoglobin 12.4 g/dl (14.0-18.0); Mean Corpuscular Hemoglobin 32.3 pg (25.0-34.0); Mean Corpuscular Hgb Conc 33.8 g/dL (32.0-36.0); Mean Corpuscular Volume 95.6 fL (80.0-100.0); Mean Platelet Volume 10.9 fL (9.4-12.4); Platelet Count 133 K/uL (130-400); RDW Coefficient of Variation 14.7 % (11.5-14.5); RDW Standard Deviation 50.3 fL (36.4-46.3); Red Blood Count 3.84 M/uL (4.70-6.10); White Blood Count 9.61 K/ul (4.8-10.8)
[2022-11-08] MEDS: carvediloL 3.125 MG TAB PO SCH (08:39)
[2022-11-08] MEDS: AMOXICILLIN 250 MG CAP PO SCH (08:39)
[2022-11-08] MEDS: FLUTICASONE FUROATE 100MCG 14 PUFFS/INHALER INH SCH (08:39)
[2022-11-08] MEDS: SEVELAMER HCL 800 MG TABLET PO SCH (08:40)
[2022-11-08] MEDS: SERTRALINE HCL 50 MG TABLET PO SCH (08:40)
[2022-11-08] MEDS: HEPARIN SOD 5,000 UNIT/0.5 ML VIAL SQ SCH (08:40)
[2022-11-08] MEDS: PANTOprazole 40 MG TAB PO SCH (08:40)
[2022-11-08] MEDS: VITAMIN B COMPLEX TAB PO SCH (08:41)
[2022-11-08] MEDS: FIRST - Mouthwash BLM 119 ML PO SCH ×2 (08:47→13:39)
[2022-11-08 08:50] LABS: BUN Creatinine Ratio 6.3 (10-20); Calcium 9.3 mg/dl (8.6-10.3); Creatinine Clr Calc Pharmacy 11.9 ml/min; Est GFR (African American) 13.4 ml/min; Est GFR (Non-African American) 11.6 ml/min; Potassium 4.9 mmol/L (3.5-5.1)
[2022-11-08] MEDS ORDERED: NYSTATIN SUSP 500,000 U/5 ML UDC PO SCH (09:00)
[2022-11-08] MEDS ORDERED: oxyCODONE HCL IR 5 MG TAB (IMMEDIATE RELEASE) PO PRN (09:31)
[2022-11-08] MEDS ORDERED: predniSONE 20 MG TAB PO SCH (09:45)
[2022-11-08] MEDS: NYSTATIN 500,000 UNIT TAB PO SCH (09:58)
--- NOTE | 2022-11-08 10:45 | Nephrology Progress Note ---
Date of Service November 08, 2022 Assessment & Plan (1) End stage renal disease on dialysis: (2) Anemia due to chronic kidney disease: (3) HTN (hypertension): (4) Secondary hyperparathyroidism of renal origin: (5) Metastatic lung carcinoma: (6) UTI (urinary tract infection): Plan ESRD, on hemodialysis, history of metastatic lung cancer with recent progressive metastatic since the disease in abdomen and brain, on chemotherapy and plan to continue as an outpatient after conversation with palliative care. Overall feeling better, confusion and hallucination resolved and mental status back to his baseline. Volume status acceptable. Blood pressure well controlled. Had dialysis yesterday, uneventful. Really wants to go home, his main desire is to spend time with his family. -- as clinically he seems close to his baseline, it would be probably best for him to go home and continue outpatient chemotherapy as possible. -- continue on hemodialysis Thursday, Thursday, Thursday. -- Discontinue phosphate binder as phosphate has been normal, if p.o. intake continues to improve and phosphate goes up, can be resumed as an outpatient, will be monitored at dialysis facility Will follow. Admission and Anticipated Discharge Date Admission Date: November 01, 2022 Almaz Coughlin was seen in his room this morning, he denied any specific symptoms and repeatedly expressed his desire to go home. the had dialysis yesterday, blood pressure, volume status, electrolyte acceptable. Review of Systems Review of Systems: The detailed review of system was otherwise unremarkable. Physical Exam Constitutional: WD/WN, vitals as above + ill appearing and comfortable; no acute distress Eyes: + anicteric sclerae Neck: normal visual inspection Respiratory: no respiratory distress Auscultation: lungs clear to auscultation bilaterally Cardiovascular: RRR, no murmur, no edema Skin: no rashes, warm and dry Neurologic: no focal motor deficits and not confused Psychiatric: Orientation: alert and oriented x 3 Results & Data Vital Signs (Past 12 Hours) Vital Signs Temp Pulse Pulse Resp BP Pulse Ox O2 Del Method 11/08/22 07:50 Room Air 11/08/22 07:20 66 18 96 Room Air 11/08/22 07:17 36.6 C 66 16 120/63 96 Room Air PG Care Time/CCT Total # of Minutes Spent Total Time Spent with Patient: Total time spent is greater than 50% in coordination of care (as documented) at patient's floor/unit and/or counseling patient: Coding Level of Care Code 65736 SUB INP/OBS CARE Diagnoses End stage renal disease on dialysis N18.6; Z99.2 Anemia due to chronic kidney disease N18.9; D63.1 HTN (hypertension) I10 Secondary hyperparathyroidism of renal origin N25.81 Metastatic lung carcinoma C78.00 Laterality: unspecified laterality UTI (urinary tract infection) N39.0 (5) Metastatic lung carcinoma Laterality: unspecified laterality Qualified Code(s): C78.00 - Secondary malignant neoplasm of unspecified lung
[2022-11-08] MEDS ORDERED: FIRST - Mouthwash BLM 119 ML PO SCH (15:00)
--- NOTE | 2022-11-08 15:19 | Discharge Summary ---
Date of Service November 08, 2022 Admission HPI Per Admitting Provider Jose is a 77 year old male with a H significant metastatic lung cancer to the brain and bone currently on Docetaxel and receiving whole brain radiation (follows with Dr. Mcneil), ESRD on HD MWF, CAD status post CABG x 1, Thoracic aortic aneurysm repair in 2008, and HTN who presented to the [facility] ED with his daughter on 11/01 for new onset hallucinations. In the ED vitals were stable. Labs were significant for stable pancytopenia, stable cr of 4.43, potassium of 3.1, procal of 0.52, and full respiratory biofire negative. CT of the head was read as "No acute infarct or intracranial hemorrhage identified.". Chest xray was read as "1. There are low lung volumes with coarse interstitial thickening. This has progressed. This may represent mild congestive change on the background of chronic interstitial lung disease. 2. Cardiomegaly with trace bilateral pleural effusions.". Prior to admission the patient was given 1L NSS. At the time of the exam the patient was lying in bed in no acute distress with his Daughter/POA sitting bedside. She states that The patient had a full dialysis session yesterday. After the dialysis session the dialysis nurses were telling the daughter that the patient seemed "off his baseline" cognitively. The daughter confirmed that he had been more fatigued than normal over the past week. Over the past 24 hours the patient has been having visual hallucinations, talking to people who are not there, seeing ants that are not actually there, and being paranoid that his daughter is going to . His daughter denies the patient having recent fever, and the patient denies recent chest pain, SOB, abd pain, nausea, vomiting, diarrhea, dysuria, hematuria, melena, LE swelling, and recent trauma. The patient does still make small amounts of urine even while on HD. Of note, the patient has been having increased mouth and throat pain. Because of this pain the patient has not been eating solids consistently. The patient's daughter confirms that he uses prn oxycodone for cancer-related pain, his last dose was last night around 9 pm. She confirms that he is only on dexamethasone on days before and after chemotherapy. His daughter also mentions that the patient has been having ongoing issues with nausea and vomiting since having chemoctherapy. They deny any changes in his chronic symptoms recently. We had a long discussion regarding code status, at this time the patient and his daughter want him to be a full code. If he would end up significantly deteriorating then they would consider transition to comfort or hospice. Principal Diagnosis metastatic lung cancer Discharge Exam Patient sitting in chair Patient is eating his dinner. Patient is comfortable, in no distress. Abdomen is soft. Discharge Data Allergies Allergy/AdvReac Type Severity Reaction Status Date / Time No Known Allergies Allergy Verified 11/01/22 15:54 Consultations 11/01/22 15:18 ED Decision to Admit Stat 11/01/22 17:33 Consult Oncology Routine 11/02/22 10:28 Consult Nephrology Routine 11/03/22 13:32 Consult Palliative Care Routine Ordered Studies 11/01/22 13:07 CT head/brain wo con Stat 11/02/22 08:00 MRI Brain [MR brain wo/w con] Routine 11/02/22 09:00 CT abd pelvis IV con only Routine 11/02/22 09:41 CT chest diagnostic w con Routine Hospital Course (1) Wheezing: has had significant tobacco use for many years in February 2022 when I first met Mr Zhong he had wheezing on lung exam then as well to my knowledge he does not carry a formal COPD diagnosis but I suspect he indeed has such will treat as "COPD" exacerbation since wheezing is worse today and his cough is worse start prednisone 40mg daily; plan 7-10 days of such start scheduled duonebs cont guaifenesin 100mg qid cont the pulmicort he was previously taking at home BID send home on prednisone taper continue expectorants of note - pt's cxr was relatively unchanged from prior cxr he has extensive b/l infiltrates highly suggestive of lymphangitic spread of his lung ca much of the cough/adventitious lung sounds are also likely from the lymphangitic spread if any pulmonary edema he remains on hemodialysis Pt would benefit from a hospital bed for home use. His cough & pulmonary symptoms are significantly worse when he is flat. Only a hospital bed would allow him to sleep with the head elevated and thus provide reprieve of his pulmonary symptoms. Ordinary bed would not provide the necessary angle to achieve maximal relief & comfort. Will d/w social work before hospital d/c. (2) Hallucinations: acute metabolic encephalopathy likely 2nd to UTI +/- pneumonia - resolved mental status near or at baseline per daughter did not find other factors MRI brain with partial treatment response to XRT - no worsening of mets ammonia wnl VBG without hypercarbia (3) Acute metabolic encephalopathy: see above resolved (4) Dysphagia: oral cavity findings could be viral in etiology (coxsackie, adenovirus, etc) vs mucositis vs candidal vs combination of factors improved cont nystatin 5cc q6h cont magic mouthwash q6h swish/spit he is swallowing more easily & comfortably oral lesions ARE resolving (5) Hypokalemia: resolved (6) End stage renal disease on dialysis: Appreciate [facility] [place] Nephrology consultation and assistance with HD needs Cont phosphate binders etc Volume status looks good today Cont HD M/W/F [facility] in [place] (7) Metastatic lung carcinoma: mets to bone, brain, liver, lymph nodes dx [address] Kasie Mcneil recently started on docetaxel on 10/21/[address] Mcneil prior treatment - carboplatin/paclitaxel/pembrolizumab 03/11/2022 completed 6 cycles of such 06/2022 then continued on maintenance pembrolizumab brain mets discovered 09/23; Rx whole brain radiation with completion of such 10/2022 brain MRI this admission shows partial treatment response to XRT abbott CT of chest/abd/pelvis shows worsening metastatic disease throughout both lungs and progressive liver mets there is lymphangitic spread in both lungs there is also worsening bone mets Dr Mcneil consulted --patient wants ongoing chemo will cont such post-d/c patient does understand that things are worsening rapidly despite treatment palliative care did meet with patient while here daughter to reach back out to Shannan Jones this coming Thursday cxr 11/06/22 -- unchanged, extensive b/l infiltrates (8) HTN (hypertension): controlled stable cont coreg cont doxazosin (9) CAD (coronary artery disease): continue aspirin continue coreg no recent ischemic symptoms (10) Brain metastasis: discovered this spring s/p whole brain radiation with completion of such in 10/2022 MRI Brain with partial treatment response to recent XRT (11) DVT prophylaxis: HIGH risk of DVT/VTE heparin 5000 BID platelets acceptable (80s on 11/06/22) (12) UTI (urinary tract infection): 2nd pansens enterococcus d/c dapto change to amox x 3 days then stop Rx last day of Rx 11/08/22 (13) Abnormal urinary tract, radiological: right-sided distal right ureter is thickened could be 2nd to UTI can't rule out urethelial lesion treat for UTI hold on w/u for now given the advanced lung ca (14) Iliac artery stenosis, right: noted on CT of abd/pelvis continue aspirin no limb ischemia or symptoms at this time (15) Pneumonia: likely NOT present although can't rule out definitively cxr with stable findings findings on cxr/CT likely all cancer but, if any worsening pulmonary symptoms or change in sputum color/production, low threshold for levaquin or similar did receive ~3 days of cefepime early in the stay (16) Pancytopenia: likely chemotherapy induced anemia also 2nd to ESRD Hb 6.9 at admission s/p 2 units PRBCs most recent CBC stable (17) Pulmonary edema: dialysis for volume control resolved (18) 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 did not tolerate gabapentin would not use lyrica moving forward due to concern of altered MS cymbalta not recommended with CrCl <30 unfortunately elavil - would not use given its side effect profile Plan see #1 above re: hospital bed suspect he will start transitioning to hospice sooner rather than later but, for now, tentative plan is for chemo after discharge Total Time Total Time Spent Total Time Spent (In Minutes): 35 Discharge Plan Discharge Items Patient Disposition: Home - Home Health Services Reason For Visit: HALLUCINATIONS Discharge Diagnosis: hallucinations Activity: Resume your previous activity Non-emergency contact: Primary Care Provider Call non-emergency contact if: you have any medication questions Follow-up/Referrals: Abebe Ny MD [Primary Care Provider] - Diet: Regular Addtl Attending Provider Instructions: Recommend followup with Dr. Mcneil Recommend home health. Recommend continue to followup with Nephrology. Pending Studies at Discharge: No Stand-Alone Forms: My [employer], Smoking Cessation Medications and DC Order Prescriptions: New nystatin 100,000 unit/mL Suspension 5 ml PO Q6H 7 Days Qty: 140 0RF amoxicillin 250 mg Capsule 250 mg PO BID Qty: 8 0RF acetaminophen 325 mg Tablet 650 mg PO Q6H Qty: 90 0RF guaifenesin 100 mg/5 mL Liquid 100 mg PO QID Qty: 500 0RF First - Mouthwash Blm [Magic Mouthwash] 5 ml PO QID Qty: 1 0RF prednisone 10 mg tablet 10 mg PO DAILY Qty: 6 0RF Rx Instructions: Take 3 tablets in the AM for one day then 2 tabs for one day then 1 tab on the third day Continued prochlorperazine maleate [Compazine] 10 mg tablet 10 mg PO Q6H PRN (Reason: Nausea) prednisolone acetate 0.12 % drops,suspension 1 drp ophthalmic (eye) DAILY ergocalciferol (vitamin D2) 1,250 mcg (50,000 unit) capsule 1,250 mcg PO MONTHLY Rx Instructions: Due today calcitriol 0.5 mcg capsule 0.5 mcg PO .COMPLEX Rx Instructions: 0.5 mcg orally Three times a week, THU WED THU dialysis days; sevelamer carbonate 800 mg tablet 800 mg PO .COMPLEX Rx Instructions: 800 mg orally 2 tablets with meals and then 1 tablet with snacks; must administer with a meal/food carvedilol 3.125 mg tablet 3.125 mg PO BID Qty: 180 1RF Pulmicort Flexhaler 90 mcg/actuation aerosol powdr breath activated 1 inh inhalation BID Qty: 1 4RF pantoprazole 40 mg tablet,delayed release (DR/EC) 40 mg PO BID Qty: 180 2RF doxazosin 2 mg tablet 2 mg PO HS Qty: 90 2RF oxycodone 10 mg tablet 10 mg PO .Q4-6H PRN (Reason: pain) Qty: 180 0RF atorvastatin 10 mg tablet 10 mg PO DAILY Qty: 90 3RF aspirin 81 mg tablet,delayed release (DR/EC) 81 mg PO HS sertraline 50 mg tablet 50 mg PO DAILY Dasia-Kimmy 0.8 mg tablet 1 tab PO DAILY Qty: 30 0RF dexamethasone 4 mg tablet 8 mg PO DIRECTED Rx Instructions: Takes when gets chemo Docetaxel Tx See Rx Instructions .ROUTE .COMPLEX Rx Instructions: Every 3 weeks starting 10/21/22 for 6 treatments. Changed pregabalin [Lyrica] 25 mg capsule 25 mg PO MOWEFR Qty: 30 0RF Rx Instructions: 25 mg orally 1 tablet weekly, then increase to twice weekly and then possibly to 3 times a week.; after dialysis Discontinued ondansetron HCl 8 mg tablet 8 mg PO Q8H PRN (Reason: Nausea) Discharge Orders: Discharge Order (Routine); Ordered 11/08/22 Ordered By: Lucas Walls/Other Patient Handouts: Understanding Deep Vein Thrombosis, Preventing Deep Vein Thrombosis Admission Data Admit Date/Time: 11/01/22 16:21 Attending Provider: Lucas Damon Admit Provider: Ismael Gomez Primary Care Provider: Abebe Ny Other Providers: Ismael Gomez ; Kasie Mcneil ; Armando Lewis ; Cassie Wright ; Nemo Jones Other Interventions: Discharge Summary Assessment (RN) Last Done: 11/08/22 15:26 Coding Level of Care Code 96694 INP/OBS DISCH >30 MIN Diagnoses Wheezing R06.2 Hallucinations R44.3 Acute metabolic encephalopathy G93.41 Dysphagia R13.10 Hypokalemia E87.6 End stage renal disease on dialysis N18.6; Z99.2 Metastatic lung carcinoma C78.00 Laterality: unspecified laterality HTN (hypertension) I10 CAD (coronary artery disease) I25.10 Brain metastasis C79.31 DVT prophylaxis Z29.9 UTI (urinary tract infection) N39.0 Abnormal urinary tract, radiological R93.49 Iliac artery stenosis, right I77.1 Pneumonia J18.9 Pancytopenia D61.818 Pulmonary edema J81.1 Neuropathy of both feet G57.93
== END 2022-11-08 15:53 | disposition home health service (06) | DRG 193 ==
LOC: ED 12:37 → 2W 16:21 → SUATTDRO 16:21 → 2W 18:56 → 3N 11-07 03:45

== ENCOUNTER 2022-12-26 16:09 | Inpatient (IN) ==
--- NOTE | 2022-12-26 17:15 | Emergency Department Note ---
Impression & Plan Acute dyspnea, Neutropenia, ESRD (end stage renal disease), Non-ST elevation [place] (NSTEMI) ED Provider Note HISTORY OF PRESENT ILLNESS: Patient is a 77-year-old male presenting with shortness of breath and confusion. Family member provides history. Reports that the patient has had progressive decline in his strength and breathing over the last few days. Reports that he had some nausea and vomiting 4 days ago but seemed to improve yesterday. Reports that today the patient was getting up to go to dialysis and reported that he could not go because he was too weak and did not feel well. Family member states that the patient just seemed out of it so she called 911. On EMS arrival, the patient was found to be slightly hypotensive and had sats of 70% on room air. He placed on 4 L nasal cannula and brought to the ER. Patient did miss his dialysis session today, his last session was 2 days ago. He has a history of lung cancer. Family reports he is currently on chemotherapy treatments and his last round of chemo was last week. ROS: as above PHYSICAL EXAM: Constitutional: Patient appears in no acute distress. HENT: Head: Normocephalic and atraumatic. Eyes: EOMI, PERRL Mouth/Throat: Mucous membranes moist. Neck: Trachea midline. Neck supple. Cardiovascular: RRR, No murmurs, rubs or gallops. Intact distal pulses. Pulmonary/Chest: Patient on 4 L nasal cannula. Coarse breath sounds bilaterally Abdominal: Abdomen soft, no tenderness, rebound or guarding. Musculoskeletal: No edema, tenderness or deformity noted. Skin: Warm and dry. No rash, erythema, pallor or cyanosis Psychiatric: Appropriate mood and affect for situation. Neurological: Alert and keenly responsive. CN II-XII grossly intact, moving all extremities equally and fully. MDM: - Vitals signs showed hypoxia on room air. Patient started on supplemental oxygen. - History obtained via patient. Patient presents with shortness of breath. Family reports the patient has had a progressive decline in his strength and breathing over the last few days. He had some nausea and vomiting 4 days ago that improved yesterday. However, that today when the patient was getting up to go to dialysis he was apparently too weak to get up and did not feel well and requested to go to the hospital. Patient last received dialysis 2 days ago. - Chronic conditions affecting care: ESR (on MWF dialysis); CAD; HLD; HTN - Differential diagnoses include, but are not limited to: pneumonia; viral syndrome; sepsis; electrolyte abnormality; CHF exacerbation; pulmonary edema - Order placed for continuous cardiac monitoring. At this time, monitor showed rate of 65 bpm with sinus rhythm, per my interpretation. - External medical records reviewed. - EKG reviewed by myself showed normal sinus rhythm. Rate 62 bpm. QTc 416. No acute ischemic changes. Noted to have some PVCs. - Laboratory workup interpreted by myself showed leukopenia (WBC 0.78); neutropenia; stable electrolytes; ESRD; elevated BNP (252); elevated troponin (37.4) - CXR showed multifocal airspace opacities, per my interpretation. - COVID/flu/RSV negative - VBG grossly unremarkable. - Given patient's neutropenia, IV vancomycin and cefepime ordered. Blood cultures obtained pre-administration. - Further fluids were not given to patient for sepsis, as he has evidence of fluid overload and is an ESRD patient. - Discussion was had with social work associate about patient's case and need for admission - Hospitalist consulted for admission - [facility] ASSESSMENT AND PLAN: Diagnosis: acute dyspnea; pneumonia; neutropenia Plan: Admit Past Med/Surg History Medical History (Updated 12/26/22 @ 18:32 by Missy Patel MD) Advanced care planning/counseling discussion Anemia due to chronic kidney disease Hgb 10-12 range per chart review, fecal occult blood test x3 negative per 12/25/21 PCP note CAD (coronary artery disease) s/p CABG x1 (with ascending thoracic aorta repair) - 2008 Chronic midline thoracic back pain Discussion about advance care planning held with family member Dyslipidemia Dyspnea and respiratory abnormalities Encounter for hospice care discussion GERD (gastroesophageal reflux disease) History of COVID-19 09/2021, hospitalized at [facility] (vomiting, dehydration, cough, sinus congestion) > resolved HTN (hypertension) Palliative care by specialist Secondary hyperparathyroidism of renal origin Stage 5 chronic kidney disease not on chronic dialysis Thoracic aortic aneurysm s/p repair (2008) Surgical History H/O thoracic aortic aneurysm repair CABG x1 + ascending thoracic aorta repair (2008) History of cataract surgery R/L History of hernia repair S/P CABG (coronary artery bypass graft) CABG x1 + ascending thoracic aorta repair (2008) Family History Brother Brain tumor Cancer, Onset Age: 70 colon cancer Sai Mother Leukemia Denies family history of Ovarian cancer Prostate cancer Myocardial infarction Breast cancer Colorectal cancer Social History Smoking Status: Current some day smoker Tobacco Type: Cigars Age Started Using Tobacco: 41; Cigarettes Per Day: 1 cigar every six months; Second Hand Exposure: No; Do You Dip or Chew Tobacco: No; Hx Alcohol Use: No Hx Substance Use: No Preferred Language: Maltese Communication Ability: Effective Communication Ability Comment: Able to communicate effectively in Maltese Visual Impairment: Partially Limited Hearing Ability: Hard of Hearing Technical Support Representative Required: No Beliefs That Will Affect Care: None marital status: Single Current Living Situation: Alone Current Living Situation Comment: daughter close by current occupational status: retired How many Children do You have: 2 Feels Safe at Home: Yes Childhood Exposure to Second-Hand Smoke: Yes Diet: regular Diet Comment: High protein caffeine: Yes (coffee) during the past year weight has: remained stable Dental Care, Regularly: No Physical Activity Frequency: Daily Physical Activity Frequency Comment: Go's to gym, lift weights Seatbelt Use: always Sunscreen Use: Yes Do you think of yourself as: straight/heterosexual Gender Identity: Male Assistive Devices: None Allergies Allergies Allergy/AdvReac Type Severity Reaction Status Date / Time No Known Allergies Allergy Verified 12/26/22 18:17 Home Meds Home Medications Medication Instructions Recorded Confirmed aspirin 81 mg tablet,delayed 81 mg PO HS 12/15/18 12/26/22 release prochlorperazine maleate 10 mg 10 mg PO Q6H PRN Nausea 09/18/22 12/26/22 tablet (Compazine) ergocalciferol (vitamin D2) 1,250 1,250 mcg PO MONTHLY 10/06/22 12/26/22 mcg (50,000 unit) capsule prednisolone acetate 0.12 % eye 1 drp ophthalmic (eye) DAILY 10/06/22 12/26/22 drops,suspension calcitriol 0.5 mcg capsule 0.5 mcg PO .COMPLEX 10/28/22 12/26/22 sertraline 50 mg tablet 50 mg PO QAM 10/28/22 12/26/22 sevelamer carbonate 800 mg tablet 800 mg PO .COMPLEX 10/28/22 12/26/22 Docetaxel Tx See Rx Instructions .Route .COMPLEX 11/01/22 12/26/22 dexamethasone 4 mg tablet 8 mg PO DIRECTED 11/01/22 12/26/22 First - Mouthwash Blm [Magic 5 ml PO QID PRN irritation 11/28/22 12/26/22 Mouthwash] acetaminophen 325 mg tablet 650 mg PO Q6H PRN Pain 11/28/22 12/26/22 albuterol sulfate 90 mcg/actuation 1 inh inhalation .4-6H PRN 12/26/22 12/26/22 aerosol inhaler wheezing/SOB atorvastatin 10 mg tablet 10 mg PO QAM 12/26/22 12/26/22 furosemide 40 mg tablet 40 mg PO QAM 12/26/22 12/26/22 vitamin B complex-vitamin C-folic 1 tab PO HS 12/26/22 12/26/22 acid 0.8 mg tablet (Dasia-Kimmy) Previous Rx's Medication Instructions Recorded carvedilol 3.125 mg tablet 3.125 mg PO BID #180 tabs 04/23/22 budesonide 90 mcg/actuation breath 1 inh inhalation BID #1 ea 05/28/22 activated powder inhaler (Pulmicort Flexhaler) pantoprazole 40 mg tablet,delayed 40 mg PO BID #180 tabs 09/22/22 release oxycodone 10 mg tablet 10 mg PO .Q4-6H PRN pain #180 tabs 10/10/22 pregabalin 25 mg capsule (Lyrica) 25 mg PO MOWEFR #30 caps 11/08/22 Results & Data (ED) Vital Signs Vital Signs - 24 hr 12/26/22 16:19 12/26/22 16:33 12/26/22 16:32 Pulse Rate 60 63 Respiratory Rate 21 Respiratory Effort / Characteristics Labored Blood Pressure 151/77 H Blood Pressure Mean 101 Pulse Oximetry 88 L 88 L Oxygen Delivery Method Room Air Nasal Cannula Oxygen Flow Rate 0 Sepsis Recent Fever Within 48 Hours No Sepsis New/Unexplained Change in Mental Status N/A Sepsis Action Taken by Nursing No Action Required Fraction of Inspired Oxygen - Titration 4 Pulse Oximetry Post Tiitration 93 12/26/22 17:17 12/26/22 17:30 12/26/22 18:00 Pulse Rate 59 L 60 62 Respiratory Rate 14 20 18 Respiratory Effort / Characteristics Blood Pressure 121/57 L 124/55 L 127/59 L Blood Pressure Mean 78 78 81 Pulse Oximetry 93 91 90 Oxygen Delivery Method Nasal Cannula Nasal Cannula Nasal Cannula Oxygen Flow Rate 4 4 4 Sepsis Recent Fever Within 48 Hours Sepsis New/Unexplained Change in Mental Status Sepsis Action Taken by Nursing Fraction of Inspired Oxygen - Titration Pulse Oximetry Post Tiitration 12/26/22 18:30 Pulse Rate 60 Respiratory Rate 18 Respiratory Effort / Characteristics Blood Pressure 131/57 L Blood Pressure Mean 81 Pulse Oximetry 92 Oxygen Delivery Method Nasal Cannula Oxygen Flow Rate 4 Sepsis Recent Fever Within 48 Hours Sepsis New/Unexplained Change in Mental Status Sepsis Action Taken by Nursing Fraction of Inspired Oxygen - Titration Pulse Oximetry Post Tiitration Laboratory Data 12/26/22 16:25 12/26/22 16:25 Lab Results 12/26/22 12/26/22 12/26/22 Range/Units 16:25 16:25 16:25 WBC 0.78 L* (4.8-10.8) K/ul RBC 2.14 L (4.70-6.10) M/uL Hgb 7.2 L (14.0-18.0) g/dl Hct 21.8 L (42.0-52.0) % MCV 101.9 H (80.0-100.0) fL MCH 33.6 (25.0-34.0) pg MCHC 33.0 (32.0-36.0) g/dL RDW Std Deviation 62.0 H (36.4-46.3) fL RDW Coeff of [place] 16.9 H (11.5-14.5) % Plt Count 115 L (130-400) K/uL MPV 11.1 (9.4-12.4) fL Immature Gran % (Auto) 2.6 % Neut % (Auto) 19.2 % Lymph % (Auto) 52.6 % [place] % (Auto) 25.6 % Eos % (Auto) 0.0 % Baso % (Auto) 0.0 % Neut # (Auto) 0.15 L* (1.40-6.50) K/uL Lymph # (Auto) 0.41 L (1.20-3.40) K/uL [place] # (Auto) 0.20 (0.11-0.59) K/uL Eos # (Auto) 0.00 (0.00-0.50) K/uL Baso # (Auto) 0.00 (0.00-0.20) K/uL Immature Gran # (Auto) 0.02 (0.01-0.20) K/uL Absolute Nucleated RBC 0.03 (0.00-0.12) K/uL Nucleated RBC % (auto) 3.8 % Polychromasia 1+ PT 10.8 (9.0-12.0) Seconds INR 1.0 (0.9-1.1) APTT 22.7 (21.0-31.0) Seconds PTT Ratio 0.8 VBG pH (7.36-7.41) VBG pCO2 (38-50) mmHg VBG pO2 mmHg VBG HCO3 mmol/L VBG O2 Saturation % VBG Base Excess mEq/L Sodium 137 (136-145) mmol/L Potassium 4.0 (3.5-5.1) mmol/L Chloride 94 L (98-107) mmol/L Carbon Dioxide 32 (21-32) mmol/L Anion Gap 11 (3-11) BUN 52 H (6-23) mg/dl Creatinine 6.26 H* (0.6-1.4) mg/dl Est Cr Clr Drug Dosing 8.7 ml/min Est GFR ( Amer) 9.2 ml/min Est GFR (Non-Af Amer) 7.9 ml/min BUN/Creatinine Ratio 8.3 L (10-20) Glucose 78 (70-99(Fasting)) mg/dl Calcium 8.6 (8.6-10.3) mg/dl Total Bilirubin 1.0 (0.2-1.0) mg/dl AST 23 (13-39) U/L ALT 8 (7-52) U/L Alkaline Phosphatase 77 (34-104) U/L Troponin I High Sens 37.4 H (0-20) pg/ml B-Natriuretic Peptide (0-100) pg/ml Total Protein 5.2 L (6.0-8.3) gm/dl Albumin 2.8 L (3.4-5.0) gm/dl Globulin 2.4 L (2.5-4.0) gm/dl Albumin/Globulin Ratio 1.2 (0.9-2) SARS-CoV-2 (PCR) (Negative) Influenza Type A (PCR) (Neg) Influenza Type B (PCR) (Neg) RSV (RT-PCR) (Neg) 12/26/22 12/26/22 12/26/22 Range/Units 16:25 17:20 17:24 WBC (4.8-10.8) K/ul RBC (4.70-6.10) M/uL Hgb (14.0-18.0) g/dl Hct (42.0-52.0) % MCV (80.0-100.0) fL MCH (25.0-34.0) pg MCHC (32.0-36.0) g/dL RDW Std Deviation (36.4-46.3) fL RDW Coeff of [place] (11.5-14.5) % Plt Count (130-400) K/uL MPV (9.4-12.4) fL Immature Gran % (Auto) % Neut % (Auto) % Lymph % (Auto) % [place] % (Auto) % Eos % (Auto) % Baso % (Auto) % Neut # (Auto) (1.40-6.50) K/uL Lymph # (Auto) (1.20-3.40) K/uL [place] # (Auto) (0.11-0.59) K/uL Eos # (Auto) (0.00-0.50) K/uL Baso # (Auto) (0.00-0.20) K/uL Immature Gran # (Auto) (0.01-0.20) K/uL Absolute Nucleated RBC (0.00-0.12) K/uL Nucleated RBC % (auto) % Polychromasia PT (9.0-12.0) Seconds INR (0.9-1.1) APTT (21.0-31.0) Seconds PTT Ratio VBG pH 7.46 H (7.36-7.41) VBG pCO2 49 (38-50) mmHg VBG pO2 27 mmHg VBG HCO3 35 mmol/L VBG O2 Saturation < 60.0 % VBG Base Excess 9.4 mEq/L Sodium (136-145) mmol/L Potassium (3.5-5.1) mmol/L Chloride (98-107) mmol/L Carbon Dioxide (21-32) mmol/L Anion Gap (3-11) BUN (6-23) mg/dl Creatinine (0.6-1.4) mg/dl Est Cr Clr Drug Dosing ml/min Est GFR ( Amer) ml/min Est GFR (Non-Af Amer) ml/min BUN/Creatinine Ratio (10-20) Glucose (70-99(Fasting)) mg/dl Calcium (8.6-10.3) mg/dl Total Bilirubin (0.2-1.0) mg/dl AST (13-39) U/L ALT (7-52) U/L Alkaline Phosphatase (34-104) U/L Troponin I High Sens (0-20) pg/ml B-Natriuretic Peptide 252 H (0-100) pg/ml Total Protein (6.0-8.3) gm/dl Albumin (3.4-5.0) gm/dl Globulin (2.5-4.0) gm/dl Albumin/Globulin Ratio (0.9-2) SARS-CoV-2 (PCR) NEGATIVE (Negative) Influenza Type A (PCR) Negative (Neg) Influenza Type B (PCR) Negative (Neg) RSV (RT-PCR) Negative (Neg) Administered Medications Discontinued Medications Cefepime HCl (Maxipime) 2,000 mg in 20 mls @ 5 mls/min IV NOW STA; Protocol Stop: 12/26/22 18:18 Last Admin: 12/26/22 18:45 Dose: 5 mls/min Documented By: [facility] Imaging Data Radiologist's Impression: Chest X-Ray 12/26/22 16:41 XR chest 1V portable CLINICAL HISTORY: Chest pain, nonspecific TECHNIQUE: Single frontal radiograph of the chest was obtained. Comparison: Comparison is made to chest radiograph 11/06/2022 FINDINGS: Median sternotomy wires are unchanged. Cardiomegaly is noted. Multifocal airspace opacities are seen, increased from prior exam. No evidence of pleural effusion or pneumothorax. IMPRESSION: Multifocal airspace opacities may represent atelectasis, pneumonia, and/or aspiration. 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 ACT 112: Negative or not required by law. Electronically signed by: Terry Adame M.D. 12/26/2022 5:11 PM Discharge Plan Visit Data Chief Complaint: Shortness of Breath/Dyspnea Stated Complaint: WEAKNESS, N/V/D ED Provider: Missy Patel Discharge Problem: Acute dyspnea, Neutropenia, ESRD (end stage renal disease), Non-ST elevation [place] (NSTEMI) Forms Stand Alone Forms: [facility] Prescriptions Prescriptions: No Action prochlorperazine maleate [Compazine] 10 mg tablet 10 mg PO Q6H PRN (Reason: Nausea) prednisolone acetate 0.12 % drops,suspension 1 drp ophthalmic (eye) DAILY Rx Instructions: Left Eye ergocalciferol (vitamin D2) 1,250 mcg (50,000 unit) capsule 1,250 mcg PO MONTHLY calcitriol 0.5 mcg capsule 0.5 mcg PO .COMPLEX Rx Instructions: 0.5 mcg orally Three times a week, THU WED THU dialysis days; sevelamer carbonate 800 mg tablet 800 mg PO .COMPLEX Rx Instructions: 800 mg orally 2 tablets with meals and then 1 tablet with snacks; must administer with a meal/food carvedilol 3.125 mg tablet 3.125 mg PO BID Qty: 180 1RF Pulmicort Flexhaler 90 mcg/actuation aerosol powdr breath activated 1 inh inhalation BID Qty: 1 4RF pantoprazole 40 mg tablet,delayed release (DR/EC) 40 mg PO BID Qty: 180 2RF oxycodone 10 mg tablet 10 mg PO .Q4-6H PRN (Reason: pain) Qty: 180 0RF aspirin 81 mg tablet,delayed release (DR/EC) 81 mg PO HS acetaminophen 325 mg tablet 650 mg PO Q6H PRN (Reason: Pain) First - Mouthwash Blm [Magic Mouthwash] 5 ml PO QID PRN (Reason: irritation) sertraline 50 mg tablet 50 mg PO QAM dexamethasone 4 mg tablet 8 mg PO DIRECTED Rx Instructions: Take day before, day of and day after chemo Docetaxel Tx See Rx Instructions .ROUTE .COMPLEX Rx Instructions: Every 3 weeks starting 10/21/22 for 6 treatments. Completed 3rd treatment on 12/18/22. pregabalin [Lyrica] 25 mg capsule 25 mg PO MOWEFR Qty: 30 0RF Rx Instructions: 25 mg orally 1 tablet weekly, then increase to twice weekly and then possibly to 3 times a week.; after dialysis furosemide 40 mg tablet 40 mg PO QAM albuterol sulfate 90 mcg/actuation HFA aerosol inhaler 1 inh INHALATION .4-6H PRN (Reason: wheezing/SOB) atorvastatin 10 mg tablet 10 mg PO QAM Dasia-Kimmy 0.8 mg tablet 1 tab PO HS Referrals Referrals: Abebe Ny MD [Primary Care Provider] -
[2022-12-26 17:35] LABS: Partial Thromboplastin Ratio 0.8; Partial Thromboplastin Time 22.7 Seconds (21.0-31.0); Prothrombin Time 10.8 Seconds (9.0-12.0)
[2022-12-26 17:37] LABS: Albumin Globulin Ratio 1.2 (0.9-2); Albumin Level 2.8 gm/dl (3.4-5.0); BUN Creatinine Ratio 8.3 (10-20); Calcium 8.6 mg/dl (8.6-10.3); Creatinine Clr Calc Pharmacy 8.7 ml/min; Est GFR (African American) 9.2 ml/min; Est GFR (Non-African American) 7.9 ml/min; Globulin 2.4 gm/dl (2.5-4.0); Hematocrit (blood only) 21.8 % (42.0-52.0); Hemoglobin 7.2 g/dl (14.0-18.0); Mean Corpuscular Hemoglobin 33.6 pg (25.0-34.0); Mean Corpuscular Volume 101.9 fL (80.0-100.0); Mean Platelet Volume 11.1 fL (9.4-12.4); Nucleated RBC # (auto) 0.03 K/uL (0.00-0.12); Nucleated RBC % (auto) 3.8 %; Platelet Count 115 K/uL (130-400); Polychromasia 1+; RDW Coefficient of Variation 16.9 % (11.5-14.5); Red Blood Count 2.14 M/uL (4.70-6.10); Total Protein 5.2 gm/dl (6.0-8.3); Troponin I High Sensitivity 37.4 pg/ml (0-20); White Blood Count 0.78 K/ul (4.8-10.8)
[2022-12-26 17:38] LABS: Immature Granulocytes # (auto) 0.02 K/uL (0.01-0.20); Immature Granulocytes % (auto) 2.6 %; Lymphocytes # (auto) 0.41 K/uL (1.20-3.40); Lymphocytes % (auto) 52.6 %; Monocytes % (auto) 25.6 %; Neutrophils # (auto) 0.15 K/uL (1.40-6.50); Neutrophils % (auto) 19.2 %
[2022-12-26 17:43] LABS: Base Excess VBG 9.4 mEq/L; HCO3 VBG 35 mmol/L; Oxygen Saturation VBG < 60.0 %; PCO2 VBG 49 mmHg (38-50); PO2 VBG 27 mmHg; pH VBG 7.46 (7.36-7.41)
[2022-12-26 18:12] LABS: Influenza A virus by PCR Negative (Neg); Influenza B virus by PCR Negative (Neg); RSV by PCR Negative (Neg); SARS CoV2 RNA(COVID-19) Ceph NEGATIVE (Negative)
[2022-12-26] MEDS ORDERED: CEFEPIME 2,000 MG/20 ML VIAL IV STA (18:15)
[2022-12-26] MEDS ORDERED: VANCOMYCIN HCL 1,500 MG in SODIUM CHLORIDE 0.9% 500 ML IV ONE (18:15)
[2022-12-26] MEDS ORDERED: VANCOMYCIN CONSULT ACTIVE PRN (18:15)
--- NOTE | 2022-12-26 18:28 | History & Physical Report ---
Date of Service December 26, 2022 Assessment & Plan (1) Comfort measures only status: Plan: -Admit to med/surge -Patient is in the dying process after failed treatment of his metastatic adenocarcinoma -Recent PET scan shows progression of the disease despite continued chemotherapy -The patient has chosen to be transitioned to comfort measures -Comfort measures ordered -Will hold all home medications except sertraline, pantoprazole, lyrica, and budesonide -Patient does not want dialysis or antibiotics -Prn O2 for comfort -Will use dilaudid for pain/air hunger due to ESRD status -PRN ativan for anxiety/agitation -PRN medications for secretions have been ordered -Case management consult placed -Will stop monitoring vitals and labs -Regular diet (2) Neutropenic fever: Plan: -Patient declines further antibiotics -Will hold vancomycin ordered in the ED (3) Metastatic lung cancer (metastasis from lung to other site): Plan: -Transition to comfort measures Plan The patient was discussed with Dr. 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 Mcneil), ESRD on HD MWF, CAD status post CABG x 1, Thoracic aortic aneurysm repair in 2008, and HTN who presented to the [facility] ED via EMS on 12/26 with complaints of generalized weakness and N/V/D. Per the ED staff, EMS reports that the patient was too weak to get up fro dialysis today so his daughter called EMS. EMS noted the patient to be hypoxic with SpO2 in the 70% and was placed on 4L NC. In the ED he remained stable on 4L NC and remained hemodynamically stable. Labs were significant for a WBC of 0.78, hgb of 7.2 (down from 9.4 as of 12/17), platelets of 115 (down from 151 as of 12/17), absolute neutrophil count of 0.15, initial high sen trop of 37, BNP of 252, Covid/RSV/Influenza negative. Chest xray was read as "Multifocal airspace opacities may represent atelectasis, pneumonia, and/or aspiration. 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 Prior to admission the patient was given a dose of cefepime and vancomycin. At the time of the exam the patient was sleeping in bed with his daughter/POA sitting bedside, history was taken from both. His daughter states that the patient has had a steep clinical decline over the past few months. He had a PET scan at [facility] yesterday, unfortunately it shows widespread progression of his cancer, now to more bony areas, the liver, GI tract, and tract. The daughter spoke to Dr. Mcneil on the phone regarding the results earlier today, Dr. Mcneil recommended transitioning to Hospice. She was going to place the order for home hospice on Thursday to allow his daughter to speak to the patient regarding the CT results. Unfortunately, after the phone call, the patient was too weak to get up for dialysis so EMS was called. We had a long discussion with the patient and his daughter, as the patient is currently alert and oriented. We discussed his PET scan results. The patient states "I know I am dying, I don't want to suffer anymore". We had further discussions regarding his wishes for dialysis and antibiotics. He again made it clear that he no longer wants dialysis as this would just prolong his life/suffering. He also made it clear that he would not want antibiotics. I explained that stopping dialysis is definitely an option, but stressed that stopping could significantly shorten the time until he passes. The patient expressed understanding and clearly stated that he would not want dialysis. His Daughter would like to try and bring him home on hospice but needs time to try and coordinate with family. They understand that he may not survive this hospitalization. Please refer to Dr. Gomez's attestation for any changes to the treatment plan Allergies Allergy/AdvReac Type Severity Reaction Status Date / Time No Known Allergies Allergy Verified 12/26/22 18:17 Home Medications Medication Instructions Recorded Confirmed Type aspirin 81 mg tablet,delayed 81 mg PO HS 12/15/18 12/26/22 History release carvedilol 3.125 mg tablet 3.125 mg PO BID #180 tabs 04/23/22 12/26/22 Rx budesonide 90 mcg/actuation breath 1 inh inhalation BID #1 ea 05/28/22 12/26/22 Rx activated powder inhaler (Pulmicort Flexhaler) prochlorperazine maleate 10 mg 10 mg PO Q6H PRN Nausea 09/18/22 12/26/22 History tablet (Compazine) pantoprazole 40 mg tablet,delayed 40 mg PO BID #180 tabs 09/22/22 12/26/22 Rx release ergocalciferol (vitamin D2) 1,250 1,250 mcg PO MONTHLY 10/06/22 12/26/22 History mcg (50,000 unit) capsule prednisolone acetate 0.12 % eye 1 drp ophthalmic (eye) DAILY 10/06/22 12/26/22 History drops,suspension oxycodone 10 mg tablet 10 mg PO .Q4-6H PRN pain #180 tabs 10/10/22 12/26/22 Rx calcitriol 0.5 mcg capsule 0.5 mcg PO .COMPLEX 10/28/22 12/26/22 History sertraline 50 mg tablet 50 mg PO QAM 10/28/22 12/26/22 History sevelamer carbonate 800 mg tablet 800 mg PO .COMPLEX 10/28/22 12/26/22 History Docetaxel Tx See Rx Instructions .Route .COMPLEX 11/01/22 12/26/22 History dexamethasone 4 mg tablet 8 mg PO DIRECTED 11/01/22 12/26/22 History pregabalin 25 mg capsule (Lyrica) 25 mg PO MOWEFR #30 caps 11/08/22 12/26/22 Rx First - Mouthwash Blm [Magic 5 ml PO QID PRN irritation 11/28/22 12/26/22 History Mouthwash] acetaminophen 325 mg tablet 650 mg PO Q6H PRN Pain 11/28/22 12/26/22 History albuterol sulfate 90 mcg/actuation 1 inh inhalation .4-6H PRN 12/26/22 12/26/22 History aerosol inhaler wheezing/SOB atorvastatin 10 mg tablet 10 mg PO QAM 12/26/22 12/26/22 History furosemide 40 mg tablet 40 mg PO QAM 12/26/22 12/26/22 History vitamin B complex-vitamin C-folic 1 tab PO HS 12/26/22 12/26/22 History acid 0.8 mg tablet (Dasia-Kimmy) Past Med/Surg History Medical History (Updated 12/26/22 @ 20:00 by Ron Ariza PA-C) Advanced care planning/counseling discussion Anemia due to chronic kidney disease Hgb 10-12 range per chart review, fecal occult blood test x3 negative per 12/25/21 PCP note CAD (coronary artery disease) s/p CABG x1 (with ascending thoracic aorta repair) - 2008 Chronic midline thoracic back pain Discussion about advance care planning held with family member Dyslipidemia Dyspnea and respiratory abnormalities Encounter for hospice care discussion GERD (gastroesophageal reflux disease) History of COVID-19 09/2021, hospitalized at [facility] (vomiting, dehydration, cough, sinus congestion) > resolved HTN (hypertension) Palliative care by specialist Secondary hyperparathyroidism of renal origin Stage 5 chronic kidney disease not on chronic dialysis Thoracic aortic aneurysm s/p repair (2008) Surgical History H/O thoracic aortic aneurysm repair CABG x1 + ascending thoracic aorta repair (2008) History of cataract surgery R/L History of hernia repair S/P CABG (coronary artery bypass graft) CABG x1 + ascending thoracic aorta repair (2008) Family History Brother Brain tumor Cancer, Onset Age: 70 colon cancer Sai Mother Leukemia Denies family history of Ovarian cancer Prostate cancer Myocardial infarction Breast cancer Colorectal cancer Social History Smoking Status: Current some day smoker Tobacco Type: Cigars Age Started Using Tobacco: 41; Cigarettes Per Day: 1 cigar every six months; Second Hand Exposure: No; Do You Dip or Chew Tobacco: No; Hx Alcohol Use: No Hx Substance Use: No Preferred Language: Uzbek Communication Ability: Effective Communication Ability Comment: Able to communicate effectively in Uzbek Visual Impairment: Partially Limited Hearing Ability: Hard of Hearing 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 Sleeping 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 Department Required: No Beliefs That Will Affect Care: None marital status: Single Current Living Situation: Family Current Living Situation Comment: daughter close by current occupational status: retired How many Children do You have: 2 Other Information That Helps Us Care for You: No Feels Safe at Home: Yes Safety Concerns: Feels Safe At This Time Childhood Exposure to Second-Hand Smoke: Yes Diet: regular Diet Comment: High protein caffeine: Yes (coffee) during the past year weight has: remained stable Dental Care, Regularly: No Physical Activity Frequency: Daily Physical Activity Frequency Comment: Go's to gym, lift weights Seatbelt Use: always Sunscreen Use: Yes Do you think of yourself as: straight/heterosexual Gender Identity: Male Assistive Devices: Glasses and Hearing Aid - Bilateral Physical Exam Physical Exam: Physical Exam: General: In no acute distress, cachectic and ill appearing HEENT: Normocephalic, atraumatic, no scleral icterus, pupils around round, symmetrical, and reactive to light, dry mucus membranes, trachea midline, no thyromegaly Chest/Pulm: No respiratory distress, symmetrical chest expansion, rales and crackles noted throughout Cardiac: RRR, no murmurs noted Abdomen: Negative for ascites and bruising, normoactive bowel sounds, soft, non-tender to palpation throughout Musculoskeletal: Symmetrical and without signs of acute trauma, upper and lower extremities with full ROM, no atrophy, spasticity, or flaccidity Extremities: Radial, dorsalis pedis, and posterior tibial pulses are intact and symmetrical, RLE significantly more swollen than the left Skin: Warm, dry, no rashes , lesions, or scars noted Neuro: Alert and oriented to person, place, month, year, and president, no focal defects, no tremors noted Psych: No acute distress, calm and cooperative during the exam Results & Data Results & Data Vital Signs (Past 12 Hours) Vital Signs Pulse Resp BP Pulse Ox O2 Del Method O2 Flow Rate 12/26/22 18:00 62 18 127/59 L 90 Nasal Cannula 4 12/26/22 17:30 60 20 124/55 L 91 Nasal Cannula 4 12/26/22 17:17 59 L 14 121/57 L 93 Nasal Cannula 4 12/26/22 16:32 63 12/26/22 16:33 88 L Nasal Cannula 0 12/26/22 16:19 60 21 151/77 H 88 L Room Air Laboratory Results Abnormal lab results 12/26/22 12/26/22 12/26/22 Range/Units 16:25 16:25 16:25 WBC 0.78 L* (4.8-10.8) K/ul RBC 2.14 L (4.70-6.10) M/uL Hgb 7.2 L (14.0-18.0) g/dl Hct 21.8 L (42.0-52.0) % MCV 101.9 H (80.0-100.0) fL RDW Std Deviation 62.0 H (36.4-46.3) fL RDW Coeff of [place] 16.9 H (11.5-14.5) % Plt Count 115 L (130-400) K/uL Neut # (Auto) 0.15 L* (1.40-6.50) K/uL Lymph # (Auto) 0.41 L (1.20-3.40) K/uL VBG pH (7.36-7.41) Chloride 94 L (98-107) mmol/L BUN 52 H (6-23) mg/dl Creatinine 6.26 H* (0.6-1.4) mg/dl BUN/Creatinine Ratio 8.3 L (10-20) Troponin I High Sens 37.4 H (0-20) pg/ml B-Natriuretic Peptide 252 H (0-100) pg/ml Total Protein 5.2 L (6.0-8.3) gm/dl Albumin 2.8 L (3.4-5.0) gm/dl Globulin 2.4 L (2.5-4.0) gm/dl 12/26/22 Range/Units 17:24 WBC (4.8-10.8) K/ul RBC (4.70-6.10) M/uL Hgb (14.0-18.0) g/dl Hct (42.0-52.0) % MCV (80.0-100.0) fL RDW Std Deviation (36.4-46.3) fL RDW Coeff of [place] (11.5-14.5) % Plt Count (130-400) K/uL Neut # (Auto) (1.40-6.50) K/uL Lymph # (Auto) (1.20-3.40) K/uL VBG pH 7.46 H (7.36-7.41) Chloride (98-107) mmol/L BUN (6-23) mg/dl Creatinine (0.6-1.4) mg/dl BUN/Creatinine Ratio (10-20) Troponin I High Sens (0-20) pg/ml B-Natriuretic Peptide (0-100) pg/ml Total Protein (6.0-8.3) gm/dl Albumin (3.4-5.0) gm/dl Globulin (2.5-4.0) gm/dl Diagnostic Findings Chest X-Ray 12/26/22 16:41 XR chest 1V portable CLINICAL HISTORY: Chest pain, nonspecific TECHNIQUE: Single frontal radiograph of the chest was obtained. Comparison: Comparison is made to chest radiograph 11/06/2022 FINDINGS: Median sternotomy wires are unchanged. Cardiomegaly is noted. Multifocal airspace opacities are seen, increased from prior exam. No evidence of pleural effusion or pneumothorax. IMPRESSION: Multifocal airspace opacities may represent atelectasis, pneumonia, and/or aspiration. 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 ACT 112: Negative or not required by law. Electronically signed by: Terry Adame M.D. 12/26/2022 5:11 PM Code Status & VTE Plan Code Status DNR/DNI VTE Prophylaxis Plan VTE Prophylaxis will be ordered: No Supervising Physician Co-Signing Physician Notes I personally saw and examined the patient. I verified all trujillo points and agree with Ron Ariza PA-C with the following exceptions and/or additions: 77 year old male with widespread metastatic cancer presents to the ER with shortness of breath. Discussed goals of care with the patient and he wished to withdraw all treatment at this time due to continued metastatic spread of his cancer despite his O/E Chronically ill appears, pedal edema, mild respiratory distress with rhonchi throughout, wet cough present, abdomen soft non-tender A/P Comfort care measures - continue sertraline, pantoprazole and pregabalin. Otherwise usual opiates for shortness of breath or pain, benzodiazepines for agitation. PG Care Time/CCT Total # of Minutes Spent Total Time Spent with Patient: Total time spent is greater than 50% in coordination of care (as documented) at patient's floor/unit and/or counseling patient: C[place] [address] INT INP/OBS CARE 2/55MIN Patient Type Established Medical Decision Making Straight Forward Diagnoses Comfort measures only status Z51.5 Neutropenic fever D70.9; R50.81 Metastatic lung cancer (metastasis from lung to other site) C34.90
[2022-12-26] MEDS ORDERED: ATROPINE SULFATE 1% OP SOLN 5 ML BTL SL PRN (19:30)
[2022-12-26] MEDS ORDERED: HYOSCYAMINE SULFATE 0.125 MG TAB SL PRN (19:30)
[2022-12-26] MEDS ORDERED: LORazepam 2 MG/1 ML VIAL IV PRN (19:30)
[2022-12-26] MEDS ORDERED: HYDROmorphone INJ 0.5 MG/0.5 ML SYR IV PRN (19:30)
[2022-12-26 21:46] LABS: Magnesium 1.9 mg/dl (1.7-2.4)
[2022-12-26] MEDS ORDERED: ACETAMINOPHEN 325 MG TAB PO PRN (22:07)
[2022-12-26] MEDS: GLYCOPYRROLATE 0.2 MG/ML VIAL IV PRN (22:15)
[2022-12-26] MEDS: PANTOprazole 40 MG TAB PO SCH (22:15)
[2022-12-27] MEDS: GLYCOPYRROLATE 0.2 MG/ML VIAL IV PRN (05:24)
[2022-12-27] MEDS ORDERED: BUDESONIDE 0.5 MG/2 ML VIAL (PULMICORT) NEB SCH (07:00)
--- NOTE | 2022-12-27 07:19 | Electrocardiogram Report ---
Test Reason : Blood Pressure : / mmHG Vent. Rate : 062 BPM Atrial Rate : 062 BPM P-R Int : 212 ms QRS Dur : 102 ms QT Int : 456 ms P-R-T Axes : 090 004 012 degrees QTc Int : 462 ms Poor data quality, interpretation may be adversely affected Sinus rhythm with 1st degree A-V block with Premature supraventricular complexes Moderate voltage criteria for LVH, may be normal variant Cannot rule out Inferior infarct , age undetermined Poor R wave progression, consider anterior FL vs. lead placement vs. LVH Abnormal ECG When compared with ECG of 01-NOV-2022 13:21, Premature ventricular complexes are no longer Present Confirmed by Best Alamo ([id number]) on 12/27/2022 7:19:07 AM Referred By: REFERRED SELF Confirmed By:Juan Alamo
[2022-12-27] MEDS ORDERED: SERTRALINE HCL 50 MG TABLET PO SCH (09:00)
[2022-12-27] MEDS: prednisoLONE acetate 1% OP SUSP 5 ML BTL OPL SCH (09:44)
--- NOTE | 2022-12-27 12:45 | Hospitalist Progress Note ---
Date of Service December 27, 2022 Assessment & Plan (1) Comfort measures only status: Plan: Known metastatic lung cancer to bone and brain. Comfort care measures. Pain control. Supplemental oxygen for comfort. Do not titrate oxygen. No further lab testing. Multiple nonessential medications discontinued (2) Neutropenic fever: Plan: Patient declines further antibiotics. Comfort care measures only (3) Metastatic lung cancer (metastasis from lung to other site): Plan: Known primary lung cancer with metastases to bone and brain. No further treatment at this time Plan Comfort care measures. DNR/DNI Admission and Anticipated Discharge Date Admission Date: December 26, 2022 Subjective Awake and alert. Depressed affect. Oxygen has been tapered down and will not be titrated. Dilaudid dosage increased for better pain control. Multiple medications have been discontinued. He is comfort care only at this point Review of Systems Review of Systems: Constitutional-no fever or chills. Pallor noted ENT-no blurred vision, no double vision, no epistaxis, no sore throat Respiratory-no cough, no wheezing, no shortness of breath Cardiac-no palpitations, no chest pain, no syncope GI-no nausea, vomiting, diarrhea, melena, hematochezia -no urinary retention, no urinary incontinence, no dysuria, no hematuria Musculoskeletal-generalized weakness ,no joint pain, no muscle tenderness Skin-no bruising, no rashes, no pruritus Neuro-generalized weakness. No focal deficits Psych-no depression, no anxiety Physical Exam Physical Exam: General-alert. Depressed affect. Pallor noted HEENT-head atraumatic and normocephalic, pupils equal and reactive to light, extraocular muscles intact Neck-no lymphadenopathy or thyromegaly, trachea midline Chest-scattered bilateral rhonchi. No wheezing Cardiac-regular rate and rhythm, normal S1 and S2 Abdomen-normal bowel sounds, nontender, no hepatosplenomegaly Extremities-no cyanosis, clubbing, or edema Neuro-cranial nerves II through XII intact, motor and sensory function within normal limits, strength symmetrical with generalized weakness , no focal deficits Psych-depressed affect Results & Data Results & Data Vital Signs (Past 12 Hours) Vital Signs Resp Pulse Ox O2 Del Method O2 Flow Rate 12/27/22 10:03 Nasal Cannula 4 12/27/22 07:21 18 91 Nasal Cannula 6 Laboratory Results 12/26/22 16:25 12/26/22 16:25 PG Care Time/CCT Total # of Minutes Spent Total Time Spent with Patient: Total time spent is greater than 50% in coordination of care (as documented) at patient's floor/unit and/or counseling patient: Coding Level of Care Code 30219 SUB INP/OBS CARE 3/50MIN Diagnoses Comfort measures only status Z51.5 Neutropenic fever D70.9; R50.81 Metastatic lung cancer (metastasis from lung to other site) C34.90
[2022-12-27] MEDS: HYDROmorphone INJ 0.5 MG/0.5 ML SYR IV PRN (22:20)
[2022-12-28] MEDS: prednisoLONE acetate 1% OP SUSP 5 ML BTL OPL SCH (09:32)
[2022-12-28] MEDS ORDERED: LIDOCAINE 2% JELLY 5 ML TUBE EXT PRN (13:15)
--- NOTE | 2022-12-28 14:09 | Hospitalist Progress Note ---
Date of Service December 28, 2022 Assessment & Plan (1) Comfort measures only status: Plan: Known metastatic lung cancer to bone and brain. Comfort care measures. Pain control. Supplemental oxygen for comfort. Do not titrate oxygen. No further lab testing. Multiple nonessential medications discontinued (2) Neutropenic fever: Plan: Patient declines further antibiotics. Comfort care measures only (3) Metastatic lung cancer (metastasis from lung to other site): Plan: Known primary lung cancer with metastases to bone and brain. No further treatment at this time (4) ESRD (end stage renal disease): Plan: No further hemodialysis at this time. Plan Comfort care measures. DNR/DNI Admission and Anticipated Discharge Date Admission Date: December 26, 2022 Subjective Alert and oriented. Depressed affect. No acute problems. He remains on comfort care. Review of Systems Review of Systems: Constitutional-no fever or chills. Pallor noted ENT-no blurred vision, no double vision, no epistaxis, no sore throat Respiratory-no cough, no wheezing, no shortness of breath Cardiac-no palpitations, no chest pain, no syncope GI-no nausea, vomiting, diarrhea, melena, hematochezia -no urinary retention, no urinary incontinence, no dysuria, no hematuria Musculoskeletal-generalized weakness ,no joint pain, no muscle tenderness Skin-no bruising, no rashes, no pruritus Neuro-generalized weakness. No focal deficits Psych-no depression, no anxiety Physical Exam Physical Exam: General-alert. Depressed affect. Pallor noted HEENT-head atraumatic and normocephalic, pupils equal and reactive to light, extraocular muscles intact Neck-no lymphadenopathy or thyromegaly, trachea midline Chest-scattered bilateral rhonchi. No wheezing Cardiac-regular rate and rhythm, normal S1 and S2 Abdomen-normal bowel sounds, nontender, no hepatosplenomegaly Extremities-no cyanosis, clubbing, or edema Neuro-cranial nerves II through XII intact, motor and sensory function within normal limits, strength symmetrical with generalized weakness , no focal deficits Psych-depressed affect Results & Data Results & Data Vital Signs (Past 12 Hours) Vital Signs Temp Pulse Resp BP Pulse Ox O2 Del Method O2 Flow Rate 12/28/22 09:32 Nasal Cannula 4 12/28/22 07:22 36.6 C 61 16 131/55 L 95 Nasal Cannula 4 Laboratory Results 12/26/22 16:25 12/26/22 16:25 PG Care Time/CCT Total # of Minutes Spent Total Time Spent with Patient: Total time spent is greater than 50% in coordination of care (as documented) at patient's floor/unit and/or counseling patient: Coding Level of Care Code 02259 SUB INP/OBS CARE 2/35MIN Diagnoses Comfort measures only status Z51.5 Neutropenic fever D70.9; R50.81 Metastatic lung cancer (metastasis from lung to other site) C34.90 ESRD (end stage renal disease) N18.6
[2022-12-28] MEDS: ONDANSETRON INJ 2 MG/ML 2 ML VIAL IV PRN (16:41)
[2022-12-28] MEDS: HYDROmorphone INJ 0.5 MG/0.5 ML SYR IV PRN ×2 (19:03→23:48)
[2022-12-28] MEDS: PANTOprazole 40 MG TAB PO SCH (19:05)
[2022-12-29] MEDS: GLYCOPYRROLATE 0.2 MG/ML VIAL IV PRN (02:11)
[2022-12-29] MEDS ORDERED: PREGABALIN 25 MG CAP PO SCH (09:00)
[2022-12-29] MEDS: prednisoLONE acetate 1% OP SUSP 5 ML BTL OPL SCH (10:52)
--- NOTE | 2022-12-29 12:15 | Hospitalist Progress Note ---
Date of Service December 29, 2022 Assessment & Plan (1) Comfort measures only status: Plan: Known metastatic lung cancer to bone and brain. Comfort care measures. Pain control. Supplemental oxygen for comfort. Do not titrate oxygen. No further lab testing. Multiple nonessential medications discontinued Family requested palliative care and oncology consult. (2) Neutropenic fever: Plan: Patient declines further antibiotics. Comfort care measures only (3) Metastatic lung cancer (metastasis from lung to other site): Plan: Known primary lung cancer with metastases to bone and brain. No further treatment at this time (4) ESRD (end stage renal disease): Plan: No further hemodialysis at this time. Plan Comfort care measures. DNR/DNI Admission and Anticipated Discharge Date Admission Date: December 26, 2022 Subjective Patient is resting comfortably. Review of Systems Review of Systems: All systems reviewed & are unremarkable except as noted in HPI & below Physical Exam Physical Exam: General-alert. Depressed affect. Pallor noted HEENT-head atraumatic and normocephalic, pupils equal and reactive to light, extraocular muscles intact Neck-no lymphadenopathy or thyromegaly, trachea midline Chest-scattered bilateral rhonchi. No wheezing Cardiac-regular rate and rhythm, normal S1 and S2 Abdomen-normal bowel sounds, nontender, no hepatosplenomegaly Extremities-no cyanosis, clubbing, or edema Neuro-cranial nerves II through XII intact, motor and sensory function within normal limits, strength symmetrical with generalized weakness , no focal deficits Psych-depressed affect Results & Data Results & Data Vital Signs (Past 12 Hours) Vital Signs O2 Del Method O2 Flow Rate 12/29/22 09:06 Nasal Cannula 4 PG Care Time/CCT Total # of Minutes Spent Total Time Spent with Patient: Total time spent is greater than 50% in coordination of care (as documented) at patient's floor/unit and/or counseling patient: Coding Level of Care Code 79339 SUB INP/OBS CARE 2/35MIN Diagnoses Comfort measures only status Z51.5 Neutropenic fever D70.9; R50.81 Metastatic lung cancer (metastasis from lung to other site) C34.90 ESRD (end stage renal disease) N18.6
--- NOTE | 2022-12-29 18:06 | Oncology Consultation ---
Date of Consultation December 29, 2022 Assessment & Plan (1) Metastatic lung cancer (metastasis from lung to other site): (2) Comfort measures only status: Plan Very pleasant gentleman with metastatic lung cancer which has progressed on second line of treatment with docetaxel. Also has end-stage renal disease for which he is on dialysis. 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 They are aware of extremely poor prognosis and lack of treatment options from metastatic lung cancer and the fact that he may pass away over the next few days most likely from end-stage renal disease after discontinuing dialysis. Discussed with patient yesterday and daughter today and support provided. Plan is to eventually transition to home hospice if clinical condition allows. Will follow peripherally while he remains in the hospital. History of Present Illness Reason for Consultation: Metastatic lung cancer Attending Physician: Lucas Damon History of Present Illness Very pleasant 77-year-old gentleman with metastatic lung cancer most recently on second line chemotherapy treatment with docetaxel. 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 Allergies Allergy/AdvReac Type Severity Reaction Status Date / Time No Known Allergies Allergy Verified 12/26/22 18:17 Home Medications Medication Instructions Recorded Confirmed Type aspirin 81 mg tablet,delayed 81 mg PO HS 12/15/18 12/26/22 History release carvedilol 3.125 mg tablet 3.125 mg PO BID #180 tabs 04/23/22 12/26/22 Rx budesonide 90 mcg/actuation breath 1 inh inhalation BID #1 ea 05/28/22 12/26/22 Rx activated powder inhaler (Pulmicort Flexhaler) prochlorperazine maleate 10 mg 10 mg PO Q6H PRN Nausea 09/18/22 12/26/22 History tablet (Compazine) pantoprazole 40 mg tablet,delayed 40 mg PO BID #180 tabs 09/22/22 12/26/22 Rx release ergocalciferol (vitamin D2) 1,250 1,250 mcg PO MONTHLY 10/06/22 12/26/22 History mcg (50,000 unit) capsule prednisolone acetate 0.12 % eye 1 drp ophthalmic (eye) DAILY 10/06/22 12/26/22 History drops,suspension oxycodone 10 mg tablet 10 mg PO .Q4-6H PRN pain #180 tabs 10/10/22 12/26/22 Rx calcitriol 0.5 mcg capsule 0.5 mcg PO .COMPLEX 10/28/22 12/26/22 History sertraline 50 mg tablet 50 mg PO QAM 10/28/22 12/26/22 History sevelamer carbonate 800 mg tablet 800 mg PO .COMPLEX 10/28/22 12/26/22 History Docetaxel Tx See Rx Instructions .Route .COMPLEX 11/01/22 12/26/22 History dexamethasone 4 mg tablet 8 mg PO DIRECTED 11/01/22 12/26/22 History pregabalin 25 mg capsule (Lyrica) 25 mg PO MOWEFR #30 caps 11/08/22 12/26/22 Rx First - Mouthwash Blm [Magic 5 ml PO QID PRN irritation 11/28/22 12/26/22 History Mouthwash] acetaminophen 325 mg tablet 650 mg PO Q6H PRN Pain 11/28/22 12/26/22 History albuterol sulfate 90 mcg/actuation 1 inh inhalation .4-6H PRN 12/26/22 12/26/22 History aerosol inhaler wheezing/SOB atorvastatin 10 mg tablet 10 mg PO QAM 12/26/22 12/26/22 History furosemide 40 mg tablet 40 mg PO QAM 12/26/22 12/26/22 History vitamin B complex-vitamin C-folic 1 tab PO HS 12/26/22 12/26/22 History acid 0.8 mg tablet (Dasia-Kimmy) Patient History Medical History (Updated 12/26/22 @ 20:00 by Ron Ariza PA-C) Advanced care planning/counseling discussion Anemia due to chronic kidney disease Hgb 10-12 range per chart review, fecal occult blood test x3 negative per 12/25/21 PCP note CAD (coronary artery disease) s/p CABG x1 (with ascending thoracic aorta repair) - 2008 Chronic midline thoracic back pain Discussion about advance care planning held with family member Dyslipidemia Dyspnea and respiratory abnormalities Encounter for hospice care discussion GERD (gastroesophageal reflux disease) History of COVID-19 09/2021, hospitalized at [facility] (vomiting, dehydration, cough, sinus congestion) > resolved HTN (hypertension) Palliative care by specialist Secondary hyperparathyroidism of renal origin Stage 5 chronic kidney disease not on chronic dialysis Thoracic aortic aneurysm s/p repair (2008) Surgical History H/O thoracic aortic aneurysm repair CABG x1 + ascending thoracic aorta repair (2008) History of cataract surgery R/L History of hernia repair S/P CABG (coronary artery bypass graft) CABG x1 + ascending thoracic aorta repair (2008) Family History Brother Brain tumor Cancer, Onset Age: 70 colon cancer Sai Mother Leukemia Denies family history of Ovarian cancer Prostate cancer Myocardial infarction Breast cancer Colorectal cancer Social History Smoking Status: Current some day smoker Tobacco Type: Cigars Age Started Using Tobacco: 41; Cigarettes Per Day: 1 cigar every six months; Second Hand Exposure: No; Do You Dip or Chew Tobacco: No; Hx Alcohol Use: No Hx Substance Use: No Preferred Language: Swedish Communication Ability: Effective Communication Ability Comment: Able to communicate effectively in Swedish Visual Impairment: Partially Limited Hearing Ability: Hard of Hearing 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 Beliefs That Will Affect Care: None marital status: Single Current Living Situation: Family Current Living Situation Comment: daughter close by current occupational status: retired How many Children do You have: 2 Feels Safe at Home: Yes Childhood Exposure to Second-Hand Smoke: Yes Diet: regular Diet Comment: High protein caffeine: Yes (coffee) during the past year weight has: remained stable Dental Care, Regularly: No Physical Activity Frequency: Daily Physical Activity Frequency Comment: Go's to gym, lift weights Seatbelt Use: always Sunscreen Use: Yes Do you think of yourself as: straight/heterosexual Gender Identity: Male Assistive Devices: Glasses and Hearing Aid - Bilateral Results & Data Vital Signs (Past 12 Hours) Vital Signs O2 Del Method O2 Flow Rate 12/29/22 09:06 Nasal Cannula 4
[2022-12-30] MEDS: prednisoLONE acetate 1% OP SUSP 5 ML BTL OPL SCH (08:06)
--- NOTE | 2022-12-30 10:53 | Palliative Care Consultation ---
Date of Consultation December 30, 2022 Assessment & Plan (1) Altered mental status: MSOF (2) Dyspnea and respiratory abnormalities: terminal lung cancer, worsening MSOF, ESRD (3) Weakness generalized: see #1 and 2 (4) Palliative care by specialist: Met with family/grand daughter from [facility] at bedside; I gave her an overview of Palliative Medicine, a subspecialty that provides specialized medical care for people living with a serious illness by offering a focus on quality of life. Palliative Medicine is often conflated with hospice: I advised patient/family that Palliative and hospice can be partners but we are not the same. It is important to understand the difference so that we may be informed, and not afraid. Palliative Medicine works to improve QOL through reduction of symptom burden/more control over their illness, for both the patient and family. Palliative medicine clinicians are board certified, specially-trained and another member of the patient's medical care team. We often provide an extra layer of support because our care is based on the needs of the patient, not the prognosis; as such, it's appropriate at any age/advancing stage of a serious illness and can be provided along with curative treatment. Palliative Medicine clinicians are also trained in advanced communication methodologies, to facilitate complex discussions about advanced illness planning, which are needed to help assure that the treatment choices match the patient's goals, aka delivering Goal Concordant care. Finally, we discussed that hospice is a visiting nurse service that focuses on care delivered at the very end of life for patients with terminal illness, with life expectancy less than 6 month. (5) Discussion about advance care planning held with family member: Met with family bedside for 30min face to face discussion Granddaughter confirms family desire is for home with hospice and she advised me her aunt/pt dtr is currently speaking with care t about home hospice. They would like him to be home as this was always his clear wish and desire. There are multiple family members and he will have ATC care from them he has been declining since admission. Delirium worse today per granddaughter who also adds that "he has been in and out of it" all day (6) Encounter for hospice care discussion: I provided education about the hospice benefit: an interdisciplinary program offered by nurses, nurses aides, social workers, chaplains and a medical affairs director for patients with a terminal condition and a life expectancy of less than 6 months. This is covered by Medicare at 100%/no out of pocket expense to patient and all meds/supplies needed by patient for the reason they are on hospice are paid for/covered by hospice. The goal is assure quality of life of the patient in their home setting (home, skilled nursing, inpatient hospice setting) by providing symptoms management, psychosocial and spiritual support. However, they cannot offer 24 hours care and if the family is unable to provide that care, they will have to consider personal care with out of pocket cost vs. skilled nursing placement. We discussed the goals of hospice as a patient service and the goals of care; we discussed EOL trajectories and transitions marcello the emotional impact of realizing mortality as a concrete reality from prior abstract considerations. Pt was reassured that no matter where they are along this trajectory, they are not alone - their medical team will remain by their side through their journey. Discussed the pros/cons of accepting help when especially weakened and distressed by pain-which would also help provide relief/decrease caregiver burden/strain. 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 We are in agreement pt has a short anticipated survival. Worsening delirium since admission. Suspect he has days to live. IF home hospice is desired, I would move quickly to get him home by tomorrow. * TS 75min Thank you for allowing us to participate in the ongoing care of this patient. Please don't hesitate to call or page with any additional concerns. Dr. Nemo Jones DNP Director, Palliative Care History of Present Illness Reason for Consultation: family request/ on account support associate Attending Physician: Lucas Damon History of Present Illness Edgar is well known to me from prior admissions. per oncology note, "metastatic lung cancer which has progressed on second line of treatment with docetaxel. Also has end-stage renal disease for which he is on dialysis. 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 They are aware of extremely poor prognosis and lack of treatment options from metastatic lung cancer and the fact that he may pass away over the next few days most likely from end-stage renal disease after discontinuing dialysis. Discussed with patient yesterday and daughter today and support provided. Plan is to eventually transition to home hospice if clinical condition allows." we have been consulted at request of family to assist with REINFORCING BAR SETTER/EOL care Allergies Allergy/AdvReac Type Severity Reaction Status Date / Time No Known Allergies Allergy Verified 12/26/22 18:17 Home Medications Medication Instructions Recorded Confirmed Type aspirin 81 mg tablet,delayed 81 mg PO HS 12/15/18 12/26/22 History release carvedilol 3.125 mg tablet 3.125 mg PO BID #180 tabs 04/23/22 12/26/22 Rx budesonide 90 mcg/actuation breath 1 inh inhalation BID #1 ea 05/28/22 12/26/22 Rx activated powder inhaler (Pulmicort Flexhaler) prochlorperazine maleate 10 mg 10 mg PO Q6H PRN Nausea 09/18/22 12/26/22 History tablet (Compazine) pantoprazole 40 mg tablet,delayed 40 mg PO BID #180 tabs 09/22/22 12/26/22 Rx release ergocalciferol (vitamin D2) 1,250 1,250 mcg PO MONTHLY 10/06/22 12/26/22 History mcg (50,000 unit) capsule prednisolone acetate 0.12 % eye 1 drp ophthalmic (eye) DAILY 10/06/22 12/26/22 History drops,suspension oxycodone 10 mg tablet 10 mg PO .Q4-6H PRN pain #180 tabs 10/10/22 12/26/22 Rx calcitriol 0.5 mcg capsule 0.5 mcg PO .COMPLEX 10/28/22 12/26/22 History sertraline 50 mg tablet 50 mg PO QAM 10/28/22 12/26/22 History sevelamer carbonate 800 mg tablet 800 mg PO .COMPLEX 10/28/22 12/26/22 History Docetaxel Tx See Rx Instructions .Route .COMPLEX 11/01/22 12/26/22 History dexamethasone 4 mg tablet 8 mg PO DIRECTED 11/01/22 12/26/22 History pregabalin 25 mg capsule (Lyrica) 25 mg PO MOWEFR #30 caps 11/08/22 12/26/22 Rx First - Mouthwash Blm [Magic 5 ml PO QID PRN irritation 11/28/22 12/26/22 History Mouthwash] acetaminophen 325 mg tablet 650 mg PO Q6H PRN Pain 11/28/22 12/26/22 History albuterol sulfate 90 mcg/actuation 1 inh inhalation .4-6H PRN 12/26/22 12/26/22 History aerosol inhaler wheezing/SOB atorvastatin 10 mg tablet 10 mg PO QAM 12/26/22 12/26/22 History furosemide 40 mg tablet 40 mg PO QAM 12/26/22 12/26/22 History vitamin B complex-vitamin C-folic 1 tab PO HS 12/26/22 12/26/22 History acid 0.8 mg tablet (Dasia-Kimmy) Patient History Medical History (Updated 12/30/22 @ 12:26 by Nemo Jones DNP) Advanced care planning/counseling discussion Anemia due to chronic kidney disease Hgb 10-12 range per chart review, fecal occult blood test x3 negative per 12/25/21 PCP note CAD (coronary artery disease) s/p CABG x1 (with ascending thoracic aorta repair) - 2008 Chronic midline thoracic back pain Discussion about advance care planning held with family member Dyslipidemia Dyspnea and respiratory abnormalities Encounter for hospice care discussion GERD (gastroesophageal reflux disease) History of COVID-19 09/2021, hospitalized at [facility] (vomiting, dehydration, cough, sinus congestion) > resolved HTN (hypertension) Palliative care by specialist Secondary hyperparathyroidism of renal origin Stage 5 chronic kidney disease not on chronic dialysis Thoracic aortic aneurysm s/p repair (2008) Surgical History H/O thoracic aortic aneurysm repair CABG x1 + ascending thoracic aorta repair (2008) History of cataract surgery R/L History of hernia repair S/P CABG (coronary artery bypass graft) CABG x1 + ascending thoracic aorta repair (2008) Family History Brother Brain tumor Cancer, Onset Age: 70 colon cancer Sai Mother Leukemia Denies family history of Ovarian cancer Prostate cancer Myocardial infarction Breast cancer Colorectal cancer Social History Smoking Status: Current some day smoker Tobacco Type: Cigars Age Started Using Tobacco: 41; Cigarettes Per Day: 1 cigar every six months; Second Hand Exposure: No; Do You Dip or Chew Tobacco: No; Hx Alcohol Use: No Hx Substance Use: No Preferred Language: Emirati Communication Ability: Effective Communication Ability Comment: Able to communicate effectively in Emirati Visual Impairment: Partially Limited Hearing Ability: Hard of Hearing 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 Beliefs That Will Affect Care: None marital status: Single Current Living Situation: Family Current Living Situation Comment: daughter close by current occupational status: retired How many Children do You have: 2 Feels Safe at Home: Yes Childhood Exposure to Second-Hand Smoke: Yes Diet: regular Diet Comment: High protein caffeine: Yes (coffee) during the past year weight has: remained stable Dental Care, Regularly: No Physical Activity Frequency: Daily Physical Activity Frequency Comment: Go's to gym, lift weights Seatbelt Use: always Sunscreen Use: Yes Do you think of yourself as: straight/heterosexual Gender Identity: Male Assistive Devices: Glasses and Hearing Aid - Bilateral Review of Systems Review of Systems: Unobtainable due to cognitive status Physical Exam Physical Exam: Confused bronchitic rattling cough mild increased resp effort use of accessory muscles noted, +conversational dyspnea coarse rhonchi right , diminished left tachy s1s2 no JVD no stridor abd soft no gross distension generalized weakness Alert to self, unaware of place/date/time; +generalized confusion skin tanned, warm no BLE edema no c/c/e, no mottling Results & Data Vital Signs (Past 12 Hours) Vital Signs O2 Del Method O2 Flow Rate 12/30/22 07:18 Nasal Cannula 4 Laboratory Results data reviewed Diagnostic Findings data reviewed PG Care Time/CCT Total # of Minutes Spent Total Time Spent: 75 Total Time Spent with Patient: Total time spent is greater than 50% in coordination of care (as documented) at patient's floor/unit and/or counseling patient: I spent 75 minutes overall addressing this case: 10 in medical data review/discussion with referring provider(s) and/or preparation for the visit 15 in direct interaction with the patient 30 Advance Care Planning/Goals of Care discussions as detailed above in note (must be >16min) 10 in subsequent review and synthesis of assessment and plan 10 in communicating with other providers regarding the patient's case: Dr Damon Advanced Care Planning 80680 Advanced Care Planning 30 [place] [address] IN/OBS CONSULT LVL 5,80M Patient Type New History Comprehensive Exam Comprehensive Medical Decision Making High Complexity Diagnoses Altered mental status R41.82 Dyspnea and respiratory abnormalities R06.00; R06.89 Weakness generalized R53.1 Palliative care by specialist Z51.5 Discussion about advance care planning held with family member Z71.0 Encounter for hospice care discussion Z71.89 Adenocarcinoma, lung C34.90 Additional Codes Advanced Care Planning - 36889 Advanced Care Planning 30 Min: 29124 Advanced Care Planning 30 Min ([id number])
[2022-12-30] MEDS ORDERED: LORazepam 2 MG/1 ML VIAL IV PRN (11:54)
[2022-12-30] MEDS ORDERED: HYDROmorphone INJ 0.5 MG/0.5 ML SYR IV PRN (11:56)
[2022-12-30] MEDS: HYDROmorphone INJ 0.5 MG/0.5 ML SYR IV PRN ×2 (12:23→18:16)
[2022-12-30] MEDS: GLYCOPYRROLATE 0.2 MG/ML VIAL IV PRN (12:23)
[2022-12-30] MEDS: ONDANSETRON INJ 2 MG/ML 2 ML VIAL IV PRN (18:16)
--- NOTE | 2022-12-30 21:31 | Hospitalist Progress Note ---
Date of Service December 30, 2022 Assessment & Plan (1) Comfort measures only status: Plan: Known metastatic lung cancer to bone and brain. Comfort care measures. Pain control. Supplemental oxygen for comfort. Do not titrate oxygen. No further lab testing. Multiple nonessential medications discontinued Family requested palliative care and oncology consult. Working on home hospice. (2) Neutropenic fever: Plan: Patient declines further antibiotics. Comfort care measures only (3) Metastatic lung cancer (metastasis from lung to other site): Plan: Known primary lung cancer with metastases to bone and brain. No further treatment at this time (4) ESRD (end stage renal disease): Plan: No further hemodialysis at this time. Plan Comfort care measures. DNR/DNI Admission and Anticipated Discharge Date Admission Date: December 26, 2022 Subjective 77 yo male is on comfort. Review of Systems Review of Systems: All systems reviewed & are unremarkable except as noted in HPI & below Physical Exam Physical Exam: General-alert. Depressed affect. Pallor noted HEENT-head atraumatic and normocephalic, pupils equal and reactive to light, extraocular muscles intact Appears comfortable, not using accessory muscles to breath. PG Care Time/CCT Total # of Minutes Spent Total Time Spent with Patient: Total time spent is greater than 50% in coordination of care (as documented) at patient's floor/unit and/or counseling patient: Coding Level of Care Code 61032 SUB INP/OBS CARE 2/35MIN Diagnoses Comfort measures only status Z51.5 Neutropenic fever D70.9; R50.81 Metastatic lung cancer (metastasis from lung to other site) C34.90 ESRD (end stage renal disease) N18.6
[2022-12-31] MEDS: HYDROmorphone INJ 0.5 MG/0.5 ML SYR IV PRN ×2 (05:01→16:15)
[2022-12-31] MEDS: prednisoLONE acetate 1% OP SUSP 5 ML BTL OPL SCH (08:23)
[2022-12-31] MEDS: GLYCOPYRROLATE 0.2 MG/ML VIAL IV PRN (12:19)
--- NOTE | 2022-12-31 14:39 | Palliative Care Progress Note ---
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 Please don't hesitate to call or page with any additional concerns. Dr. 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 sleeping at time of my visit earlier this morning Review of Systems Review of Systems: Unobtainable due to cognitive status Physical Exam Physical Exam: Sleeping bronchitic breath sounds no apneas no JVD, no stridor skin tanned complexion Results & Data Vital Signs (Past 12 Hours) Vital Signs O2 Del Method O2 Flow Rate 12/31/22 08:00 Nasal Cannula 4 PG Care Time/CCT Total # of Minutes Spent Total Time Spent: 45 Total Time Spent with Patient: Total time spent is greater than 50% in coordination of care (as documented) at patient's floor/unit and/or counseling patient: 45 min Coding [place] [address] SUB INP/OBS CARE 3/50MIN Patient Type Established History Comprehensive Exam Comprehensive Medical Decision Making Moderate Complexity Diagnoses Dyspnea and respiratory abnormalities R06.00; R06.89 Altered mental status R41.82 Weakness generalized R53.1 Palliative care by specialist Z51.5 Metastatic lung cancer (metastasis from lung to other site) C34.90 Comfort measures only status Z51.5
--- NOTE | 2022-12-31 14:53 | Discharge Summary ---
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 Mcneil), ESRD on HD MWF, CAD status post CABG x 1, Thoracic aortic aneurysm repair in 2008, and HTN who presented to the [facility] ED via EMS on 12/26 with complaints of generalized weakness and N/V/D. Per the ED staff, EMS reports that the patient was too weak to get up fro dialysis today so his daughter called EMS. EMS noted the patient to be hypoxic with SpO2 in the 70% and was placed on 4L NC. In the ED he remained stable on 4L NC and remained hemodynamically stable. Labs were significant for a WBC of 0.78, hgb of 7.2 (down from 9.4 as of 12/17), platelets of 115 (down from 151 as of 12/17), absolute neutrophil count of 0.15, initial high sen trop of 37, BNP of 252, Covid/RSV/Influenza negative. Chest xray was read as "Multifocal airspace opacities may represent atelectasis, pneumonia, and/or aspiration. 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 Prior to admission the patient was given a dose of cefepime and vancomycin. At the time of the exam the patient was sleeping in bed with his daughter/POA sitting bedside, history was taken from both. His daughter states that the patient has had a steep clinical decline over the past few months. He had a PET scan at [facility] yesterday, unfortunately it shows widespread progression of his cancer, now to more bony areas, the liver, GI tract, and tract. The daughter spoke to Dr. Mcneil on the phone regarding the results earlier today, Dr. Mcneil recommended transitioning to Hospice. She was going to place the order for home hospice on Thursday to allow his daughter to speak to the patient regarding the CT results. Unfortunately, after the phone call, the patient was too weak to get up for dialysis so EMS was called. We had a long discussion with the patient and his daughter, as the patient is currently alert and oriented. We discussed his PET scan results. The patient states "I know I am dying, I don't want to suffer anymore". We had further discussions regarding his wishes for dialysis and antibiotics. He again made it clear that he no longer wants dialysis as this would just prolong his life/suffering. He also made it clear that he would not want antibiotics. I explained that stopping dialysis is definitely an option, but stressed that stopping could significantly shorten the time until he passes. The patient expressed understanding and clearly stated that he would not want dialysis. His Daughter would like to try and bring him home on hospice but needs time to try and coordinate with family. They understand that he may not survive this hospitalization. Please refer to Dr. Gomez's attestation for any changes to the treatment plan Discharge Data Allergies Allergy/AdvReac Type Severity Reaction Status Date / Time No Known Allergies Allergy Verified 12/26/22 18:17 Consultations 12/26/22 18:32 ED Decision to Admit Stat 12/29/22 13:43 Consult Palliative Care Routine 12/29/22 13:44 Consult Oncology Routine Hospital Course (1) Comfort measures only status: Known metastatic lung cancer to bone and brain. Comfort care measures. Pain control. Supplemental oxygen for comfort. Do not titrate oxygen. No further lab testing. Multiple nonessential medications discontinued Family requested palliative care and oncology consult. Working on home hospice. (2) Neutropenic fever: Patient declines further antibiotics. Comfort care measures only (3) Metastatic lung cancer (metastasis from lung to other site): Known primary lung cancer with metastases to bone and brain. No further treatment at this time (4) ESRD (end stage renal disease): No further hemodialysis at this time. Plan Comfort care measures. DNR/DNI Discharge Plan Discharge Items Reason For Visit: NEUTROPENIC FEVER Follow-up/Referrals: Abebe Ny MD [Primary Care Provider] - Medications and DC Order Prescriptions: No Action prochlorperazine maleate [Compazine] 10 mg tablet 10 mg PO Q6H PRN (Reason: Nausea) prednisolone acetate 0.12 % drops,suspension 1 drp ophthalmic (eye) DAILY Rx Instructions: Left Eye ergocalciferol (vitamin D2) 1,250 mcg (50,000 unit) capsule 1,250 mcg PO MONTHLY calcitriol 0.5 mcg capsule 0.5 mcg PO .COMPLEX Rx Instructions: 0.5 mcg orally Three times a week, THU WED THU dialysis days; sevelamer carbonate 800 mg tablet 800 mg PO .COMPLEX Rx Instructions: 800 mg orally 2 tablets with meals and then 1 tablet with snacks; must administer with a meal/food carvedilol 3.125 mg tablet 3.125 mg PO BID Qty: 180 1RF Pulmicort Flexhaler 90 mcg/actuation aerosol powdr breath activated 1 inh inhalation BID Qty: 1 4RF pantoprazole 40 mg tablet,delayed release (DR/EC) 40 mg PO BID Qty: 180 2RF oxycodone 10 mg tablet 10 mg PO .Q4-6H PRN (Reason: pain) Qty: 180 0RF aspirin 81 mg tablet,delayed release (DR/EC) 81 mg PO HS acetaminophen 325 mg tablet 650 mg PO Q6H PRN (Reason: Pain) First - Mouthwash Blm [Magic Mouthwash] 5 ml PO QID PRN (Reason: irritation) sertraline 50 mg tablet 50 mg PO QAM dexamethasone 4 mg tablet 8 mg PO DIRECTED Rx Instructions: Take day before, day of and day after chemo Docetaxel Tx See Rx Instructions .ROUTE .COMPLEX Rx Instructions: Every 3 weeks starting 10/21/22 for 6 treatments. Completed 3rd treatment on 12/18/22. pregabalin [Lyrica] 25 mg capsule 25 mg PO MOWEFR Qty: 30 0RF Rx Instructions: 25 mg orally 1 tablet weekly, then increase to twice weekly and then possibly to 3 times a week.; after dialysis furosemide 40 mg tablet 40 mg PO QAM albuterol sulfate 90 mcg/actuation HFA aerosol inhaler 1 inh INHALATION .4-6H PRN (Reason: wheezing/SOB) atorvastatin 10 mg tablet 10 mg PO QAM Dasia-Kimmy 0.8 mg tablet 1 tab PO HS Admission Data Admit Date/Time: 12/26/22 18:46 Attending Provider: Lucas Damon Admit Provider: Ismael Gomez Primary Care Provider: Abebe Ny Other Providers: Ismael Gomez ; Cassie Wright ; Nemo Jones ; Kasie Mcneil Coding Diagnoses Comfort measures only status Z51.5 Neutropenic fever D70.9; R50.81 Metastatic lung cancer (metastasis from lung to other site) C34.90 ESRD (end stage renal disease) N18.6
== END 2022-12-31 17:32 | disposition hospice, home (50) | DRG 951 ==
LOC: ED 16:09 → 3E 18:46 → SUATTDRO 18:46 → 3E 21:35